=== PATIENT | male | born 1945 | race Caucasian/White ===

== ENCOUNTER 2020-01-21 11:38 | Outpatient (CLI) | payer MEDICARE, SELFPAY ==
--- NOTE | 2020-01-21 11:48 | CT_ITS ---
WS: [id number] CT ABDOMEN PELVIS TECHNIQUE: Noncontrast CT of the abdomen and pelvis with coronal and sagittal reformatted images. CLINICAL INFORMATION: CHRONIC KIDNEY DZ-STAGE3/ANEMIA COMPARISON: CT DLP: 1647.[address] scans at [facility] use at least one of these dose optimization techniques: automat ed exposure control; mA and/or kV adjustment per patient size (includes targeted exams where dose is matched to clinical indication); or iterative reconstruction. FINDINGS: Cholelithiasis with prominent gallstone measuring 2.4 cm. Gallbladder is contracted. No pericholecyst ic fluid. Noncontrast liver is normal. Normal noncontrast spleen. Normal GE junction. Slight atelecta sis in the lung bases. A few blebs in the lung bases. Adrenal glands are normal. No hydronephrosis. R ight renal atrophy. No hydronephrosis in either kidney. No obstructing renal or ureteral calculi. Pancreatic atrophy. Noncontrast contrast pancreas appears normal. Aortic calcification. Normal calibe r abdominal aorta. Sigmoid diverticulosis. No evidence of acute diverticulitis. Normal appendix in th e right lower quadrant. A few small bladder diverticuli. Postoperative changes pedicle screw fixation L3-S2 with interbody fusion grafts L3-L4 L4-L5. Interbo dy fusion graft L5-S1. Bilateral iliac screws. Abandoned S1 screws. CT/CT abdomen pelvis wo con [id number] IMPRESSION: 1. Cholelithiasis with prominent gallstone measuring 2.4 CM. 2. No hydronephrosis. No obstructing renal or ureteral calculi. 3. Right renal atrophy with atrophic right kidney. This is progressed since 4. No periaortic or retroperitoneal lymphadenopathy. No pelvic or inguinal lym phadenopathy. 5. Sigmoid diverticulosis. 6. Prior postoperative changes lumbosacral fusion.
== END 2020-01-21 11:39 | disposition home or self-care (01) ==
LOC: CT 11:44
PROVIDERS: PCP Electrodiagnostic Medicine; Visit Provider Electrodiagnostic Medicine
DX: N18.30 Chronic kidney disease, stage 3 unspecified (principal); D64.9 Anemia, unspecified; K57.30 Diverticulosis of large intestine without perforation or abscess without bleeding; N26.1 Atrophy of kidney (terminal); K80.20 Calculus of gallbladder without cholecystitis without obstruction; K80.80 Other cholelithiasis without obstruction; N18.4 Chronic kidney disease, stage 4 (severe)
CPT/HCPCS: 74176; 76770

== ENCOUNTER 2020-01-21 11:49 | Outpatient (CLI) | payer MEDICARE, SELFPAY ==
--- NOTE | 2020-01-21 12:24 | US_ITS ---
WS: [id number] RENAL ULTRASOUND REASON FOR EXAM: CHRONIC KIDNEY DZ STAGE 4 TECHNIQUE: Grayscale and Doppler ultrasound examination of the kidneys. FINDINGS: Right kidney: Right kidney measures 8.9 cm x 3.7 cm x 4.8 cm. Abundant renal sinus fibrolipomatosis. Cortical thickness is 6 to 7 mm. No calculus, mass, or hydronephrosis. Left kidney: Left kidney measures 11.8 cm x 5.0 cm x 6.4 cm. Abundant renal sinus fibrolipomatosis. C ortical thickness 7 to 8 mm. No calculus, mass, or hydronephrosis. No abnormality of the urinary bladder is identified. US/US renal BI* [id number] IMPRESSION: Small right kidney. Bilateral increased renal sinus fibrolipomatosis and decrea sed renal cortex thickness.
== END 2020-01-21 11:50 | disposition home or self-care (01) ==
PROVIDERS: PCP Electrodiagnostic Medicine; Visit Provider Internal Medicine Nephrology
DX: N18.4 Chronic kidney disease, stage 4 (severe) (principal)
CPT/HCPCS: 76770

== ENCOUNTER 2020-02-23 08:55 | Outpatient (CLI) | payer MEDICARE, SELFPAY ==
--- NOTE | 2020-02-23 09:04 | XR_ITS ---
WS: [id number] CHEST 2 VIEWS HISTORY: COPD COMPARISON: 02/13/2019 Lungs: Hyperinflated lungs from emphysema. Postsurgical sutures are noted in the RIGHT suprahilar and RIGHT apical region. No new masses or consolidation. Costophrenic angles are blunted bilaterally whi ch is chronic. Slight elevation of the LEFT hemidiaphragm. Cardiac size: Normal. Mediastinum/Aorta: Mild atherosclerosis aorta. Bones: Prior LEFT rotator cuff repair. Single anchor is noted. XR/XR chest 2V* [id number] IMPRESSION: 1. Chronic emphysema stable postsurgical changes in the RIGHT upper lung. 2. Stable blunting of the costophrenic angles.
== END 2020-02-23 08:56 | disposition home or self-care (01) ==
LOC: RAD 09:02
PROVIDERS: PCP Electrodiagnostic Medicine; Visit Provider Electrodiagnostic Medicine
DX: J44.9 Chronic obstructive pulmonary disease, unspecified (principal)
CPT/HCPCS: 71046

== ENCOUNTER → 2020-03-01 10:46 | Outpatient (BNVA) | payer MEDICARE, SELFPAY | PROVIDERS: PCP Electrodiagnostic Medicine; Visit Provider Nurse Practitioner Family | DX: Z20.828 Contact with and (suspected) exposure to other viral communicable diseases (principal); J06.9 Acute upper respiratory infection, unspecified | CPT/HCPCS: 87635 ==

== ENCOUNTER 2020-05-16 15:34 | Outpatient (CLI) | payer MEDICARE, SELFPAY ==
--- NOTE | 2020-05-16 15:48 | XR_ITS ---
WS: [id number] PROCEDURE: XR chest 2V* [id number] CLINICAL INFORMATION: COPD,CHF,DIABETES MELLITUS COMPARISON: February 23, 2020 FINDINGS: Heart: Normal cardiac silhouette. Aortic calcification. Postoperative changes right upper lobe medial ly. Lungs: Moderate chronic emphysematous changes. Blunting of the costophrenic angles somewhat the prior examination. Elevation left hemidiaphragm. No acute pulmonary infiltrates. Bones: Left rotator cuff anchor. XR/XR chest 2V* [id number] IMPRESSION: 1. Moderate chronic emphysematous changes with chronic pleural thickening in t he lung bases is unchanged in appearance. 2. No focal pneumonia or acute-appearing pulmonary infiltrates. 3. Prior postoperative changes right upper lobe medially.
== END 2020-05-16 15:35 | disposition home or self-care (01) ==
PROVIDERS: PCP Electrodiagnostic Medicine; Visit Provider Electrodiagnostic Medicine
DX: J44.9 Chronic obstructive pulmonary disease, unspecified (principal); I50.9 Heart failure, unspecified; E11.9 Type 2 diabetes mellitus without complications
CPT/HCPCS: 71046

== ENCOUNTER → 2020-08-04 08:47 | Outpatient (BNVA) | payer MEDICARE, SELFPAY | PROVIDERS: PCP Electrodiagnostic Medicine; Visit Provider Internal Medicine Pulmonary Disease | DX: J44.9 Chronic obstructive pulmonary disease, unspecified (principal) | CPT/HCPCS: 87635 ==

== ENCOUNTER 2020-08-11 13:21 | Outpatient (CLI) | payer MEDICARE, SELFPAY ==
--- NOTE | 2020-08-11 13:41 | PFTS_ITS ---
Date of Study:08/11/20 Date of Dictation: 08/11/2020 MECHANICS: Postbronchodilator forced vital capacity (FVC) is 79% corrected from 69% predicted after bronchodilation Postbronchodilator forced expiratory volume in one second (FEV1) is 1.37 L and severely reduced 50% of predicted FEV1/FVC is reduced. There is significant response to bronchodilators FLOW VOLUME LOOP: Sloping of expiratory limb suggestive of airway obstruction.. LUNG VOLUMES: Not measured DIFFUSING CAPACITY FOR CARBON MONOXIDE: Mildly reduced 66% . INTERPRETATION: The spirometry consistent with severe obstructive ventilatory defect with significant response to bronchodilators. Lung volumes not measured. There is minimal gas transfer defect. Correlate clinically. MTDD
== END 2020-08-11 13:22 | disposition home or self-care (01) ==
PROVIDERS: PCP Electrodiagnostic Medicine; Visit Provider Internal Medicine Pulmonary Disease
DX: J44.9 Chronic obstructive pulmonary disease, unspecified (principal); F17.210 Nicotine dependence, cigarettes, uncomplicated
CPT/HCPCS: 94060; 94618; 94729

== ENCOUNTER 2020-09-07 10:35 | Emergency (ER) | payer MEDICARE, SELFPAY ==
[2020-09-07 11:29] VITALS: BP 135/77; PULSE 84; RESP 18; TEMP 36.8; O2SAT 94; BMI 34.6
--- NOTE | 2020-09-07 12:02 | CT_ITS ---
WS: [id number] CT LUMBAR SPINE, noncontrast. HISTORY: back pain. h/o surgery/hardware TECHNIQUE: Contiguous 2.5 mm axial imaging are performed. Sagittal and coronal reformats are submitte d and reviewed. All CT scans at [facility] use at least one of these dose optimization te chniques: automated exposure control; mA and/or kV adjustment per patient size (includes targeted exa ms where dose is matched to clinical indication); or iterative reconstruction. IV contrast: None DLP: 2410.23 mGy.cm COMPARISON: 09/29/2017 and 01/21/2020 L5 anterolisthesis by 5 mm. Posterior fusion hardware extends from L3 S2. No fractures are identified . Interbody spacers at L3-4, L4-5 and L5-S1 with no subsidence. Bilateral pars defects at L5. Vacuum disc phenomenon at T12-L1 and L2-3. L1-2: Mild osteophytic ridging without significant stenosis. L2-3: Diffuse annular disc bulging and osteophytic ridging. Disc contacts the ventral thecal sac and narrows the subarticular recesses and foramina. Moderate bilateral foraminal stenosis and mild subart icular recess and central stenosis. L3-4: Significant artifact from hardware obscuring detail. There is osteophytic ridging and disc bulg ing. Moderate LEFT and mild RIGHT foraminal stenosis. There is a small osteophyte encroaching upon th e LEFT L3 nerve root. Large posterior laminectomy defect. L4-5: Diffuse osteophytic ridging. Vertebral body osteophytes causing mild encroachment into the fora men. There is a large posterior laminectomy defect. Severe facet joint arthritis. L5-S1: Using a disc bulging and osteophytic ridging. Severe LEFT and moderate RIGHT foraminal stenosi s. Osteophytes contribute to the stenosis involving the LEFT foramen. Extensive atherosclerosis abdominal aorta. No aneurysm is appreciated but the aorta is not entirely i ncluded. CT/CT lumbar spine wo con* [id number] IMPRESSION: 1. Status post extensive prior lumbar fusion hardware extending from L3 to S2 with interbody spacers at L3-4, L4-5 and L5-S1. No fractures of the hardware or loosening. 2. Grade 1 spondylolisthesis of L5 with bilateral pars defects. 3. Moderate bilateral foraminal stenosis with mild subarticular and central st enosis at L2-3. 4. Moderate LEFT foraminal stenosis at L3-4. 5. Severe LEFT and moderate RIGHT foraminal stenosis at L5-S1.
--- NOTE | 2020-09-07 12:10 | W.ED.BACK ---
HPI - Back Pain/Injury General: Chief Complaint: Back Pain/Injury Stated Complaint: Back pain, lower R hip, thigh and leg pain Time Seen by Provider: 09/07/20 11:57 History of Present Illness: HPI Narrative: The patient is a 75-year-old male who comes to the ER complaining of lower right back pain since yesterday evening. says she felt a big lump there and they think it is a muscle spasm. He had 2 lumbar fusion surgeries 1 in 2018 and one in 2019. The second was after 2 of the screws broke on his first procedure. He complains of right lower back pain radiating to the right thigh. He was told to come for a CT scan of his back to make sure there is no problem with the hardware. Denies recent injury. MD elicited complaint: back pain Pertinent past history: prior back pain Onset (ago): hour(s) (24) Timing: constant Severity: moderate Similar Symptoms Previously: Yes Quality: sharp Location: lumbar spine and right lower back Radiation: other (Right thigh) Exacerbating factors: movement Relieving factors: other (Breast) Associated symptoms: Reports no associated symptoms; Deny abdominal pain, difficulty walking, fatigue or urinary urgency Review of Systems General: Reports: 10 or more systems reviewed and unremarkable except in HPI and below Const: Denies: fatigue Eyes: Denies: change in vision, blurry vision or eye redness ENMT: Denies: throat pain, swelling of lips/tongue, ear or mastoid pain or nasal congestion Card: Denies: chest pain, palpitations, irregular heart rhythm, edema, dyspnea on exertion or orthopnea Resp: Denies: dyspnea, productive cough or non-productive cough GI: Denies: abdominal pain, diarrhea or GI cramping : Denies: flank pain, urinary frequency or urinary urgency Musc: Reports: back pain; Denies: neck pain, extremity pain, joint pain, joint redness, limited range of motion or muscle weakness Skin/Breast: Denies: rash, pruritus, erythema, skin pain or skin tenderness Neuro: Denies: headache(s), numbness in extremities, weakness in extremities, sensory changes, difficulty walking, dizziness, confusion or Slurred speech present Psych: Denies: anxiety or depression Endo: Denies: polyuria All/Imm: Denies: urticaria, throat swelling or tongue swelling PFSH ED PFSH: Medical History COPD (chronic obstructive pulmonary disease) Heart failure HTN (hypertension) with goal to be determined Surgical History S/P lobectomy of lung Family History Mother Hypertension Stroke Brother Heart disease Other Diabetes Social History Smoking and tobacco status: former smoker Quit status (tobacco): has quit using tobacco Year quit tobacco: 1987 [id number] Second hand smoke exposure: No Smoking risk assessment/counseling performed?: Yes Alcohol intake: never Lives independently: Yes Household members: spouse Housing: House Marital status: service: No Current occupational status: retired Pets and animals: Yes History of recent travel: No Current gender identity: Male Physical Exam Const: COMMON NORMALS: no acute distress, average body habitus, patient oriented x3, no limitations, healthy appearing, alert and well nourished GENERAL APPEARANCE: cooperative, comfortable, well kempt and well developed ORIENTATION/CONSCIOUSNESS: Yes awake, Yes oriented to person, Yes oriented to place and Yes oriented to time HENMT: COMMON NORMALS: normocephalic, external ears normal and Normal external nose present HEAD & SCALP: normal to inspection and normocephalic NOSE: Normal external nose present EXTERNAL EAR: Yes external ears normal MOUTH: Normal oral and palatal mucosa present THROAT: posterior oropharynx normal Eye: COMMON NORMALS: Equal, round and reactive pupils present and EOMs intact bilaterally GENERAL EYE: appearance normal, both eyes and all related structures PUPIL: Yes Equal, round and reactive pupils present Neck/C-Spine: COMMON NORMALS: full ROM, no lymphadenopathy, no meningeal signs and no JVD GENERAL: Yes normal visual inspection Lymph: LYMPHATIC: no lymphadenopathy noted Chest: COMMONS NORMALS: normal inspection of the chest and normal palpation of entire chest wall Resp: COMMON NORMALS: normal respiratory effort, No retractions, No use of accessory muscles, clear to auscultation bilaterally and percussion normal EFFORT & INSPECTION: Yes able to speak in complete sentences AUSCULTATION: clear to auscultation bilaterally PERCUSSION: percussion normal Cardio: COMMON NORMALS: no JVD, regular rate, regular rhythm, S1 normal heart sound present, S2 normal heart sound present and Peripheral pulses 2+ throughout RATE: regular rate RHYTHM: regular rhythm HEART SOUNDS: S1 normal heart sound present and S2 normal heart sound present PERIPHERAL PULSES: Peripheral pulses 2+ throughout GI: COMMON NORMALS: Normal to inspection, nondistended, normoactive bowel sounds present, Soft to palpation, non-tender and no masses INSPECTION: Yes normal to inspection PALPATION: Yes Soft to palpation : COMMON NORMALS: Yes no CVA tenderness BLADDER/KIDNEY EXAM: Yes no CVA tenderness Back/Pelvis: COMMON NORMALS: no CVA tenderness, thoracic and lumbar spine normal to inspection, no thoracic nor lumbar tenderness and thoraco-lumbar ROM normal OTHER: Muscle spasm to lower right lumbar spinal para musculature. Associated tenderness. Extremity: COMMON NORMALS: normal to inspection, full ROM, capillary refill normal, no joint enlargement and no pedal edema GENERAL: Yes normal exam except as noted Neuro: COMMON NORMALS: patient oriented x3, CN's II-XII intact bilaterally, moves all extremities, no focal motor deficits, no sensory deficits noted and gait normal SENSORIUM/ORIENTATION: Yes alert, Yes oriented to person, Yes oriented to place and Yes oriented to time MENINGEAL SIGNS: Yes no meningeal signs Psych: COMMON NORMALS: mental status grossly normal, Normal thought process present, cooperative, normal affect and speech normal APPEARANCE: Yes well kempt ATTITUDE: Yes calm SPEECH: Yes normal speech THOUGHT PROCESS: Normal thought process present Skin: COMMON NORMALS: no rashes or lesions noted GENERAL SKIN EXAM: no rashes or lesions noted Course Vital Signs: Vital signs: Vital Signs Temperature 98.2 F 09/07/20 11:29 Pulse Rate 84 09/07/20 11:29 Respiratory Rate 18 09/07/20 11:29 Blood Pressure 135/77 09/07/20 11:29 Pulse Oximetry 94 09/07/20 11:29 MDM - Back Pain/Injury MDM Narrative: Medical decision making narrative: The patient came to the ER complaining of a low right back spasm. It is tender to palpation there is well. He was given 2 Driscoll's with improvement of his pain. He also requested a muscle relaxer which has made him nauseous in the past. I gave him an Flexeril and sent him home with a prescription. He will not mix it with his hydrocodone's. He will not operate machinery while taking either of those medicines. Return to the ER with worsening symptoms otherwise follow-up with primary care physician in a few days to monitor improvement of symptoms. CT of lumbar spine shows no acute abnormality. Chronic problems and stenoses seen. Hardware intact. Discharge Plan Discharge Patient Disposition: Home Clinical Impression: Strain of lumbar region Condition: Stable Prescriptions: New cyclobenzaprine 5 mg tablet 5 mg PO TID PRN (Reason: muscle spasm) Qty: 14 RF: 0 No Action ipratropium-albuterol 18-103 mcg/actuation aerosol INHALATION RF: 0 melatonin 3 mg capsule 3 mg PO DAILY RF: 0 hydrocodone-acetaminophen 5-325 mg tablet 1 tab PO DAILY PRNRF: 0 magnesium oxide 250 mg magnesium tablet 250 mg PO DAILY RF: 0 Trulicity 0.75 mg/0.5 mL pen injector SUBCUT RF: 0 albuterol sulfate [Ventolin HFA] 90 mcg/actuation HFA aerosol inhaler 2 puff INHALATION Q6H PRNRF: 0 ferrous sulfate 325 mg (65 mg iron) tablet 325 mg PO DAILY RF: 0 finasteride 5 mg tablet 5 mg PO DAILY RF: 0 PreserVision AREDS [id number] capsule 1 cap PO BID RF: 0 vitamin B complex [B Complex-Vitamin B12] Tablet 1 tab PO DAILY RF: 0 docusate sodium [Dulcolax Stool Softener (dss)] 100 mg capsule 100 mg PO DAILY RF: 0 gabapentin 600 mg tablet 600 mg PO TID RF: 0 Lantus U-100 Insulin 100 unit/mL solution 95 unit SUBCUT DAILY RF: 0 aspirin 325 mg tablet 325 mg PO DAILY RF: 0 omeprazole 20 mg capsule,delayed release(DR/EC) 20 mg PO DAILY RF: 0 ascorbic acid (vitamin C) 500 mg tablet 500 mg PO DAILY RF: 0 zinc 50 mg tablet 50 mg PO DAILY RF: 0 guaifenesin [Mucinex] 600 mg tablet extended release 12hr 600 mg PO Q12H PRN (Reason: congestion) Qty: 60 RF: 1 allopurinol 100 mg tablet 100 mg PO DAILY RF: 0 Trelegy Ellipta 100-62.5-25 mcg blister with device 1 inh inhalation DAILY Qty: 60 RF: 3 amlodipine 10 mg tablet 10 mg PO DAILY Qty: 90 RF: 3 atorvastatin 80 mg tablet 80 mg PO DAILY Qty: 90 RF: 3 furosemide 20 mg tablet 20 mg PO DAILY Qty: 90 RF: 3 hydralazine 50 mg tablet 50 mg PO TID Qty: 270 RF: 3 metoprolol succinate 50 mg tablet extended release 24 hr 75 mg PO DAILY Qty: 135 RF: 3 Discharge Orders: Discharge ED (Routine); Ordered 09/07/20 Ordered By: Sanya Zamora Referrals: Praveen Shah DO [Primary Care Provider] - Discharge Diet: Advance as tolerated Discharge Activity: Resume usual activity Patient Instructions: Back Pain (ED), Opioid Safety Activity Restrictions/Additional Instructions: You came in complaining of low right back pain. CT shows no acute pathologies related to your previous surgeries. Likely have a muscle spasm. This will take 1 to 2 weeks to improve. I have prescribed you Flexeril. Please take it as needed to help with your pain along with the hydrocodone. Be careful taking the hydrocodone and the Flexeril at the same time as it may double the side effects of the medications and cause you to be excessively drowsy. Also do not operate machinery while using these medications. 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
[2020-09-07] MEDS: HYDROcodone-acetaminophen 5-325 mg Tablet 2 TAB PO (12:13)
[2020-09-07] MEDS: cyclobenzaprine 10 mg Tablet 5 MG PO (14:16)
[2020-09-07 14:26] VITALS: BP 131/72; PULSE 76; RESP 18; O2SAT 95
== END 2020-09-07 14:30 | disposition home or self-care (01) ==
PROVIDERS: Emergency Provider Family Medicine; PCP Electrodiagnostic Medicine
DX: S39.012A Strain of muscle, fascia and tendon of lower back, initial encounter (principal); Z79.82 Long term (current) use of aspirin; Z79.4 Long term (current) use of insulin; J44.9 Chronic obstructive pulmonary disease, unspecified; I11.0 Hypertensive heart disease with heart failure; I50.9 Heart failure, unspecified; Z90.2 Acquired absence of lung [part of]; Z87.891 Personal history of nicotine dependence; X58.XXXA Exposure to other specified factors, initial encounter
CPT/HCPCS: 72131; 99283

== ENCOUNTER 2020-10-12 12:26 | Outpatient (CLI) | payer MEDICARE, SELFPAY ==
--- NOTE | 2020-10-12 12:32 | XR_ITS ---
WS: [id number] Exam: XR ankle RT min 3V* [id number] Date/Time of Exam: 10/12/2020 12:33 PM Reason For Exam: PAIN IN JOINT INVOLVING ANKLE AND FOOT No fracture or dislocation. The ankle mortise is equidistant. Vascular calcifications noted about the ankle. XR/XR ankle RT min 3V* [id number] IMPRESSION: 1. No fracture or dislocation noted.
== END 2020-10-12 12:27 | disposition home or self-care (01) ==
PROVIDERS: PCP Electrodiagnostic Medicine; Visit Provider Electrodiagnostic Medicine
DX: M79.671 Pain in right foot (principal); M25.571 Pain in right ankle and joints of right foot
CPT/HCPCS: 73610

== ENCOUNTER 2020-11-09 08:31 | Emergency (ER) | payer MEDICARE, SELFPAY ==
[2020-11-09] VITALS (7 sets, daily range): BP systolic 108–110; BP diastolic 65–71; PULSE 97–102; RESP 20; TEMP 36.8; O2SAT 94–96; BMI 32.8
--- NOTE | 2020-11-09 08:45 | XR_ITS ---
WS: [id number] Exam: XR chest 1V portable [id number] Date/Time of Exam: 11/09/2020 8:47 AM Reason For Exam: dyspnea/cough Comparison 05/16/2020. The lungs are clear and fully inflated. Heart size is top limits normal. No pleural effusions. Mild p leural thickening at the right costophrenic angle. Numerous surgical sutures seen along the superior mediastinum on the right. Regional bony elements are intact. Anchoring screw in the left humeral head . XR/XR chest 1V portable [id number] IMPRESSION: 1. No acute cardiopulmonary finding. No change.
--- NOTE | 2020-11-09 08:45 | ECG_ITS ---
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
--- NOTE | 2020-11-09 08:52 | W.ED.CHESTPA ---
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 Dull pain in his chest with no radiation out of the chest no increasing shortness of breath he did have a mild headache it resolved spontaneously after 20 minutes he did not notice anything that exacerbates or relieves it. He has a known history of coronary disease an angiogram about 7 years ago but nothing in the interval. Is not been recent having any further episodes of chest pain. He is diabetic and has a history of hypertension. Recent ankle sprain is wearing a cam walker on the right leg that he got from someone else. MD complaint: chest heaviness Pertinent past history: coronary artery disease Onset (ago): minute(s) Timing of current episode: episodic Prior episodes: No Onset: during rest Pain location: left chest Pain radiation: none Severity: mild Quality: heaviness Relieving factors: nothing Exacerbating factors: nothing Associated symptoms: Deny abdominal pain, diaphoresis, dyspnea, fever(s), leg edema, nausea, palpitations, sense of impending doom, syncope or vomiting Treatment prior to arrival: none Review of Systems Const: Denies: fever(s) or diaphoresis ENMT: Denies: throat pain, ear or mastoid pain, nasal discharge or nasal congestion Card: Denies: palpitations or syncope Resp: Denies: dyspnea GI: Denies: abdominal pain, nausea or vomiting : Denies: flank pain, dysuria, urinary frequency or urinary urgency Skin/Breast: Denies: rash or pruritus PFSH ED PFSH: Medical History COPD (chronic obstructive pulmonary disease) Heart failure HTN (hypertension) with goal to be determined Surgical History S/P lobectomy of lung Family History Mother Hypertension Stroke Brother Heart disease Other Diabetes Social History Smoking and tobacco status: former smoker Quit status (tobacco): has quit using tobacco Year quit tobacco: 1987 [id number] Second hand smoke exposure: No Smoking risk assessment/counseling performed?: Yes Alcohol intake: never Lives independently: Yes Household members: spouse Housing: House Marital status: service: No Current occupational status: retired Pets and animals: Yes History of recent travel: No Current gender identity: Male Physical Exam Const: COMMON NORMALS: no acute distress GENERAL APPEARANCE: cooperative and comfortable ORIENTATION/CONSCIOUSNESS: Yes awake, Yes oriented to person, Yes oriented to place and Yes oriented to time HENMT: COMMON NORMALS: normocephalic, atraumatic and hearing grossly normal bilaterally HEAD & SCALP: normocephalic and atraumatic Eye: COMMON NORMALS: Equal, round and reactive pupils present, EOMs intact bilaterally, conjunctivae normal and no scleral icterus CONJUNCTIVA: Yes conjunctivae normal PUPIL: Yes Equal, round and reactive pupils present Neck/C-Spine: COMMON NORMALS: full ROM, no lymphadenopathy, supple and no JVD Lymph: LYMPHATIC: no lymphadenopathy noted and no lymphedema noted Resp: COMMON NORMALS: normal respiratory effort, No retractions, No use of accessory muscles and clear to auscultation bilaterally AUSCULTATION: clear to auscultation bilaterally Cardio: COMMON NORMALS: no JVD, regular rate, regular rhythm and No murmurs present (Cardio) RATE: regular rate RHYTHM: regular rhythm GI: COMMON NORMALS: Soft to palpation and No hepatosplenomegaly present AUSCULTATION: Yes normoactive bowel sounds PALPATION: Yes Soft to palpation, No Tenderness to palpation present (GI), No Guarding due to palpation present (GI) and Yes No hepatosplenomegaly present Extremity: COMMON NORMALS: normal to inspection, capillary refill normal, no clubbing, cyanosis or edema, no calf tenderness and no pedal edema Neuro: SENSORIUM/ORIENTATION: Yes oriented to person, Yes oriented to place and Yes oriented to time Skin: COMMON NORMALS: no rashes or lesions noted GENERAL SKIN EXAM: no rashes or lesions noted Course Vital Signs: Vital signs: Vital Signs Temperature 98.2 F 11/09/20 08:49 Pulse Rate 102 H 11/09/20 12:27 Respiratory Rate 20 H 11/09/20 08:42 Blood Pressure 110/65 11/09/20 11:53 Pulse Oximetry 96 11/09/20 12:27 MDM - Chest Pain MDM Narrative: Medical decision making narrative: Reviewed labs and EKGs on the chart discussed with the patient we will discharge patient home make arrangements for outpatient Lexiscan sestamibi stress test encourage patient to continue aspirin daily return if has further problems. Lab Data: Labs: Lab Results 11/09/20 11/09/20 11/09/20 Range/Units 09:07 09:07 09:07 WBC 9.2 (4.0-10.0) 10^3/ uL RBC 4.09 L (4.1-5.3) 10^6/u L Hgb 11.5 L (11.7-16.6) g/dL Hct 36.2 L (42.0-52.0) % MCV 88.5 (80-94) fl MCH 28.1 (28.0-34.0) pg MCHC 31.8 (30.0-36.0) g/dL RDW 17.2 H (12.1-15.1) % Plt Count 221 (130-400) 10^3/c mm MPV 9.6 (7.4-10.4) fL Neut % (Auto) 65.3 % Lymph % (Auto) 19.7 % [place] % (Auto) 12.5 % Eos % (Auto) 1.3 % Baso % (Auto) 0.7 % Neut # (Auto) 6.02 (1.8-7.7) 10^3/u L Lymph # (Auto) 1.8 (0.8-4.8) 10^3/u L [place] # (Auto) 1.2 H (0.2-0.9) 10^3/u L Eos # (Auto) 0.1 (0.0-0.8) 10^3/u L Baso # (Auto) 0.1 (0.0-0.1) 10^3/u L Nucleated RBC % (a uto) 0 % Nucleated RBCs # 0.0 /100WBC Sodium 140 (136-145) mmol/L Potassium 4.2 (3.5-5.1) mmol/L Chloride 102 (98-107) mmol/L Carbon Dioxide 26 (22-29) mmol/L Anion Gap 16.2 (5-19) BUN 25 H (8-23) mg/dL Creatinine 1.1 (0.7-1.2) mg/dL GFR Calculation Not Reportable Glucose 91 (65-115) mg/dL Calculated Osmolal ity 294 (285-295) mOsm/k g Calcium 9.1 (8.5-10.5) mg/dL Total Bilirubin 0.3 (0.15-1.2) mg/dL AST 16 (0-40) U/L ALT 18 (0-41) U/L Alkaline Phosphata se 92 (40-130) IU/L Troponin T Baselin e 42 H (0-15) ng/L Troponin T 120 Min [place] (0-15) ng/L Delta Troponin T (0-10) ABS# Total Protein 6.4 L (6.6-8.7) g/dL Albumin 3.5 (3.5-5.2) g/dL Globulin 2.9 (1.3-4.6) g/dL Urine Color (Yellow) Urine Appearance (CLEAR) Urine pH (5-7) Ur Specific Gravit y (1.005-1.030) Urine Protein (Negative) Urine Glucose (UA) (Normal) Urine Ketones (Negative) Urine Blood (Negative) Urine Nitrate (Negative) Urine Bilirubin (Negative) Urine Urobilinogen (Negative) mg/dL Ur Leukocyte Ni ase (Negative) 11/09/20 11/09/20 Range/Units 09:20 10:56 WBC (4.0-10.0) 10^3/ uL RBC (4.1-5.3) 10^6/u L Hgb (11.7-16.6) g/dL Hct (42.0-52.0) % MCV (80-94) fl MCH (28.0-34.0) pg MCHC (30.0-36.0) g/dL RDW (12.1-15.1) % Plt Count (130-400) 10^3/c mm MPV (7.4-10.4) fL Neut % (Auto) % Lymph % (Auto) % [place] % (Auto) % Eos % (Auto) % Baso % (Auto) % Neut # (Auto) (1.8-7.7) 10^3/u L Lymph # (Auto) (0.8-4.8) 10^3/u L [place] # (Auto) (0.2-0.9) 10^3/u L Eos # (Auto) (0.0-0.8) 10^3/u L Baso # (Auto) (0.0-0.1) 10^3/u L Nucleated RBC % (a uto) % Nucleated RBCs # /100WBC Sodium (136-145) mmol/L Potassium (3.5-5.1) mmol/L Chloride (98-107) mmol/L Carbon Dioxide (22-29) mmol/L Anion Gap (5-19) BUN (8-23) mg/dL Creatinine (0.7-1.2) mg/dL GFR Calculation Glucose (65-115) mg/dL Calculated Osmolal ity (285-295) mOsm/k g Calcium (8.5-10.5) mg/dL Total Bilirubin (0.15-1.2) mg/dL AST (0-40) U/L ALT (0-41) U/L Alkaline Phosphata se (40-130) IU/L Troponin T Baselin e (0-15) ng/L Troponin T 120 Min [place] 40.91 H (0-15) ng/L Delta Troponin T -1.09 L (0-10) ABS# Total Protein (6.6-8.7) g/dL Albumin (3.5-5.2) g/dL Globulin (1.3-4.6) g/dL Urine Color Yellow (Yellow) Urine Appearance Clear (CLEAR) Urine pH 5 (5-7) Ur Specific Gravit y 1.015 (1.005-1.030) Urine Protein Neg (Negative) Urine Glucose (UA) Norm (Normal) Urine Ketones Negative (Negative) Urine Blood Neg (Negative) Urine Nitrate Negative (Negative) Urine Bilirubin Neg (Negative) Urine Urobilinogen Norm (Negative) mg/dL Ur Leukocyte Ni ase Negative (Negative) Discharge Plan Discharge Patient Disposition: Home Clinical Impression: Atypical chest pain Condition: Stable Prescriptions: No Action melatonin 3 mg capsule 3 mg PO BEDTIME RF: 0 hydrocodone-acetaminophen 5-325 mg tablet 1 tab PO BID PRN (Reason: Pain) RF: 0 magnesium oxide 250 mg magnesium tablet 250 mg PO DAILY@12 RF: 0 albuterol sulfate [Ventolin HFA] 90 mcg/actuation HFA aerosol inhaler 2 puff INHALATION Q6H PRN (Reason: Shortness Of Breath) RF: 0 finasteride 5 mg tablet 5 mg PO QAM RF: 0 aspirin 325 mg tablet 325 mg PO QAM RF: 0 omeprazole 20 mg capsule,delayed release(DR/EC) 20 mg PO BID RF: 0 zinc 50 mg tablet 50 mg PO DAILY@12 RF: 0 allopurinol 100 mg tablet 100 mg PO DAILY RF: 0 amlodipine 10 mg tablet 10 mg PO DAILY Qty: 90 RF: 3 hydralazine 50 mg tablet 50 mg PO TID Qty: 270 RF: 3 cyclobenzaprine 5 mg tablet 5 mg PO TID PRN (Reason: muscle spasm) Qty: 14 RF: 0 Vegetable Laxative 8.6 mg Tablet 8.6 mg PO BEDTIME RF: 0 Vitamin C 1,000 mg Tablet 1,000 mg PO DAILY@12 RF: 0 Lantus U-100 Insulin 100 unit/mL solution 80 unit SUBCUT BID RF: 0 albuterol sulfate 2.5 mg /3 mL (0.083 %) solution for nebulization 2.5 mg inhalation Q4H PRN (Reason: Shortness Of Breath) RF: 0 metoprolol succinate 100 mg tablet extended release 24 hr 100 mg PO BEDTIME RF: 0 Vitamin B-12 500 mcg Tablet 1,000 mcg PO QAM RF: 0 Stool Softener 100 mg Capsule 100 mg PO BID RF: 0 gabapentin 300 mg Capsule 300 mg PO BID RF: 0 ipratropium bromide 0.02 % solution See Rx Instructions .ROUTE .COMPLEX RF: 0 Lumigan 0.01 % drops 1 drp ophthalmic (eye) QPM RF: 0 PreserVision AREDS-2 250-90-40-1 mg Capsule 1 tab PO BID RF: 0 Trulicity 1.5 mg/0.5 mL pen injector 1.5 mg SUBCUT Q7D RF: 0 atorvastatin 80 mg tablet 80 mg PO QPM RF: 0 furosemide 20 mg tablet 20 mg PO QAM RF: 0 Mucinex 600 mg tablet extended release 12hr 600 mg PO Q12H RF: 0 Trelegy Ellipta 100-62.5-25 mcg blister with device 1 inh inhalation QAM RF: 0 Discharge Orders: Discharge ED (Routine); Ordered 11/09/20 Ordered By: Mich Delaney Referrals: Praveen Shah, [Primary Care Provider] - Discharge Diet: Usual diet Discharge Activity: Limit activity as instructed Patient Instructions: Opioid Safety Activity Restrictions/Additional Instructions: Case management will call to schedule a Lexiscan sestamibi stress test. Coding Level of Care Code ED Plastic Finisher for Kathie Fwd Exam Comprehensive
[2020-11-09 09:12] LABS: Basophils # 0.1 10^3/uL (0.0-0.1); Basophils % 0.7 %; Eosinophils # 0.1 10^3/uL (0.0-0.8); Eosinophils % 1.3 %; Hematocrit 36.2 % (42.0-52.0); Hemoglobin 11.5 g/dL (11.7-16.6); Lymphocytes # 1.8 10^3/uL (0.8-4.8); Lymphocytes % 19.7 %; Mean Corpuscular HGB Conc 31.8 g/dL (30.0-36.0); Mean Corpuscular Hemoglobin 28.1 pg (28.0-34.0); Mean Corpuscular Volume 88.5 fl (80-94); Mean Platelet Volume 9.6 fL (7.4-10.4); Monocytes # 1.2 10^3/uL (0.2-0.9); Monocytes % 12.5 %; Neutrophils # 6.02 10^3/uL (1.8-7.7); Neutrophils % 65.3 %; Nucleated Red Blood Cells % 0 %; Platelet Count 221 10^3/cmm (130-400); Red Blood Count 4.09 10^6/uL (4.1-5.3); Red Cell Distribution Width 17.2 % (12.1-15.1); White Blood Count 9.2 10^3/uL (4.0-10.0)
[2020-11-09 09:36] LABS: Add Urine Microscopic? NO; Charge for UA Resulting for Rev
[2020-11-09 09:37] LABS: Alanine Aminotransferase 18 U/L (0-41); Albumin Level 3.5 g/dL (3.5-5.2); Alkaline Phosphatase 92 IU/L (40-130); Aspartate Amino Transferase 16 U/L (0-40); Blood Urea Nitrogen 25 mg/dL (8-23); Calcium 9.1 mg/dL (8.5-10.5); Carbon Dioxide 26 mmol/L (22-29); Chloride 102 mmol/L (98-107); Globulin 2.9 g/dL (1.3-4.6); Glucose 91 mg/dL (65-115); Osmolality Calculated 294 mOsm/kg (285-295); Sodium 140 mmol/L (136-145); Total Bilirubin 0.3 mg/dL (0.15-1.2); Total Protein 6.4 g/dL (6.6-8.7); Troponin(5th) Baseline 42 ng/L (0-15)
[2020-11-09 09:38] LABS: Anion Gap 16.2 (5-19); Potassium 4.2 mmol/L (3.5-5.1)
[2020-11-09 09:39] LABS: Bilirubin Urine Neg (Negative); Blood Urine Neg (Negative); Glucose Urine UA Norm (Normal); Ketones Urine Negative (Negative); Leukocyte Esterase Urine Negative (Negative); Nitrate Urine Negative (Negative); Protein Urine Neg (Negative); Specific Gravity, Urine 1.015 (1.005-1.030); Urine Appearance Clear (CLEAR); Urine Color Yellow (Yellow); Urobilinogen Urine Norm (Negative); pH Urine 5 (5-7)
--- NOTE | 2020-11-09 09:51 | PC.NURSE ---
PATIENT SITTING UP AT BEDSIDE. PATIENT IS HAVING PAIN IN HIS RIGHT LOWER LEG FROM HIS SPRAIN. THIS NURSE ASKED IF THERE WAS ANYTHING THAT SHE COULD DO FOR HIM AND HE HAS NO FURTHER NEEDS AT THIS TIME.
--- NOTE | 2020-11-09 10:41 | PC.NURSE ---
PATIENT 2ND EKG PERFORMED. SANDWICH AND CHEESE STICK PROVIDED. PATIENT HAS NO FURTHER NEEDS AT THIS TIME.
--- NOTE | 2020-11-09 10:45 | ECG_ITS ---
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
[2020-11-09 11:24] LABS: Troponin 5 2HR 40.91 ng/L (0-15)
[2020-11-09 11:31] LABS: Troponin 5 2HR Delta -1.09 ABS# (0-10)
== END 2020-11-09 12:28 | disposition home or self-care (01) ==
PROVIDERS: Emergency Provider Family Medicine; PCP Electrodiagnostic Medicine
DX: R07.89 Other chest pain (principal); I25.10 Atherosclerotic heart disease of native coronary artery without angina pectoris; J44.9 Chronic obstructive pulmonary disease, unspecified; I11.0 Hypertensive heart disease with heart failure; I50.9 Heart failure, unspecified; Z79.82 Long term (current) use of aspirin; Z87.891 Personal history of nicotine dependence; Z82.49 Family history of ischemic heart disease and other diseases of the circulatory system
CPT/HCPCS: 36415; 71045; 80053; 81003; 84484; 85025; 93005; 99284

== ENCOUNTER 2020-12-22 11:01 | Outpatient (CLI) | payer MEDICARE, SELFPAY ==
--- NOTE | 2020-12-22 11:09 | XR_ITS ---
WS: [id number] XR chest 2V* [id number] REASON FOR EXAM: R06.00 - Dyspnea, unspecified FINDINGS: The chest is unchanged compared to 11/09/2020. Mild tortuosity the thoracic aorta. Normal heart size. Calcified granulomatous changes in both hemithoraces with no active pulmonary parenchymal pleural dis ease. Surgical kavon overlying the right upper lung. Flattening and tenting of the left hemidiaphragm. Right hemidiaphragm eventrations. XR/XR chest 2V* [id number] IMPRESSION: No acute chest abnormality.
== END 2020-12-22 11:02 | disposition home or self-care (01) ==
PROVIDERS: PCP Electrodiagnostic Medicine; Visit Provider Nurse Practitioner Family
DX: R06.00 Dyspnea, unspecified (principal)
CPT/HCPCS: 71046

== ENCOUNTER 2021-03-01 07:08 | Outpatient (CLI) | payer MEDICARE, SELFPAY ==
--- NOTE | 2021-03-01 07:13 | USCV_ITS ---
Jeff Delvalle Age: 75 Gender: M : 1945 Exam Date: 03/01/2021 07:43 Ordering Phys: Praveen Shah DO Technologist: Exam Location: [facility] [place] Indication: HYPERTENSION BP: 140 / 83 HR: 94 Rhythm: Sinus Technical Quality: Adequate MEASUREMENTS (Male / Female) Normal Values 2D ECHO LVOT Diameter 2.1 cm LA Diameter 3.8 cm LA Width 4.0 cm LA Height 5.1 cm RA Width 4.1 cm RA Height 4.6 cm M-MODE LV Diastolic Diameter MM 4.3 cm 4.2 - 5.9 / 3.9 - 5.3 cm LV Systolic Diameter MM 2.5 cm LV Ejection Fraction MM Teich 72.6 % IVS Diastolic Thickness MM 1.2 cm 0.6 - 1.0 / 0.6 - 0.9 cm IVS Systolic Thickness MM 2.1 cm LVPW Diastolic Thickness MM 1.8 cm 0.6 - 1.0 / 0.6 - 0.9 cm LVPW Systolic Thickness MM 1.5 cm RV Diastolic Diameter MM 2.4 cm Aortic Annulus Diameter 3.6 cm LA Ao Ratio MM 1.1 MV E Point Septal Separation 1.2 cm DOPPLER AV Peak Velocity 115.0 cm/s LVOT Peak Velocity 89.0 cm/s AV Area Cont Eq vti 3.1 cm squared AV Area Cont Eq pk 2.6 cm squared MV Area PHT 5.0 cm squared Mitral E to A Ratio 0.6 MV E' Velocity 28.8 cm/s Mitral E to MV E' Ratio 6.5 Mitral E to LV E' Lateral Ratio 5.0 Mitral E to LV E' Septal Ratio 9.4 TR Peak Velocity 129.0 cm/s TR Peak Gradient 6.7 mmHg TV Peak E Velocity 67.0 cm/s Right Atrial Pressure 3.0 mmHg Pulmonary Artery Systolic Pressu 9.7 mmHg FINDINGS Left Ventricle Normal left ventricular cavity size. Normal left ventricular systolic function. No regional wall motion abnormalities. Left ventricular ejection fraction is estimated at 65%. Grade I/IV diastolic dysfunction (abnormal relaxation filling pattern), normal to mildly elevated filling pressures. Right Ventricle The right ventricle is normal in size and function. Right Atrium The right atrium is normal in size. Left Atrium The left atrium is normal in size. Mitral Valve Mildly thickened mitral valve. Mild mitral annular calcification. No mitral valve stenosis. Trace mitral valve regurgitation. Aortic Valve Structurally normal aortic valve without significant sclerosis or stenosis. There is no aortic regurgitation. Tricuspid Valve Structurally normal tricuspid valve without significant stenosis or regurgitation. Pulmonary artery systolic pressure is normal. Pulmonic Valve Structurally normal pulmonic valve without significant stenosis. There is no pulmonic regurgitation. Pericardium Normal pericardium without effusion. Aorta Normal ascending aorta dimension. CONCLUSIONS 1-Normal left ventricular cavity size. Normal left ventricular systolic function. No regional wall motion abnormalities. Left ventricular ejection fraction is estimated at 65%. Grade I/IV diastolic dysfunction (abnormal relaxation filling pattern), normal to mildly elevated filling pressures. 2-There is no pericardial effusion. 3-No significant valve abnormalities. 4-Pulmonary artery systolic pressure is within normal limits. 5-Right atrial pressure is around 5 mm of mercury. 6-No significant change since the prior echocardiogram study of 11/30/2015. Robert Hampton MD (Electronically Signed) Final Date: 01 March 2021 20:54 S
== END 2021-03-01 07:09 | disposition home or self-care (01) ==
LOC: US 07:10
PROVIDERS: PCP Electrodiagnostic Medicine; Visit Provider Electrodiagnostic Medicine
DX: I10 Essential (primary) hypertension (principal)
CPT/HCPCS: 93306

== ENCOUNTER 2021-04-26 10:02 | Outpatient (CLI) | payer MEDICARE, SELFPAY ==
--- NOTE | 2021-04-26 10:29 | XR_ITS ---
WS: [id number] XR lumbar spine 2-3V* [id number] REASON FOR EXAM: CHRONIC LUMBAR BACK PAIN FINDINGS: Mild wedge-shaped compression deformities of T11-L1 unchanged compared to 06/26/2018. Posterior pedicle screws and rods extending from L3-S2. Pedicle screws at S1 have previously fracture with subsequent placement of screws at S2. Interbody fusion devices at L5-S1, L4-L5, and L3-L4. Surgical appliances are properly positioned and unchanged compared to 06/26/2018. Compared to the previous examination of 06/26/2018 the L3 L2 disc space has significantly narrowed and there is degenerative gas in the disc space. XR/XR lumbar spine 2-3V* [id number] IMPRESSION: Postoperative lumbar spine with interval disc degeneration at the disc level ab ove the most superior pedicle screws.
== END 2021-04-26 10:03 | disposition home or self-care (01) ==
PROVIDERS: PCP Electrodiagnostic Medicine; Visit Provider Electrodiagnostic Medicine
DX: M54.50 Low back pain, unspecified (principal)
CPT/HCPCS: 72100

== ENCOUNTER → 2021-05-10 11:20 | Outpatient (BNVA) | payer MEDICARE, SELFPAY | PROVIDERS: PCP Electrodiagnostic Medicine; Visit Provider Internal Medicine Cardiovascular Disease | DX: R06.02 Shortness of breath (principal); I50.33 Acute on chronic diastolic (congestive) heart failure | CPT/HCPCS: 80048; 83880 ==

== ENCOUNTER 2021-05-27 11:28 | Outpatient (CLI) | payer MEDICARE, SELFPAY ==
--- NOTE | 2021-05-27 | MR_ITS ---
WS: [id number] MRI LUMBAR SPINE NONCONTRAST TECHNIQUE: Sagittal T1, T2 and STIR imaging. Axial T1 and T2 imaging. CLINICAL INFORMATION: DEGENERATIVE DISK DISEASE COMPARISON: CT September 07, 2020 and MRI FINDINGS: Some images degraded by patient motion. Mild lumbar curve. Pedicle screw fixation with dorsal interconnecting rods L3-S2. Interbody fusion gr afts L3-L4 L4-L5 and L5-S1. Chronic spondylolysis L5-S1. No significant anterolisthesis. L1-L2: Mild annular bulging. Mild facet arthropathy. Mild RIGHT and no significant LEFT foraminal maricel rowing. L2-L3: Mild disc bulging. Moderate facet arthropathy. Moderate central canal stenosis. Narrowing of t he subarticular recess bilaterally. Mild bilateral foraminal narrowing. L3-L4: Prior postoperative changes pedicle screw fixation with interbody fusion. Mild central canal s tenosis. Mild facet arthropathy. Spinal canal and foramen are patent. L4-L5: Prior postoperative changes pedicle screw fixation with interbody fusion. Laminectomy defects. Mild RIGHT and no significant LEFT foraminal narrowing. Spinal canal is patent. L5-S1: Postoperative changes pedicle screw fixation with interbody fusion. Moderate LEFT greater than RIGHT foraminal narrowing. Visualized pelvic bony structures: Normal. Paravertebral soft tissues: Normal. MR/MR lumbar spine wo con* [id number] IMPRESSION: 1. Postoperative changes pedicle screw fixation L3-S2 with interbody fusion gr afts and laminectomy defects L4-L5 and L5-S1. 2. Moderate central canal stenosis L2-L3 unchanged. 3. Mild central canal stenosis L3-L4. 4. Mild to moderate foraminal narrowing bilateral L2-L3, RIGHT L4-L5, and mode rate bilateral L5-S1 LEFT greater than RIGHT. 5. Chronic spondylolysis L5-S1. No significant anterolisthesis.
== END 2021-05-27 11:29 | disposition home or self-care (01) ==
PROVIDERS: PCP Electrodiagnostic Medicine; Visit Provider Electrodiagnostic Medicine
DX: M51.06 Intervertebral disc disorders with myelopathy, lumbar region (principal); J44.9 Chronic obstructive pulmonary disease, unspecified; I12.9 Hypertensive chronic kidney disease with stage 1 through stage 4 chronic kidney disease, or unspecified chronic kidney disease; N18.4 Chronic kidney disease, stage 4 (severe); E11.40 Type 2 diabetes mellitus with diabetic neuropathy, unspecified; M48.061 Spinal stenosis, lumbar region without neurogenic claudication; M47.817 Spondylosis without myelopathy or radiculopathy, lumbosacral region
CPT/HCPCS: 72148

== ENCOUNTER 2021-05-27 11:46 | Outpatient (CLI) | payer MEDICARE, SELFPAY ==
--- NOTE | 2021-05-27 | MR_ITS ---
WS: [id number] MRI HEAD WITHOUT CONTRAST WITH ATTENTION TO THE INTERNAL AUDITORY CANALS TECHNIQUE: Sagittal T1, T2 axial, T2 axial flair, axial susceptibility weighted imaging, axial diffus ion weighted images, and coronal T2 images were obtained. Pre and post T1 axial and post T1 coronal i mages. ADC and FSPGR images. Gadolinium not administered. CLINICAL INFORMATION: SENSONEURAL HEARING LOSS COMPARISON: CT and MRI 2016. FINDINGS: Limited examination due to patient motion. FAST imaging was performed. Complete IAC protoco l was not completed. No evidence restricted diffusion to suggest acute ischemia. Ventricular system and basal cisterns are patent. Moderate small vessel changes. Mild parenchymal volume loss. Chronic lacunar infarct RIGHT c nick radiata. Small vessel changes in the melani. Small retention cyst LEFT maxillary sinus. Normal va scular flow voids at the skull base. No extra-axial fluid collections. Visualized 7th and 8th proxima l cranial nerves appear normal. MR/MR iac's wo con [id number] IMPRESSION: Very limited examination due to patient motion. Complete IAC protoc ol was not performed. Gadolinium was not administered. 1. No evidence of restricted diffusion to suggest acute ischemia. 2. Moderate small vessel changes with mild parenchymal volume loss. 3. Chronic lacunar infarct RIGHT michael radiata. Small vessel changes in the p ons. 4. Retention cyst LEFT maxillary sinus. Mastoid air cells well aerated. 5. Proximal 7th and 8th cranial nerves appear normal where visualized.
== END 2021-05-27 11:47 | disposition home or self-care (01) ==
PROVIDERS: PCP Electrodiagnostic Medicine; Visit Provider Specialist
DX: H90.8 Mixed conductive and sensorineural hearing loss, unspecified (principal); H93.13 Tinnitus, bilateral; I63.81 Other cerebral infarction due to occlusion or stenosis of small artery; M27.40 Unspecified cyst of jaw
CPT/HCPCS: 70551

== ENCOUNTER 2021-05-31 09:33 | Outpatient (CLI) | payer MEDICARE, SELFPAY ==
[2021-05-31 10:56] LABS: Blood Urea Nitrogen 41 mg/dL (8-23); Carbon Dioxide 25 mmol/L (22-29); Chloride 98 mmol/L (98-107); Glucose 203 mg/dL (65-115); NT Pro B Type Natriuretic Pept 117 pg/mL (0-450); Osmolality Calculated 298 mOsm/kg (285-295); Sodium 136 mmol/L (136-145)
[2021-05-31 11:02] LABS: Anion Gap 18.4 (5-19); Potassium 5.4 mmol/L (3.5-5.1)
== END 2021-05-31 09:34 | disposition home or self-care (01) ==
LOC: LAB 09:40
PROVIDERS: PCP Electrodiagnostic Medicine; Visit Provider Internal Medicine Cardiovascular Disease
DX: Z86.39 Personal history of other endocrine, nutritional and metabolic disease (principal); N28.9 Disorder of kidney and ureter, unspecified; R06.00 Dyspnea, unspecified
CPT/HCPCS: 80048; 83880

== ENCOUNTER → 2021-06-05 15:48 | Outpatient (BNVA) | payer MEDICARE, SELFPAY | PROVIDERS: PCP Electrodiagnostic Medicine; Visit Provider Internal Medicine Pulmonary Disease | DX: J43.2 Centrilobular emphysema (principal); R05.8 Other specified cough; Z90.2 Acquired absence of lung [part of]; I50.33 Acute on chronic diastolic (congestive) heart failure; Z87.891 Personal history of nicotine dependence; I10 Essential (primary) hypertension | CPT/HCPCS: 71046; 99214 ==

== ENCOUNTER 2021-06-07 06:00 | Outpatient (CLI) | payer MEDICARE, SELFPAY | END 2021-06-07 06:01 | disposition home or self-care (01) | LOC: LAB 06-11 09:15 | PROVIDERS: PCP Electrodiagnostic Medicine; Visit Provider Internal Medicine Pulmonary Disease | DX: R05.8 Other specified cough (principal) | CPT/HCPCS: 87070; 87205 ==

== ENCOUNTER → 2021-07-20 09:40 | Outpatient (BNVA) | payer MEDICARE, SELFPAY | PROVIDERS: PCP Electrodiagnostic Medicine; Referring Provider Orthopaedic Surgery; Visit Provider Anesthesiology Pain Medicine | DX: M43.26 Fusion of spine, lumbar region (principal); M47.816 Spondylosis without myelopathy or radiculopathy, lumbar region; M54.16 Radiculopathy, lumbar region; M79.604 Pain in right leg; M79.605 Pain in left leg; Z79.891 Long term (current) use of opiate analgesic; Z87.891 Personal history of nicotine dependence | CPT/HCPCS: 99205 ==

== ENCOUNTER → 2021-08-10 08:57 | Outpatient (BNVA) | payer MEDICARE, SELFPAY | PROVIDERS: PCP Electrodiagnostic Medicine; Visit Provider Anesthesiology Pain Medicine | DX: Z87.891 Personal history of nicotine dependence (principal); Z79.891 Long term (current) use of opiate analgesic; M47.816 Spondylosis without myelopathy or radiculopathy, lumbar region | CPT/HCPCS: 64490; 64493; 64494; J3490 ==

== ENCOUNTER → 2021-08-21 11:01 | Outpatient (BNVA) | payer MEDICARE, SELFPAY | PROVIDERS: PCP Electrodiagnostic Medicine; Visit Provider Internal Medicine Pulmonary Disease | DX: J43.2 Centrilobular emphysema (principal); R06.00 Dyspnea, unspecified; I50.33 Acute on chronic diastolic (congestive) heart failure; Z90.2 Acquired absence of lung [part of]; R05.8 Other specified cough; Z87.891 Personal history of nicotine dependence; I10 Essential (primary) hypertension | CPT/HCPCS: 71046; 87015; 87070; 87077; 87116; 87186; 87205; 87206; 87801; 99214 ==

== ENCOUNTER 2021-10-13 11:59 | Outpatient (CLI) | payer MEDICARE, SELFPAY ==
--- NOTE | 2021-10-13 12:30 | CT_ITS ---
WS: [id number] CT CHEST WITHOUT INTRAVENOUS CONTRAST HISTORY: assess for bronchiectasis TECHNIQUE: Contiguous 5 mm axial imaging performed on the thorax. Coronal and sagittal reformats are submitted. All CT scans at [facility] use at least one of these dose optimization techniques: automated exposure control; mA and/or kV adjustment per patient size (includes targeted exams where dose is matched to clinical indication); or iterative reconstruction. CONTRAST: None DLP: 850.61 mGy.cm COMPARISON: None available. Lungs and central airway: Postsurgical changes in the upper lung burden bilaterally. At least a parti al lobectomy on the RIGHT. The LEFT upper lobe may have been completely removed. Very slight intersti tial thickening at the lung bases. No definite evidence for bronchiectasis. The bronchi are not great er in diameter than the adjacent pulmonary artery. There is mild bronchial wall thickening in the low er lung burden but greatest on the LEFT. Pleura: Normal. No pleural effusion. Heart and pericardium: Normal size heart with no pericardial effusion. Mediastinum and mike: No mediastinum or hilar adenopathy. Vessels: Mild atherosclerosis aorta. Normal size pulmonary artery. Chest wall and lower neck: No soft tissue masses. Upper abdomen: Cholelithiasis without acute cholecystitis. Hepatic steatosis. Osseous structures: No destructive process. CT/CT chest wo con [id number] IMPRESSION: 1. Bilateral upper lobe postsurgical changes. 2. No evidence for bronchiectasis. 3. Mild bronchial wall thickening at the lung bases, LEFT greater than RIGHT.
== END 2021-10-13 12:00 | disposition home or self-care (01) ==
PROVIDERS: PCP Electrodiagnostic Medicine; Visit Provider Internal Medicine Pulmonary Disease
DX: R05.8 Other specified cough (principal); I50.9 Heart failure, unspecified; J44.9 Chronic obstructive pulmonary disease, unspecified
CPT/HCPCS: 71250; 87070; 87077; 87186; 87205

== ENCOUNTER → 2021-10-25 08:29 | Outpatient (BNVA) | payer MEDICARE, SELFPAY | PROVIDERS: PCP Electrodiagnostic Medicine; Visit Provider Internal Medicine Pulmonary Disease | DX: J15.6 Pneumonia due to other Gram-negative bacteria (principal); J43.2 Centrilobular emphysema; I50.33 Acute on chronic diastolic (congestive) heart failure; G47.19 Other hypersomnia; Z90.2 Acquired absence of lung [part of]; Z99.81 Dependence on supplemental oxygen; Z87.891 Personal history of nicotine dependence | CPT/HCPCS: 99214 ==

== ENCOUNTER → 2021-11-08 10:09 | Outpatient (BNVA) | payer MEDICARE, SELFPAY | PROVIDERS: PCP Electrodiagnostic Medicine; Visit Provider Internal Medicine Cardiovascular Disease | DX: M47.816 Spondylosis without myelopathy or radiculopathy, lumbar region; R06.00 Dyspnea, unspecified; J43.2 Centrilobular emphysema; I11.0 Hypertensive heart disease with heart failure; I50.33 Acute on chronic diastolic (congestive) heart failure; Z87.891 Personal history of nicotine dependence | CPT/HCPCS: 64490; 64493; 64494; 99214 ==

== ENCOUNTER → 2021-11-22 08:58 | Outpatient (BNVA) | payer MEDICARE, SELFPAY | PROVIDERS: PCP Electrodiagnostic Medicine; Visit Provider Anesthesiology Pain Medicine | DX: M43.26 Fusion of spine, lumbar region (principal); M47.816 Spondylosis without myelopathy or radiculopathy, lumbar region; M54.16 Radiculopathy, lumbar region; M79.604 Pain in right leg; M79.605 Pain in left leg; Z87.891 Personal history of nicotine dependence | CPT/HCPCS: 99214 ==

== ENCOUNTER → 2021-12-18 13:35 | Outpatient (BNVA) | payer MEDICARE, SELFPAY | PROVIDERS: PCP Electrodiagnostic Medicine; Visit Provider Anesthesiology Pain Medicine | DX: M47.816 Spondylosis without myelopathy or radiculopathy, lumbar region (principal); E11.9 Type 2 diabetes mellitus without complications; Z79.4 Long term (current) use of insulin; Z87.891 Personal history of nicotine dependence | CPT/HCPCS: 36416; 64633; 64635; 64636; 82962; J1030 ==

== ENCOUNTER → 2021-12-25 08:24 | Outpatient (BNVA) | payer MEDICARE, SELFPAY | PROVIDERS: PCP Electrodiagnostic Medicine; Visit Provider Podiatrist Foot & Ankle Surgery | DX: B35.1 Tinea unguium (principal); E11.9 Type 2 diabetes mellitus without complications; I73.9 Peripheral vascular disease, unspecified; G62.9 Polyneuropathy, unspecified; L85.3 Xerosis cutis; Z79.4 Long term (current) use of insulin | CPT/HCPCS: 11721; 99204 ==

== ENCOUNTER → 2022-01-18 09:32 | Outpatient (BNVA) | payer MEDICARE, SELFPAY | PROVIDERS: PCP Electrodiagnostic Medicine; Visit Provider Internal Medicine Pulmonary Disease | DX: R05.8 Other specified cough (principal); R06.00 Dyspnea, unspecified; J15.6 Pneumonia due to other Gram-negative bacteria; J43.2 Centrilobular emphysema; I50.33 Acute on chronic diastolic (congestive) heart failure; Z90.2 Acquired absence of lung [part of]; G47.19 Other hypersomnia; G47.36 Sleep related hypoventilation in conditions classified elsewhere; Z99.81 Dependence on supplemental oxygen; Z87.891 Personal history of nicotine dependence | CPT/HCPCS: 99214 ==

== ENCOUNTER 2022-01-29 21:25 | Observation (INO) | payer MEDICARE, SELFPAY ==
[2022-01-29] VITALS (10 sets, daily range): BP systolic 108–143; BP diastolic 56–89; PULSE 106–119; RESP 18–27; TEMP 38.1; O2SAT 94–100; BMI 36.8
--- NOTE | 2022-01-29 21:30 | ED_ITS ---
Documented by User: Lanre Pardo MD 02/12/22 00:20 HPI - SOB/Dyspnea General: Chief Complaint: Shortness of Breath/Dyspnea Stated Complaint: Respiratory distress, flu-like symptoms Time Seen by Provider: 01/29/22 21:30 History of Present Illness: HPI Narrative: Mr. Underwood is a 76-year-old gentleman with complex past medical history including hypertension, COPD, status post lobectomy, type 2 diabetes, heart failure presenting to the emergency department due to respiratory symptoms and fever. He does report chronic shortness of breath however it has been worse now for a few days. Baseline oxygen 2 LPM and he is currently on 4 L/min. Endorses productive cough and fevers this evening as high as 102 taken orally. Intensity symptoms is moderate. Symptoms become severe with exertion. Course has worsened. No other specific changes in health, exacerbating, or alleviating factors identified. Patient reports a history of antibiotic resistant pneumonias in the past. Patient has had recent courses of outpatient Levaquin. Prehospital patient received albuterol, 125 Solu-Medrol, 0.5 mg terbutaline. Pertinent past history: COPD, diabetes and other Onset (ago): day(s) Context: other Timing: progressively worsening Severity: moderate Known history of: COPD, recurrent pneumonia and other Associated symptoms: Reports cough and fever(s) Review of Systems General: Reports: 10 or more systems reviewed and unremarkable except in HPI and below Const: Reports: fever(s) [facility] ED PFSH: Medical History (Updated 02/02/22 @ 00:00 by ) CKD (chronic kidney disease) stage 2, GFR 60-89 ml/min COPD (chronic obstructive pulmonary disease) 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 GERD (gastroesophageal reflux disease) Heart failure HTN (hypertension) with goal to be determined Kidney disease PAD (peripheral artery disease) PHN (postherpetic neuralgia) Type 2 diabetes mellitus Surgical History (Updated 02/02/22 @ 00:00 by ) History of lung surgery Hx of shoulder surgery Previous back surgery S/P cataract surgery S/P lobectomy of lung Family History Mother Hypertension Stroke Brother Heart disease Other Diabetes Social History Smoking and tobacco status: former smoker Quit status (tobacco): has quit using tobacco Year quit tobacco: 1987 Former quit date comment: [id number] Second hand smoke exposure: No Smoking risk assessment/counseling performed?: Yes Alcohol intake: never Lives independently: Yes Household members: spouse Housing: House Marital status: service: No Current occupational status: retired Pets and animals: Yes History of recent travel: No Current gender identity: Male Physical Exam Const: COMMON NORMALS: alert GENERAL APPEARANCE: cooperative, well developed and ill appearing (Somewhat) HENMT: COMMON NORMALS: normocephalic and atraumatic HEAD & SCALP: normocephalic and atraumatic Eye: COMMON NORMALS: conjunctivae normal CONJUNCTIVA: Yes conjunctivae normal SCLERA: sclerae normal Neck/C-Spine: COMMON NORMALS: supple GENERAL: Yes trachea midline Resp: EFFORT & INSPECTION: Yes able to speak in complete sentences and Yes tachypneic AUSCULTATION: rhonchi and wheezes Cardio: COMMON NORMALS: regular rhythm RATE: tachycardic RHYTHM: regular rhythm GI: COMMON NORMALS: Soft to palpation PALPATION: Yes Soft to palpation and No Tenderness to palpation present (GI) PERCUSSION: normal to percussion Extremity: GENERAL: Yes normal exam except as noted and No edema Neuro: COMMON NORMALS: moves all extremities SENSORIUM/ORIENTATION: Yes alert and No Orientation impaired Psych: COMMON NORMALS: mental status grossly normal and Normal thought process present THOUGHT PROCESS: Normal thought process present Course Vital Signs: Vital signs: Vital Signs Temperature 97.8 F 02/01/22 11:25 Pulse Rate 99 02/01/22 15:07 Respiratory Rate 16 02/01/22 15:07 Blood Pressure 143/78 02/01/22 11:25 Pulse Oximetry 98 02/01/22 15:07 Oxygen Delivery Me thod 02/01/22 13:41 Oxygen Flow Rate 2 02/01/22 13:41 MDM - SOB/Dyspnea Medical Decision Making 76-year-old gentleman with complex pulmonary history including history of lobectomy, chronic hypoxic respiratory failure at 2 L at baseline, history of MDR Serratia presenting to the emergency department for respiratory symptoms including fever and cough with mildly increased oxygen requirement. RT treatment, antipyretic, IV fluids ordered. Labs notable for leukocytosis, normal hemoglobin. Metabolic panel with perhaps mild evidence of dehydration. Initial troponin mildly elevated which is similar to remote prior with 2-hour troponin pending. Lactic acid is normal. Chest x-ray with bibasilar atelectasis versus infiltrates. COVID PCR and viral panel pending. Patient care handed off to Dr. Reid pending completion of ED evaluation and disposition. Per review of Dr. Ibarra's previous note if patient appears to have bacterial pathology he will require inpatient admission for prolonged course of IV antibiotics. Medical Records I reviewed the patient's medical records. Lab Data I reviewed the patient's lab results. 01/29/22 20:52 01/29/22 20:52 Labs/Radiology: Radiology Impressions Chest X-Ray 01/29/22 21:43 IMPRESSION: 1. Stable bilateral upper lobe postsurgical changes. 2. Bibasilar opacities may represent atelectasis or inflammation. Superimposed infection can not be excluded. Laboratory Results WBC 16.0 10^3/uL (4.0-10.0) H 01/29/22 20:52 RBC 4.02 10^6/uL (4.1-5.3) L 01/29/22 20:52 Hgb 12.3 g/dL (11.7-16.6) 01/29/22 20:52 Hct 38.1 % (42.0-52.0) L 01/29/22 20:52 MCV 94.8 fl (80-94) H 01/29/22 20:52 MCH 30.6 pg (28.0-34.0) 01/29/22 20:52 MCHC 32.3 g/dL (30.0-36.0) 01/29/22 20:52 RDW 16.9 % (12.1-15.1) H 01/29/22 20:52 Plt Count 180 10^3/cmm (130-400) 01/29/22 20:52 MPV 11.1 fL (7.4-10.4) H 01/29/22 20:52 Neut % (Auto) 81.9 % 01/29/22 20:52 Lymph % (Auto) 7.9 % 01/29/22 20:52 Kay % (Auto) 8.3 % 01/29/22 20:52 Eos % (Auto) 1.1 % 01/29/22 20:52 Baso % (Auto) 0.4 % 01/29/22 20:52 Neut # (Auto) 13.06 10^3/uL (1.8-7.7) H 01/29/22 20:52 Lymph # (Auto) 1.3 10^3/uL (0.8-4.8) 01/29/22 20:52 Kay # (Auto) 1.3 10^3/uL (0.2-0.9) H 01/29/22 20:52 Eos # (Auto) 0.2 10^3/uL (0.0-0.8) 01/29/22 20:52 Baso # (Auto) 0.1 10^3/uL (0.0-0.1) 01/29/22 20:52 Nucleated RBC % (auto) 0 % 01/29/22 20:52 Nucleated RBCs # 0.0 /100WBC 01/29/22 20:52 Sodium 135 mmol/L (136-145) L 01/29/22 20:52 Potassium 4.8 mmol/L (3.5-5.1) 01/29/22 20:52 Chloride 97 mmol/L (98-107) L 01/29/22 20:52 Carbon Dioxide 24 mmol/L (22-29) 01/29/22 20:52 Anion Gap 18.8 (5-19) 01/29/22 20:52 BUN 49 mg/dL (8-23) H 01/29/22 20:52 Creatinine 1.8 mg/dL (0.7-1.2) H 01/29/22 20:52 GFR Calculation Not Reportable 01/29/22 20:52 Glucose 260 mg/dL (65-115) H 01/29/22 20:52 Calculated Osmolality 302 mOsm/kg (285-295) H 01/29/22 20:52 Lactic Acid 2.0 mmol/L (0.5-2.2) 01/29/22 21:41 Calcium 9.7 mg/dL (8.5-10.5) 01/29/22 20:52 Iron 20 ug/dL (59-158) L 01/29/22 20:51 TIBC 225 mcg/dl 01/29/22 20:51 % Saturation 8.8 % (20-50) L 01/29/22 20:51 Unsat Iron Binding 205 ug/dL (112-347) 01/29/22 20:51 Total Bilirubin 0.3 mg/dL (0.15-1.2) 01/29/22 20:52 AST 20 U/L (0-40) 01/29/22 20:52 ALT 28 U/L (0-41) 01/29/22 20:52 Alkaline Phosphatase 87 U/L (40-130) 01/29/22 20:52 Troponin T Baseline 41 ng/L (0-15) H 01/29/22 20:52 Troponin T 120 Minute 42.16 ng/L (0-15) H 01/29/22 22:23 Delta Troponin T 1.16 ABS# (0-10) 01/29/22 22:23 NT-Pro-B Natriuret Pep 225 pg/mL (0-450) 01/29/22 20:52 Total Protein 6.6 g/dL (6.6-8.7) 01/29/22 20:52 Albumin 3.9 g/dL (3.5-5.2) 01/29/22 20:52 Globulin 2.7 g/dL (1.3-4.6) 01/29/22 20:52 Vitamin B12 > 2000 pg/mL (232-1245) H 01/29/22 20:51 Folate 10.7 ng/mL (4.5-32.2) 01/29/22 20:51 Procalcitonin 0.19 ng/mL (0-0.5) 01/29/22 20:52 TSH 1.37 uIU/mL (0.27-4.20) 01/29/22 20:51 Coronavirus 229E (PCR) Not detected (NOT DETECT) 01/29/22 22:45 Influenza Type A Ag negative (Negative) 01/29/22 23:50 Influenza Type B Ag negative (Negative) 01/29/22 23:50 SARS-CoV-2 (PCR) Not detected (NOT DETECT) 01/29/22 22:45 Discharge Plan Discharge Patient Disposition: Admitted As Inpatient Admit Provider: Chayito Yoo Clinical Impression: Community acquired pneumonia Qualifiers: Laterality: unspecified laterality Qualified Code(s): J18.9 - Pneumonia, unspecified organism Condition: Stable Discharge Diet: Cardiac Discharge Activity: Resume usual activity and Increase activity as tolerated Coding Level of Care Code ED Legal Collector for Chg Fwd Exam Comprehensive Documented by User: Cristo Reid MD 01/30/22 01:23 HPI - SOB/Dyspnea General: Chief Complaint: Shortness of Breath/Dyspnea Stated Complaint: Respiratory distress, flu-like symptoms Time Seen by Provider: 01/29/22 21:30 PFSH ED PFSH: Medical History (Updated 02/02/22 @ 00:00 by ) CKD (chronic kidney disease) stage 2, GFR 60-89 ml/min COPD (chronic obstructive pulmonary disease) 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 GERD (gastroesophageal reflux disease) Heart failure HTN (hypertension) with goal to be determined Kidney disease PAD (peripheral artery disease) PHN (postherpetic neuralgia) Type 2 diabetes mellitus Surgical History (Updated 02/02/22 @ 00:00 by ) History of lung surgery Hx of shoulder surgery Previous back surgery S/P cataract surgery S/P lobectomy of lung Family History Mother Hypertension Stroke Brother Heart disease Other Diabetes Social History Smoking and tobacco status: former smoker Quit status (tobacco): has quit using tobacco Year quit tobacco: 1987 Former quit date comment: [id number] Second hand smoke exposure: No Smoking risk assessment/counseling performed?: Yes Alcohol intake: never Lives independently: Yes Household members: spouse Housing: House Marital status: service: No Current occupational status: retired Pets and animals: Yes History of recent travel: No Current gender identity: Male Course Vital Signs: Vital signs: Vital Signs Temperature 97.8 F 02/01/22 11:25 Pulse Rate 99 02/01/22 15:07 Respiratory Rate 16 02/01/22 15:07 Blood Pressure 143/78 02/01/22 11:25 Pulse Oximetry 98 02/01/22 15:07 Oxygen Delivery Me thod 02/01/22 13:41 Oxygen Flow Rate 2 02/01/22 13:41 MDM - SOB/Dyspnea Medical Decision Making 76-year-old gentleman with complex pulmonary history including history of lo bectomy, chronic hypoxic respiratory failure at 2 L at baseline, history of MDR Serratia presenting to the emergency department for respiratory symptoms including fever and cough with mildly increased oxygen requirement. RT treatment, antipyretic, IV fluids ordered. Labs notable for leukocytosis, normal hemoglobin. Metabolic panel with perhaps mild evidence of dehydration. Initial troponin mildly elevated which is similar to remote prior with 2-hour troponin pending. Lactic acid is normal. Chest x-ray with bibasilar atelectasis versus infiltrates. COVID PCR and viral panel pending. Patient care handed off to Dr. Reid pending completion of ED evaluation and disposition. Per review of Dr. Ibarra's previous note if patient appears to have bacterial pathology he will require inpatient admission for prolonged course of IV antibiotics. Patient's COVID influenza are negative patient likely has pneumonia causing his leukocytosis and cough he is requiring more oxygen as well as spoke to the hospitalist will admit at this time. Lab Data 01/29/22 20:52 01/29/22 20:52 Labs/Radiology: Radiology Impressions Chest X-Ray 01/29/22 21:43
--- NOTE | 2022-01-29 21:43 | XRR_ITS ---
PROCEDURE INFORMATION: Exam: XR Chest Exam date and time: 01/29/2022 10:55 PM Age: 76 years old Clinical indication: Shortness of breath; Prior surgery; Surgery type: Bilateral upper lobectomy; Patient HX: C/O worsening SOB. History of copd. TECHNIQUE: Imaging protocol: Radiologic exam of the chest. Views: 1 view. COMPARISON: CT chest roselia [id number] 10/13/2021 12:41 PM FINDINGS: Lungs: Redemonstration of bilateral upper lobe postsurgical changes. Redemonstration of background emphysema. The left hemidiaphragm remains elevated. There are bibasilar opacities, more on the left side which likely represent atelectasis. There could be some progression of the atelectasis in the left lower lobe and increased atelectasis in the right lower lobe compared to the prior studies. Superimposed infection can not be excluded. Bronchial wall thickening was seen on the prior CT. Peribronchial cuffing may represent bronchitis. No large consolidation. Pleural spaces: The left costophrenic angle is slightly obscured. Can not exclude small volume left pleural effusion. Similar but to a lesser extent findings on the right. No large pleural effusion. No pneumothorax. Heart/Mediastinum: The cardiomediastinal silhouette is stable in appearance there are atherosclerotic calcifications of the thoracic aorta. There are atherosclerotic calcifications of the coronary arteries.. There are calcifications of the aortic root. Bones/joints: No new acute findings. XR/XR chest 1V portable [id number] IMPRESSION: 1. Stable bilateral upper lobe postsurgical changes. 2. Bibasilar opacities may represent atelectasis or inflammation. Superimposed infection can not be excluded.
--- NOTE | 2022-01-29 21:44 | ECG_ITS ---
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 Measurements Intervals [place] Rate: 114 P: 0 MA: 0 QRS: 40 QRSD: 80 T: 68 QT: 307 QTc: 424 Interpretive Statements SUPRAVENTRICULAR TACHYCARDIA-possibly sinus NONSPECIFIC T-WAVE ABNORMALITY ABNORMAL RHYTHM ECG WARNING: DATA QUALITY MAY AFFECT INTERPRETATION Compared to ECG 11/09/2020 10:35:45 T-wave abnormality now present Sinus rhythm no longer present Heavy Baseline artifact Electronically Signed On 01-30-2022 7:16:42 CLINICAL TRIALS ASSISTANT by Jaimee Aj M.D. [id number]
[2022-01-29 21:52] LABS: Basophils # 0.1 10^3/uL (0.0-0.1); Basophils % 0.4 %; Eosinophils # 0.2 10^3/uL (0.0-0.8); Eosinophils % 1.1 %; Hematocrit 38.1 % (42.0-52.0); Hemoglobin 12.3 g/dL (11.7-16.6); Lymphocytes # 1.3 10^3/uL (0.8-4.8); Lymphocytes % 7.9 %; Mean Corpuscular HGB Conc 32.3 g/dL (30.0-36.0); Mean Corpuscular Hemoglobin 30.6 pg (28.0-34.0); Mean Corpuscular Volume 94.8 fl (80-94); Mean Platelet Volume 11.1 fL (7.4-10.4); Monocytes # 1.3 10^3/uL (0.2-0.9); Monocytes % 8.3 %; Neutrophils # 13.06 10^3/uL (1.8-7.7); Neutrophils % 81.9 %; Nucleated Red Blood Cells % 0 %; Platelet Count 180 10^3/cmm (130-400); Red Blood Count 4.02 10^6/uL (4.1-5.3); Red Cell Distribution Width 16.9 % (12.1-15.1)
[2022-01-29] MEDS: ipratropium-albuterol 3 mL Neb INHALATION (22:10)
[2022-01-29 22:19] LABS: Troponin(5th) Baseline 41 ng/L (0-15)
[2022-01-29 22:26] LABS: NT Pro B Type Natriuretic Pept 225 pg/mL (0-450); Procalcitonin 0.19 ng/mL (0-0.5)
[2022-01-29 22:37] LABS: Alanine Aminotransferase 28 U/L (0-41); Albumin Level 3.9 g/dL (3.5-5.2); Alkaline Phosphatase 87 U/L (40-130); Aspartate Amino Transferase 20 U/L (0-40); Blood Urea Nitrogen 49 mg/dL (8-23); Calcium 9.7 mg/dL (8.5-10.5); Carbon Dioxide 24 mmol/L (22-29); Chloride 97 mmol/L (98-107); Globulin 2.7 g/dL (1.3-4.6); Glucose 260 mg/dL (65-115); Osmolality Calculated 302 mOsm/kg (285-295); Sodium 135 mmol/L (136-145); Total Bilirubin 0.3 mg/dL (0.15-1.2); Total Protein 6.6 g/dL (6.6-8.7)
[2022-01-29 22:38] LABS: Anion Gap 18.8 (5-19)
[2022-01-29 22:39] LABS: Potassium 4.8 mmol/L (3.5-5.1)
[2022-01-29] MEDS: acetaminophen 500 mg Tablet 1000 MG PO (23:00)
[2022-01-29 23:21] LABS: Troponin 5 2HR 42.16 ng/L (0-15)
[2022-01-29 23:22] LABS: Troponin 5 2HR Delta 1.16 ABS# (0-10)
--- NOTE | 2022-01-29 23:44 | ECG_ITS ---
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
[2022-01-29] MEDS: sodium chloride 0.9% 1,000 ML 999 ML IV (23:55)
[2022-01-30] VITALS (15 sets, daily range): BP systolic 103–174; BP diastolic 52–77; PULSE 98–117; RESP 14–30; TEMP 36.4–36.9; O2SAT 94–99
[2022-01-30 00:30] LABS: Adenovirus Not Detected (NOT DETECT); Chlamydia Pneumoniae Not Detected (NOT DETECT); Coronavirus 229E,HKU1,NL63,OC4 Not Detected (NOT DETECT); Human Metapneumovirus Not Detected (NOT DETECT); Human Rhinovirus/Enterovirus Not Detected (NOT DETECT); Influenza A Not Detected (NOT DETECT); Influenza A H1 Not Detected (NOT DETECT); Influenza A H1-2009 Not Detected (NOT DETECT); Influenza A H3 Not Detected (NOT DETECT); Influenza B Not Detected (NOT DETECT); Mycoplasma Pneumoniae Not Detected (NOT DETECT); Parainfluenza Virus Type 1 Not Detected (NOT DETECT); Parainfluenza Virus Type 2 Not Detected (NOT DETECT); Parainfluenza Virus Type 3 Not Detected (NOT DETECT); Parainfluenza Virus Type 4 Not Detected (NOT DETECT); Respiratory Syncytial Virus A Not Detected (NOT DETECT); Respiratory Syncytial Virus B Not Detected (NOT DETECT); SARS-COV-2 Not Detected (NOT DETECT)
[2022-01-30 00:50] LABS: Influenza A by IFA negative (Negative); Influenza B by IFA negative (Negative)
[2022-01-30] MEDS: levofloxacin-dextrose 5 % 750 MG/150 ML PREMIX 100 MG IV (00:59)
--- NOTE | 2022-01-30 01:18 | PC.NURSE ---
Report given to Danielle Conde
--- NOTE | 2022-01-30 07:22 | PM.HP ---
Providers/Chief Complaint Admitting Physician: Chayito Yoo MD Primary Care Provider: Praveen Shah DO Chief Complaint: Respiratory distress, flu-like symptoms History of Present Illness Jeff Delvalle is a 76 year old male with PMH COPD, hypertension, history of left upper lobectomy for collapsed lung in 1997, ex-smoker smoked 1.5 PPD for 26 years and quit 1987.? He has longstanding dyspnea on exertion, oxygen dependent 2 to 3 L at a baseline. As result of COPD he often has productive cough. Most recently 3 weeks ago. He received treatment with Levaquin. Sputum culture has in the past grown Serratia which appears to have been sensitive only to fluoroquinolones. For airway clearance he attempts to use upper [place] Mucinex. A flow vest was previously denied by insurance. He presents today with 3 to 4 days of increasing sputum production, low-grade feve over the past 24 hours.. 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 He therefore presented to the emergency room. Denies any chest pain palpitations. Dyspnea is at baseline. Currently using 4 L/min supplemental O2, slightly more than 3 L/min which he uses at home. It appears he also previously carried a diagnosis of CHF, however in October 2021 he was taken off of his Lasix since his echocardiogram did not show any systolic dysfunction. Grade 1 diastolic function was noted in February 2021. Additionally his BNP was negative x2, because of which he followed with cardiology and it was opined that he does not have CHF. On echocardiogram from 02/2021 right-sided pressures were not elevated either. Review of Systems General: Reports: 10 or more systems reviewed and unremarkable except in HPI and below Const: Denies: fever(s), chills or body aches Eyes: Denies: change in vision, blurry vision or photophobia ENMT: Reports: hoarseness; Denies: throat pain, enlarged tonsils, odynophagia or nasal congestion Card: Denies: chest pain, palpitations, irregular heart rhythm, edema, swelling of feet/ankles, lightheadedness, pre-syncope, dyspnea on exertion or orthopnea Resp: Denies: dyspnea, productive cough, non-productive cough, wheezing, stridor, pain on inspiration, change in phlegm color, hemoptysis or chest congestion GI: Denies: abdominal pain, nausea, vomiting, hematemesis, coffee ground emesis, dysphagia, heartburn, diarrhea, constipation, GI cramping, change in stool character, hematochezia or melena : Denies: flank pain, dysuria, urinary frequency, urinary urgency, urinary hesitancy or hematuria Musc: Denies: neck pain, back pain, extremity pain, joint swelling, joint warmth or deformity Neuro: Denies: headache(s), numbness in extremities, weakness in extremities, sensory changes, difficulty walking, frequent falls, dizziness, vertigo, behavioral changes, Slurred speech present or seizure-like activity Psych: Denies: anxiety, depression, suicidal ideation or homicidal ideation Endo: Denies: polyuria, polydipsia, tired all the time, cold intolerance or hot flashes Ihsan/Lymph: Denies: easy bruising or easy bleeding Medications/Allergies Home Medications Medication Instructions Recorded Confirmed Last Taken Type albuterol sulfate 90 mcg/actuation 2 puff inhalation Q6H PRN 06/15/19 01/18/22 Unknown History aerosol inhaler (Ventolin HFA) Shortness Of Breath finasteride 5 mg tablet 5 mg PO QAM 06/15/19 01/18/22 11/09/20 07:30 History hydrocodone 5 mg-acetaminophen 325 1 tab PO BID PRN Pain 06/15/19 01/18/22 11/09/20 03:00 History mg tablet magnesium oxide 250 mg PO DAILY@12 06/15/19 01/18/22 11/08/20 History melatonin 3 mg capsule 3 mg PO BEDTIME 06/15/19 01/18/22 11/08/20 History aspirin 325 mg tablet 325 mg PO QAM 07/18/20 01/18/22 11/09/20 07:30 History omeprazole 20 mg capsule,delayed 20 mg PO BID 07/18/20 01/18/22 11/09/20 07:30 History release zinc 50 mg tablet 50 mg PO DAILY@12 07/18/20 01/18/22 11/08/20 History cyclobenzaprine 5 mg tablet 5 mg PO TID PRN muscle spasm #14 09/07/20 01/18/22 Unknown Rx tabs albuterol sulfate 2.5 mg/3 mL 2.5 mg inhalation Q4H PRN 11/09/20 01/18/22 Unknown History (0.083 %) solution for nebulization Shortness Of Breath ascorbic acid (vitamin C) 1,000 mg 1,000 mg PO DAILY@12 11/09/20 01/18/22 11/08/20 History tablet (Vitamin C) bimatoprost 0.01 % eye drops 1 drp ophthalmic (eye) QPM 11/09/20 01/18/22 11/08/20 History (Lumigan) cyanocobalamin (vitamin B-12) 500 1,000 mcg PO QAM 11/09/20 01/18/22 11/09/20 07:30 History mcg tablet (Vitamin B-12) docusate sodium 100 mg capsule 100 mg PO BID 11/09/20 01/18/22 11/09/20 07:30 History (Stool Softener) dulaglutide 1.5 mg/0.5 mL 1.5 mg SUBCUT Q7D 11/09/20 01/18/22 11/09/20 07:30 History subcutaneous pen injector in left leg (Trulicity) gabapentin 300 mg capsule 300 mg PO BID 11/09/20 01/18/22 11/09/20 07:30 History guaifenesin 600 mg tablet, 600 mg PO Q12H 11/09/20 01/18/22 11/09/20 07:30 History extended release 12 hr (Mucinex) ipratropium bromide 0.02 % See Rx Instructions .Route .COMPLEX 11/09/20 01/18/22 Unknown History solution for inhalation vit C 250 mg-vit E 90 mg-zinc 40 1 tab PO BID 11/09/20 01/18/22 11/09/20 07:30 History mg-copper 1 [id number] capsule (PreserVision AREDS-2) spironolactone 25 mg tablet 25 mg PO DAILY #90 tabs 02/07/21 01/18/22 Unknown Rx furosemide 20 mg tablet 40 mg PO .qod #90 tabs 05/16/21 01/18/22 Unknown Rx ipratropium 0.5 mg-albuterol 3 mg 3 ml inhalation Q4H PRN wheezing 06/05/21 01/18/22 Unknown Rx (2.5 mg base)/3 mL nebulization #90 mL soln fluticasone fur. 100 mcg-umeclid 1 inh inhalation QAM #180 ea 08/21/21 01/18/22 Unknown Rx 62.5 mcg-vilant 25 mcg inhalat.powder (Trelegy Ellipta) levocetirizine 5 mg tablet 5 mg PO DAILY 08/21/21 01/18/22 Unknown History amlodipine 10 mg tablet 10 mg PO DAILY #100 tabs 08/29/21 01/18/22 Unknown Rx allopurinol 100 mg tablet 300 mg PO DAILY 10/25/21 01/18/22 Unknown History codeine 10 mg-guaifenesin 100 mg/5 5 ml PO Q6H PRN 10/25/21 01/18/22 Unknown History mL oral liquid hydralazine 100 mg tablet 100 mg PO TID #270 tabs 11/08/21 01/18/22 Unknown Rx insulin glargine 100 unit/mL 90 unit SUBCUT BID 11/08/21 01/18/22 Unknown History subcutaneous solution (Lantus U-100 Insulin) atorvastatin 80 mg tablet 80 mg PO QPM #90 tabs 12/14/21 01/18/22 Unknown Rx sodium chloride 3 % for 4 ml inhalation BID PRN secretions 12/18/21 01/18/22 Unknown Rx nebulization #240 mL metoprolol succinate 100 mg 100 mg PO DAILY #90 tabs 01/09/22 01/18/22 Unknown Rx tablet,extended release 24 hr Diabetic Shoes #1 ea 01/15/22 01/18/22 Unknown Rx cholecalciferol (vitamin D3) 125 125 mcg PO DAILY 01/18/22 01/18/22 Unknown History mcg (5,000 unit) tablet (Vitamin D3) Allergies Allergy/AdvReac Type Severity Reaction Status Date / Time adhesive tape Allergy Unknown Unknown Verified 01/29/22 21:32 carvedilol Allergy Severe Diarrhea & Uncoded 01/29/22 21:32 SOB Losartan Allergy Intermediate Kidney Uncoded 01/29/22 21:32 injury PFSH Acute PFSH: Medical History COPD (chronic obstructive pulmonary disease) Heart failure HTN (hypertension) with goal to be determined Surgical History S/P lobectomy of lung Family History Mother Hypertension Stroke Brother Heart disease Other Diabetes Social History Smoking and tobacco status: former smoker Quit status (tobacco): has quit using tobacco Year quit tobacco: 1987 Former quit date comment: [id number] Second hand smoke exposure: No Smoking risk assessment/counseling performed?: Yes Alcohol intake: never Lives independently: Yes Household members: spouse Housing: House Marital status: service: No Current occupational status: retired Pets and animals: Yes History of recent travel: No Current gender identity: Male Vitals/I&O/Wt Last Vital Signs Temp 98.0 F 01/30/22 04:00 Pulse 106 H 01/30/22 06:00 Resp 15 01/30/22 04:00 BP 174/71 01/30/22 04:00 Pulse Ox 94 01/30/22 04:00 O2 Del Method 01/30/22 04:00 O2 Flow Rate 4 01/30/22 04:00 01/29/22 01/30/22 01/30/22 22:59 06:59 14:59 Intake Total 1510 / 1510 Output Total 600 / 600 Balance 910 / 910 Weight last 48 hrs Weight 106.594 kg Physical Exam Narrative: General: No acute distress, AO x3 HEENT: PERRLA, pupils bilaterally equal and reactive, pallors not present Chest: Normal vesicular breath sounds, no added sounds, equal good air entry bilaterally CVS: S1-S2 regular, no murmurs, no tachycardia, no gallops, no rubs Abdomen: Soft, nontender, no organomegaly, bowel sounds present Neuro: No focal deficits, no facial deformity, AO x3, power 5/5 in all limbs Extremities: No clubbing edema. Data : 01/29/22 20:52 01/29/22 20:52 Micro: Microbiology 01/29/22 22:26 Blood Culture - Preliminary Blood SPECIMEN COLLECTED 01/29/22 22:23 Blood Culture - Preliminary Blood SPECIMEN COLLECTED Other data: XR/XR chest 1V portable 24052 IMPRESSION: 1. Stable bilateral upper lobe postsurgical changes. 2. Bibasilar opacities may represent atelectasis or inflammation. Superimposed infection can not be excluded. A&P Assessment and plan (1) Community acquired pneumonia: Qualifiers: Laterality: unspecified laterality Qualified Code(s): J18.9 - Pneumonia, unspecified organism (2) S/P lobectomy of lung: (3) COPD (chronic obstructive pulmonary disease): Qualifiers: COPD type: emphysema Emphysema type: centrilobular Qualified Code(s): J43.2 - Centrilobular emphysema Plan Patient with known COPD, baseline oxygen dependent, difficulty with airway clearance has presented today with complaints of fever and increasing sputum production over the last 3 to 4 days. Chest x-ray showing increased bilateral infiltrates compared to prior x-ray, overall clinical picture compatible with community-acquired pneumonia. In the past his sputum culture has grown MDR Serratia and group B strep from August and September 2021. For now we will start him on empiric antibiotic treatment with cefepime and atypical coverage with levofloxacin (in keeping with last known susceptibilities). Check sputum culture and gram stain. Primarily his chief problem appears to be airway clearance which makes him extremely prone to getting repeated episodes of pneumonia. Continue Mucinex, daily nebulization with DuoNeb and hypertonic saline for thick secretion. Also recommended to use at [facility] 3 times daily as per outpatient recommendations. A flow vest has been declined by insurance in the past though clinically it appears patient will likely benefit. We will use chest therapy while patient is here. Supplemental O2 to keep saturation close to 90 to 92%. Echocardiogram from 02/2021 without any gross signs of systolic heart failure. Grade 1 diastolic dysfunction was noted, however per outpatient cardiology notes review he is not noted to have CHF. Has been recently taken off of Lasix in the past 3 months. 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
[2022-01-30 08:00] LABS: Add Urine Microscopic? YES; Bilirubin Urine Neg (Negative); Blood Urine Neg (Negative); Glucose Urine UA 4+ (Normal); Ketones Urine Negative (Negative); Leukocyte Esterase Urine Negative (Negative); Nitrate Urine Negative (Negative); Protein Urine 1+ (Negative); Specific Gravity, Urine 1.015 (1.005-1.030); Urine Appearance Clear (CLEAR); Urine Color Yellow (Yellow); Urobilinogen Urine Norm (Negative); pH Urine 5 (5-7)
[2022-01-30] MEDS: gabapentin 300 mg Capsule PO ×2 (08:02→21:18)
[2022-01-30] MEDS: pantoprazole DR 40 mg Tablet PO (08:02)
[2022-01-30] MEDS: allopurinol 300 mg Tablet PO (08:02)
[2022-01-30 08:11] LABS: Bacteria Urine TRACE /hpf; Mucus Urine TRACE /hpf; RBC Urine 0-4 /hpf (0-2); Squamous Epithelial Cell Urine 0-4 /hpf (0-5); Transitional Epi Cells Urine 0-4 /hpf; WBC Urine 0-4 /hpf (0-5)
[2022-01-30 08:12] LABS: Add Urine Culture? No; Hyaline Casts Urine 0-4 /lpf
[2022-01-30 08:35] LABS: Glucose Point of Care 475 mg/dL (70-110)
[2022-01-30] MEDS: cefepime 2,000 MG in sodium chloride 0.9% (plus) 50 ML 100 MG IV (08:49)
[2022-01-30] MEDS: ipratropium-albuterol 3 mL Neb INHALATION ×3 (09:26→19:54)
[2022-01-30] MEDS: enoxaparin 40 mg/0.4 mL Syringe SUBCUT (09:27)
[2022-01-30] MEDS: insulin glargine 100 units/1 mL 90 UNIT SUBCUT ×2 (09:28→21:18)
[2022-01-30] MEDS: polyethylene glycol 3350 Pkt 17 gm PO (11:02)
--- NOTE | 2022-01-30 11:02 | PC.NURSE ---
DR. DEVI GAVE VERBAL ORDER TO HOLD AM DOSES OF METOPROLOL, AMLODIPINE AND HYDRALAZINE
[2022-01-30 11:32] LABS: Glucose Point of Care 558 mg/dL (70-110)
[2022-01-30 11:32] LABS: Glucose Point of Care 595 mg/dL (70-110)
[2022-01-30] MEDS: insulin lispro 100 unit/1 mL SUBCUT ×3 (11:49→21:18)
--- NOTE | 2022-01-30 13:48 | PM.MISC ---
Miscellaneous Note Purpose of Documentation: Cross coverage documentation. Note: Admitted overnight. H&P and labs appreciated. Seen with spouse at bedside. Patient sitting at edge of the bed on 3 L oxygen supplementation. Patient has raspy voice which he states has been ongoing for many years. States breathing is better. Able to have complete conversation without getting out of breath. Plan: Oxygen supplementation keeping saturation over 90%. DuoNeb 6-hour, budesonide twice daily. Hold off on steroids for now. 90 units Lantus twice daily, insulin high-dose protocol sliding scale, carb consistent diet. Hold off on hydralazine. Switch to metoprolol 50 mg tartrate twice daily. Hold off on metoprolol succinate 100 mg daily. Continue with amlodipine 10 mg daily. Check TSH, urine lites, D-dimer, folate level, urine Legionella, lipid panel, MRSA swab, sputum culture, TIBC, B12 level, A1c, bacterial antigen. Pulmonary toilet with incentive spirometry.
[2022-01-30 14:45] LABS: Iron 20 ug/dL (59-158); Percent Saturation 8.8 % (20-50); Total Iron Binding Capacity 225 mcg/dl; Unsaturated Iron Binding 205 ug/dL (112-347)
[2022-01-30 14:51] LABS: Thyroid Stimulating Hormone 1.37 uIU/mL (0.27-4.20)
[2022-01-30 15:00] LABS: Folate Level 10.7 ng/mL (4.5-32.2)
[2022-01-30 15:13] LABS: Vitamin B12 > 2000 pg/mL (232-1245)
[2022-01-30 15:16] LABS: Potassium, Radom Urine 67 mmol/L; Urine Random Chloride 46 mmol/L; Urine Random Sodium 40 mmol/L
[2022-01-30 15:33] LABS: D Dimer 0.56 ug/mIFEU (0-0.59)
[2022-01-30 17:10] LABS: Glucose Point of Care 417 mg/dL (70-110)
[2022-01-30] MEDS: atorvastatin 40 mg Tablet 80 MG PO (17:21)
[2022-01-30] MEDS: ferrous gluconate 324 mg Tablet PO (17:21)
[2022-01-30] MEDS: budesonide 0.5 mg/2 mL Neb INHALATION (19:55)
[2022-01-30 20:38] LABS: Glucose Point of Care 388 mg/dL (70-110)
[2022-01-30] MEDS: metoprolol tartrate 50 mg Tablet PO (21:18)
[2022-01-31] VITALS (12 sets, daily range): BP systolic 133–159; BP diastolic 65–84; PULSE 81–108; RESP 13–22; TEMP 36.3–36.7; O2SAT 96–99
[2022-01-31] MEDS: ipratropium-albuterol 3 mL Neb INHALATION ×3 (02:38→20:26)
[2022-01-31] MEDS: acetaminophen 325 mg Tablet 650 MG PO (04:09)
[2022-01-31] MEDS: aspirin 325 mg Tablet PO (05:29)
[2022-01-31 06:05] LABS: Basophils % 0.2 %; Eosinophils % 0.1 %; Hematocrit 33.3 % (42.0-52.0); Hemoglobin 10.4 g/dL (11.7-16.6); Lymphocytes # 1.5 10^3/uL (0.8-4.8); Lymphocytes % 12.3 %; Mean Corpuscular HGB Conc 31.2 g/dL (30.0-36.0); Mean Platelet Volume 10.8 fL (7.4-10.4); Monocytes % 7.7 %; Neutrophils # 9.93 10^3/uL (1.8-7.7); Neutrophils % 79.3 %; Nucleated Red Blood Cells % 0 %; Platelet Count 148 10^3/cmm (130-400); Red Blood Count 3.47 10^6/uL (4.1-5.3); Red Cell Distribution Width 16.9 % (12.1-15.1); White Blood Count 12.5 10^3/uL (4.0-10.0)
[2022-01-31 06:18] LABS: Estmated Average Glucose 197; Hemoglobin A1C 8.5 % (4.0-6.0)
[2022-01-31 06:27] LABS: Alanine Aminotransferase 23 U/L (0-41); Albumin Level 3.5 g/dL (3.5-5.2); Alkaline Phosphatase 75 U/L (40-130); Anion Gap 16.3 (5-19); Aspartate Amino Transferase 18 U/L (0-40); Blood Urea Nitrogen 55 mg/dL (8-23); Calcium 9.6 mg/dL (8.5-10.5); Carbon Dioxide 27 mmol/L (22-29); Chloride 103 mmol/L (98-107); Chol HDL Ratio 8.06 mg/dL (1.0-5.00); Cholesterol 250 mg/dL (0-200); Glucose 194 mg/dL (65-115); HDL Cholesterol 31 mg/dL (60-100); Osmolality Calculated 314 mOsm/kg (285-295); Potassium 4.3 mmol/L (3.5-5.1); Sodium 142 mmol/L (136-145); Total Bilirubin 0.2 mg/dL (0.15-1.2); Total Protein 6.5 g/dL (6.6-8.7); Triglycerides 625 mg/dL (0-150); VLDL Cholestrol Calculation 125 mg/dL (0-30)
[2022-01-31 06:44] LABS: LDL Cholesterol Direct 95 mg/dL (0-100)
[2022-01-31 06:50] LABS: Glucose Point of Care 191 mg/dL (70-110)
[2022-01-31] MEDS: cefepime 2,000 MG in sodium chloride 0.9% (plus) 50 ML 100 MG IV (08:25)
[2022-01-31] MEDS: enoxaparin 40 mg/0.4 mL Syringe SUBCUT (08:26)
[2022-01-31] MEDS: ferrous gluconate 324 mg Tablet PO ×2 (08:26→17:45)
[2022-01-31] MEDS: pantoprazole DR 40 mg Tablet PO (08:27)
[2022-01-31] MEDS: gabapentin 300 mg Capsule PO ×2 (08:27→21:36)
[2022-01-31] MEDS: allopurinol 300 mg Tablet PO (08:27)
[2022-01-31] MEDS: insulin lispro 100 unit/1 mL SUBCUT ×4 (08:27→21:36)
[2022-01-31] MEDS: amlodipine 10 mg Tablet PO (10:33)
[2022-01-31] MEDS: metoprolol tartrate 50 mg Tablet PO ×2 (10:33→21:36)
[2022-01-31] MEDS: insulin glargine 100 units/1 mL 90 UNIT SUBCUT ×2 (11:05→21:36)
[2022-01-31 11:44] LABS: Glucose Point of Care 212 mg/dL (70-110)
--- NOTE | 2022-01-31 11:55 | PC.CHAP ---
Pastoral Care Encounter/Spiritual Assessment Type of Contact [] Declined single fold machine operator visit [] Patient/Family/Request visit [] Outpatient visit [] Follow-up visit [] Physician referral [] Code/Alert [x] Routine visit [] Staff referral [] Actively dying [] Patient sleeping [] Family support [] [] Out of room [] Palliative care [] [x] Receiving care in room [] Pre-surgical visit [] Trauma [] Long length of stay [] ICU visit [] Other: Relational/Emotional Strength [] Patient feels connected with others/family/visitors/staff [] Distress [] Loneliness/isolation [] Abandonment Spirituality of Patient [] Person of Anette [] Attends Sikhism of their Anette [] Believes in Prayer [] Reads Bible or Adventist materials [] There are Spiritual issues to be addressed Test Fixture Designer Interventions [] Prayer [] Active listening [] Non-anxious presence [] Spiritual/emotional support [] Crisis/trauma care [] Spiritual counseling [] Bereavement support [] Provided bereavement packet [] Provided Bible/devotional materials [] Provided toy/stuffed animal, coloring book to patient or family member [] Provided Communion [] Anointing/[place] [] Salvation [] Completed spiritual assessment [] Other: Impact on Illness or Injury [] Angry [] Fearful [] Anxious [] Often cries [] Exhaustion [] Unable to work [] Unable to attend shinto [] Unable to walk/stand [] Unable to read [] Unable to drive [] Unable to eat/drink [] Unable to sleep [] Unable to be with family [] Patient intubated [] Other: Summary Time spent with patient
--- NOTE | 2022-01-31 16:10 | P.PN_ITS ---
Subjective Subjective: No acute events overnight. Patient feeling better. Seen walking down the [place]berts. Saturating 98% on 2 L. Vitals/I&O/Wt Last Vital Signs Temp 97.6 F 01/31/22 11:55 Pulse 81 01/31/22 14:49 Resp 18 01/31/22 14:49 BP 143/76 01/31/22 11:55 Pulse Ox 98 01/31/22 14:49 O2 Del Method 01/31/22 14:49 O2 Flow Rate 2 01/31/22 14:49 01/31/22 01/31/22 01/31/22 06:59 14:59 22:59 Intake Total 120 / 920 530 / 530 Output Total 800 / 1200 Balance -680 / -280 530 / 530 Weight last 48 hrs Weight 106.594 kg Physical Exam Narrative: General: No acute distress, AO x3 HEENT: PERRLA, pupils bilaterally equal and reactive, pallors not present Chest: Normal vesicular breath sounds, no added sounds, equal good air entry bilaterally CVS: S1-S2 regular, no murmurs, no tachycardia, no gallops, no rubs Abdomen: Soft, nontender, no organomegaly, bowel sounds present Neuro: No focal deficits, no facial deformity, AO x3, power 5/5 in all limbs Extremities: No clubbing edema. Data : 01/31/22 04:32 01/31/22 04:32 Micro: Microbiology 01/30/22 17:30 MRSA Culture - Final Nose 01/29/22 22:26 Blood Culture - Preliminary Blood NEGATIVE TO DATE 01/29/22 22:23 Blood Culture - Preliminary Blood NEGATIVE TO DATE 01/30/22 13:45 Bacterial Antigens - Final Urine Kidney 01/30/22 13:45 Legionella Urinary Antigen - Final Unknown Source A&P Assessment and plan (1) Hypoxia: Hypoxia most likely secondary to COPD exacerbation from viral bronchitis versus community-acquired pneumonia. Chest x-ray concerning for mild consolidation. Patient does have leukocytosis, Pro-Farooq negative. Continue with DuoNebs every 6 hour, desonide twice daily. Sputum culture still awaited. MRSA negative. For now continue with Levaquin every other day, cefepime 2 g IV daily. Sputum culture in past consistent with Serratia which was sensitive to Levaquin. (2) Community acquired pneumonia: Qualifiers: Laterality: unspecified laterality Qualified Code(s): J18.9 - Pneumonia, unspecified organism (3) S/P lobectomy of lung: (4) COPD (chronic obstructive pulmonary disease): Qualifiers: COPD type: emphysema Emphysema type: centrilobular Qualified Code(s): J43.2 - Centrilobular emphysema (5) Type 2 diabetes mellitus: Patient sliding scale at high-dose protocol. Lantus 90 units at home dose twice daily. A1c 8.5. (6) HTN (hypertension) with goal to be determined: Goal blood pressure less than 140/90 mmHg. Continue with home dose of metoprolol and amlodipine. Holding off on hydralazine as blood pressures are at goal of hydralazine. Will uptitrate if needed. (7) CKD (chronic kidney disease) stage 2, GFR 60-89 ml/min: Baseline creatinine 1.3-1.7. Creatinine at baseline now. Medical reconciliation done for nephrotoxic drugs. Plan Echocardiogram from 02/2021 without any gross signs of systolic heart failure. Grade 1 diastolic dysfunction was noted, however per outpatient cardiology notes review he is not noted to have CHF. Has been recently taken off of Lasix in the past 3 months. Full code. Regular diet. Lovenox for DVT prophylaxis Protonix for PUD prophylaxis Attestations Medical Necessity Statement*: Requires further hospitalization for management of hypoxia secondary to bronchitis leading to COPD exacerbation Time Spent in Patient Care: Greater than 35 minutes Coding Level of Care Code Acute Child Care Centre Manager for [facility] Fwd Diagnoses Hypoxia R09.02 Community acquired pneumonia J18.9 Laterality: unspecified laterality S/P lobectomy of lung Z90.2 COPD (chronic obstructive pulmonary disease) J43.2 COPD type: emphysema Emphysema type: centrilobular Type 2 diabetes mellitus E11.9 HTN (hypertension) with goal to be determined I10 CKD (chronic kidney disease) stage 2, GFR 60-89 ml/min N18.2
[2022-01-31 16:41] LABS: Glucose Point of Care 289 mg/dL (70-110)
[2022-01-31] MEDS: atorvastatin 40 mg Tablet 80 MG PO (17:45)
[2022-01-31] MEDS: budesonide 0.5 mg/2 mL Neb INHALATION (20:26)
[2022-01-31 21:13] LABS: Glucose Point of Care 199 mg/dL (70-110)
[2022-01-31] MEDS: levoFLOXacin 750 mg Tablet PO (21:36)
[2022-02-01] VITALS (10 sets, daily range): BP systolic 113–143; BP diastolic 65–82; PULSE 93–102; RESP 16–17; TEMP 36.4–36.6; O2SAT 94–98
[2022-02-01] MEDS: acetaminophen 325 mg Tablet 650 MG PO (00:19)
[2022-02-01] MEDS: ipratropium-albuterol 3 mL Neb INHALATION ×3 (02:40→13:41)
[2022-02-01 05:01] LABS: Basophils % 0.4 %; Eosinophils # 0.2 10^3/uL (0.0-0.8); Eosinophils % 1.8 %; Hematocrit 34.9 % (42.0-52.0); Hemoglobin 10.9 g/dL (11.7-16.6); Lymphocytes % 22.3 %; Mean Corpuscular HGB Conc 31.2 g/dL (30.0-36.0); Mean Corpuscular Hemoglobin 30.1 pg (28.0-34.0); Mean Corpuscular Volume 96.4 fl (80-94); Mean Platelet Volume 10.5 fL (7.4-10.4); Monocytes # 0.7 10^3/uL (0.2-0.9); Monocytes % 8.2 %; Neutrophils # 5.97 10^3/uL (1.8-7.7); Nucleated Red Blood Cells % 0 %; Platelet Count 156 10^3/cmm (130-400); Red Blood Count 3.62 10^6/uL (4.1-5.3); Red Cell Distribution Width 16.7 % (12.1-15.1); White Blood Count 8.9 10^3/uL (4.0-10.0)
[2022-02-01 05:24] LABS: Alanine Aminotransferase 29 U/L (0-41); Albumin Level 3.4 g/dL (3.5-5.2); Alkaline Phosphatase 69 U/L (40-130); Anion Gap 12.3 (5-19); Aspartate Amino Transferase 26 U/L (0-40); Blood Urea Nitrogen 46 mg/dL (8-23); Calcium 9.7 mg/dL (8.5-10.5); Carbon Dioxide 28 mmol/L (22-29); Chloride 107 mmol/L (98-107); Globulin 2.9 g/dL (1.3-4.6); Glucose 107 mg/dL (65-115); Osmolality Calculated 308 mOsm/kg (285-295); Potassium 4.3 mmol/L (3.5-5.1); Sodium 143 mmol/L (136-145); Total Bilirubin 0.2 mg/dL (0.15-1.2); Total Protein 6.3 g/dL (6.6-8.7)
[2022-02-01] MEDS: aspirin 325 mg Tablet PO (05:32)
[2022-02-01 06:55] LABS: Glucose Point of Care 143 mg/dL (70-110)
[2022-02-01] MEDS: budesonide 0.5 mg/2 mL Neb INHALATION (07:59)
[2022-02-01] MEDS: enoxaparin 40 mg/0.4 mL Syringe SUBCUT (08:25)
[2022-02-01] MEDS: pantoprazole DR 40 mg Tablet PO (08:26)
[2022-02-01] MEDS: allopurinol 300 mg Tablet PO (08:26)
[2022-02-01] MEDS: polyethylene glycol 3350 Pkt 17 gm PO (08:26)
[2022-02-01] MEDS: ferrous gluconate 324 mg Tablet PO (08:26)
[2022-02-01] MEDS: amlodipine 10 mg Tablet PO (08:26)
[2022-02-01 08:42] LABS: Glucose Point of Care 140 mg/dL (70-110)
[2022-02-01] MEDS: insulin glargine 100 units/1 mL 90 UNIT SUBCUT (08:54)
[2022-02-01] MEDS: metoprolol tartrate 50 mg Tablet PO (09:02)
[2022-02-01] MEDS: gabapentin 300 mg Capsule PO (09:02)
[2022-02-01 11:33] LABS: Glucose Point of Care 192 mg/dL (70-110)
--- NOTE | 2022-02-01 12:55 | PC.CHAP ---
Pastoral Care Encounter/Spiritual Assessment Type of Contact [] Declined flat polisher visit [] Patient/Family/Request visit [] Outpatient visit [] Follow-up visit [] Physician referral [] Code/Alert [x] Routine visit [] Staff referral [] Actively dying [] Patient sleeping [] Family support [] [] Out of room [] Palliative care [] [x] Receiving care in room [] Pre-surgical visit [] Trauma [] Long length of stay [] ICU visit [] Other: Relational/Emotional Strength [x] Patient feels connected with others/family/visitors/staff [] Distress [] Loneliness/isolation [] Abandonment Spirituality of Patient [x] Person of Anette [] Attends Presybeterian of their Anette [x] Believes in Prayer [] Reads Bible or Yazdanism materials [] There are Spiritual issues to be addressed Special Events Manager Interventions [x] Prayer [x] Active listening [x] Non-anxious presence [x] Spiritual/emotional support [] Crisis/trauma care [x] Spiritual counseling [] Bereavement support [] Provided bereavement packet [] Provided Bible/devotional materials [] Provided toy/stuffed animal, coloring book to patient or family member [] Provided Communion [] Anointing/[place] [] Salvation [x] Completed spiritual assessment [] Other: Impact on Illness or Injury [] Angry [] Fearful [] Anxious [] Often cries [] Exhaustion [] Unable to work [] Unable to attend samaritan [] Unable to walk/stand [] Unable to read [] Unable to drive [] Unable to eat/drink [] Unable to sleep [] Unable to be with family [] Patient intubated [] Other: Summary RECOVER time has a possitive feelings will need care recovery whit e well go home Time spent with patient 10 mins
[2022-02-01] MEDS: insulin lispro 100 unit/1 mL SUBCUT (12:58)
--- NOTE | 2022-02-01 13:21 | P.DS_ITS ---
Discharge Providers Date of Admission: 01/30/22 01:02 Date of Discharge: February 01, 2022 Attending Provider at Admission: Chayito Yoo MD Attending Provider at Discharge: Chuy Cartagena MD Primary Care Provider: Praveen Shah DO Diagnoses at Discharge Discharge Diagnosis (1) Hypoxia: Status: Acute (2) Community acquired pneumonia: Status: Acute Qualifiers: Laterality: unspecified laterality Qualified Code(s): J18.9 - Pneumonia, unspecified organism (3) S/P lobectomy of lung: Status: Acute (4) COPD (chronic obstructive pulmonary disease): Status: Acute Qualifiers: COPD type: emphysema Emphysema type: centrilobular Qualified Code(s): J43.2 - Centrilobular emphysema (5) Type 2 diabetes mellitus: Status: Acute (6) HTN (hypertension) with goal to be determined: Status: Acute (7) CKD (chronic kidney disease) stage 2, GFR 60-89 ml/min: Status: Acute Reason for Visit Reason for Visit: Respiratory distress, flu-like symptoms Hospital Course Hospital Course Jeff Delvalle is a 76 year old male with PMH COPD, hypertension, history of left upper lobectomy for collapsed lung in 1997, ex-smoker smoked 1.5 PPD for 26 years and quit 1987.? He has longstanding dyspnea on exertion, oxygen dependent 2 to 3 L at a baseline.? As result of COPD he often has productive cough.? Most recently 3 weeks ago.? He received treatment with Levaquin.? Sputum culture has in the past grown Serratia which appears to have been sensitive only to fluoroquinolones.? For airway clearance he attempts to use upper [place] Mucinex.? A flow vest was previously denied by insurance.? He presents today with 3 to 4 days of increasing sputum production, low-grade feve over the past 24 hours..? He was told by his outpatient soil specialist that if he has any fever then the concern is for pneumonia and he will likely need IV antibiotics.? He therefore presented to the emergency room. Denies any chest pain palpitations.? Dyspnea is at baseline.? Currently using 4 L/min supplemental O2, slightly more than 3 L/min which he uses at home. It appears he also previously carried a diagnosis of CHF, however in October 2021 he was taken off of his Lasix since his echocardiogram did not show any systolic dysfunction.? Grade 1 diastolic function was noted in February 2021.? Additionally his BNP was negative x2, because of which he followed with cardiology and it was opined that he does not have CHF.? On echocardiogram from 02/2021 right-sided pressures were not elevated either. Patient was admitted to the hospital further evaluation and management. On admission there was a concern for hypoxia secondary to COPD exacerbation from viral bronchitis. During hospitalization his blood cultures remain negative. Sputum culture could not be collected. He was started on empiric Levaquin and cefepime. As per culture history he has been continued on Levaquin. He responded well to the treatment. Has remained afebrile. During hospitalization he was found to have uncontrolled dyslipidemia, elevated HbA1c even on a very high antidiabetic and anticholesterol medications. He has been discharged hemodynamically stable condition on oral Levaquin every other day for next 7 days. He has been counseled in detail regarding lifestyle modification for better cholesterol and diabetes control. He is to hold off on taking hydralazine for now. He is to check his blood pressure daily at home and maintain a blood pressure diary and follow-up with primary care provider within next 1 week for further adjustment of antihypertensives as needed. Patient and patient's verbalized understanding. Physical Exam Narrative: General: No acute distress, AO x3 HEENT: PERRLA, pupils bilaterally equal and reactive, pallors not present Chest: Normal vesicular breath sounds, no added sounds, equal good air entry bilaterally CVS: S1-S2 regular, no murmurs, no tachycardia, no gallops, no rubs Abdomen: Soft, nontender, no organomegaly, bowel sounds present Neuro: No focal deficits, no facial deformity, AO x3, power 5/5 in all limbs Extremities: No clubbing edema. Discharge Data Studies Completed and Pending Completed Studies During Hospitalization Category Date Time Status XR chest 1V portable [id number] Stat Exams 01/29/22 21:43 Completed Pending at discharge Category Date Time Status Blood Culture Stat Lab 01/29/22 22:26 Results Sputum Culture and Gram Stain Routine Lab 01/30/22 04:56 Uncollected Radiology Impressions Chest X-Ray 01/29/22 21:43 IMPRESSION: 1. Stable bilateral upper lobe postsurgical changes. 2. Bibasilar opacities may represent atelectasis or inflammation. Superimposed infection can not be excluded. Laboratory Results WBC 8.9 10^3/uL (4.0-10.0) 02/01/22 04:24 RBC 3.62 10^6/uL (4.1-5.3) L 02/01/22 04:24 Hgb 10.9 g/dL (11.7-16.6) L 02/01/22 04:24 Hct 34.9 % (42.0-52.0) L 02/01/22 04:24 MCV 96.4 fl (80-94) H 02/01/22 04:24 MCH 30.1 pg (28.0-34.0) 02/01/22 04:24 MCHC 31.2 g/dL (30.0-36.0) 02/01/22 04:24 RDW 16.7 % (12.1-15.1) H 02/01/22 04:24 Plt Count 156 10^3/cmm (130-400) 02/01/22 04:24 MPV 10.5 fL (7.4-10.4) H 02/01/22 04:24 Neut % (Auto) 67.0 % 02/01/22 04:24 Lymph % (Auto) 22.3 % 02/01/22 04:24 [place] % (Auto) 8.2 % 02/01/22 04:24 Eos % (Auto) 1.8 % 02/01/22 04:24 Baso % (Auto) 0.4 % 02/01/22 04:24 Neut # (Auto) 5.97 10^3/uL (1.8-7.7) 02/01/22 04:24 Lymph # (Auto) 2.0 10^3/uL (0.8-4.8) 02/01/22 04:24 [place] # (Auto) 0.7 10^3/uL (0.2-0.9) 02/01/22 04:24 Eos # (Auto) 0.2 10^3/uL (0.0-0.8) 02/01/22 04:24 Baso # (Auto) 0.0 10^3/uL (0.0-0.1) 02/01/22 04:24 Nucleated RBC % (auto) 0 % 02/01/22 04:24 Nucleated RBCs # 0.0 /100WBC 02/01/22 04:24 D-Dimer 0.56 ug/mIFEU (0-0.59) 01/30/22 15:00 Sodium 143 mmol/L (136-145) 02/01/22 04:24 Potassium 4.3 mmol/L (3.5-5.1) 02/01/22 04:24 Chloride 107 mmol/L (98-107) 02/01/22 04:24 Carbon Dioxide 28 mmol/L (22-29) 02/01/22 04:24 Anion Gap 12.3 (5-19) 02/01/22 04:24 BUN 46 mg/dL (8-23) H 02/01/22 04:24 Creatinine 1.5 mg/dL (0.7-1.2) H 02/01/22 04:24 GFR Calculation Not Reportable 02/01/22 04:24 Glucose 107 mg/dL (65-115) 02/01/22 04:24 POC Glucose 192 mg/dL (70-110) H 02/01/22 11:01 Estimat Average Glucose 197 01/31/22 04:32 Hemoglobin A1c 8.5 % (4.0-6.0) H 01/31/22 04:32 Calculated Osmolality 308 mOsm/kg (285-295) H 02/01/22 04:24 Lactic Acid 2.0 mmol/L (0.5-2.2) 01/29/22 21:41 Calcium 9.7 mg/dL (8.5-10.5) 02/01/22 04:24 Iron 20 ug/dL (59-158) L 01/29/22 20:51 TIBC 225 mcg/dl 01/29/22 20:51 % Saturation 8.8 % (20-50) L 01/29/22 20:51 Unsat Iron Binding 205 ug/dL (112-347) 01/29/22 20:51 Total Bilirubin 0.2 mg/dL (0.15-1.2) 02/01/22 04:24 AST 26 U/L (0-40) 02/01/22 04:24 ALT 29 U/L (0-41) 02/01/22 04:24 Alkaline Phosphatase 69 U/L (40-130) 02/01/22 04:24 Troponin T Baseline 41 ng/L (0-15) H 01/29/22 20:52 Troponin T 120 Minute 42.16 ng/L (0-15) H 01/29/22 22:23 Delta Troponin T 1.16 ABS# (0-10) 01/29/22 22:23 NT-Pro-B Natriuret Pep 225 pg/mL (0-450) 01/29/22 20:52 Total Protein 6.3 g/dL (6.6-8.7) L 02/01/22 04:24 Albumin 3.4 g/dL (3.5-5.2) L 02/01/22 04:24 Globulin 2.9 g/dL (1.3-4.6) 02/01/22 04:24 Triglycerides 625 mg/dL (0-150) H 01/31/22 04:32 Cholesterol 250 mg/dL (0-200) H 01/31/22 04:32 LDL Cholesterol Direct 95 mg/dL (0-100) 01/31/22 04:32 LDL Cholesterol, Calc Not Reportable 01/31/22 04:32 Total VLDL Cholesterol 125 mg/dL (0-30) H 01/31/22 04:32 HDL Cholesterol 31 mg/dL (60-100) L 01/31/22 04:32 Cholesterol/HDL Ratio 8.06 mg/dL (1.0-5.00) H 01/31/22 04:32 Vitamin B12 > 2000 pg/mL (232-1245) H 01/29/22 20:51 Folate 10.7 ng/mL (4.5-32.2) 01/29/22 20:51 Procalcitonin 0.19 ng/mL (0-0.5) 01/29/22 20:52 TSH 1.37 uIU/mL (0.27-4.20) 01/29/22 20:51 Urine Color Yellow (Yellow) 01/30/22 06:06 Urine Appearance Clear (CLEAR) 01/30/22 06:06 Urine pH 5 (5-7) 01/30/22 06:06 Ur Specific [place] 1.015 (1.005-1.030) 01/30/22 06:06 Urine Protein 1+ (Negative) H 01/30/22 06:06 Urine Glucose (UA) 4+ (Normal) H 01/30/22 06:06 Urine Ketones Negative (Negative) 01/30/22 06:06 Urine Blood Neg (Negative) 01/30/22 06:06 Urine Nitrate Negative (Negative) 01/30/22 06:06 Urine Bilirubin Neg (Negative) 01/30/22 06:06 Urine Urobilinogen Norm mg/dL (Negative) 01/30/22 06:06 Ur Leukocyte Esterase Negative (Negative) 01/30/22 06:06 Urine RBC 0-4 /hpf (0-2) H 01/30/22 06:06 Urine WBC 0-4 /hpf (0-5) H 01/30/22 06:06 Ur Squamous Epith Cells 0-4 /hpf (0-5) H 01/30/22 06:06 Ur Transition Epith Cell 0-4 /hpf 01/30/22 06:06 Amorphous Sediment Not Reportable 01/30/22 06:06 Urine Bacteria Trace /hpf (NONE) 01/30/22 06:06 Hyaline Casts 0-4 /lpf H 01/30/22 06:06 Urine Mucus Trace /hpf 01/30/22 06:06 Ur Random Sodium 40 mmol/L 01/30/22 06:06 Ur Random Potassium 67 mmol/L 01/30/22 06:06 Ur Random Chloride 46 mmol/L 01/30/22 06:06 Coronavirus 229E (PCR) Not detected (NOT DETECT) 01/29/22 22:45 Influenza Type A Ag negative (Negative) 01/29/22 23:50 Influenza Type B Ag negative (Negative) 01/29/22 23:50 SARS-CoV-2 (PCR) Not detected (NOT DETECT) 01/29/22 22:45 Vitals Last Vital Signs Temp 97.8 F 02/01/22 11:25 Pulse 102 H 02/01/22 11:25 Resp 16 02/01/22 11:25 BP 143/78 02/01/22 11:25 Pulse Ox 97 02/01/22 11:25 O2 Del Method 02/01/22 11:25 O2 Flow Rate 2 02/01/22 08:05 Discharge Plan Discharge Patient Disposition: Home Condition: Stable Prescriptions: New levofloxacin 750 mg Tablet 750 mg PO Q48H 7 Days Qty: 4 0RF Continued melatonin 3 mg capsule 3 mg PO BEDTIME hydrocodone-acetaminophen 5-325 mg tablet 1 tab PO QAM magnesium oxide 250 mg magnesium tablet 250 mg PO DAILY@12 albuterol sulfate [Ventolin HFA] 90 mcg/actuation HFA aerosol inhaler 2 puff INHALATION Q6H PRN (Reason: Shortness Of Breath) finasteride 5 mg tablet 5 mg PO QAM aspirin 325 mg tablet 325 mg PO QAM omeprazole 20 mg capsule,delayed release(DR/EC) 20 mg PO QAM ipratropium-albuterol 0.5 mg-3 mg(2.5 mg base)/3 mL solution for nebulization 3 ml inhalation Q4H PRN (Reason: wheezing) Qty: 90 3RF spironolactone 25 mg tablet 25 mg PO DAILY Qty: 90 3RF codeine-guaifenesin 10-100 mg/5 mL liquid 5 ml PO TID PRN (Reason: Cough) levocetirizine 5 mg tablet 5 mg PO DAILY@12 Trelegy Ellipta 100-62.5-25 mcg blister with device 1 inh inhalation QAM Qty: 180 3RF cholecalciferol (vitamin D3) [Vitamin D3] 125 mcg (5,000 unit) tablet 125 mcg PO DAILY furosemide 20 mg tablet 40 mg PO .qod Qty: 90 3RF Rx Instructions: 40mg (2 tabs) every other morning amlodipine 10 mg tablet 10 mg PO DAILY Qty: 100 3RF atorvastatin 80 mg tablet 80 mg PO QPM Qty: 90 3RF metoprolol succinate 100 mg tablet extended release 24 hr 100 mg PO DAILY Qty: 90 3RF (DME) Diabetic Shoes See Rx Instructions .Route .MEDSUPPLY Qty: 1 0RF Rx Instructions: As directed cyclobenzaprine 5 mg tablet 5 mg PO TID PRN (Reason: muscle spasm) Qty: 14 0RF ascorbic acid (vitamin C) [Vitamin C] 1,000 mg Tablet 1,000 mg PO DAILY@12 albuterol sulfate 2.5 mg /3 mL (0.083 %) solution for nebulization 2.5 mg inhalation Q4H PRN (Reason: Shortness Of Breath) cyanocobalamin (vitamin B-12) [Vitamin B-12] 500 mcg Tablet 1,000 mcg PO QAM docusate sodium [Stool Softener] 100 mg Capsule 100 mg PO BID gabapentin 300 mg Capsule 300 mg PO BID PreserVision AREDS-2 250-90-40-1 mg Capsule 1 tab PO BID Trulicity 1.5 mg/0.5 mL pen injector 1.5 mg SUBCUT Q7D Rx Instructions: on sat guaifenesin [Mucinex] 600 mg tablet extended release 12hr 600 mg PO Q12H Lantus U-100 Insulin 100 unit/mL solution 90 unit SUBCUT BID latanoprost 0.005 % drops 1 drp ophthalmic (eye) QPM allopurinol 300 mg tablet 300 mg PO DAILY@12 NebuSal 3 % solution for nebulization 4 ml INHALATION QAM zinc acetate 50 mg (zinc) Capsule 50 mg PO DAILY@12 Held hydralazine 100 mg tablet 100 mg PO TID Qty: 270 3RF Hold Instructions: Resume on 02/08/22. Discharge Orders: Discharge Order (Routine); Ordered 02/01/22 Ordered By: Chuy Cartagena Referrals: Praveen Shah DO [Primary Care Provider] - 7-10 days Discharge Diet: Cardiac Discharge Activity: Resume usual activity and Increase activity as tolerated Patient Instructions: Opioid Safety Activity Restrictions/Additional Instructions: Please continue taking all your medications as before. Levaquin is the new antibiotic which you should take once every 2 days for next 1 week. Please continue to follow lifestyle modification as we discussed in detail. Please try to walk for at least 40 minutes a day for 4 days out of the week at a pace when you can talk and walk at the same time, please try to regulate your diet to reduce carbohydrates. Please try to lose around 10 pounds of weight. Please do not take hydralazine for now. Check your blood pressure daily at home and maintain a blood pressure diary and follow-up with a primary care provider for further adjustment of antihypertensives as possible. Goal blood pressure is less than 140/90 mmHg. Discharge Attestations Time Spent in Discharge Care*: greater than 30 min Specific Discharge Activities: educating patient, educating and/or supporting family/caregiver, discussing with therapeutic case manager/social workers/dc planners, documenting/other paperwork and evaluating patient/reviewing data Status at Discharge: Cognitive status at discharge: cognitively intact , Behavioral status at discharge: cooperative , Functional status at discharge: independent ambulation , Overall status at discharge: patient is back to baseline Quality Metrics Clinical Quality Measures [ No reported AMI, CVA or VTE this stay] Coding Level of Care Code Acute Chg FW DC note Diagnoses Hypoxia R09.02 Community acquired pneumonia J18.9 Laterality: unspecified laterality S/P lobectomy of lung Z90.2 COPD (chronic obstructive pulmonary disease) J43.2 COPD type: emphysema Emphysema type: centrilobular Type 2 diabetes mellitus E11.9 HTN (hypertension) with goal to be determined I10 CKD (chronic kidney disease) stage 2, GFR 60-89 ml/min N18.2
== END 2022-02-01 14:40 | disposition home or self-care (01) ==
LOC: ER 01-30 00:57 → MEDSURG 01-30 01:23
PROVIDERS: Emergency Medicine; Admitting Provider Student in an Organized Health Care Education/Training Program; Emergency Provider Emergency Medicine; PCP Electrodiagnostic Medicine; Visit Provider Student in an Organized Health Care Education/Training Program
DX: R09.02 Hypoxemia (principal); J18.9 Pneumonia, unspecified organism; Z90.2 Acquired absence of lung [part of]; J43.2 Centrilobular emphysema; E11.22 Type 2 diabetes mellitus with diabetic chronic kidney disease; I12.9 Hypertensive chronic kidney disease with stage 1 through stage 4 chronic kidney disease, or unspecified chronic kidney disease; N18.2 Chronic kidney disease, stage 2 (mild); Z87.891 Personal history of nicotine dependence; Z99.81 Dependence on supplemental oxygen; Z79.4 Long term (current) use of insulin
CPT/HCPCS: 36415; 36416; 71045; 80053; 80061; 81001; 82436; 82607; 82746; 82962; 83036; 83540; 83550; 83605; 83721; 83880; 84133; 84145; 84300; 84443; 84484; 85025; 85378; 86403; 87040; 87449; 87635; 87641; 87804; 93005; 94640; 94669; 94760; 96372; 99285; G0378; J0692; J1650; J1815; J1956; J7030; J7626

== ENCOUNTER → 2022-02-26 13:24 | Outpatient (BNVA) | payer MEDICARE, SELFPAY | PROVIDERS: PCP Electrodiagnostic Medicine; Visit Provider Podiatrist Foot & Ankle Surgery | DX: I73.9 Peripheral vascular disease, unspecified (principal); B35.1 Tinea unguium; E11.9 Type 2 diabetes mellitus without complications; G62.9 Polyneuropathy, unspecified; L85.3 Xerosis cutis; Z79.4 Long term (current) use of insulin | CPT/HCPCS: 11721; 73630; 99213 ==

== ENCOUNTER → 2022-03-01 13:33 | Outpatient (BNVA) | payer MEDICARE, SELFPAY | PROVIDERS: PCP Electrodiagnostic Medicine; Visit Provider Anesthesiology Pain Medicine | DX: M47.816 Spondylosis without myelopathy or radiculopathy, lumbar region (principal); E11.9 Type 2 diabetes mellitus without complications; Z79.4 Long term (current) use of insulin | CPT/HCPCS: 36416; 64635; 64636; 82962; J1030 ==

== ENCOUNTER 2022-03-15 20:00 | Outpatient (CLI) | payer MEDICARE, SELFPAY | END 2022-03-15 20:01 | disposition home or self-care (01) | LOC: SLEEP 03-16 05:59 | PROVIDERS: PCP Electrodiagnostic Medicine; Visit Provider Internal Medicine Pulmonary Disease | DX: G47.33 Obstructive sleep apnea (adult) (pediatric) (principal); R06.09 Other forms of dyspnea; R53.83 Other fatigue | CPT/HCPCS: 95810 ==

== ENCOUNTER → 2022-03-21 08:46 | Outpatient (BNVA) | payer MEDICARE, SELFPAY | PROVIDERS: PCP Electrodiagnostic Medicine; Visit Provider Anesthesiology Pain Medicine | DX: M43.26 Fusion of spine, lumbar region (principal); M54.16 Radiculopathy, lumbar region; M47.816 Spondylosis without myelopathy or radiculopathy, lumbar region; M25.552 Pain in left hip; M79.604 Pain in right leg; M79.605 Pain in left leg | CPT/HCPCS: 99214 ==

== ENCOUNTER → 2022-04-23 09:52 | Outpatient (BNVA) | payer MEDICARE, SELFPAY | PROVIDERS: PCP Electrodiagnostic Medicine; Visit Provider Anesthesiology Pain Medicine | DX: Z01.89 Encounter for other specified special examinations (principal); M43.26 Fusion of spine, lumbar region; M47.816 Spondylosis without myelopathy or radiculopathy, lumbar region; M54.16 Radiculopathy, lumbar region; M25.552 Pain in left hip | CPT/HCPCS: 99214 ==

== ENCOUNTER → 2022-05-14 09:53 | Outpatient (BNVA) | payer MEDICARE, SELFPAY | PROVIDERS: PCP Electrodiagnostic Medicine; Visit Provider Internal Medicine Cardiovascular Disease | DX: I13.0 Hypertensive heart and chronic kidney disease with heart failure and stage 1 through stage 4 chronic kidney disease, or unspecified chronic kidney disease (principal); E11.22 Type 2 diabetes mellitus with diabetic chronic kidney disease; N18.2 Chronic kidney disease, stage 2 (mild); I50.30 Unspecified diastolic (congestive) heart failure; Z87.891 Personal history of nicotine dependence; Z79.4 Long term (current) use of insulin; G47.09 Other insomnia; F51.9 Sleep disorder not due to a substance or known physiological condition, unspecified; R09.02 Hypoxemia; J43.2 Centrilobular emphysema; R06.09 Other forms of dyspnea; G62.9 Polyneuropathy, unspecified | CPT/HCPCS: 11721; 99214 ==

== ENCOUNTER → 2022-07-16 08:38 | Outpatient (BNVA) | payer MEDICARE, SELFPAY | PROVIDERS: PCP Electrodiagnostic Medicine; Visit Provider Podiatrist Foot & Ankle Surgery | DX: I73.9 Peripheral vascular disease, unspecified (principal); B35.1 Tinea unguium; E11.9 Type 2 diabetes mellitus without complications; G62.9 Polyneuropathy, unspecified; L85.3 Xerosis cutis; Z79.4 Long term (current) use of insulin | CPT/HCPCS: 11721 ==

== ENCOUNTER → 2022-07-23 09:16 | Outpatient (BNVA) | payer MEDICARE, SELFPAY | PROVIDERS: PCP Electrodiagnostic Medicine; Visit Provider Anesthesiology Pain Medicine | DX: Z01.89 Encounter for other specified special examinations (principal); M43.26 Fusion of spine, lumbar region; M47.816 Spondylosis without myelopathy or radiculopathy, lumbar region; M54.16 Radiculopathy, lumbar region; M25.551 Pain in right hip | CPT/HCPCS: 99214 ==

== ENCOUNTER 2022-08-10 09:12 | Outpatient (CLI) | payer MEDICARE, SELFPAY ==
--- NOTE | 2022-08-10 09:30 | USCV_ITS ---
Mook Jeff Age: 77 Gender: M : 1945 Exam Date: 08/10/2022 09:53 Ordering Phys: Jaimee Aj MD ([email or web address]) Technologist: OMER [place] [facility] [place]: HTN and CHRONIC RENAL FAILURE Aortic Velocity @ SMA (cm/s) 76.3 RIGHT KIDNEY LEFT KIDNEY Velocity (cm/s) Velocity (cm/s) Sys/Ambriz Sys/Ambriz Resistive Index Resistive Index 36.1 / 6.3 0.83 Proximal Renal Artery 178.8 / 36.0 0.80 45.4 / 17.9 0.61 Mid Renal Artery 162.2 / 36.0 0.78 65.6 / 18.5 0.72 Distal Renal Artery 106.9 / 23.3 0.76 51.9 / 17.9 0.66 Hilar 28.9 / 6.6 0.77 23.4 / 9.3 0.60 Upper Pole 40.0 / 9.2 0.77 22.9 / 7.3 0.67 Mid Pole 30.8 / 8.7 0.72 17.9 / 6.1 0.66 Lower Pole 33.3 / 9.6 0.71 0.90 Renal Aortic Ratio 2.34 Accleration Index (cm/sec2) 787.00 Hilar 918.00 170.00 Upper Pole 843.00 171.00 Mid Pole 715.00 900.00 Lower Pole 2191.0 0 84.4 Kidney Length (mm) 109.9 CONCLUSIONS No sonographic evidence of hemodynamically significant right renal artery stenosis. Increased systolic flow velocities noted in the left proximal renal artery with normal Ratio suggesting early borderline stenosis. No hemodynamically significant (>60% ) renal artery stenosis. Normal Resistive indices Bilateral echogenic kidneys compatible with medical renal disease Raza Nance MD (Electronically Signed) Final Date: 10 Aug 2022 17:53 S
== END 2022-08-10 09:13 | disposition home or self-care (01) ==
LOC: RAD 09:17
PROVIDERS: PCP Electrodiagnostic Medicine; Visit Provider Internal Medicine Cardiovascular Disease
DX: I50.33 Acute on chronic diastolic (congestive) heart failure (principal); N18.2 Chronic kidney disease, stage 2 (mild)
CPT/HCPCS: 93975

== ENCOUNTER 2022-08-14 16:02 | Emergency (ER) | payer MEDICARE, SELFPAY ==
[2022-08-14] VITALS (7 sets, daily range): BP systolic 108–134; BP diastolic 53–67; PULSE 92–112; RESP 18–20; TEMP 37.5; O2SAT 92–100
--- NOTE | 2022-08-14 16:30 | XRR_ITS ---
PROCEDURE INFORMATION: Exam: XR Chest Exam date and time: 08/14/2022 3:35 PM Age: 77 years old Clinical indication: Condition or disease; Lung condition and disease; Copd; Complications not specified; Shortness of breath; Prior surgery; Surgery date: 6+ months; Surgery type: Bilateral upper lobectomy; Additional info: SOB, hypoxia, copd TECHNIQUE: Imaging protocol: Radiologic exam of the chest. Views: 1 view. COMPARISON: CR XR chest 1V portable [id number] 01/29/2022 10:55 PM FINDINGS: Lungs: Upper right partial pneumonectomy. Changes of emphysema. Stable scarring in the lung bases, left greater than right. Pleural spaces: Mild blunting of the right costophrenic angle. No pneumothorax. Heart/Mediastinum: Unremarkable. No cardiomegaly. Bones/joints: [place] in the right humeral head. XR/XR chest 1V portable [id number] IMPRESSION: 1. No acute pulmonary findings. 2. Possible small right pleural effusion.
--- NOTE | 2022-08-14 16:42 | ECG_ITS ---
[facility] Test Date: 2022-08-14 Pat Name: Jeff Delvalle Department: Room: Gender: Male Life Advisor: : 1945 Requested By: Marley Castellon Order Number: [id number] Tata MD: Maritza Veliz M.D. Measurements Intervals [place] Rate: 108 P: 27 CA: 163 QRS: 43 QRSD: 88 T: 63 QT: 311 QTc: 418 Interpretive Statements SINUS TACHYCARDIA Compared to ECG 01/30/2022 00:22:36 T-wave abnormality no longer present Electronically Signed On 08-14-2022 16:57:31 CDT by Maritza Veliz M.D. [email or web address]
[2022-08-14 16:47] LABS: Basophils # 0.1 10^3/uL (0.0-0.1); Basophils % 0.3 %; Eosinophils % 0.1 %; Hemoglobin 13.1 g/dL (11.7-16.6); Lymphocytes # 1.2 10^3/uL (0.8-4.8); Lymphocytes % 4.4 %; Mean Corpuscular HGB Conc 31.2 g/dL (30.0-36.0); Mean Corpuscular Hemoglobin 28.3 pg (28.0-34.0); Mean Corpuscular Volume 90.7 fl (80-94); Mean Platelet Volume 10.5 fL (7.4-10.4); Monocytes # 1.5 10^3/uL (0.2-0.9); Monocytes % 5.6 %; Neutrophils # 23.57 10^3/uL (1.8-7.7); Neutrophils % 88.5 %; Nucleated Red Blood Cells % 0 %; Platelet Count 195 10^3/cmm (130-400); Red Blood Count 4.63 10^6/uL (4.1-5.3); Red Cell Distribution Width 16.5 % (12.1-15.1); White Blood Count 26.6 10^3/uL (4.0-10.0)
[2022-08-14] MEDS: ipratropium-albuterol 3 mL Neb INHALATION (16:55)
--- NOTE | 2022-08-14 16:55 | W.ED.SOB ---
Documented by User: JASON Kim 08/15/22 07:06 HPI - SOB/Dyspnea General: Chief Complaint: Fall Stated Complaint: RESP. ISSUES Time Seen by Provider: 08/14/22 16:15 Source: patient Mode of arrival: ambulatory Limitations: no limitations History of Present Illness: HPI Narrative: Patient is a 77-year-old male who presents to ED today via EMS for evaluation of shortness of breath and difficulty breathing. Patient states earlier today he was walking when his feet got tangled up causing him to fall. He denies any injury sustained during the fall. states she contacted EMS because she was not able to get patient up by herself. EMS states when they arrived patient was satting in the 70s and was visibly short of breath. He has a known history of COPD and states he wears oxygen occasionally but does not have to wear this very often. He states normal oxygen saturations without his O2 are anywhere from 90 to 95%. states he has been dealing with respiratory issues over the past 3 weeks. He was initially seen by his PCP Dr. Shah who tested him for influenza and COVID. Both were negative. He was placed on steroids and doxycycline. feels like he improved while on these medications but now that he is finished he seems to be worsening again. On exam patient is visibly short of breath. He is on 2 L of oxygen satting in the low 90s. He is tachycardic. MD elicited complaint: shortness of breath [facility] PFSH: Medical History CKD (chronic kidney disease) stage 2, GFR 60-89 ml/min COPD (chronic obstructive pulmonary disease) 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 GERD (gastroesophageal reflux disease) Heart failure HTN (hypertension) with goal to be determined Kidney disease PAD (peripheral artery disease) PHN (postherpetic neuralgia) Type 2 diabetes mellitus Surgical History History of lung surgery Hx of shoulder surgery Previous back surgery S/P cataract surgery S/P lobectomy of lung Family History Mother Hypertension Stroke Brother Heart disease Other Diabetes Social History Smoking and tobacco status: former smoker Quit status (tobacco): has quit using tobacco Year quit tobacco: 1987 Former quit date comment: [id number] Second hand smoke exposure: No Smoking risk assessment/counseling performed?: Yes Alcohol intake: never Substance/Drug Use: never Lives independently: Yes Household members: spouse Housing: House Marital status: service: No Current occupational status: retired Pets and animals: Yes Do you think of yourself as: Straight/Heterosexual Current gender identity: Male Course Vital Signs: Vital signs: Vital Signs Temperature 99.5 F 08/14/22 16:08 Pulse Rate 92 08/14/22 20:46 Respiratory Rate 18 08/14/22 20:46 Blood Pressure 113/61 08/14/22 20:46 Pulse Oximetry 96 08/14/22 20:46 Oxygen Delivery Me thod Nasal Cannula 08/14/22 18:35 Oxygen Flow Rate 2 08/14/22 18:35 MDM - SOB/Dyspnea Lab Data 08/14/22 16:20 08/14/22 16:20 Labs/Radiology: Radiology Impressions Chest X-Ray 08/14/22 16:30 IMPRESSION: 1. No acute pulmonary findings. 2. Possible small right pleural effusion. Laboratory Results WBC 26.6 10^3/uL (4.0-10.0) H 08/14/22 16:20 RBC 4.63 10^6/uL (4.1-5.3) 08/14/22 16:20 Hgb 13.1 g/dL (11.7-16.6) 08/14/22 16:20 Hct 42.0 % (42.0-52.0) 08/14/22 16:20 MCV 90.7 fl (80-94) 08/14/22 16:20 MCH 28.3 pg (28.0-34.0) 08/14/22 16:20 MCHC 31.2 g/dL (30.0-36.0) 08/14/22 16:20 RDW 16.5 % (12.1-15.1) H 08/14/22 16:20 Plt Count 195 10^3/cmm (130-400) 08/14/22 16:20 MPV 10.5 fL (7.4-10.4) H 08/14/22 16:20 Neut % (Auto) 88.5 % 08/14/22 16:20 Lymph % (Auto) 4.4 % 08/14/22 16:20 [place] % (Auto) 5.6 % 08/14/22 16:20 Eos % (Auto) 0.1 % 08/14/22 16:20 Baso % (Auto) 0.3 % 08/14/22 16:20 Neut # (Auto) 23.57 10^3/uL (1.8-7.7) H 08/14/22 16:20 Lymph # (Auto) 1.2 10^3/uL (0.8-4.8) 08/14/22 16:20 [place] # (Auto) 1.5 10^3/uL (0.2-0.9) H 08/14/22 16:20 Eos # (Auto) 0.0 10^3/uL (0.0-0.8) 08/14/22 16:20 Baso # (Auto) 0.1 10^3/uL (0.0-0.1) 08/14/22 16:20 Nucleated RBC % (auto) 0 % 08/14/22 16:20 Nucleated RBCs # 0.0 /100WBC 08/14/22 16:20 Specimen Type Arterial 08/14/22 17:08 Sample Site Brachial, right 08/14/22 17:08 ABG pH 7.43 (7.35-7.45) 08/14/22 17:08 ABG pCO2 38.6 mmHg (35-45) 08/14/22 17:08 ABG pO2 70.0 mmHg (80.0-100.0) L 08/14/22 17:08 ABG HCO3 25.4 mmol/L (22-26) 08/14/22 17:08 ABG O2 Saturation 93.7 08/14/22 17:08 ABG Base Excess 1.0 mmol/L (-2.0-2.0) 08/14/22 17:08 Bartolome Test N/a 08/14/22 17:08 A-a O2 Gradient 10.5 mmHg (5-10) H 08/14/22 17:08 Hematocrit 38.9 % (42-52) L 08/14/22 17:08 Hgb O2 Saturation 92.8 % (95-100) L 08/14/22 17:08 Carboxyhemoglobin 0.6 %THgb (0.4-20.1) 08/14/22 17:08 Methemoglobin 0.3 % (0.4-1.5) L 08/14/22 17:08 Total Hemoglobin 12.7 g/dL (14-18) L 08/14/22 17:08 Sodium 138.0 mmol/L (131-143) 08/14/22 17:08 Potassium 4.8 mmol/L (3.5-5.0) 08/14/22 17:08 Glucose 85.0 mg/dL (70-115) 08/14/22 17:08 Ionized Calcium 1.2 mmol/L (1.1-1.4) 08/14/22 17:08 O2 Delivery Device Nc 08/14/22 17:08 O2 Liters/Min 2.0 % 08/14/22 17:08 FiO2 28.0 % 08/14/22 17:08 Ip Paralegal ID Amh 08/14/22 17:08 Sodium 138 mmol/L (136-145) 08/14/22 16:20 Potassium 5.0 mmol/L (3.5-5.1) 08/14/22 16:20 Chloride 99 mmol/L (98-107) 08/14/22 16:20 Carbon Dioxide 26 mmol/L (22-29) 08/14/22 16:20 Anion Gap 18.0 (5-19) 08/14/22 16:20 BUN 50 mg/dL (8-23) H 08/14/22 16:20 Creatinine 1.8 mg/dL (0.7-1.2) H 08/14/22 16:20 GFR Calculation Not Reportable 08/14/22 16:20 Glucose 59 mg/dL (65-115) L 08/14/22 16:20 Calculated Osmolality 297 mOsm/kg (285-295) H 08/14/22 16:20 Lactic Acid 1.3 mmol/L (0.5-2.2) 08/14/22 17:00 Calcium 8.8 mg/dL (8.5-10.5) 08/14/22 16:20 Total Bilirubin 0.4 mg/dL (0.15-1.2) 08/14/22 16:20 AST 22 U/L (0-40) 08/14/22 16:20 ALT 23 U/L (0-41) 08/14/22 16:20 Alkaline Phosphatase 95 U/L (40-130) 08/14/22 16:20 Troponin T Baseline 41 ng/L (0-15) H 08/14/22 16:20 Troponin T 120 Minute 41.11 ng/L (0-15) H 08/14/22 18:59 Delta Troponin T 0.11 ABS# (0-10) 08/14/22 18:59 C-Reactive Protein 132.5 mg/L (0.0-4.9) H 08/14/22 16:20 NT-Pro-B Natriuret Pep 315 pg/mL (0-450) 08/14/22 16:20 Total Protein 6.4 g/dL (6.6-8.7) L 08/14/22 16:20 Albumin 3.8 g/dL (3.5-5.2) 08/14/22 16:20 Globulin 2.6 g/dL (1.3-4.6) 08/14/22 16:20 Procalcitonin 0.26 ng/mL (0-0.5) 08/14/22 16:20 Nasal Influ A H1 2008 PCR Not detected (NOT DETECT) 08/14/22 16:38 Adenovirus (PCR) Not detected (NOT DETECT) 08/14/22 16:38 C. pneumoniae DNA (PCR) Not detected (NOT DETECT) 08/14/22 16:38 Coronavirus 229E (PCR) Not detected (NOT DETECT) 08/14/22 16:38 Human Metapneumovir PCR Not detected (NOT DETECT) 08/14/22 16:38 Influenza A (H1) PCR Not detected (NOT DETECT) 08/14/22 16:38 Influenza A (H3) PCR Not detected (NOT DETECT) 08/14/22 16:38 Influenza Type A (PCR) Not detected (NOT DETECT) 08/14/22 16:38 Influenza Type B (PCR) Not detected (NOT DETECT) 08/14/22 16:38 M. pneumoniae (PCR) Not detected (NOT DETECT) 08/14/22 16:38 Parainfluenza 1 (PCR) Not detected (NOT DETECT) 08/14/22 16:38 Parainfluenza 2 (PCR) Not detected (NOT DETECT) 08/14/22 16:38 Parainfluenza 3 (PCR) Not detected (NOT DETECT) 08/14/22 16:38 Parainfluenza 4 (PCR) Detected (NOT DETECT) A 08/14/22 16:38 RSV Type A (PCR) Not detected (NOT DETECT) 08/14/22 16:38 RSV Type B (PCR) Not detected (NOT DETECT) 08/14/22 16:38 Entero/Rhino (PCR) Not detected (NOT DETECT) 08/14/22 16:38 SARS-CoV-2 (PCR) Not detected (NOT DETECT) 08/14/22 16:38 Discharge Plan Discharge Patient Disposition: Home Clinical Impression: Acute exacerbation of chronic obstructive pulmonary disease URI (upper respiratory infection) Qualifiers: URI type: unspecified viral URI Qualified Code(s): J06.9 - Acute upper respiratory infection, unspecified Condition: Stable Prescriptions: New levofloxacin 750 mg tablet 750 mg PO DAILY 6 Days Qty: 6 0RF dexamethasone 6 mg tablet 6 mg PO DAILY Qty: 6 0RF No Action hydrocodone-acetaminophen 5-325 mg tablet 1 tab PO QAM magnesium oxide 250 mg magnesium tablet 250 mg PO DAILY@12 albuterol sulfate [Ventolin HFA] 90 mcg/actuation HFA aerosol inhaler 2 puff INHALATION Q6H PRN (Reason: Shortness Of Breath) finasteride 5 mg tablet 5 mg PO QAM aspirin 325 mg tablet 325 mg PO QAM omeprazole 20 mg capsule,delayed release(DR/EC) 20 mg PO QAM hydralazine 100 mg tablet 100 mg PO TID Qty: 270 3RF Hold Instructions: Resume on 02/08/22. spironolactone 25 mg tablet 25 mg PO DAILY Qty: 90 3RF codeine-guaifenesin 10-100 mg/5 mL liquid 5 ml PO TID PRN (Reason: Cough) levofloxacin 250 mg tablet 50 mg PO DAILY indomethacin 50 mg capsule 50 mg PO BID Rx Instructions: administer with food or milk furosemide 20 mg tablet 20 mg PO .qod Rx Instructions: 20mg (2 tabs) every other morning docusate sodium [Stool Softener] 100 mg capsule 50 mg PO BID melatonin 3 mg capsule 5 mg PO BEDTIME chlorthalidone 25 mg tablet 25 mg PO DAILY 30 Days Qty: 30 5RF clotrimazole-betamethasone 1-0.05 % cream 1 applic topical BID 28 Days Qty: 45 1RF Rx Instructions: Apply to affected area twice daily levocetirizine 5 mg tablet 5 mg PO DAILY@12 Trelegy Ellipta 100-62.5-25 mcg blister with device 1 inh inhalation QAM Qty: 180 3RF cholecalciferol (vitamin D3) [Vitamin D3] 125 mcg (5,000 unit) tablet 125 mcg PO DAILY methylprednisolone acetate [Depo-Medrol] 40 mg/mL suspension 40 mg Infiltration ONCE Qty: 1 0RF cyclobenzaprine 5 mg tablet 5 mg PO TID PRN (Reason: muscle spasm) Qty: 60 0RF amlodipine 10 mg tablet 10 mg PO DAILY Qty: 100 3RF atorvastatin 80 mg tablet 80 mg PO QPM Qty: 90 3RF (DME) Diabetic Shoes See Rx Instructions .Route .MEDSUPPLY Qty: 1 0RF Rx Instructions: As directed metoprolol succinate 100 mg tablet extended release 24 hr 100 mg PO DAILY Qty: 90 3RF ipratropium-albuterol 0.5 mg-3 mg(2.5 mg base)/3 mL solution for nebulization 3 ml inhalation Q4H PRN (Reason: wheezing) Qty: 90 3RF Hold Instructions: not available ipratropium bromide 0.02 % solution 2.5 ml inhalation Q4H PRN (Reason: shortness of breath or wheezing) Qty: 1350 3RF albuterol sulfate 2.5 mg /3 mL (0.083 %) solution for nebulization 2.5 mg inhalation Q4H PRN (Reason: Shortness Of Breath) Qty: 1620 3RF sodium chloride 3 % solution for nebulization 4 ml inhalation BID PRN (Reason: secretions) Qty: 240 3RF ascorbic acid (vitamin C) [Vitamin C] 1,000 mg Tablet 1,000 mg PO DAILY@12 cyanocobalamin (vitamin B-12) [Vitamin B-12] 500 mcg Tablet 1,000 mcg PO QAM gabapentin 300 mg Capsule 300 mg PO BID PreserVision AREDS-2 250-90-40-1 mg Capsule 1 tab PO BID Trulicity 1.5 mg/0.5 mL pen injector 1.5 mg SUBCUT Q7D Rx Instructions: on sat Lantus U-100 Insulin 100 unit/mL solution 90 unit SUBCUT BID latanoprost 0.005 % drops 1 drp ophthalmic (eye) QPM allopurinol 300 mg tablet 300 mg PO DAILY@12 zinc acetate 50 mg (zinc) Capsule 50 mg PO DAILY@12 Discharge Orders: Discharge ED (Routine); Ordered 08/14/22 Ordered By: Jeff Mata Referrals: Praveen Shah DO [Primary Care Provider] - Discharge Diet: Usual diet Discharge Activity: Increase activity as tolerated Patient Instructions: Chronic Lung Disease and Infection Prevention (ED) Activity Restrictions/Additional Instructions: Take antibiotic and steroid for the next 6 days as directed. Continue with routine medications. Follow-up with primary care in 1 week for recheck. Return to emergency department for worsening symptoms such as increasing shortness of breath or new concerns. Sign Out Sign Out Data: Patient Sign Out occurred on 08/14/22 at 17:04. Patient's care was discussed, and care was transferred from to Jeff Mata. Coding Level of Care Code [facility] Techn[facility] for [facility]g Fwd Documented by User: DAVID Bailey 08/14/22 20:52 HPI - SOB/Dyspnea General: Chief Complaint: Fall Stated Complaint: RESP. ISSUES Time Seen by Provider: 08/14/22 16:15 History of Present Illness: Pertinent past history: COPD, congestive heart failure and diabetes Onset (ago): day(s) Context: recent illness Timing: progressively worsening Severity: moderate Exacerbating factors: lying flat Relieving factors: rest and upright position Known history of: COPD, congestive heart failure and diabetes Associated symptoms: Reports chest congestion and cough; Deny chest pain or fever(s) Review of Systems Const: Reports: other (Weakness); Denies: fever(s) Eyes: Denies: eye discomfort ENMT: Denies: throat pain Card: Denies: chest pain Resp: Reports: dyspnea and chest congestion [facility] PFSH: Medical History CKD (chronic kidney disease) stage 2, GFR 60-89 ml/min COPD (chronic obstructive pulmonary disease) 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 GERD (gastroesophageal reflux disease) Heart failure HTN (hypertension) with goal to be determined Kidney disease PAD (peripheral artery disease) PHN (postherpetic neuralgia) Type 2 diabetes mellitus Surgical History History of lung surgery Hx of shoulder surgery Previous back surgery S/P cataract surgery S/P lobectomy of lung Family History Mother Hypertension Stroke Brother Heart disease Other Diabetes Social History Smoking and tobacco status: former smoker Quit status (tobacco): has quit using tobacco Year quit tobacco: 1987 Former quit date comment: [id number] Second hand smoke exposure: No Smoking risk assessment/counseling performed?: Yes Alcohol intake: never Substance/Drug Use: never Lives independently: Yes Household members: spouse Housing: House Marital status: service: No Current occupational status: retired Pets and animals: Yes Do you think of yourself as: Straight/Heterosexual Current gender identity: Male Physical Exam Const: COMMON NORMALS: alert HENMT: COMMON NORMALS: normocephalic HEAD & SCALP: normocephalic Neck/C-Spine: COMMON NORMALS: full ROM Chest: COMMONS NORMALS: normal inspection of the chest Resp: EFFORT & INSPECTION: Yes able to speak in complete sentences and Yes labored (Mild) AUSCULTATION: wheezes and diminished lung sounds Cardio: COMMON NORMALS: regular rhythm RATE: tachycardic RHYTHM: regular rhythm GI: COMMON NORMALS: Soft to palpation and non-tender PALPATION: Yes Soft to palpation Back/Pelvis: COMMON NORMALS: thoracic and lumbar spine normal to inspection Extremity: NARRATIVE EXTREMITY EXAM: Bilateral lower extremity edema from calf down +1 pitting Neuro: SENSORIUM/ORIENTATION: Yes alert Psych: COMMON NORMALS: cooperative Skin: COMMON NORMALS: turgor normal GENERAL SKIN EXAM: turgor normal Course ED course: 1709, received patient from Marley Castellon PA-C. Awaiting labs and x-ray reports. It was reported to me that patient had a fall at home and EMS responded to assist with getting patient up out of the floor as it is difficult for spouse to help patient. At that time patient was found to be short of breath with low oxygen saturations. Patient has a history of chronic kidney disease, diabetes mellitus type 2, COPD, GERD, CHF, hypertension, and peripheral artery disease, chronic back pain. Surgical history includes lobectomy, shoulder surgery, fusion of the spine, and cataract surgery. Lobectomy on the right side was performed due to emphysema. Patient has visible shortness of breath on my evaluation. White blood count was 26,000. Decreased air movement throughout the lungs. Patient also reports some suprapubic discomfort. Patient had had physical therapy today and just felt really weak after physical therapy and after getting home and going to the bathroom he was coming out of the bathroom and it felt like his feet gave out on him causing him to fall. No focal neural deficits are noted. Patient reports no chest pain. Patient does use oxygen at home occasionally but not routinely. Vital Signs: Vital signs: Vital Signs Temperature 99.5 F 08/14/22 16:08 Pulse Rate 92 08/14/22 20:46 Respiratory Rate 18 08/14/22 20:46 Blood Pressure 113/61 08/14/22 20:46 Pulse Oximetry 96 08/14/22 20:46 Oxygen Delivery Me thod Nasal Cannula 08/14/22 18:35 Oxygen Flow Rate 2 08/14/22 18:35 MDM - SOB/Dyspnea Medical Decision Making Patient comes in today for complaints of weakness, trip and fall, increased shortness of breath, and malaise. Patient had got up from the bathroom and was walking in the hallway and states his feet just gave out on him causing him to fall to the ground. EMS was called to assist patient it was found the patient at that time had a pulse oxygenation in the 70s. Patient was placed on oxygen which brought his pulse oxygen up into the 90s. Patient recently completed antibiotics approximately 2 days ago doxycycline along with some steroids for exacerbation of COPD. Spouse reports that patient did seem to be improved but has since gotten worse over the last 2 days after coming off steroids and antibiotics. Patient appears tired. Patient does have some increased effort for respirations. Patient though is able to speak in full sentences. Lungs have diminished sounds with wheezing. No +1 pitting edema in the lower extremities. Differential diagnosis includes not limited to pneumonia, exacerbation of COPD, CHF, ACS. CBC has some leukocytosis at 26,000 this may be related to infection or recent steroid use. CMP was unremarkable and stable to prior to exams. BNP showed no significant increase. Chest x-ray shows a mildly of small right pleural effusion. Patient's respiratory panel came back positive for parainfluenza virus. Believe the patient probably has a upper respiratory infection with secondary lower respiratory illness with exacerbation of COPD. I discussed this with patient and recommended admission but patient refused admission and wanted to go home. Patient will be managed with Levaquin and dexamethasone and need for follow-up or return for worsening symptoms. Lab Data 08/14/22 16:20 08/14/22 16:20 Labs/Radiology: Radiology Impressions Chest X-Ray 08/14/22 16:30 IMPRESSION: 1. No acute pulmonary findings. 2. Possible small right pleural effusion. Laboratory Results WBC 26.6 10^3/uL (4.0-10.0) H 08/14/22 16:20 RBC 4.63 10^6/uL (4.1-5.3) 08/14/22 16:20 Hgb 13.1 g/dL (11.7-16.6) 08/14/22 16:20 Hct 42.0 % (42.0-52.0) 08/14/22 16:20 MCV 90.7 fl (80-94) 08/14/22 16:20 MCH 28.3 pg (28.0-34.0) 08/14/22 16:20 MCHC 31.2 g/dL (30.0-36.0) 08/14/22 16:20 RDW 16.5 % (12.1-15.1) H 08/14/22 16:20 Plt Count 195 10^3/cmm (130-400) 08/14/22 16:20 MPV 10.5 fL (7.4-10.4) H 08/14/22 16:20 Neut % (Auto) 88.5 % 08/14/22 16:20 Lymph % (Auto) 4.4 % 08/14/22 16:20 [place] % (Auto) 5.6 % 08/14/22 16:20 Eos % (Auto) 0.1 % 08/14/22 16:20 Baso % (Auto) 0.3 % 08/14/22 16:20 Neut # (Auto) 23.57 10^3/uL (1.8-7.7) H 08/14/22 16:20 Lymph # (Auto) 1.2 10^3/uL (0.8-4.8) 08/14/22 16:20 [place] # (Auto) 1.5 10^3/uL (0.2-0.9) H 08/14/22 16:20 Eos # (Auto) 0.0 10^3/uL (0.0-0.8) 08/14/22 16:20 Baso # (Auto) 0.1 10^3/uL (0.0-0.1) 08/14/22 16:20 Nucleated RBC % (auto) 0 % 08/14/22 16:20 Nucleated RBCs # 0.0 /100WBC 08/14/22 16:20 Specimen Type Arterial 08/14/22 17:08 Sample Site Brachial, right 08/14/22 17:08 ABG pH 7.43 (7.35-7.45) 08/14/22 17:08 ABG pCO2 38.6 mmHg (35-45) 08/14/22 17:08 ABG pO2 70.0 mmHg (80.0-100.0) L 08/14/22 17:08 ABG HCO3 25.4 mmol/L (22-26) 08/14/22 17:08 ABG O2 Saturation 93.7 08/14/22 17:08 ABG Base Excess 1.0 mmol/L (-2.0-2.0) 08/14/22 17:08 Bartolome Test N/a 08/14/22 17:08 A-a O2 Gradient 10.5 mmHg (5-10) H 08/14/22 17:08 Hematocrit 38.9 % (42-52) L 08/14/22 17:08 Hgb O2 Saturation 92.8 % (95-100) L 08/14/22 17:08 Carboxyhemoglobin 0.6 %THgb (0.4-20.1) 08/14/22 17:08 Methemoglobin 0.3 % (0.4-1.5) L 08/14/22 17:08 Total Hemoglobin 12.7 g/dL (14-18) L 08/14/22 17:08 Sodium 138.0 mmol/L (131-143) 08/14/22 17:08 Potassium 4.8 mmol/L (3.5-5.0) 08/14/22 17:08 Glucose 85.0 mg/dL (70-115) 08/14/22 17:08 Ionized Calcium 1.2 mmol/L (1.1-1.4) 08/14/22 17:08 O2 Delivery Device Nc 08/14/22 17:08 O2 Liters/Min 2.0 % 08/14/22 17:08 FiO2 28.0 % 08/14/22 17:08 Ip Paralegal ID Amh 08/14/22 17:08 Sodium 138 mmol/L (136-145) 08/14/22 16:20 Potassium 5.0 mmol/L (3.5-5.1) 08/14/22 16:20 Chloride 99 mmol/L (98-107) 08/14/22 16:20 Carbon Dioxide 26 mmol/L (22-29) 08/14/22 16:20 Anion Gap 18.0 (5-19) 08/14/22 16:20 BUN 50 mg/dL (8-23) H 08/14/22 16:20 Creatinine 1.8 mg/dL (0.7-1.2) H 08/14/22 16:20 GFR Calculation Not Reportable 08/14/22 16:20 Glucose 59 mg/dL (65-115) L 08/14/22 16:20 Calculated Osmolality 297 mOsm/kg (285-295) H 08/14/22 16:20 Lactic Acid 1.3 mmol/L (0.5-2.2) 08/14/22 17:00 Calcium 8.8 mg/dL (8.5-10.5) 08/14/22 16:20 Total Bilirubin 0.4 mg/dL (0.15-1.2) 08/14/22 16:20 AST 22 U/L (0-40) 08/14/22 16:20 ALT 23 U/L (0-41) 08/14/22 16:20 Alkaline Phosphatase 95 U/L (40-130) 08/14/22 16:20 Troponin T Baseline 41 ng/L (0-15) H 08/14/22 16:20 Troponin T 120 Minute 41.11 ng/L (0-15) H 08/14/22 18:59 Delta Troponin T 0.11 ABS# (0-10) 08/14/22 18:59 C-Reactive Protein 132.5 mg/L (0.0-4.9) H 08/14/22 16:20 NT-Pro-B Natriuret Pep 315 pg/mL (0-450) 08/14/22 16:20 Total Protein 6.4 g/dL (6.6-8.7) L 08/14/22 16:20 Albumin 3.8 g/dL (3.5-5.2) 08/14/22 16:20 Globulin 2.6 g/dL (1.3-4.6) 08/14/22 16:20 Procalcitonin 0.26 ng/mL (0-0.5) 08/14/22 16:20 Nasal Influ A H1 2009 PCR Not detected (NOT DETECT) 08/14/22 16:38 Adenovirus (PCR) Not detected (NOT DETECT) 08/14/22 16:38 C. pneumoniae DNA (PCR) Not detected (NOT DETECT) 08/14/22 16:38 Coronavirus 229E (PCR) Not detected (NOT DETECT) 08/14/22 16:38 Human Metapneumovir PCR Not detected (NOT DETECT) 08/14/22 16:38 Influenza A (H1) PCR Not detected (NOT DETECT) 08/14/22 16:38 Influenza A (H3) PCR Not detected (NOT DETECT) 08/14/22 16:38 Influenza Type A (PCR) Not detected (NOT DETECT) 08/14/22 16:38 Influenza Type B (PCR) Not detected (NOT DETECT) 08/14/22 16:38 M. pneumoniae (PCR) Not detected (NOT DETECT) 08/14/22 16:38 Parainfluenza 1 (PCR) Not detected (NOT DETECT) 08/14/22 16:38 Parainfluenza 2 (PCR) Not detected (NOT DETECT) 08/14/22 16:38 Parainfluenza 3 (PCR) Not detected (NOT DETECT) 08/14/22 16:38 Parainfluenza 4 (PCR) Detected (NOT DETECT) A 08/14/22 16:38 RSV Type A (PCR) Not detected (NOT DETECT) 08/14/22 16:38 RSV Type B (PCR) Not detected (NOT DETECT) 08/14/22 16:38 Entero/Rhino (PCR) Not detected (NOT DETECT) 08/14/22 16:38 SARS-CoV-2 (PCR) Not detected (NOT DETECT) 08/14/22 16:38 EKG Data EKG 2: EKG Interpretation Date: 08/14/22 EKG interpretation time: 18:37 Prior EKG tracings: not available for review Interpretation: EKG shows a mild sinus tachycardia at 101 bpm with a regular rate. No ST elevation or ectopy is noted. No significant changes are noted from prior exam. Discharge Plan Discharge Patient Disposition: Home Clinical Impression: Acute exacerbation of chronic obstructive pulmonary disease URI (upper respiratory infection) Qualifiers: URI type: unspecified viral URI Qualified Code(s): J06.9 - Acute upper respiratory infection, unspecified Condition: Stable Prescriptions: New levofloxacin 750 mg tablet 750 mg PO DAILY 6 Days Qty: 6 0RF dexamethasone 6 mg tablet 6 mg PO DAILY Qty: 6 0RF No Action hydrocodone-acetaminophen 5-325 mg tablet 1 tab PO QAM magnesium oxide 250 mg magnesium tablet 250 mg PO DAILY@12 albuterol sulfate [Ventolin HFA] 90 mcg/actuation HFA aerosol inhaler 2 puff INHALATION Q6H PRN (Reason: Shortness Of Breath) finasteride 5 mg tablet 5 mg PO QAM aspirin 325 mg tablet 325 mg PO QAM omeprazole 20 mg capsule,delayed release(DR/EC) 20 mg PO QAM hydralazine 100 mg tablet 100 mg PO TID Qty: 270 3RF Hold Instructions: Resume on 02/08/22. spironolactone 25 mg tablet 25 mg PO DAILY Qty: 90 3RF codeine-guaifenesin 10-100 mg/5 mL liquid 5 ml PO TID PRN (Reason: Cough) levofloxacin 250 mg tablet 50 mg PO DAILY indomethacin 50 mg capsule 50 mg PO BID Rx Instructions: administer with food or milk furosemide 20 mg tablet 20 mg PO .qod Rx Instructions: 20mg (2 tabs) every other morning docusate sodium [Stool Softener] 100 mg capsule 50 mg PO BID melatonin 3 mg capsule 5 mg PO BEDTIME chlorthalidone 25 mg tablet 25 mg PO DAILY 30 Days Qty: 30 5RF clotrimazole-betamethasone 1-0.05 % cream 1 applic topical BID 28 Days Qty: 45 1RF Rx Instructions: Apply to affected area twice daily levocetirizine 5 mg tablet 5 mg PO DAILY@12 Trelegy Ellipta 100-62.5-25 mcg blister with device 1 inh inhalation QAM Qty: 180 3RF cholecalciferol (vitamin D3) [Vitamin D3] 125 mcg (5,000 unit) tablet 125 mcg PO DAILY methylprednisolone acetate [Depo-Medrol] 40 mg/mL suspension 40 mg Infiltration ONCE Qty: 1 0RF cyclobenzaprine 5 mg tablet 5 mg PO TID PRN (Reason: muscle spasm) Qty: 60 0RF amlodipine 10 mg tablet 10 mg PO DAILY Qty: 100 3RF atorvastatin 80 mg tablet 80 mg PO QPM Qty: 90 3RF (DME) Diabetic Shoes See Rx Instructions .Route .MEDSUPPLY Qty: 1 0RF Rx Instructions: As directed metoprolol succinate 100 mg tablet extended release 24 hr 100 mg PO DAILY Qty: 90 3RF ipratropium-albuterol 0.5 mg-3 mg(2.5 mg base)/3 mL solution for nebulization 3 ml inhalation Q4H PRN (Reason: wheezing) Qty: 90 3RF Hold Instructions: not available ipratropium bromide 0.02 % solution 2.5 ml inhalation Q4H PRN (Reason: shortness of breath or wheezing) Qty: 1350 3RF albuterol sulfate 2.5 mg /3 mL (0.083 %) solution for nebulization 2.5 mg inhalation Q4H PRN (Reason: Shortness Of Breath) Qty: 1620 3RF sodium chloride 3 % solution for nebulization 4 ml inhalation BID PRN (Reason: secretions) Qty: 240 3RF ascorbic acid (vitamin C) [Vitamin C] 1,000 mg Tablet 1,000 mg PO DAILY@12 cyanocobalamin (vitamin B-12) [Vitamin B-12] 500 mcg Tablet 1,000 mcg PO QAM gabapentin 300 mg Capsule 300 mg PO BID PreserVision AREDS-2 250-90-40-1 mg Capsule 1 tab PO BID Trulicity 1.5 mg/0.5 mL pen injector 1.5 mg SUBCUT Q7D Rx Instructions: on sat Lantus U-100 Insulin 100 unit/mL solution 90 unit SUBCUT BID latanoprost 0.005 % drops 1 drp ophthalmic (eye) QPM allopurinol 300 mg tablet 300 mg PO DAILY@12 zinc acetate 50 mg (zinc) Capsule 50 mg PO DAILY@12 Discharge Orders: Discharge ED (Routine); Ordered 08/14/22 Ordered By: Jeff Mata Referrals: Praveen Shah, DO [Primary Care Provider] - Discharge Diet: Usual diet Discharge Activity: Increase activity as tolerated Patient Instructions: Chronic Lung Disease and Infection Prevention (ED) Activity Restrictions/Additional Instructions: Take antibiotic and steroid for the next 6 days as directed. Continue with routine medications. Follow-up with primary care in 1 week for recheck. Return to emergency department for worsening symptoms such as increasing shortness of breath or new concerns. Sign Out Sign Out Data: Patient Sign Out occurred on 08/14/22 at 17:04. Patient's care was discussed, and care was transferred from to Jeff Mata. 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
[2022-08-14 17:19] LABS: ABG PCO2 38.6 mmHg (35-45); ABG PH Result 7.43 (7.35-7.45); Alveolar-Arterial Oxygen Gradi 10.5 mmHg (5-10); Arterial Blood Gas Hematocrit 38.9 % (42-52); Blood Gas Operator Identificat AMH; Blood Gas Sample Site Brachial, right; Blood Gas Sample Type Arterial; Carboxyhemoglobin 0.6 %THgb (0.4-20.1); HCO3 ABG 25.4 mmol/L (22-26); HGB O2 Sat 92.8 % (95-100); Ionized Calcium Level - ABG 1.2 mmol/L (1.1-1.4); Methemoglobin 0.3 % (0.4-1.5); Oxygen Device NC; Oxygen Saturation ABG 93.7; Potassium Level - ABG 4.8 mmol/L (3.5-5.0); Total Hemoglobin 12.7 g/dL (14-18)
[2022-08-14 17:27] LABS: NT Pro B Type Natriuretic Pept 315 pg/mL (0-450); Procalcitonin 0.26 ng/mL (0-0.5)
[2022-08-14 17:50] LABS: Alanine Aminotransferase 23 U/L (0-41); Albumin Level 3.8 g/dL (3.5-5.2); Alkaline Phosphatase 95 U/L (40-130); Aspartate Amino Transferase 22 U/L (0-40); Blood Urea Nitrogen 50 mg/dL (8-23); Calcium 8.8 mg/dL (8.5-10.5); Carbon Dioxide 26 mmol/L (22-29); Chloride 99 mmol/L (98-107); Globulin 2.6 g/dL (1.3-4.6); Glucose 59 mg/dL (65-115); Osmolality Calculated 297 mOsm/kg (285-295); Sodium 138 mmol/L (136-145); Total Bilirubin 0.4 mg/dL (0.15-1.2); Total Protein 6.4 g/dL (6.6-8.7)
[2022-08-14 18:03] LABS: Lactic Sepsis W/Reflex 1.3 mmol/L (0.5-2.2)
[2022-08-14 18:22] LABS: Troponin(5th) Baseline 41 ng/L (0-15)
[2022-08-14 18:32] LABS: Adenovirus Not Detected (NOT DETECT); Chlamydia Pneumoniae Not Detected (NOT DETECT); Coronavirus 229E,HKU1,NL63,OC4 Not Detected (NOT DETECT); Human Metapneumovirus Not Detected (NOT DETECT); Human Rhinovirus/Enterovirus Not Detected (NOT DETECT); Influenza A Not Detected (NOT DETECT); Influenza A H1 Not Detected (NOT DETECT); Influenza A H1-2009 Not Detected (NOT DETECT); Influenza A H3 Not Detected (NOT DETECT); Influenza B Not Detected (NOT DETECT); Mycoplasma Pneumoniae Not Detected (NOT DETECT); Parainfluenza Virus Type 1 Not Detected (NOT DETECT); Parainfluenza Virus Type 2 Not Detected (NOT DETECT); Parainfluenza Virus Type 3 Not Detected (NOT DETECT); Parainfluenza Virus Type 4 Detected (NOT DETECT); Respiratory Syncytial Virus A Not Detected (NOT DETECT); Respiratory Syncytial Virus B Not Detected (NOT DETECT); SARS-COV-2 Not Detected (NOT DETECT)
--- NOTE | 2022-08-14 18:32 | ECG_ITS ---
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 Measurements Intervals [place] Rate: 101 P: 49 CA: 173 QRS: 51 QRSD: 85 T: 68 QT: 321 QTc: 417 Interpretive Statements SINUS TACHYCARDIA ABNORMAL RHYTHM ECG Compared to ECG 08/14/2022 16:42:50 No significant changes Electronically Signed On 08-14-2022 19:00:00 CDT by Maritza Veliz M.D. [id number]
[2022-08-14 18:51] LABS: C Reactive Protein 132.5 mg/L (0.0-4.9)
[2022-08-14] MEDS: FUROsemide 10 mg/mL SDV 2mL 20 MG IVP (19:05)
[2022-08-14 20:13] LABS: Troponin 5 2HR 41.11 ng/L (0-15)
[2022-08-14 20:16] LABS: Troponin 5 2HR Delta 0.11 ABS# (0-10)
[2022-08-14] MEDS: dexamethasone 10 mg/mL INJ IM (20:40)
[2022-08-14] MEDS: levoFLOXacin 750 mg Tablet PO (20:40)
== END 2022-08-14 22:13 | disposition home or self-care (01) ==
PROVIDERS: Physician Assistant; Emergency Provider Nurse Practitioner Family; PCP Electrodiagnostic Medicine
DX: J44.1 Chronic obstructive pulmonary disease with (acute) exacerbation (principal); J06.9 Acute upper respiratory infection, unspecified; Z79.82 Long term (current) use of aspirin; Z79.85 Long-term (current) use of injectable non-insulin antidiabetic drugs; Z79.4 Long term (current) use of insulin; Z20.822 Contact with and (suspected) exposure to COVID-19; Z87.891 Personal history of nicotine dependence; E11.22 Type 2 diabetes mellitus with diabetic chronic kidney disease; I13.0 Hypertensive heart and chronic kidney disease with heart failure and stage 1 through stage 4 chronic kidney disease, or unspecified chronic kidney disease; N18.2 Chronic kidney disease, stage 2 (mild); I50.9 Heart failure, unspecified
CPT/HCPCS: 36415; 36600; 71045; 80051; 80053; 82330; 82805; 83605; 83880; 84145; 84484; 85025; 86140; 87040; 87486; 87581; 87633; 93005; 94640; 96372; 96374; 99285; J1100; J1940

== ENCOUNTER 2022-08-24 12:36 | Outpatient (CLI) | payer MEDICARE, SELFPAY ==
--- NOTE | 2022-08-24 13:02 | XR_ITS ---
WS: [id number] Lumbar spine, 3 views, 08/24/2022 Clinical Data: LOW BACK PAIN Comparison: Lumbar spine, 04/26/2021 Findings: The posterior lumbosacral fusion with bilateral pedicle screws extending from L3 to S1 and S2 remains the same. There are connecting rods. There is artificial disks in L3-L4, L4-L5 and L5-S1. A pedicle screw on the right at S1 has fractured and the pedicle screw on the left probably has fractured at S1 . There is degenerative disc narrowing at all levels. The L2-L3 disc has collapsed completely. There is a levoscoliosis of the upper lumbar spine. Osteoarthritic change of the upper lumbar vertebral bod ies is present. The SI joints and transverse processes show no change. There is calcification in the wall of the abdo kiet aorta but no aneurysm. XR/XR lumbar spine 2-3V* [id number] Impression: 1. No change in posterior lumbosacral fusion. 2. Total loss of disc space at L2-L3. 3. 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
--- NOTE | 2022-08-24 13:02 | XR_ITS ---
WS: [id number] Pelvis, AP view, 08/24/2022 Clinical Data: LOW BACK PAIN Comparison: Left hip, 09/13/2008. Findings: No fractures or dislocations are seen. The posterior lumbosacral fusion is seen. The pedicle screws e xtend into the sacrum. There is a fracture of the right S1 pedicle screw and probably of the left S1 pedicle screw. The soft tissues are not remarkable. The hips show no significant narrowing, erosion, sclerosis or cyst formation. The adjacent pelvis is unremarkable. Pubic symphysis is normal. XR/XR pelvis 1-2V* [id number] Impression: 1. Posterior lumbosacral fusion. 2. Negative pelvis.
== END 2022-08-24 12:37 | disposition home or self-care (01) ==
PROVIDERS: PCP Electrodiagnostic Medicine; Visit Provider Physician Assistant
DX: M47.816 Spondylosis without myelopathy or radiculopathy, lumbar region (principal); M54.50 Low back pain, unspecified
CPT/HCPCS: 72100; 72170

== ENCOUNTER 2022-08-28 09:54 | Outpatient (CLI) | payer MEDICARE, SELFPAY ==
--- NOTE | 2022-08-28 10:07 | MR_ITS ---
WS: [id number] MRI LUMBAR SPINE NONCONTRAST TECHNIQUE: Sagittal T1, T2 and STIR imaging. Axial T1 and T2 imaging. CLINICAL INFORMATION: LUMBAR SPONDYLOSIS COMPARISON: MRI May 27, 2021 FINDINGS: Mild lumbar curve. Pedicle screw fixation L3-S2 with interbody fusion L3-L4, L4-L5, L5-S1. Disc space narrowing worse at L2-L3. L1-L2: Disc osteophyte complex endplate ridging. Narrowing of the RIGHT subarticular recess. RIGHT fo raminal protrusion with severe RIGHT foraminal narrowing. Impingement on the exiting RIGHT L1 nerve r oot. This appears new compared to previous. Moderate facet arthropathy. L2-L3: Advanced disc space narrowing at this level with endplate degenerative changes. This appears p rogressed from previous. Moderate central canal stenosis. Impingement traversing LEFT greater than RI GHT L3 nerve roots. This is progressed from previous. L3-L4: Postoperative changes. Mild facet arthropathy. Spinal canal and foramen are patent. Moderate f acet arthropathy. L4-L5: Prior postoperative changes. Moderate facet arthropathy. Slight narrowing of the subarticular recess bilaterally. Laminectomy defects. Mild bilateral bony foraminal narrowing. L5-S1: Postoperative changes. Mild LEFT and no RIGHT foraminal narrowing. Spinal canal is patent. Atrophic kidneys partially visualized. Small central protrusion cervical spine at C6-C7. Small centra l protrusion thoracic spine at T3-T4. MR/MR lumbar spine wo con* [id number] IMPRESSION: 1. Postoperative changes pedicle screw fixation L3-S2 with interbody fusion gr afts L3-L4 L4-L5 and L5-S1. 2. Moderate central canal stenosis L2-L3 progressed compared to previous with impingement LEFT subarticular recess. Moderate LEFT L2-L3 foraminal narrowing. 3. Large RIGHT foraminal protrusion L1-L2 impinges the exiting RIGHT L1 nerve root. New from previous. Severe RIGHT foraminal narrowing.
== END 2022-08-28 09:55 | disposition home or self-care (01) ==
PROVIDERS: PCP Electrodiagnostic Medicine; Visit Provider Electrodiagnostic Medicine
DX: M47.16 Other spondylosis with myelopathy, lumbar region (principal)
CPT/HCPCS: 72148

== ENCOUNTER → 2022-09-20 12:54 | Outpatient (BNVA) | payer MEDICARE, SELFPAY | PROVIDERS: PCP Electrodiagnostic Medicine; Visit Provider Internal Medicine Pulmonary Disease | DX: J43.2 Centrilobular emphysema (principal); J15.6 Pneumonia due to other Gram-negative bacteria; I50.33 Acute on chronic diastolic (congestive) heart failure; G47.19 Other hypersomnia; Z90.2 Acquired absence of lung [part of]; G47.36 Sleep related hypoventilation in conditions classified elsewhere; Z87.891 Personal history of nicotine dependence | CPT/HCPCS: 99214 ==

== ENCOUNTER → 2022-09-24 08:44 | Outpatient (BNVA) | payer MEDICARE, SELFPAY | PROVIDERS: PCP Electrodiagnostic Medicine; Visit Provider Podiatrist Foot & Ankle Surgery | DX: I73.9 Peripheral vascular disease, unspecified (principal); B35.1 Tinea unguium; E11.42 Type 2 diabetes mellitus with diabetic polyneuropathy; G62.9 Polyneuropathy, unspecified; B35.3 Tinea pedis; Z79.4 Long term (current) use of insulin | CPT/HCPCS: 11721; 99213 ==

== ENCOUNTER → 2022-10-01 08:37 | Outpatient (BNVA) | payer MEDICARE, SELFPAY | PROVIDERS: PCP Electrodiagnostic Medicine; Visit Provider Anesthesiology Pain Medicine | DX: Z01.89 Encounter for other specified special examinations (principal); M43.26 Fusion of spine, lumbar region; M47.816 Spondylosis without myelopathy or radiculopathy, lumbar region; M54.16 Radiculopathy, lumbar region | CPT/HCPCS: 99214 ==

== ENCOUNTER 2022-11-26 16:35 | Outpatient (CLI) | payer MEDICARE, SELFPAY ==
--- NOTE | 2022-11-26 | USR_ITS ---
PROCEDURE INFORMATION: Exam: US Duplex Left Lower Extremity Arteries Or Arterial Bypass Grafts Exam date and time: 11/26/2022 5:21 PM Age: 77 years old Clinical indication: Other: Foot pain and discoloration; Additional info: Pvd TECHNIQUE: Imaging protocol: Left Real-time duplex scan of the arteries or arterial bypass grafts of the left lower extremity with 2-D webster scale, color Doppler flow and spectral waveform analysis. Images documented and saved. COMPARISON: US renal BI* [id number] 01/21/2020 12:45 PM FINDINGS: No occluded vessels were seen. Monophasic waveforms are demonstrated from the superficial femoral artery into the lower leg with low PSV measurements. Findings are nonspecific but could indicate inflow disease. The posterior tibial and dorsalis pedis arteries demonstrate flow. The anterior tibial and peroneal arteries were either not visualized or not imaged. US/CV arterial duplex [facility] [id number] IMPRESSION: No occluded vessels demonstrated as described above. Low PSV measurements and monophasic waveforms
== END 2022-11-26 16:36 | disposition home or self-care (01) ==
PROVIDERS: PCP Electrodiagnostic Medicine; Visit Provider Electrodiagnostic Medicine
DX: I73.9 Peripheral vascular disease, unspecified (principal)
CPT/HCPCS: 93926

== ENCOUNTER → 2022-11-27 11:18 | Outpatient (BNVA) | payer MEDICARE, SELFPAY | PROVIDERS: PCP Electrodiagnostic Medicine; Visit Provider Internal Medicine Cardiovascular Disease | DX: R06.02 Shortness of breath (principal); E11.22 Type 2 diabetes mellitus with diabetic chronic kidney disease; N18.9 Chronic kidney disease, unspecified; J44.9 Chronic obstructive pulmonary disease, unspecified; E11.42 Type 2 diabetes mellitus with diabetic polyneuropathy; I50.30 Unspecified diastolic (congestive) heart failure; I13.0 Hypertensive heart and chronic kidney disease with heart failure and stage 1 through stage 4 chronic kidney disease, or unspecified chronic kidney disease; G47.33 Obstructive sleep apnea (adult) (pediatric) | CPT/HCPCS: 36415; 80048; 83880; 99214 ==

== ENCOUNTER → 2022-11-30 10:19 | Outpatient (BNVA) | payer MEDICARE, SELFPAY | PROVIDERS: PCP Electrodiagnostic Medicine; Visit Provider Podiatrist Foot & Ankle Surgery | DX: B35.1 Tinea unguium (principal); I73.9 Peripheral vascular disease, unspecified; G62.9 Polyneuropathy, unspecified; B35.3 Tinea pedis; E11.42 Type 2 diabetes mellitus with diabetic polyneuropathy; Z79.4 Long term (current) use of insulin | CPT/HCPCS: 11721 ==

== ENCOUNTER → 2023-02-04 09:49 | Outpatient (BNVA) | payer MEDICARE, SELFPAY | PROVIDERS: PCP Electrodiagnostic Medicine; Visit Provider Podiatrist Foot & Ankle Surgery | DX: B35.1 Tinea unguium (principal); I73.9 Peripheral vascular disease, unspecified; G62.9 Polyneuropathy, unspecified; J43.2 Centrilobular emphysema; Z87.891 Personal history of nicotine dependence; Z90.2 Acquired absence of lung [part of]; I50.33 Acute on chronic diastolic (congestive) heart failure; G47.36 Sleep related hypoventilation in conditions classified elsewhere; K11.7 Disturbances of salivary secretion; E11.42 Type 2 diabetes mellitus with diabetic polyneuropathy | CPT/HCPCS: 11721; 99214 ==

== ENCOUNTER 2023-02-11 13:51 | Outpatient (CLI) | payer MEDICARE, SELFPAY ==
--- NOTE | 2023-02-11 14:00 | CT_ITS ---
WS: [email or web address] LDCT LUNG CANCER SCREENING HISTORY: Cancer Screen TECHNIQUE: Axial imaging performed from the apices to 1 cm below the costophrenic angles. Coronal and sagittal reformats are submitted with axial MIP series. All CT scans at [facility] use at least one of these dose optimization techniques: automated exposure control; mA and/or kV adjustment per patient size (includes targeted exams where dose is matched to clinical indication); or iterativ e reconstruction. DLP: 137.71 mGy.cm DIvol: Mean CTDIvol: 3.20 (mGy) COMPARISON: 10/13/2021 Diagnostic quality: Satisfactory Lungs: Areas of scarring and postsurgical changes in the upper lung burden. Partial lobectomies in th e upper lung burden. No suspicious mass or nodule. No pneumonia. No endobronchial lesions. Heart: Normal size heart with no pericardial effusion.. Mild coronary artery calcification. Other findings: Small benign-appearing mediastinal lymph nodes. Mild atherosclerosis aorta. Normal si zed pulmonary artery. Small hiatal hernia. Cholelithiasis without acute cholecystitis. Atrophy upper pole RIGHT kidney. No adrenal mass. IMPRESSION: CT/CT lung screening [id number] LUNG-RADS: 1-Negative FOLLOW UP: 12 Month: Continue annual screening with LDCT OTHER FINDINGS (S MODIFIER): None.
== END 2023-02-11 13:52 | disposition home or self-care (01) ==
LOC: RAD 13:52
PROVIDERS: PCP Electrodiagnostic Medicine; Visit Provider Internal Medicine Pulmonary Disease
DX: Z12.2 Encounter for screening for malignant neoplasm of respiratory organs (principal); Z87.891 Personal history of nicotine dependence
CPT/HCPCS: 71271

== ENCOUNTER → 2023-03-15 09:13 | Outpatient (BNVA) | payer MEDICARE, SELFPAY | PROVIDERS: PCP Electrodiagnostic Medicine; Visit Provider Podiatrist Foot & Ankle Surgery | DX: Z51.89 Encounter for other specified aftercare (principal); B35.1 Tinea unguium; I73.9 Peripheral vascular disease, unspecified; G62.9 Polyneuropathy, unspecified; E11.42 Type 2 diabetes mellitus with diabetic polyneuropathy | CPT/HCPCS: 99213 ==

== ENCOUNTER → 2023-04-29 09:18 | Outpatient (BNVA) | payer MEDICARE, SELFPAY | PROVIDERS: PCP Electrodiagnostic Medicine; Visit Provider Podiatrist Foot & Ankle Surgery | DX: B35.1 Tinea unguium (principal); I73.9 Peripheral vascular disease, unspecified; G62.9 Polyneuropathy, unspecified; E11.42 Type 2 diabetes mellitus with diabetic polyneuropathy; Z79.84 Long term (current) use of oral hypoglycemic drugs | CPT/HCPCS: 11721 ==

== ENCOUNTER → 2023-05-07 09:15 | Outpatient (BNVA) | payer MEDICARE, SELFPAY | PROVIDERS: PCP Electrodiagnostic Medicine; Visit Provider Anesthesiology Pain Medicine | DX: Z01.89 Encounter for other specified special examinations; M43.26 Fusion of spine, lumbar region; M47.816 Spondylosis without myelopathy or radiculopathy, lumbar region; M54.16 Radiculopathy, lumbar region | CPT/HCPCS: 99213; 99214 ==

== ENCOUNTER → 2023-06-06 10:58 | Outpatient (BNVA) | payer MEDICARE, SELFPAY | PROVIDERS: PCP Electrodiagnostic Medicine; Visit Provider Internal Medicine Cardiovascular Disease | DX: R06.02 Shortness of breath (principal) | CPT/HCPCS: 36415; 80048; 83880; 99214 ==

== ENCOUNTER → 2023-07-02 09:17 | Outpatient (BNVA) | payer MEDICARE, SELFPAY | PROVIDERS: PCP Electrodiagnostic Medicine; Visit Provider Podiatrist Foot & Ankle Surgery | DX: B35.1 Tinea unguium (principal); I73.9 Peripheral vascular disease, unspecified; G62.9 Polyneuropathy, unspecified; E11.42 Type 2 diabetes mellitus with diabetic polyneuropathy; Z79.4 Long term (current) use of insulin | CPT/HCPCS: 11721 ==

== ENCOUNTER → 2023-07-11 14:59 | Outpatient (BNVA) | payer MEDICARE, SELFPAY | PROVIDERS: PCP Electrodiagnostic Medicine; Visit Provider Podiatrist Foot & Ankle Surgery | DX: B35.1 Tinea unguium (principal); I73.9 Peripheral vascular disease, unspecified; G62.9 Polyneuropathy, unspecified; L60.0 Ingrowing nail; E11.42 Type 2 diabetes mellitus with diabetic polyneuropathy; Z79.4 Long term (current) use of insulin | CPT/HCPCS: 99213 ==

== ENCOUNTER → 2023-08-07 09:35 | Outpatient (BNVA) | payer MEDICARE, SELFPAY | PROVIDERS: PCP Electrodiagnostic Medicine; Visit Provider Internal Medicine Pulmonary Disease | DX: R06.00 Dyspnea, unspecified (principal); J43.2 Centrilobular emphysema; I50.33 Acute on chronic diastolic (congestive) heart failure; G47.19 Other hypersomnia; Z90.2 Acquired absence of lung [part of]; J98.6 Disorders of diaphragm; Z87.891 Personal history of nicotine dependence | CPT/HCPCS: 99214 ==

== ENCOUNTER → 2023-09-10 09:07 | Outpatient (BNVA) | payer MEDICARE, SELFPAY | PROVIDERS: PCP Electrodiagnostic Medicine; Visit Provider Podiatrist Foot & Ankle Surgery | DX: B35.1 Tinea unguium (principal); I73.9 Peripheral vascular disease, unspecified; G62.9 Polyneuropathy, unspecified; L60.0 Ingrowing nail; E11.42 Type 2 diabetes mellitus with diabetic polyneuropathy; Z79.4 Long term (current) use of insulin | CPT/HCPCS: 11721 ==

== ENCOUNTER 2023-09-23 03:54 | Observation (INO) | payer MEDICARE, SELFPAY ==
[2023-09-23] VITALS (18 sets, daily range): BP systolic 99–162; BP diastolic 62–75; PULSE 90–129; RESP 15–22; TEMP 36.4–36.8; O2SAT 92–96; BMI 32.2
--- NOTE | 2023-09-23 04:05 | XRR_ITS ---
PROCEDURE INFORMATION: Exam: XR Left Hip Exam date and time: 09/23/2023 4:31 AM Age: 78 years old Clinical indication: Injury or trauma; Blunt trauma (contusions or hematomas); Patient HX: EMS arrival from home for fall. C/O left hip pain. TECHNIQUE: Imaging protocol: Radiologic exam of the left hip. Views: 2 or 3 views hip with pelvis when performed. COMPARISON: CR XR pelvis 1-2V* [id number] 08/24/2022 1:09 PM FINDINGS: Bones/joints: Degenerative change of the visualized osseous structures. Lower sacral/lumbar spine construct is noted, no evidence for acute surgical complication. Soft tissues: Unremarkable. Vasculature: Peripheral arterial vascular disease. XR/XR hip LT 2-3V wo/w pel* [id number] IMPRESSION: No acute findings. If there is continued point tenderness, recommend cross-sectional evaluation.
--- NOTE | 2023-09-23 05:13 | CTR_ITS ---
PROCEDURE INFORMATION: Exam: CT Abdomen And Pelvis Without Contrast Exam date and time: 09/23/2023 6:01 AM Age: 78 years old Clinical indication: Abdominal pain; Localized; Left lower quadrant (llq); Prior surgery; Surgery date: 6+ months; Surgery type: Lumbar fusion; Patient HX: C/O llq pain. Also C/O left hip pain from a fall earlier this morning. ; Additional info: Llq pain. Also fall left hip pain TECHNIQUE: Imaging protocol: Computed tomography of the abdomen and pelvis without contrast. Radiation optimization: All CT scans at this facility use at least one of these dose optimization techniques: automated exposure control; mA and/or kV adjustment per patient size (includes targeted exams where dose is matched to clinical indication); or iterative reconstruction. COMPARISON: CT abdomen pelvis wo con [id number] 01/21/2020 1:35 PM RADIATION DOSE METRICS: Total DLP (mGy-cm): 1084.98 FINDINGS: Lungs: Increasing fibrotic change of the lower lung bases. Heart: Base of heart is unremarkable as visualized. Liver: Normal. No mass. Gallbladder and biliary ducts: Cholelithiasis without evidence of cholecystitis. Pancreas: Pancreatic atrophy. Spleen: Normal. No splenomegaly. Adrenal glands: Normal. No mass. Kidneys and ureters: Slight cortical atrophy of the right kidney diffusely. Bilateral subcentimeter benign exophytic renal cysts bilaterally. Exophytic left posterolateral renal mass measuring 10.5 x 13.3 mm, indeterminate central attenuation. Stomach and bowel: Mild increased nodularity of the left lower quadrant mesentery adjacent multiple colonic diverticula with colonic wall thickening (however this is likely due to underdistention). Appendix: No evidence of appendicitis. Intraperitoneal space: Unremarkable. No free air. No significant fluid collection. Vasculature: Calcified atherosclerotic disease of the visualized aorta and its major branches. Lymph nodes: Unremarkable. No enlarged lymph nodes. Urinary bladder: Bladder diverticula. Postprocedural change of the lumbosacral spine without evidence for acute surgical complication. Reproductive: Unremarkable as visualized. Bones/joints: Diffuse degenerative change of the visualized osseous structures. Soft tissues: Unremarkable. CT/CT abdomen pelvis wo con [id number] IMPRESSION: 1. Increasing lung base fibrosis. 2. Perhaps mild left lower quadrant diverticulitis without complication. 3. Indeterminate left renal cyst requiring further evaluation with MRI. 4. Additional nonacute findings as above. COMMENTS: Consistent with the [employer]'s Incidental Findings Committee white paper (J Am Beth Radiol 2018): Any incidental renal lesion less than 1 cm or classified as too small to characterize, or any incidental cystic renal lesion characterized as simple-appearing, is likely benign. No follow-up imaging is recommended for these lesions per consensus recommendations based on imaging criteria.
[2023-09-23 05:33] LABS: Basophils % 0.3 %; Eosinophils # 0.1 10^3/uL (0.0-0.8); Eosinophils % 1.1 %; Hematocrit 39.1 % (37-53); Lymphocytes # 1.3 10^3/uL (0.8-4.8); Lymphocytes % 11.1 %; Mean Corpuscular Hemoglobin 30.1 pg (27-33); Mean Corpuscular Volume 94.2 fl (82-101); Monocytes # 1.2 10^3/uL (0.2-0.9); Monocytes % 9.8 %; Neutrophils # 9.28 10^3/uL (1.8-7.7); Neutrophils % 77.4 %; Nucleated Red Blood Cells % 0 %; Platelet Count 190 10^3/cmm (157-399); Red Blood Count 4.15 10^6/uL (3.85-5.65); Red Cell Distribution Width 17.3 % (12.1-15.1)
--- NOTE | 2023-09-23 05:46 | ED_ITS ---
Documented by User: Gurpreet Wilson DO 09/23/23 22:05 HPI - Extremity Problem 2 General: Chief complaint: Extremity Injury, Lower Stated complaint: hip pain Time Seen by Provider: 09/23/23 05:13 History of Present Illness: 78-year-old gentleman who fell at home. He complains mainly of left hip pain. He had been treated for left lower quadrant pain as an outpatient the other day starting Augmentin on 09/17. He is still taking it. He denies fever. Denies diarrhea. He denies vomiting. He has been more weak in general. 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 His oxygen demand has not changed. PFSH ED 2 PFSH: Medical History CKD (chronic kidney disease) stage 2, GFR 60-89 ml/min 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 GERD (gastroesophageal reflux disease) PHN (postherpetic neuralgia) Kidney disease PAD (peripheral artery disease) Type 2 diabetes mellitus COPD (chronic obstructive pulmonary disease) HTN (hypertension) with goal to be determined Heart failure Surgical History S/P cataract surgery Previous back surgery History of lung surgery Hx of shoulder surgery S/P lobectomy of lung Family History Mother Hypertension Stroke Brother Heart disease Other Diabetes Social History Smoking and tobacco/nicotine status: former use of tobacco/nicotine Quit status (tobacco/nicotine): has quit using Year quit tobacco: 1987 Former quit date comment: [id number] Second hand smoke exposure: No Alcohol intake: never Substance/Drug Use: never Lives independently: Yes Household members: spouse Housing: House Marital status: service: No Current occupational status: retired Pets and animals: Yes Do you think of yourself as: Straight/Heterosexual Current gender identity: Male Physical Exam 2 Const: GENERAL APPEARANCE: cooperative, ill appearing and frail appearing (mildly) HENMT: COMMON NORMALS: normocephalic, atraumatic and Normal external nose present HEAD & SCALP: normocephalic and atraumatic FACE & SINUS: normal facial exam and face symmetric NOSE: Normal external nose present Eye: COMMON NORMALS: Equal, round and reactive pupils present and EOMs intact bilaterally PUPIL: Yes Equal, round and reactive pupils present Neck/C-Spine: GENERAL: Yes trachea midline Chest: CHEST: Yes Symmetrical chest wall rise Resp: COMMON NORMALS: normal respiratory effort, No retractions, No use of accessory muscles and clear to auscultation bilaterally AUSCULTATION: clear to auscultation bilaterally Cardio: COMMON NORMALS: regular rhythm RATE: tachycardic RHYTHM: regular rhythm GI: COMMON NORMALS: Normal to inspection, nondistended, normoactive bowel sounds present PALPATION: Yes Tenderness to palpation present (GI) Details: LLQ and Yes Guarding due to palpation present (GI) Extremity: COMMON NORMALS: no pedal edema NARRATIVE EXTREMITY EXAM: L hip tenderness to palpation laterally. no anterior tenderness. no deformity. log roll negative. Neuro: DMITRI COMA SCALE: document GCS findings Dmitri coma scale eye opening: Spontaneous [place] coma scale verbal response: Orientated [place] coma scale motor response: Obey commands Dmitri coma scale total score: 15 S ENSORY EXAM: Yes extremities (intact) Psych: COMMON NORMALS: speech normal SPEECH: Yes normal speech Skin: COMMON NORMALS: no rashes or lesions noted GENERAL SKIN EXAM: no rashes or lesions noted Course 2 Vital Signs: Vital signs: Vital Signs Temperature 97.5 F L 09/23/23 20:00 Pulse Rate 96 09/23/23 20:00 Respiratory Rate 18 09/23/23 21:29 Blood Pressure 120/70 09/23/23 20:00 Pulse Oximetry 93 09/23/23 20:00 Oxygen Delivery Me thod Nasal Cannula 09/23/23 20:00 Oxygen Flow Rate 2 09/23/23 19:55 MDM - Extremity (Nontraumatic) Medical Decision Making This patient is mildly tachycardic. He is normotensive. His white blood cell count is 12. His creatinine is 2.2. He does have a history of chronic kidney disease. Hip x-ray was negative showing no acute fractures or findings. He is significantly tender in the left lower quadrant. Because of this CT scan was ordered. It shows mild left lower quadrant diverticulitis without complication. This is likely partially treated from his Augmentin. Will switch him to Cipro and Flagyl. He is getting some fluid for his heart rate that has been elevated since he has been here. If his heart rate comes down, and he is able to walk in the ER, he will go home on the Cipro and Flagyl. If not he may face admission. He will be checked out at shift change. Lab Data 09/23/23 04:26 09/23/23 04:26 Radiology Impressions Hip/Pelvis X-Ray 09/23/23 04:05 IMPRESSION: No acute findings. If there is continued point tenderness, recommend cross-sectional evaluation. Abdomen/Pelvis CT 09/23/23 05:13 IMPRESSION: 1. Increasing lung base fibrosis. 2. Perhaps mild left lower quadrant diverticulitis without complication. 3. Indeterminate left renal cyst requiring further evaluation with MRI. 4. Additional nonacute findings as above. COMMENTS: Consistent with the [place] [employer] [place] [employer]'s Incidental Findings Committee white paper (J Am Beth Radiol 2018): Any incidental renal lesion less than 1 cm or classified as too small to characterize, or any incidental cystic renal lesion characterized as simple-appearing, is likely benign. No follow-up imaging is recommended for these lesions per consensus recommendations based on imaging criteria. Laboratory Results WBC 12.00 10^3/uL (3.29-11.43) H 09/23/23 04:26 RBC 4.15 10^6/uL (3.85-5.65) 09/23/23 04:26 Hgb 12.50 g/dL (11.27-16.99) 09/23/23 04:26 Hct 39.1 % (37-53) 09/23/23 04:26 MCV 94.2 fl (82-101) 09/23/23 04:26 MCH 30.1 pg (27-33) 09/23/23 04:26 MCHC 32.0 g/dL (30-55) 09/23/23 04:26 RDW 17.3 % (12.1-15.1) H 09/23/23 04:26 Plt Count 190 10^3/cmm (157-399) 09/23/23 04:26 MPV 11.0 fL (7.4-10.4) H 09/23/23 04:26 Neut % (Auto) 77.4 % 09/23/23 04:26 Lymph % (Auto) 11.1 % 09/23/23 04:26 [place] % (Auto) 9.8 % 09/23/23 04:26 Eos % (Auto) 1.1 % 09/23/23 04:26 Baso % (Auto) 0.3 % 09/23/23 04:26 Neut # (Auto) 9.28 10^3/uL (1.8-7.7) H 09/23/23 04:26 Lymph # (Auto) 1.3 10^3/uL (0.8-4.8) 09/23/23 04:26 [place] # (Auto) 1.2 10^3/uL (0.2-0.9) H 09/23/23 04:26 Eos # (Auto) 0.1 10^3/uL (0.0-0.8) 09/23/23 04:26 Baso # (Auto) 0.0 10^3/uL (0.0-0.1) 09/23/23 04:26 Nucleated RBC % (auto) 0 % 09/23/23 04:26 Nucleated RBCs # 0.0 /100WBC 09/23/23 04:26 Sodium 136 mmol/L (136-145) 09/23/23 04:26 Potassium 4.7 mmol/L (3.5-5.1) 09/23/23 04:26 Chloride 95 mmol/L (98-107) L 09/23/23 04:26 Carbon Dioxide 27 mmol/L (22-29) 09/23/23 04:26 Anion Gap 18.7 (5-19) 09/23/23 04:26 BUN 52 mg/dL (8-23) H 09/23/23 04:26 Creatinine 2.2 mg/dL (0.7-1.2) H 09/23/23 04:26 GFR Calculation Not Reportable 09/23/23 04:26 Glucose 127 mg/dL (65-115) H 09/23/23 04:26 Calculated Osmolality 298 mOsm/kg (285-295) H 09/23/23 04:26 Lactic Acid 1.2 mmol/L (0.5-2.2) 09/23/23 06:19 Uric Acid 5.7 mg/dL (3.4-7.0) 09/23/23 04:26 Calcium 9.9 mg/dL (8.5-10.5) 09/23/23 04:26 Total Bilirubin 0.4 mg/dL (0.15-1.2) 09/23/23 04:26 AST 21 U/L (0-40) 09/23/23 04:26 ALT 18 U/L (0-41) 09/23/23 04:26 Alkaline Phosphatase 70 U/L (40-130) 09/23/23 04:26 C-Reactive Protein 36.3 mg/L (0.0-4.9) H 09/23/23 04:26 Total Protein 7.7 g/dL (6.6-8.7) 09/23/23 04:26 Albumin 4.2 g/dL (3.5-5.2) 09/23/23 04:26 Globulin 3.5 g/dL (1.3-4.6) 09/23/23 04:26 Lipase 56 U/L (13-60) 09/23/23 04:26 TSH 1.41 uIU/mL (0.27-4.20) 09/23/23 04:26 Urine Color Yellow (Yellow) 09/23/23 08:11 Urine Appearance Clear (CLEAR) 09/23/23 08:11 Urine pH 6.5 (5-7) 09/23/23 08:11 Ur Specific [place] 1.005 (1.005-1.030) 09/23/23 08:11 Urine Protein Trace (Negative) 09/23/23 08:11 Urine Glucose (UA) Norm (Normal) 09/23/23 08:11 Urine Ketones Negative (Negative) 09/23/23 08:11 Urine Blood Neg (Negative) 09/23/23 08:11 Urine Nitrate Negative (Negative) 09/23/23 08:11 Urine Bilirubin Neg (Negative) 09/23/23 08:11 Urine Urobilinogen Neg mg/dL (Negative) 09/23/23 08:11 Ur Leukocyte Esterase Negative (Negative) 09/23/23 08:11 Urine RBC Rare /hpf (0-2) 09/23/23 08:11 Urine WBC 0-4 /hpf (0-5) H 09/23/23 08:11 Ur Squamous Epith Cells 0-4 /hpf (0-5) H 09/23/23 08:11 Amorphous Sediment Not Reportable 09/23/23 08:11 Urine Bacteria Trace /hpf (NONE) 09/23/23 08:11 Hyaline Casts 0-4 /lpf H 09/23/23 08:11 Urine Mucus Trace /hpf 09/23/23 08:11 Discharge Plan Discharge Patient Disposition: Placed in Observation Admit Provider: Ravi Leon Clinical Impression: Diverticulitis, Contusion of hip, left, Tachycardia Sign Out Sign Out Data: Patient Sign Out occurred on 09/23/23 at 07:41. Patient's care was discussed, and care was transferred from Gurpreet Wilson DO to Mich Delaney DO. Coding Level of Care Code ED Hematology Technologist for [facility] Documented by User: Mich Delaney DO 09/23/23 16:03 HPI - Extremity Problem 2 General: Chief complaint: Extremity Injury, Lower Stated complaint: hip pain Time Seen by Provider: 09/23/23 05:13 PFSH ED 2 PFSH: Medical History CKD (chronic kidney disease) stage 2, GFR 60-89 ml/min 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 GERD (gastroesophageal reflux disease) PHN (postherpetic neuralgia) Kidney disease PAD (peripheral artery disease) Type 2 diabetes mellitus COPD (chronic obstructive pulmonary disease) HTN (hypertension) with goal to be determined Heart failure Surgical History S/P cataract surgery Previous back surgery History of lung surgery Hx of shoulder surgery S/P lobectomy of lung Family History Mother Hypertension Stroke Brother Heart disease Other Diabetes Social History Smoking and tobacco/nicotine status: former use of tobacco/nicotine Quit status (tobacco/nicotine): has quit using Year quit tobacco: 1987 Former quit date comment: [id number] Second hand smoke exposure: No Alcohol intake: never Substance/Drug Use: never Lives independently: Yes Household members: spouse Housing: House Marital status: service: No Current occupational status: retired Pets and animals: Yes Do you think of yourself as: Straight/Heterosexual Current gender identity: Male Course 2 Vital Signs: Vital signs: Vital Signs Temperature 97.5 F L 09/23/23 20:00 Pulse Rate 96 09/23/23 20:00 Respiratory Rate 18 09/23/23 21:29 Blood Pressure 120/70 09/23/23 20:00 Pulse Oximetry 93 09/23/23 20:00 Oxygen Delivery Me thod Nasal Cannula 09/23/23 20:00 Oxygen Flow Rate 2 09/23/23 19:55 MDM - Extremity (Nontraumatic) Medical Decision Making This patient is mildly tachycardic. He is normotensive. His white blood cell count is 12. His creatinine is 2.2. He does have a history of chronic kidney disease. Hip x-ray was negative showing no acute fractures or findings. He is significantly tender in the left lower quadrant. Because of this CT scan was ordered. It shows mild left lower quadrant diverticulitis without complication. This is likely partially treated from his Augmentin. Will switch him to Cipro and Flagyl. He is getting some fluid for his heart rate that has been elevated since he has been here. If his heart rate comes down, and he is able to walk in the ER, he will go home on the Cipro and Flagyl. If not he may face admission. He will be checked out at shift change. Care assumed at change of shift acute diverticulitis with persistent tachycardia despite fluids he failed outpatient therapy Dr. Wilson had planned to try to discharge him however he became very tachycardic when he stood up. Will place him on observation continue IV antibiotics IV fluids discussed with hospitalist orders written Medical Records I reviewed the patient's medical records. Lab Data I reviewed the patient's lab results. 09/23/23 04:26 09/23/23 04:26 Radiology Impressions Hip/Pelvis X-Ray 09/23/23 04:05 IMPRESSION: No acute findings. If there is continued point tenderness, recommend cross-sectional evaluation. Abdomen/Pelvis CT 09/23/23 05:13 IMPRESSION: 1. Increasing lung base fibrosis. 2. Perhaps mild left lower quadrant diverticulitis without complication. 3. Indeterminate left renal cyst requiring further evaluation with MRI. 4. Additional nonacute findings as above. COMMENTS: Consistent with the [place] [employer]'s Incidental Findings Committee white paper (J Am Beth Radiol 2018): Any incidental renal lesion less than 1 cm or classified as too small to characterize, or any incidental cystic renal lesion characterized as simple-appearing, is likely benign. No follow-up imaging is recommended for these lesions per consensus recommendations based on imaging criteria. Laboratory Results WBC 12.00 10^3/uL (3.29-11.43) H 09/23/23 04:26 RBC 4.15 10^6/uL (3.85-5.65) 09/23/23 04:26 Hgb 12.50 g/dL (11.27-16.99) 09/23/23 04:26 Hct 39.1 % (37-53) 09/23/23 04:26 MCV 94.2 fl (82-101) 09/23/23 04:26 MCH 30.1 pg (27-33) 09/23/23 04:26 MCHC 32.0 g/dL (30-55) 09/23/23 04:26 RDW 17.3 % (12.1-15.1) H 09/23/23 04:26 Plt Count 190 10^3/cmm (157-399) 09/23/23 04:26 MPV 11.0 fL (7.4-10.4) H 09/23/23 04:26 Neut % (Auto) 77.4 % 09/23/23 04:26 Lymph % (Auto) 11.1 % 09/23/23 04:26 [place] % (Auto) 9.8 % 09/23/23 04:26 Eos % (Auto) 1.1 % 09/23/23 04:26 Baso % (Auto) 0.3 % 09/23/23 04:26 Neut # (Auto) 9.28 10^3/uL (1.8-7.7) H 09/23/23 04:26 Lymph # (Auto) 1.3 10^3/uL (0.8-4.8) 09/23/23 04:26 [place] # (Auto) 1.2 10^3/uL (0.2-0.9) H 09/23/23 04:26 Eos # (Auto) 0.1 10^3/uL (0.0-0.8) 09/23/23 04:26 Baso # (Auto) 0.0 10^3/uL (0.0-0.1) 09/23/23 04:26 Nucleated RBC % (auto) 0 % 09/23/23 04:26 Nucleated RBCs # 0.0 /100WBC 09/23/23 04:26 Sodium 136 mmol/L (136-145) 09/23/23 04:26 Potassium 4.7 mmol/L (3.5-5.1) 09/23/23 04:26 Chloride 95 mmol/L (98-107) L 09/23/23 04:26 Carbon Dioxide 27 mmol/L (22-29) 09/23/23 04:26 Anion Gap 18.7 (5-19) 09/23/23 04:26 BUN 52 mg/dL (8-23) H 09/23/23 04:26 Creatinine 2.2 mg/dL (0.7-1.2) H 09/23/23 04:26 GFR Calculation Not Reportable 09/23/23 04:26 Glucose 127 mg/dL (65-115) H 09/23/23 04:26 Calculated Osmolality 298 mOsm/kg (285-295) H 09/23/23 04:26 Lactic Acid 1.2 mmol/L (0.5-2.2) 09/23/23 06:19 Uric Acid 5.7 mg/dL (3.4-7.0) 09/23/23 04:26 Calcium 9.9 mg/dL (8.5-10.5) 09/23/23 04:26 Total Bilirubin 0.4 mg/dL (0.15-1.2) 09/23/23 04:26 AST 21 U/L (0-40) 09/23/23 04:26 ALT 18 U/L (0-41) 09/23/23 04:26 Alkaline Phosphatase 70 U/L (40-130) 09/23/23 04:26 C-Reactive Protein 36.3 mg/L (0.0-4.9) H 09/23/23 04:26 Total Protein 7.7 g/dL (6.6-8.7) 09/23/23 04:26 Albumin 4.2 g/dL (3.5-5.2) 09/23/23 04:26 Globulin 3.5 g/dL (1.3-4.6) 09/23/23 04:26 Lipase 56 U/L (13-60) 09/23/23 04:26 TSH 1.41 uIU/mL (0.27-4.20) 09/23/23 04:26 Urine Color Yellow (Yellow) 09/23/23 08:11 Urine Appearance Clear (CLEAR) 09/23/23 08:11 Urine pH 6.5 (5-7) 09/23/23 08:11 Ur Specific [place] 1.005 (1.005-1.030) 09/23/23 08:11 Urine Protein Trace (Negative) 09/23/23 08:11 Urine Glucose (UA) Norm (Normal) 09/23/23 08:11 Urine Ketones Negative (Negative) 09/23/23 08:11 Urine Blood Neg (Negative) 09/23/23 08:11 Urine Nitrate Negative (Negative) 09/23/23 08:11 Urine Bilirubin Neg (Negative) 09/23/23 08:11 Urine Urobilinogen Neg mg/dL (Negative) 09/23/23 08:11 Ur Leukocyte Esterase Negative (Negative) 09/23/23 08:11 Urine RBC Rare /hpf (0-2) 09/23/23 08:11 Urine WBC 0-4 /hpf (0-5) H 09/23/23 08:11 Ur Squamous Epith Cells 0-4 /hpf (0-5) H 09/23/23 08:11 Amorphous Sediment Not Reportable 09/23/23 08:11 Urine Bacteria Trace /hpf (NONE) 09/23/23 08:11 Hyaline Casts 0-4 /lpf H 09/23/23 08:11 Urine Mucus Trace /hpf 09/23/23 08:11 All radiology interpretation(s) finalized by discharge Discharge Plan Discharge Patient Disposition: Placed in Observation Admit Provider: Ravi Leon Clinical Impression: Diverticulitis, Contusion of hip, left, Tachycardia Sign Out Sign Out Data: Patient Sign Out occurred on 09/23/23 at 07:41. Patient's care was discussed, and care was transferred from Gurpreet Wilson DO to Mich Delaney DO. Coding Level of Care Code ED Hematology Technologist for [facility] [place]
[2023-09-23 05:52] LABS: Alanine Aminotransferase 18 U/L (0-41); Albumin Level 4.2 g/dL (3.5-5.2); Alkaline Phosphatase 70 U/L (40-130); Anion Gap 18.7 (5-19); Aspartate Amino Transferase 21 U/L (0-40); Blood Urea Nitrogen 52 mg/dL (8-23); C Reactive Protein 36.3 mg/L (0.0-4.9); Calcium 9.9 mg/dL (8.5-10.5); Carbon Dioxide 27 mmol/L (22-29); Chloride 95 mmol/L (98-107); Globulin 3.5 g/dL (1.3-4.6); Glucose 127 mg/dL (65-115); Lipase 56 U/L (13-60); Osmolality Calculated 298 mOsm/kg (285-295); Potassium 4.7 mmol/L (3.5-5.1); Sodium 136 mmol/L (136-145); Total Bilirubin 0.4 mg/dL (0.15-1.2); Total Protein 7.7 g/dL (6.6-8.7)
[2023-09-23 05:56] LABS: Creatinine Clr Calc Pharmacy 29.1803
[2023-09-23 06:45] LABS: Lactic Sepsis W/Reflex 1.2 mmol/L (0.5-2.2)
[2023-09-23] MEDS: ondansetron 2 mg/ML SDV 2 mL 4 MG IVP ×2 (06:59→14:17)
[2023-09-23] MEDS: morphine 4 mg/mL SDV 1 mL IVP (07:00)
[2023-09-23] MEDS: sodium chloride 0.9% 1,000 ML 999 ML IV (07:01)
[2023-09-23] MEDS: piperacillin-tazobactam 3.375 GM in sodium chloride 0.9% (plus) 50 ML IV ×3 (07:48→21:36)
--- NOTE | 2023-09-23 08:32 | ECG_ITS ---
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 Measurements Intervals [place] Rate: 111 P: 50 [place]: 156 QRS: 49 QRSD: 86 T: 63 QT: 333 QTc: 453 Interpretive Statements SINUS TACHYCARDIA WITH FREQUENT VENTRICULAR PREMATURE COMPLEXES NONSPECIFIC T-WAVE ABNORMALITY Compared to ECG 08/14/2022 18:33:37 Ventricular premature complex(es) now present T-wave abnormality now present Electronically Signed On 09-23-2023 12:01:56 CDT by Jakob Degroot M.D. [email or web address]
[2023-09-23 09:06] LABS: Add Urine Microscopic? YES; Bilirubin Urine Neg (Negative); Blood Urine Neg (Negative); Glucose Urine UA Norm (Normal); Ketones Urine Negative (Negative); Leukocyte Esterase Urine Negative (Negative); Nitrate Urine Negative (Negative); Protein Urine Trace (Negative); Specific Gravity, Urine 1.005 (1.005-1.030); Urine Appearance Clear (CLEAR); Urine Color Yellow (Yellow); Urobilinogen Urine Neg (Negative); pH Urine 6.5 (5-7)
[2023-09-23 09:08] LABS: Add Urine Culture? No; Bacteria Urine TRACE /hpf; Hyaline Casts Urine 0-4 /lpf; Mucus Urine TRACE /hpf; RBC Urine RARE /hpf (0-2); Squamous Epithelial Cell Urine 0-4 /hpf (0-5); WBC Urine 0-4 /hpf (0-5)
--- NOTE | 2023-09-23 09:36 | PM.HP ---
Providers/Chief Complaint Admitting Physician: Ravi Leon MD, hospitalist Primary Care Provider: Praveen Shah DO Chief Complaint: hip pain History of Present Illness Jeff Delvalle is a 78 year old male presenting to the emergency department with complaints of left hip pain. He was recently diagnosed with diverticulitis approximately 5 days ago and placed on an antibiotic. He is having some constipation. He felt like he might be doing a little bit better but still having some nausea. No vomiting. No blood in stool, and no fever. Earlier this morning, secondary to his illness he felt weak, and fell. He did not lose consciousness. It sounds like this was a mechanical fall. He reports he has some chronic back pain, but what he noticed after fall was pain in the left side of his hip. He denies any pain down to his leg and can flex his hip and externally rotate without discomfort. While in the emergency department he received a dose of Zosyn, pain medication. There was some concern that his heart rate was still elevated despite giving some fluids. Review of Systems General: Reports: 10 or more systems reviewed and unremarkable except in HPI and below Card: Denies: chest pain Resp: Denies: dyspnea GI: Reports: nausea and constipation; Denies: abdominal pain, vomiting, hematochezia or melena Medications/Allergies Home Medications Medication Instructions Recorded Confirmed Last Taken Type albuterol sulfate 90 mcg/actuation 2 puff inhalation Q6H PRN 06/15/19 09/10/23 Unknown History aerosol inhaler (Ventolin HFA) Shortness Of Breath finasteride 5 mg tablet 5 mg PO QAM 06/15/19 09/10/23 11/09/20 07:30 History magnesium oxide 250 mg PO DAILY@06/15/19 09/10/23 11/08/20 History aspirin 325 mg tablet 325 mg PO QAM 07/18/20 09/10/23 11/09/20 07:30 History omeprazole 20 mg capsule,delayed 20 mg PO QAM 07/18/20 09/10/23 11/09/20 07:30 History release ascorbic acid (vitamin C) 1,000 mg 1,000 mg PO DAILY@11/09/20 09/10/23 11/08/20 History tablet (Vitamin C) cyanocobalamin (vitamin B-12) 500 1,000 mcg PO QAM 11/09/20 09/10/23 11/09/20 07:30 History mcg tablet (Vitamin B-12) dulaglutide 1.5 mg/0.5 mL 1.5 mg SUBCUT Q7D 11/09/20 09/10/23 11/09/20 07:30 History subcutaneous pen injector in left leg (Trulicity) gabapentin 300 mg capsule 300 mg PO BID 11/09/20 09/10/23 11/09/20 07:30 History vit C 250 mg-vit E 90 mg-zinc 40 1 tab PO BID 11/09/20 09/10/23 11/09/20 07:30 History mg-copper 1 [id number] capsule (PreserVision AREDS-2) Diabetic Shoes #1 ea 01/15/22 09/10/23 Unknown Rx cholecalciferol (vitamin D3) 125 125 mcg PO DAILY 01/18/22 09/10/23 Unknown History mcg (5,000 unit) tablet (Vitamin D3) allopurinol 300 mg tablet 300 mg PO DAILY@12 01/30/22 09/10/23 Unknown History latanoprost 0.005 % eye drops 1 drp ophthalmic (eye) QPM 01/30/22 09/10/23 Unknown History zinc acetate 50 mg (zinc) capsule 50 mg PO DAILY@12 01/30/22 09/10/23 Unknown History docusate sodium 100 mg capsule 50 mg PO BID 05/14/22 09/10/23 Unknown History (Stool Softener) ipratropium 0.5 mg-albuterol 3 mg 3 ml inhalation Q4H PRN wheezing 05/14/22 09/10/23 Unknown Rx (2.5 mg base)/3 mL nebulization #90 mL soln melatonin 3 mg capsule 5 mg PO BEDTIME 05/14/22 09/10/23 Unknown History ipratropium bromide 0.02 % 2.5 ml inhalation Q4H PRN 05/21/22 09/10/23 Unknown Rx solution for inhalation shortness of breath or wheezing #1,350 mL albuterol sulfate 2.5 mg/3 mL 2.5 mg (3 mL) inhalation Q4H PRN 06/12/22 09/10/23 Unknown Rx (0.083 %) solution for nebulization Shortness Of Breath #1,620 mL sodium chloride 3 % for 4 ml inhalation BID PRN secretions 07/02/22 09/10/23 Unknown Rx nebulization #240 mL oxycodone 5 mg tablet 5 mg PO Q6H PRN 09/20/22 09/10/23 Unknown History sodium chloride 3 % for 4 ml inhalation BID PRN secretions 09/20/22 09/10/23 Unknown Rx nebulization #820 mL clotrimazole-betamethasone 1 1 applic topical BID 90 days #3 10/02/22 09/10/23 Unknown Rx %-0.05 % topical cream tubes chlorthalidone 25 mg tablet See Rx Instructions .Route 10/24/22 09/10/23 Unknown Rx .COMPLEX #90 tabs furosemide 20 mg tablet 40 mg PO DAILY 11/27/22 09/10/23 Unknown History insulin glargine 100 unit/mL 80 unit SUBCUT BID 11/27/22 09/10/23 Unknown History subcutaneous solution (Lantus U-100 Insulin) tumeric PO 11/27/22 09/10/23 Unknown History atorvastatin 80 mg tablet 80 mg PO QPM #90 tabs 01/16/23 09/10/23 Unknown Rx hydralazine 100 mg tablet See Rx Instructions .Route 01/30/23 09/10/23 Unknown Rx .COMPLEX #270 tabs loratadine 10 mg tablet (Allergy 10 mg PO DAILY 02/04/23 09/10/23 Unknown History Relief (loratadine)) spironolactone 25 mg tablet 25 mg PO DAILY #90 tabs 02/27/23 09/10/23 Unknown Rx metoprolol succinate 100 mg 100 mg PO DAILY #90 tabs 04/18/23 09/10/23 Unknown Rx tablet,extended release 24 hr diabetic shoes with 3 inserts #1 ea 04/29/23 09/10/23 Unknown Rx fluticasone fur. 100 mcg-umeclid 1 inh inhalation QAM #180 ea 04/30/23 09/10/23 Unknown Rx 62.5 mcg-vilant 25 mcg inhalat.powder (Trelegy Ellipta) cyclobenzaprine 5 mg tablet 5 mg PO TID PRN muscle spasm #60 05/07/23 09/10/23 Unknown Rx tabs amlodipine 10 mg tablet See Rx Instructions .Route 07/22/23 09/10/23 Unknown Rx .COMPLEX #90 tabs sodium chloride 7 % for 1 inh inhalation BID #120 mL 08/07/23 09/10/23 Unknown Rx nebulization (Hyper-Gabino) ciprofloxacin HCl 500 mg tablet 500 mg PO BID #14 tabs 09/23/23 Unknown Rx metronidazole 500 mg tablet 500 mg PO Q8H 7 days #21 tabs 09/23/23 Unknown Rx Allergies Allergy/AdvReac Type Severity Reaction Status Date / Time adhesive tape Allergy Unknown Unknown Verified 09/23/23 04:04 carvedilol Allergy Severe Diarrhea & Uncoded 09/23/23 04:04 SOB Losartan Allergy Intermediate Kidney Uncoded 09/23/23 04:04 injury PFSH Acute PFSH: Medical History CKD (chronic kidney disease) stage 2, GFR 60-89 ml/min 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 GERD (gastroesophageal reflux disease) PHN (postherpetic neuralgia) Kidney disease PAD (peripheral artery disease) Type 2 diabetes mellitus COPD (chronic obstructive pulmonary disease) HTN (hypertension) with goal to be determined Heart failure Surgical History S/P cataract surgery Previous back surgery History of lung surgery Hx of shoulder surgery S/P lobectomy of lung Family History Mother Hypertension Stroke Brother Heart disease Other Diabetes Social History Smoking and tobacco/nicotine status: former use of tobacco/nicotine Quit status (tobacco/nicotine): has quit using Year quit tobacco: 1987 Former quit date comment: [id number] Second hand smoke exposure: No Alcohol intake: never Substance/Drug Use: never Lives independently: Yes Household members: spouse Housing: House Marital status: service: No Current occupational status: retired Pets and animals: Yes Do you think of yourself as: Straight/Heterosexual Current gender identity: Male Vitals/I&O/Wt Last Vital Signs Temp 97.9 F 09/23/23 03:57 Pulse 120 H 09/23/23 07:01 Resp 19 H 09/23/23 07:01 BP 140/72 09/23/23 07:01 Pulse Ox 94 09/23/23 07:01 O2 Del Method Nasal Cannula 09/23/23 07:01 O2 Flow Rate 2 09/23/23 05:44 Weight last 48 hrs Weight 93.44 kg Physical Exam Narrative: General exam no distress but complaining of pain in the left hip HEENT: Atraumatic normocephalic. Oropharynx clear Neck is supple no lymphadenopathy thyromegaly Cardiovascular tachycardic, no murmur, regular Lungs clear Abdomen is soft. Slight tenderness noted midline. No obvious organomegaly. exams deferred Extremities no sinus clubbing or edema. Left hip with good external rotation and hip flexion without pain. There is pain with to palpation over the left greater trochanter. Data 09/23/23 04:26 09/23/23 04:26 Other Labs: Liver function tests are normal. Lactic acid 1.2. Calcium and albumin are normal CRP elevated at 36 Lipase 56 TSH is ordered and pending Urinalysis 0-4 white cells otherwise negative Abdomen pelvis CT demonstrated some lung fibrosis, mid left lower quadrant diverticulitis without complication, indeterminate left renal cyst. I reviewed this as well. Significant constipation is noted. Hip and pelvis x-rays negative. I reviewed this as well. EKG demonstrates sinus tachycardia, normal axis, 1 PVC, nonspecific ST-T wave changes A&P Assessment and plan (1) Diverticulitis: There is concern patient has not responded appropriately to Augmentin that was prescribed initially for his diverticulitis Clinically, on discussion with the patient I do think he is likely improved somewhat. White blood cell count is 12 I do think he can continue with diet at this point Changed to Zosyn while inpatient (2) Fall: Patient had a significant fall, it appears to be mechanical fall Fall precautions (3) Left hip pain: Patient with left hip pain after fall. I think he has bruised his greater trochanter. There is no evidence of fracture Physical therapy consult (4) Weakness: This appears to be multifactorial. This may be due to recent illness, age, previous back problems, comorbid diseases Physical therapy consult. (5) COPD (chronic obstructive pulmonary disease): Patient with significant COPD, requiring 2 L of oxygen at rest Continue DuoNeb every 6 hours, budesonide twice daily Qualifiers: COPD type: emphysema Emphysema type: centrilobular Qualified Code(s): J43.2 - Centrilobular emphysema (6) Type 2 diabetes mellitus: History of diabetes Sliding scale Consistent carb diet Qualifiers: 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 chcf insulin use: without director long term care use 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 complication status: without complication Qualified Code(s): E11.9 - Type 2 diabetes mellitus without complications (7) Acute kidney injury: Does have some evidence of acute kidney injury superimposed on chronic kidney disease Bladder scan as needed BMP tomorrow Avoid renal toxic medication (8) Constipation: Initiate senna 2 tablets twice daily Monitor for response (9) Tachycardia: Patient with persistent tachycardia Continue IV fluids Initiate his beta-david Telemetry Continue to follow closely Plan Multiple other medical problems outlined by past medical history Full code Lovenox for DVT prophylaxis Attestations Medical Necessity Statement*: Will need less than 2 midnight stay for evaluation and treatment of diverticulitis, not responding to outpatient treatment as well as left hip pain with fall Diagnoses Diverticulitis K57.92 Fall W19.XXXA Left hip pain M25.552 Weakness R53.1 Centrilobular emphysema J43.2 COPD type: emphysema Emphysema type: centrilobular Type 2 diabetes mellitus without complication, without long-term current use of insulin E11.9 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 director long term care insulin use: without director long term care use 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 complication status: without complication Acute kidney injury N17.9 Constipation K59.00 Tachycardia R00.0 Time Spent (min) 54
[2023-09-23 10:22] LABS: Uric Acid 5.7 mg/dL (3.4-7.0)
[2023-09-23 11:57] LABS: Thyroid Stimulating Hormone 1.41 uIU/mL (0.27-4.20)
[2023-09-23] MEDS: sennosides-docusate Tablet 2 TAB PO ×2 (11:58→17:34)
[2023-09-23] MEDS: heparin 5,000 unit/mL INJ 1 mL 5000 UNIT SUBCUT ×2 (12:00→23:17)
[2023-09-23] MEDS: sodium chloride 0.9% 1,000 ML 75 ML IV (13:02)
[2023-09-23] MEDS: metoprolol succinate ER (24 HR) 100 mg Tablet PO (13:02)
[2023-09-23] MEDS: oxyCODONE 5 mg IR Tab/Cap PO ×3 (13:18→21:29)
[2023-09-23] MEDS: ipratropium-albuterol 3 mL Neb INHALATION ×2 (14:08→19:44)
[2023-09-23] MEDS: HYDROmorphone 1 mg/mL INJ 1 mL 0.4 MG IVP ×2 (14:16→18:21)
[2023-09-23] MEDS: hyDRALAzine 50 mg Tablet 100 MG PO ×2 (14:17→21:29)
[2023-09-23] MEDS: atorvastatin 40 mg Tablet PO (17:33)
[2023-09-23] MEDS: pantoprazole DR 40 mg Tablet PO (17:33)
[2023-09-23] MEDS: gabapentin 300 mg Capsule PO (17:33)
[2023-09-23] MEDS: budesonide 0.5 mg/2 mL Neb INHALATION (19:45)
[2023-09-23 20:54] LABS: Glucose Point of Care 151 mg/dL (70-110)
[2023-09-24] VITALS (13 sets, daily range): BP systolic 108–122; BP diastolic 55–75; PULSE 64–99; RESP 15–20; TEMP 36.6–36.9; O2SAT 2–95; BMI 32.8
[2023-09-24] MEDS: ipratropium-albuterol 3 mL Neb INHALATION ×3 (02:24→13:14)
[2023-09-24] MEDS: sodium chloride 0.9% 1,000 ML 75 ML IV (04:07)
[2023-09-24] MEDS: oxyCODONE 5 mg IR Tab/Cap PO ×2 (04:09→08:39)
[2023-09-24 05:43] LABS: Basophils % 0.5 %; Eosinophils # 0.1 10^3/uL (0.0-0.8); Eosinophils % 1.2 %; Lymphocytes # 0.9 10^3/uL (0.8-4.8); Mean Corpuscular HGB Conc 30.6 g/dL (30-55); Mean Corpuscular Hemoglobin 29.9 pg (27-33); Mean Corpuscular Volume 97.7 fl (82-101); Mean Platelet Volume 10.1 fL (7.4-10.4); Monocytes # 1.2 10^3/uL (0.2-0.9); Neutrophils # 5.97 10^3/uL (1.8-7.7); Neutrophils % 72.9 %; Nucleated Red Blood Cells % 0 %; Platelet Count 132 10^3/cmm (157-399); Red Blood Count 3.48 10^6/uL (3.85-5.65); Red Cell Distribution Width 17.9 % (12.1-15.1); White Blood Count 8.19 10^3/uL (3.29-11.43)
[2023-09-24] MEDS: aspirin 325 mg Tablet PO (05:53)
[2023-09-24] MEDS: finasteride 5 mg Tablet PO (05:53)
[2023-09-24] MEDS: piperacillin-tazobactam 3.375 GM in sodium chloride 0.9% (plus) 50 ML IV (05:54)
[2023-09-24 06:07] LABS: Alanine Aminotransferase 16 U/L (0-41); Albumin Level 3.4 g/dL (3.5-5.2); Alkaline Phosphatase 56 U/L (40-130); Anion Gap 15.6 (5-19); Aspartate Amino Transferase 22 U/L (0-40); Blood Urea Nitrogen 43 mg/dL (8-23); Calcium 9.1 mg/dL (8.5-10.5); Carbon Dioxide 26 mmol/L (22-29); Chloride 104 mmol/L (98-107); Globulin 2.9 g/dL (1.3-4.6); Glucose 136 mg/dL (65-115); Magnesium 2.3 mg/dL (1.7-2.3); Osmolality Calculated 305 mOsm/kg (285-295); Potassium 4.6 mmol/L (3.5-5.1); Sodium 141 mmol/L (136-145); Total Bilirubin 0.4 mg/dL (0.15-1.2); Total Protein 6.3 g/dL (6.6-8.7)
[2023-09-24 06:09] LABS: Creatinine Clr Calc Pharmacy 29.4552
[2023-09-24 06:40] LABS: Glucose Point of Care 159 mg/dL (70-110)
[2023-09-24] MEDS: budesonide 0.5 mg/2 mL Neb INHALATION (08:28)
[2023-09-24] MEDS: gabapentin 300 mg Capsule PO (08:36)
[2023-09-24] MEDS: pantoprazole DR 40 mg Tablet PO (08:36)
[2023-09-24] MEDS: amlodipine 10 mg Tablet PO (08:36)
[2023-09-24] MEDS: loratadine 10 mg Tablet PO (08:38)
[2023-09-24] MEDS: sennosides-docusate Tablet 2 TAB PO (08:38)
[2023-09-24] MEDS: metoprolol succinate ER (24 HR) 100 mg Tablet PO (08:38)
[2023-09-24] MEDS: hyDRALAzine 50 mg Tablet 100 MG PO (08:39)
--- NOTE | 2023-09-24 09:22 | PC.CHAP ---
Pastoral Care Encounter/Spiritual Assessment Type of Contact [] Declined claims supervisor visit [] Patient/Family/Request visit [] Outpatient visit [] Follow-up visit [] Physician referral [] Code/Alert [x] Routine visit [] Staff referral [] Actively dying [] Patient sleeping [x] Family support [] [] Out of room [] Palliative care [] [] Receiving care in room [] Pre-surgical visit [] Trauma [] Long length of stay [] ICU visit [] Other: Relational/Emotional Strength [x] Patient feels connected with others/family/visitors/staff [] Distress [] Loneliness/isolation [] Abandonment Spirituality of Patient [x] Person of Anette [] Attends Islam of their Anette [x] Believes in Prayer [] Reads Bible or Jewish materials [] There are Spiritual issues to be addressed Telecommunicator Interventions [x] Prayer [x] Active listening [] Non-anxious presence [x] Spiritual/emotional support [] Crisis/trauma care [] Spiritual counseling [] Bereavement support [] Provided bereavement packet [] Provided Bible/devotional materials [] Provided toy/stuffed animal, coloring book to patient or family member [] Provided Communion [] Anointing/Miller [] Salvation [x] Completed spiritual assessment [] Other: Impact on Illness or Injury [] Angry [] Fearful [] Anxious [] Often cries [] Exhaustion [] Unable to work [] Unable to attend shinto [] Unable to walk/stand [] Unable to read [] Unable to drive [] Unable to eat/drink [] Unable to sleep [] Unable to be with family [] Patient intubated [] Other: Summary Time spent with patient 5 min
[2023-09-24] MEDS: polyethylene glycol 3350 Pkt 17 gm PO (10:05)
[2023-09-24] MEDS: bisacodyl 10 mg Supp PR (10:40)
[2023-09-24] MEDS: allopurinol 300 mg Tablet PO (12:11)
[2023-09-24] MEDS: heparin 5,000 unit/mL INJ 1 mL 5000 UNIT SUBCUT (12:11)
--- NOTE | 2023-09-24 13:41 | P.DS_ITS ---
Discharge Providers Date of Admission: 09/23/23 11:06 Date of Discharge: September 24, 2023 Attending Provider at Admission: Ravi Leon MD Attending Provider at Discharge: Ravi Leon MD Primary Care Provider: Praveen Shah DO Diagnoses at Discharge Discharge Diagnosis (1) Diverticulitis: Status: Acute (2) Fall: Status: Acute (3) Left hip pain: Status: Acute (4) Weakness: Status: Acute (5) COPD (chronic obstructive pulmonary disease): Status: Acute Qualifiers: COPD type: emphysema Emphysema type: centrilobular Qualified Code(s): J43.2 - Centrilobular emphysema (6) Type 2 diabetes mellitus: Status: Acute Qualifiers: 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 long-term insulin use: without long term care phlebotomist use 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 complication status: without complication Qualified Code(s): E11.9 - Type 2 diabetes mellitus without complications (7) Acute kidney injury: Status: Acute (8) Constipation: Status: Acute (9) Tachycardia: Status: Acute Reason for Visit Reason for Visit: hip pain Hospital Course Hospital Course Patient presented to the emergency department complaints of left hip pain. He had fallen on his left hip, secondary weakness. He was recently diagnosed with diverticulitis 5 days ago and was on Augmentin. He was still having some nausea, but not eating and drinking well well. He had not had a bowel movement in quite some time. He had no fever. In the emergency department he was noted to be tachycardic, but did not receive his beta-david for the day. CT scan revealed diverticulitis, mild per CT. Lactic acid was normal. White blood cell count 12.0. Patient was placed in the hospital on Zosyn. His beta-david was started which helped his heart rate. He was rehydrated. Stool softeners and bowel regimen was initiated. By September night he was eating Welk without abdominal pain. He had a bowel movement. Vital signs were stable and he was no longer tachycardic. It was thought he could discharge home to take 1 week of Cipro and Flagyl, follow-up with his primary care provider, and return for any concerns. White blood cell count was normal on discharge. Creatinine 2.2, at his baseline. He will follow-up with his chip washer as well at his regular appointment. BMP will be indicated at follow-up with his primary care provider. This should be done in 3 to 5 days. He and his were given opportunity ask questions and agreed with the plan. Physical Exam Narrative: General exam no distress Neck is supple Cardiovascular regular rate and rhythm, no murmur Lungs clear but with diminished breath sounds at the bases Abdomen is soft bowel sounds are noted no obvious organomegaly no rebound. Extremities no sinus clubbing edema Discharge Data Studies Completed and Pending Completed Studies During Hospitalization Category Date Time Status CT abdomen pelvis wo con [id number] Stat Cat Scan 09/23/23 05:13 Completed XR hip LT 2-3V wo/w pel* [id number] Stat Exams 09/23/23 04:05 Completed Radiology Impressions Hip/Pelvis X-Ray 09/23/23 04:05 IMPRESSION: No acute findings. If there is continued point tenderness, recommend cross-sectional evaluation. Abdomen/Pelvis CT 09/23/23 05:13 IMPRESSION: 1. Increasing lung base fibrosis. 2. Perhaps mild left lower quadrant diverticulitis without complication. 3. Indeterminate left renal cyst requiring further evaluation with MRI. 4. Additional nonacute findings as above. COMMENTS: Consistent with the [employer]'s Incidental Findings Committee white paper (J Am Beth Radiol 2018): Any incidental renal lesion less than 1 cm or classified as too small to characterize, or any incidental cystic renal lesion characterized as simple-appearing, is likely benign. No follow-up imaging is recommended for these lesions per consensus recommendations based on imaging criteria. Laboratory Results WBC 8.19 10^3/uL (3.29-11.43) 09/24/23 05:35 RBC 3.48 10^6/uL (3.85-5.65) L 09/24/23 05:35 Hgb 10.40 g/dL (11.27-16.99) L 09/24/23 05:35 Hct 34.0 % (37-53) L 09/24/23 05:35 MCV 97.7 fl (82-101) 09/24/23 05:35 MCH 29.9 pg (27-33) 09/24/23 05:35 MCHC 30.6 g/dL (30-55) 09/24/23 05:35 RDW 17.9 % (12.1-15.1) H 09/24/23 05:35 Plt Count 132 10^3/cmm (157-399) L D 09/24/23 05:35 MPV 10.1 fL (7.4-10.4) 09/24/23 05:35 Neut % (Auto) 72.9 % 09/24/23 05:35 Lymph % (Auto) 11.0 % 09/24/23 05:35 [place] % (Auto) 14.0 % 09/24/23 05:35 Eos % (Auto) 1.2 % 09/24/23 05:35 Baso % (Auto) 0.5 % 09/24/23 05:35 Neut # (Auto) 5.97 10^3/uL (1.8-7.7) 09/24/23 05:35 Lymph # (Auto) 0.9 10^3/uL (0.8-4.8) 09/24/23 05:35 [place] # (Auto) 1.2 10^3/uL (0.2-0.9) H 09/24/23 05:35 Eos # (Auto) 0.1 10^3/uL (0.0-0.8) 09/24/23 05:35 Baso # (Auto) 0.0 10^3/uL (0.0-0.1) 09/24/23 05:35 Nucleated RBC % (auto) 0 % 09/24/23 05:35 Nucleated RBCs # 0.0 /100WBC 09/24/23 05:35 Sodium 141 mmol/L (136-145) 09/24/23 05:35 Potassium 4.6 mmol/L (3.5-5.1) 09/24/23 05:35 Chloride 104 mmol/L (98-107) 09/24/23 05:35 Carbon Dioxide 26 mmol/L (22-29) 09/24/23 05:35 Anion Gap 15.6 (5-19) 09/24/23 05:35 BUN 43 mg/dL (8-23) H 09/24/23 05:35 Creatinine 2.2 mg/dL (0.7-1.2) H 09/24/23 05:35 GFR Calculation Not Reportable 09/24/23 05:35 Glucose 136 mg/dL (65-115) H 09/24/23 05:35 POC Glucose 159 mg/dL (70-110) H 09/24/23 06:35 Calculated Osmolality 305 mOsm/kg (285-295) H 09/24/23 05:35 Lactic Acid 1.2 mmol/L (0.5-2.2) 09/23/23 06:19 Uric Acid 5.7 mg/dL (3.4-7.0) 09/23/23 04:26 Calcium 9.1 mg/dL (8.5-10.5) 09/24/23 05:35 Magnesium 2.3 mg/dL (1.7-2.3) 09/24/23 05:35 Total Bilirubin 0.4 mg/dL (0.15-1.2) 09/24/23 05:35 AST 22 U/L (0-40) 09/24/23 05:35 ALT 16 U/L (0-41) 09/24/23 05:35 Alkaline Phosphatase 56 U/L (40-130) 09/24/23 05:35 C-Reactive Protein 36.3 mg/L (0.0-4.9) H 09/23/23 04:26 Total Protein 6.3 g/dL (6.6-8.7) L 09/24/23 05:35 Albumin 3.4 g/dL (3.5-5.2) L 09/24/23 05:35 Globulin 2.9 g/dL (1.3-4.6) 09/24/23 05:35 Lipase 56 U/L (13-60) 09/23/23 04:26 TSH 1.41 uIU/mL (0.27-4.20) 09/23/23 04:26 Urine Color Yellow (Yellow) 09/23/23 08:11 Urine Appearance Clear (CLEAR) 09/23/23 08:11 Urine pH 6.5 (5-7) 09/23/23 08:11 Ur Specific [place] 1.005 (1.005-1.030) 09/23/23 08:11 Urine Protein Trace (Negative) 09/23/23 08:11 Urine Glucose (UA) Norm (Normal) 09/23/23 08:11 Urine Ketones Negative (Negative) 09/23/23 08:11 Urine Blood Neg (Negative) 09/23/23 08:11 Urine Nitrate Negative (Negative) 09/23/23 08:11 Urine Bilirubin Neg (Negative) 09/23/23 08:11 Urine Urobilinogen Neg mg/dL (Negative) 09/23/23 08:11 Ur Leukocyte Esterase Negative (Negative) 09/23/23 08:11 Urine RBC Rare /hpf (0-2) 09/23/23 08:11 Urine WBC 0-4 /hpf (0-5) H 09/23/23 08:11 Ur Squamous Epith Cells 0-4 /hpf (0-5) H 09/23/23 08:11 Amorphous Sediment Not Reportable 09/23/23 08:11 Urine Bacteria Trace /hpf (NONE) 09/23/23 08:11 Hyaline Casts 0-4 /lpf H 09/23/23 08:11 Urine Mucus Trace /hpf 09/23/23 08:11 Vitals Last Vital Signs Temp 97.8 F 09/24/23 11:00 Pulse 89 09/24/23 13:19 Resp 16 09/24/23 13:15 BP 122/75 09/24/23 11:00 Pulse Ox 90 09/24/23 13:15 O2 Del Method Room Air 09/24/23 13:15 O2 Flow Rate 2 09/24/23 11:00 Discharge Plan Discharge Patient Disposition: Home Condition: Stable Prescriptions: New ciprofloxacin HCl 500 mg tablet 500 mg PO BID Qty: 14 0RF metronidazole 500 mg tablet 500 mg PO Q8H 7 Days Qty: 21 0RF Miralax 17 gram powder in packet 17 g PO BID Qty: 100 0RF Continued magnesium oxide 250 mg magnesium tablet 250 mg PO DAILY@12 finasteride 5 mg tablet 5 mg PO QAM aspirin 325 mg tablet 325 mg PO QAM omeprazole 20 mg capsule,delayed release(DR/EC) 20 mg PO QAM docusate sodium [Stool Softener] 100 mg capsule 50 mg PO BID loratadine [Allergy Relief (loratadine)] 10 mg tablet 10 mg PO DAILY cyclobenzaprine 5 mg tablet 5 mg PO TID PRN (Reason: muscle spasm) Qty: 60 3RF (DME) diabetic shoes with 3 inserts See Rx Instructions .Route .MEDSUPPLY Qty: 1 0RF Rx Instructions: As directed to the shoe guys cholecalciferol (vitamin D3) [Vitamin D3] 125 mcg (5,000 unit) tablet 125 mcg PO DAILY sodium chloride [Hyper-Gabino] 7 % solution for nebulization 1 inh inhalation BID Qty: 120 2RF (DME) Diabetic Shoes See Rx Instructions .Route .MEDSUPPLY Qty: 1 0RF Rx Instructions: As directed ipratropium-albuterol 0.5 mg-3 mg(2.5 mg base)/3 mL solution for nebulization 3 ml inhalation Q4H PRN (Reason: wheezing) Qty: 90 3RF Hold Instructions: not available clotrimazole-betamethasone 1-0.05 % cream 1 applic topical BID 90 Days Qty: 3 1RF atorvastatin 80 mg tablet 80 mg PO QPM Qty: 90 3RF spironolactone 25 mg tablet 25 mg PO DAILY Qty: 90 3RF metoprolol succinate 100 mg tablet extended release 24 hr 100 mg PO DAILY Qty: 90 3RF Trelegy Ellipta 100-62.5-25 mcg blister with device 1 inh inhalation QAM Qty: 180 6RF ascorbic acid (vitamin C) [Vitamin C] 1,000 mg Tablet 1,000 mg PO DAILY@12 gabapentin 300 mg Capsule 300 mg PO BID PreserVision AREDS-2 250-90-40-1 mg Capsule 1 tab PO BID Trulicity 1.5 mg/0.5 mL pen injector 1.5 mg SUBCUT Q7D Rx Instructions: on Sat Lantus U-100 Insulin 100 unit/mL solution 80 unit SUBCUT BID latanoprost 0.005 % drops 1 drp ophthalmic (eye) QPM allopurinol 300 mg tablet 300 mg PO DAILY@12 zinc acetate 50 mg (zinc) Capsule 50 mg PO DAILY@12 furosemide 40 mg tablet 40 mg PO DAILY prednisone 20 mg tablet 20 mg PO QAM oxycodone-acetaminophen 10-325 mg tablet 1 tab PO QID melatonin 5 mg Tablet 5 mg PO BEDTIME Mucinex 600 mg Tablet Extended Release 12hr 600 mg PO Q12H PRN (Reason: Congestion) turmeric root extract 500 mg Tablet 500 mg PO QPM sodium chloride 3 % solution for nebulization 4 ml inhalation QAM PRN (Reason: secretions) chlorthalidone 25 mg tablet 25 mg PO DAILY amlodipine 10 mg tablet 10 mg PO DAILY hydralazine 100 mg tablet 100 mg PO TID Discharge Orders: Discharge Order (Routine); Ordered 09/24/23 Ordered By: Ravi Leon Referrals: Praveen Shah DO [Primary Care Provider] - 4-7 days (BMP on follow-up) Discharge Diet: GI Soft Discharge Activity: Increase activity as tolerated Patient Instructions: Diverticulitis (ED), Hip Contusion (ED), Opioid Safety, Pain Management Activity Restrictions/Additional Instructions: Return for repeated episodes of falls, worsening weakness, fever despite 2-3 doses of antibiotics, worsening pain, vomiting liquids or medications, other concerning symptoms. Stop the amoxicillin/clavulanate for now. Use antibiotics prescribed today instead. Call your doctor later today for a follow-up appointment this week. Please make sure prescription for Cipro and Flagyl was filled, is to take for the next 7 days MiraLAX twice daily for constipation Return for any concerns Discharge Attestations Time Spent in Discharge Care*: greater than 30 min Status at Discharge: Cognitive status at discharge: cognitively intact , Behavioral status at discharge: cooperative , Quality Metrics Clinical Quality Measures [ No reported AMI, CVA or VTE this stay] Coding Level of Care Code 37496 Total time (in minutes) for Discharge: 31 Diagnoses Diverticulitis K57.92 Fall W19.XXXA Left hip pain M25.552 Weakness R53.1 Centrilobular emphysema J43.2 COPD type: emphysema Emphysema type: centrilobular Type 2 diabetes mellitus without complication, without long-term current use of insulin E11.9 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 long-term insulin use: without long term care phlebotomist use 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 complication status: without complication Acute kidney injury N17.9 Constipation K59.00 Tachycardia R00.0
== END 2023-09-24 14:28 | disposition home or self-care (01) ==
LOC: ER 07:41 → MEDSURG 15:04 → ER IP 20:05
PROVIDERS: Emergency Medicine; Admitting Provider Internal Medicine; Emergency Provider Family Medicine; PCP Electrodiagnostic Medicine; Visit Provider Internal Medicine
DX: M25.552 Pain in left hip (principal); Z91.81 History of falling; K57.92 Diverticulitis of intestine, part unspecified, without perforation or abscess without bleeding; R53.1 Weakness; J43.2 Centrilobular emphysema; N17.9 Acute kidney failure, unspecified; K59.00 Constipation, unspecified; R00.0 Tachycardia, unspecified; E11.22 Type 2 diabetes mellitus with diabetic chronic kidney disease; I13.0 Hypertensive heart and chronic kidney disease with heart failure and stage 1 through stage 4 chronic kidney disease, or unspecified chronic kidney disease; N18.2 Chronic kidney disease, stage 2 (mild); J44.9 Chronic obstructive pulmonary disease, unspecified; I50.9 Heart failure, unspecified; Z82.49 Family history of ischemic heart disease and other diseases of the circulatory system; Z87.891 Personal history of nicotine dependence
CPT/HCPCS: 36415; 36416; 73502; 74176; 80053; 81001; 82962; 83605; 83690; 83735; 84443; 84550; 85025; 86140; 93005; 94640; 96361; 96365; 96372; 96375; 96376; 97116; 97161; 97530; 99285; G0378; J1170; J1644; J2270; J2405; J2543; J7030; J7626

== ENCOUNTER → 2023-11-12 09:25 | Outpatient (BNVA) | payer MEDICARE, SELFPAY | PROVIDERS: PCP Electrodiagnostic Medicine; Visit Provider Podiatrist Foot & Ankle Surgery | DX: B35.1 Tinea unguium (principal); I73.9 Peripheral vascular disease, unspecified; G62.9 Polyneuropathy, unspecified; E11.42 Type 2 diabetes mellitus with diabetic polyneuropathy; Z79.4 Long term (current) use of insulin | CPT/HCPCS: 11721 ==

== ENCOUNTER 2023-11-13 11:30 | Outpatient (CLI) | payer MEDICARE, SELFPAY ==
[2023-11-13 11:43] VITALS: PULSE 91; RESP 18; O2SAT 97
[2023-11-13] MEDS: albuterol 2.5 mg/3 mL Neb INHALATION (11:43)
[2023-11-13 11:47] VITALS: PULSE 92
== END 2023-11-13 11:31 | disposition home or self-care (01) ==
PROVIDERS: PCP Electrodiagnostic Medicine; Visit Provider Electrodiagnostic Medicine
DX: J44.9 Chronic obstructive pulmonary disease, unspecified (principal)
CPT/HCPCS: 94060; 94729; J7613

== ENCOUNTER → 2023-11-19 15:35 | Outpatient (BNVA) | payer MEDICARE, SELFPAY | PROVIDERS: PCP Electrodiagnostic Medicine; Visit Provider Internal Medicine Critical Care Medicine | DX: J96.11 Chronic respiratory failure with hypoxia (principal); J43.2 Centrilobular emphysema; J47.9 Bronchiectasis, uncomplicated; K21.9 Gastro-esophageal reflux disease without esophagitis; G47.33 Obstructive sleep apnea (adult) (pediatric); G47.34 Idiopathic sleep related nonobstructive alveolar hypoventilation; J98.6 Disorders of diaphragm; R53.81 Other malaise; Z71.89 Other specified counseling | CPT/HCPCS: 99214 ==

== ENCOUNTER 2023-12-09 06:00 | Outpatient (CLI) | payer MEDICARE, SELFPAY | END 2023-12-09 17:00 | disposition home or self-care (01) | LOC: LAB 12-20 07:46 | PROVIDERS: PCP Electrodiagnostic Medicine; Visit Provider Internal Medicine Cardiovascular Disease | DX: R09.89 Other specified symptoms and signs involving the circulatory and respiratory systems (principal) | CPT/HCPCS: 36415; 80048; 83880 ==

== ENCOUNTER → 2023-12-09 09:59 | Outpatient (BNVA) | payer MEDICARE, SELFPAY | PROVIDERS: PCP Electrodiagnostic Medicine; Visit Provider Internal Medicine Cardiovascular Disease | DX: R09.89 Other specified symptoms and signs involving the circulatory and respiratory systems (principal); R06.02 Shortness of breath; I73.9 Peripheral vascular disease, unspecified; I11.0 Hypertensive heart disease with heart failure; I50.32 Chronic diastolic (congestive) heart failure; R06.00 Dyspnea, unspecified; E11.9 Type 2 diabetes mellitus without complications | CPT/HCPCS: 99214 ==

== ENCOUNTER 2023-12-28 08:39 | Inpatient (IN) | payer MEDICARE, SELFPAY ==
[2023-12-28] VITALS (10 sets, daily range): BP systolic 95–128; BP diastolic 54–70; PULSE 86–118; RESP 16–20; TEMP 36.6–37; O2SAT 91–95; BMI 32.8
--- NOTE | 2023-12-28 08:40 | ECG_ITS ---
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 Measurements Intervals [place] Rate: 116 P: 23 [place]: 181 QRS: 60 QRSD: 85 T: 61 QT: 317 QTc: 441 Interpretive Statements SINUS TACHYCARDIA WITH FREQUENT SUPRAVENTRICULAR PREMATURE COMPLEXES NONSPECIFIC ST & T-WAVE ABNORMALITY ABNORMAL RHYTHM ECG Compared to ECG 09/23/2023 08:32:30 Ventricular premature complex(es) no longer present T-wave abnormality still present Electronically Signed On 12-30-2023 14:13:04 CDT by Jakob Degroot M.D. [id number]
--- NOTE | 2023-12-28 08:46 | XRR_ITS ---
PROCEDURE INFORMATION: Exam: XR Chest Exam date and time: 12/28/2023 9:02 AM Age: 78 years old Clinical indication: Cough and dyspnea; Prior surgery; Surgery date: 6+ months; Surgery type: Lobectomy; Patient HX: PT presents to ED with C/O SOB, fall. PT has L shoulder pain; PT denies loc/anticoagulant. PT states he lost balance, denies dizziness prior to fall. PT has HX of chf, copd, diabetes. EMS glucose 117. EMS admin duoneb, additional 2.5mg albuterol; States PT wheezing upon arrival. PT wears 2l nc continuously. ; Additional info: Dyspnea/cough TECHNIQUE: Imaging protocol: Radiologic exam of the chest. Views: 1 view. COMPARISON: CT lung screening [id number] 02/11/2023 2:04 PM FINDINGS: Lungs: Postsurgical changes about the right upper lung. Mild chronic scarring about bilateral peripheral lungs. No distinct focal consolidation. Pleural spaces: No large pleural effusion. No distinct pneumothorax. Heart/Mediastinum: Cardiomediastinal silhouette is midline and normal in size. Bones/joints: No distinct acute osseous findings. XR/XR chest 1V portable [id number] IMPRESSION: No acute cardiopulmonary findings.
--- NOTE | 2023-12-28 08:47 | ED_ITS ---
HPI - SOB/Dyspnea 2 General: Chief Complaint: Shortness of Breath/Dyspnea Stated Complaint: SOB Time Seen by Provider: 12/28/23 08:45 History of Present Illness: HPI Narrative: 78-year-old male presents emergency room with complaint of shortness of breath. He also has a fall he is complaining of left shoulder pain. No loss consciousness no other injury. He is complaining of shortness of breath he is on oxygen usually uses 2 L by nasal cannula is not requiring 3 and satting around 91%. He denies any fever sweats chills productive cough chest pain or hemoptysis Associated symptoms: Deny abdominal pain, chest pain or fever(s) Related Data Home Medications Medication Instructions Recorded Confirmed finasteride 5 mg tablet 5 mg PO QAM 06/15/19 12/28/23 magnesium oxide 250 mg PO DAILY@12 06/15/19 12/28/23 aspirin 325 mg tablet 325 mg PO QAM 07/18/20 12/28/23 ascorbic acid (vitamin C) 1,000 mg 1,000 mg PO DAILY@12 11/09/20 12/28/23 tablet (Vitamin C) dulaglutide 1.5 mg/0.5 mL 1.5 mg SUBCUT Q7D 11/09/20 12/28/23 subcutaneous pen injector (Trulicity) gabapentin 300 mg capsule 300 mg PO BID 11/09/20 12/28/23 vit C 250 mg-vit E 90 mg-zinc 40 1 tab PO BID 11/09/20 12/28/23 mg-copper 1 [id number] capsule (PreserVision AREDS-2) cholecalciferol (vitamin D3) 125 125 mcg PO DAILY 01/18/22 12/28/23 mcg (5,000 unit) tablet (Vitamin D3) latanoprost 0.005 % eye drops 1 drp ophthalmic (eye) QPM 01/30/22 12/28/23 zinc acetate 50 mg (zinc) capsule 50 mg PO DAILY@12 01/30/22 12/28/23 insulin glargine 100 unit/mL 80 unit SUBCUT BID 11/27/22 12/28/23 subcutaneous solution (Lantus U-100 Insulin) loratadine 10 mg tablet (Allergy 10 mg PO DAILY 02/04/23 12/28/23 Relief (loratadine)) amlodipine 10 mg tablet 10 mg PO DAILY 09/23/23 12/28/23 furosemide 40 mg tablet 40 mg PO QAM 09/23/23 12/28/23 hydralazine 100 mg tablet 100 mg PO TID 09/23/23 12/28/23 melatonin 5 mg tablet 5 mg PO BEDTIME 09/23/23 12/28/23 turmeric root extract 500 mg tablet 500 mg PO QPM 09/23/23 12/28/23 albuterol sulfate 2.5 mg/3 mL 2.5 mg inhalation QAM 11/19/23 12/28/23 (0.083 %) solution for nebulization guaifenesin 600 mg tablet, 600 mg PO BID Congestion 11/19/23 12/28/23 extended release 12 hr (Mucinex) omeprazole 20 mg capsule,delayed 20 mg PO .QPM 11/19/23 12/28/23 release oxycodone-acetaminophen 10 mg-325 1 tab PO QID 11/19/23 12/28/23 mg tablet polyethylene glycol 3350 17 gram 17 g PO BID 11/19/23 12/28/23 oral powder packet (Miralax) allopurinol 300 mg tablet 100 mg PO BID 12/09/23 12/28/23 senna-docusate sodium tablet 150 tab PO BEDTIME 12/28/23 12/28/23 Previous Rx's Medication Instructions Recorded Diabetic Shoes #1 ea 01/15/22 spironolactone 25 mg tablet 25 mg PO DAILY #90 tabs 02/27/23 metoprolol succinate 100 mg 100 mg PO DAILY #90 tabs 04/18/23 tablet,extended release 24 hr diabetic shoes with 3 inserts #1 ea 04/29/23 sodium chloride 7 % for 1 inh inhalation BID #120 mL 08/07/23 nebulization (Hyper-Gabino) chlorthalidone 25 mg tablet 25 mg PO DAILY #90 tabs 10/16/23 fluticasone fur. 100 mcg-umeclid 1 inh inhalation QAM #180 ea 10/21/23 62.5 mcg-vilant 25 mcg inhalat.powder (Trelegy Ellipta) atorvastatin 80 mg tablet 80 mg PO QPM #90 tabs 12/20/23 Allergies Allergy/AdvReac Type Severity Reaction Status Date / Time adhesive tape Allergy Unknown Unknown Verified 12/09/23 10:16 carvedilol Allergy Severe Diarrhea & Uncoded 12/09/23 10:16 SOB Losartan Allergy Intermediate Kidney Uncoded 12/09/23 10:16 injury levoceterizine Allergy ADR-Itching Uncoded 12/09/23 10:16 Review of Systems 2 Const: Denies: fever(s) or chills Card: Denies: chest pain Resp: Reports: dyspnea, non-productive cough and wheezing GI: Denies: abdominal pain : Denies: dysuria, urinary frequency or urinary urgency Musc: Reports: joint pain (Left shoulder status post fall); Denies: neck pain or back pain Skin/Breast: Denies: rash PFSH ED 2 PFSH: Medical History CKD (chronic kidney disease) stage 2, GFR 60-89 ml/min 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 GERD (gastroesophageal reflux disease) PHN (postherpetic neuralgia) Kidney disease PAD (peripheral artery disease) Type 2 diabetes mellitus COPD (chronic obstructive pulmonary disease) HTN (hypertension) with goal to be determined Heart failure Surgical History S/P cataract surgery Previous back surgery History of lung surgery Hx of shoulder surgery S/P lobectomy of lung Family History Mother Hypertension Stroke Brother Heart disease Other Diabetes Social History Smoking and tobacco/nicotine status: unknown if used tobacco/nicotine Quit status (tobacco/nicotine): has quit using Year quit tobacco: 1987 Former quit date comment: [id number] Second hand smoke exposure: No Alcohol intake: never Substance/Drug Use: never Lives independently: Yes Household members: spouse Housing: House Marital status: service: No Current occupational status: retired Pets and animals: Yes Do you think of yourself as: Straight/Heterosexual Current gender identity: Male Physical Exam 2 Const: GENERAL APPEARANCE: cooperative ORIENTATION/CONSCIOUSNESS: Yes awake, Yes oriented to person, Yes oriented to place and Yes oriented to time HENMT: COMMON NORMALS: normocephalic, atraumatic and hearing grossly normal bilaterally HEAD & SCALP: normocephalic and atraumatic Resp: COMMON NORMALS: normal respiratory effort, No retractions and No use of accessory muscles AUSCULTATION: wheezes Cardio: COMMON NORMALS: regular rhythm and No murmurs present (Cardio) R ATE: tachycardic RHYTHM: regular rhythm GI: COMMON NORMALS: Soft to palpation and No hepatosplenomegaly present A USCULTATION: Yes normoactive bowel sounds PALPATION: Yes Soft to palpation, No Tenderness to palpation present (GI), No Guarding due to palpation present (GI) and Yes No hepatosplenomegaly present Extremity: COMMON NORMALS: normal to inspection, capillary refill normal, no clubbing, cyanosis or edema, no calf tenderness and no pedal edema Neuro: SENSORIUM/ORIENTATION: Yes oriented to person, Yes oriented to place and Yes oriented to time Skin: COMMON NORMALS: no rashes or lesions noted GENERAL SKIN EXAM: no rashes or lesions noted Course 2 Vital Signs: Vital signs: Vital Signs Temperature 98.6 F 12/28/23 15:28 Pulse Rate 101 H 12/28/23 15:28 Respiratory Rate 16 12/28/23 15:28 Blood Pressure 128/70 12/28/23 15:28 Pulse Oximetry 93 12/28/23 15:28 Oxygen Delivery Me thod Nasal Cannula 12/28/23 15:28 Oxygen Flow Rate 3 12/28/23 15:28 MDM - SOB/Dyspnea Medical Decision Making COPD exacerbation with right lower lobe pneumonia start IV antibiotics aggressive pulmonary toilet discussed with hospitalist orders written Medical Records I reviewed the patient's medical records. Lab Data I reviewed the patient's lab results. 12/28/23 08:14 12/28/23 08:14 Labs/Radiology: Radiology Impressions Chest X-Ray 12/28/23 08:46 IMPRESSION: No acute cardiopulmonary findings. Shoulder X-Ray 12/28/23 09:10 IMPRESSION: No distinct acute fracture or dislocation. Laboratory Results WBC 17.72 10^3/uL (3.29-11.43) H 12/28/23 08:14 RBC 3.79 10^6/uL (3.85-5.65) L 12/28/23 08:14 Hgb 11.70 g/dL (11.27-16.99) 12/28/23 08:14 Hct 37.5 % (37-53) 12/28/23 08:14 MCV 98.9 fl (82-101) 12/28/23 08:14 MCH 30.9 pg (27-33) 12/28/23 08:14 MCHC 31.2 g/dL (30-55) 12/28/23 08:14 RDW 17.0 % (12.1-15.1) H 12/28/23 08:14 Plt Count 185 10^3/cmm (157-399) 12/28/23 08:14 MPV 10.6 fL (7.4-10.4) H 12/28/23 08:14 Neut % (Auto) 77.9 % 12/28/23 08:14 Lymph % (Auto) 11.8 % 12/28/23 08:14 [place] % (Auto) 9.2 % 12/28/23 08:14 Eos % (Auto) 0.2 % 12/28/23 08:14 Baso % (Auto) 0.3 % 12/28/23 08:14 Neut # (Auto) 13.82 10^3/uL (1.8-7.7) H 12/28/23 08:14 Lymph # (Auto) 2.1 10^3/uL (0.8-4.8) 12/28/23 08:14 [place] # (Auto) 1.6 10^3/uL (0.2-0.9) H 12/28/23 08:14 Eos # (Auto) 0.0 10^3/uL (0.0-0.8) 12/28/23 08:14 Baso # (Auto) 0.1 10^3/uL (0.0-0.1) 12/28/23 08:14 Nucleated RBC % (auto) 0 % 12/28/23 08:14 Nucleated RBCs # 0.0 /100WBC 12/28/23 08:14 Sodium 144 mmol/L (136-145) 12/28/23 08:14 Potassium 4.1 mmol/L (3.5-5.1) 12/28/23 08:14 Chloride 101 mmol/L (98-107) 12/28/23 08:14 Carbon Dioxide 27 mmol/L (22-29) 12/28/23 08:14 Anion Gap 20.1 (5-19) H 12/28/23 08:14 BUN 57 mg/dL (8-23) H 12/28/23 08:14 Creatinine 2.4 mg/dL (0.7-1.2) H 12/28/23 08:14 GFR Calculation Not Reportable 12/28/23 08:14 Glucose 103 mg/dL (65-115) 12/28/23 08:14 Calculated Osmolality 314 mOsm/kg (285-295) H 12/28/23 08:14 Lactic Acid 3.4 mmol/L (0.5-2.2) H 12/28/23 08:14 Calcium 9.5 mg/dL (8.5-10.5) 12/28/23 08:14 Total Bilirubin 0.8 mg/dL (0.15-1.2) 12/28/23 08:14 AST 20 U/L (0-40) 12/28/23 08:14 ALT 15 U/L (0-41) 12/28/23 08:14 Alkaline Phosphatase 86 U/L (40-130) 12/28/23 08:14 Troponin T Baseline 51 ng/L (0-15) H 12/28/23 08:14 Troponin T 120 Minute 51.93 ng/L (0-15) H 12/28/23 10:11 Delta Troponin T 0.93 ABS# (0-10) 12/28/23 10:11 Total Protein 7.0 g/dL (6.6-8.7) 12/28/23 08:14 Albumin 4.0 g/dL (3.5-5.2) 12/28/23 08:14 Globulin 3.0 g/dL (1.3-4.6) 12/28/23 08:14 Procalcitonin 0.47 ng/mL (0-0.5) 12/28/23 10:11 Coronavirus (PCR) Negative (Negative) 12/28/23 10:30 Influenza A (PCR) Negative (Negative) 12/28/23 10:30 Influenza Type B (PCR) Negative (Negative) 12/28/23 10:30 RSV (PCR) Negative (Negative) 12/28/23 10:30 All radiology interpretation(s) finalized by discharge Discharge Plan Discharge Patient Disposition: Admitted As Inpatient Admit Provider: Melanie Dorantes Clinical Impression: Acute hypoxemic respiratory failure, Type 2 diabetes mellitus, Community acquired pneumonia, Acute exacerbation of chronic obstructive airways disease Condition: Stable Coding Level of Care Code ED 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
[2023-12-28 08:59] LABS: Basophils # 0.1 10^3/uL (0.0-0.1); Basophils % 0.3 %; Eosinophils % 0.2 %; Hematocrit 37.5 % (37-53); Lymphocytes # 2.1 10^3/uL (0.8-4.8); Lymphocytes % 11.8 %; Mean Corpuscular HGB Conc 31.2 g/dL (30-55); Mean Corpuscular Hemoglobin 30.9 pg (27-33); Mean Corpuscular Volume 98.9 fl (82-101); Mean Platelet Volume 10.6 fL (7.4-10.4); Monocytes # 1.6 10^3/uL (0.2-0.9); Monocytes % 9.2 %; Neutrophils # 13.82 10^3/uL (1.8-7.7); Neutrophils % 77.9 %; Nucleated Red Blood Cells % 0 %; Platelet Count 185 10^3/cmm (157-399); Red Blood Count 3.79 10^6/uL (3.85-5.65); White Blood Count 17.72 10^3/uL (3.29-11.43)
--- NOTE | 2023-12-28 09:10 | XRR_ITS ---
PROCEDURE INFORMATION: Exam: XR Left Shoulder Exam date and time: 12/28/2023 9:20 AM Age: 78 years old Clinical indication: Pain and injury or trauma; Blunt trauma (contusions or hematomas); Left; Injury details: PT presents to ED with C/O SOB, fall. PT has L shoulder pain; PT denies loc/anticoagulant. PT states he lost balance, denies dizziness prior to fall. PT has HX of chf, copd, diabetes. EMS glucose 117. EMS admin duoneb, additional 2.5mg albuterol; States PT wheezing upon arrival. PT wears 2l nc continuously. TECHNIQUE: Imaging protocol: Radiologic exam of the left shoulder. Views: 2 or more views. COMPARISON: CR (CHEST, ) 12/28/2023 9:02 AM FINDINGS: Bones/joints: Redemonstrated tendon anchor screw in the left humeral head. No distinct acute fracture or dislocation. Soft tissues: Visualized soft tissues are within normal limits. XR/XR shoulder LT min 2V* [id number] IMPRESSION: No distinct acute fracture or dislocation.
[2023-12-28 09:13] LABS: Troponin(5th) Baseline 51 ng/L (0-15)
[2023-12-28 09:16] LABS: Alanine Aminotransferase 15 U/L (0-41); Alkaline Phosphatase 86 U/L (40-130); Anion Gap 20.1 (5-19); Aspartate Amino Transferase 20 U/L (0-40); Blood Urea Nitrogen 57 mg/dL (8-23); Calcium 9.5 mg/dL (8.5-10.5); Carbon Dioxide 27 mmol/L (22-29); Chloride 101 mmol/L (98-107); Creatinine Clr Calc Pharmacy 27.0006; Glucose 103 mg/dL (65-115); Osmolality Calculated 314 mOsm/kg (285-295); Potassium 4.1 mmol/L (3.5-5.1); Sodium 144 mmol/L (136-145); Total Bilirubin 0.8 mg/dL (0.15-1.2)
[2023-12-28 10:14] LABS: Lactic Sepsis W/Reflex 3.4 mmol/L (0.5-2.2)
[2023-12-28 10:15] LABS: Reflex Lactate Order REFLEX LACTIC ORDERD
[2023-12-28] MEDS: levofloxacin-dextrose 5 % 750 MG/150 ML PREMIX 100 MG IV ×2 (10:28→15:19)
--- NOTE | 2023-12-28 10:38 | PM.HP ---
Providers/Chief Complaint Primary Care Provider: Praveen Shah DO Chief Complaint: SOB History of Present Illness Jeff Delvalle is a 78 year old male With past medical history of CKD, diabetes mellitus, GERD, kidney disease, PAD, type 2 diabetes mellitus, COPD, hypertension, heart failure on 2 L of oxygen at home [id number] presented to the hospital today for shortness of breath, worsening cough, productive of thick white tenacious sputum. Family member present in room. Chest x-ray showed no acute cardiopulmonary findings however on reviewing imaging there seems to be mild infiltrate present. Patient states he fell. He says his legs gave out and he was lethargic. Family ember states patient was recently ill last 3 days and for 1 day did not take his medications either. Yesterday however did take his home medications. They are going to locate his home medication list to share with us. Patient denies any nausea vomiting diarrhea abdominal pain constipation. Patient currently on 3 L of oxygen. Medications/Allergies Home Medications Medication Instructions Recorded Confirmed Last Taken Type finasteride 5 mg tablet 5 mg PO QAM 06/15/19 12/28/23 12/27/23 History magnesium oxide 250 mg PO DAILY@12 06/15/19 12/28/23 12/27/23 History aspirin 325 mg tablet 325 mg PO QAM 07/18/20 12/28/23 12/27/23 History ascorbic acid (vitamin C) 1,000 mg 1,000 mg PO DAILY@12 11/09/20 12/28/23 12/25/23 History tablet (Vitamin C) dulaglutide 1.5 mg/0.5 mL 1.5 mg SUBCUT Q7D 11/09/20 12/28/23 12/25/23 History subcutaneous pen injector (Trulicity) gabapentin 300 mg capsule 300 mg PO BID 11/09/20 12/28/23 12/27/23 History vit C 250 mg-vit E 90 mg-zinc 40 1 tab PO BID 11/09/20 12/28/23 12/27/23 History mg-copper 1 [id number] capsule (PreserVision AREDS-2) Diabetic Shoes #1 ea 01/15/22 12/28/23 Unknown Rx cholecalciferol (vitamin D3) 125 125 mcg PO DAILY 01/18/22 12/28/23 12/27/23 History mcg (5,000 unit) tablet (Vitamin D3) latanoprost 0.005 % eye drops 1 drp ophthalmic (eye) QPM 01/30/22 12/28/23 12/27/23 History zinc acetate 50 mg (zinc) capsule 50 mg PO DAILY@12 01/30/22 12/28/23 12/27/23 History insulin glargine 100 unit/mL 80 unit SUBCUT BID 11/27/22 12/28/23 12/27/23 History subcutaneous solution (Lantus U-100 Insulin) loratadine 10 mg tablet (Allergy 10 mg PO DAILY 02/04/23 12/28/23 12/27/23 History Relief (loratadine)) spironolactone 25 mg tablet 25 mg PO DAILY #90 tabs 02/27/23 12/28/23 12/25/23 Rx metoprolol succinate 100 mg 100 mg PO DAILY #90 tabs 04/18/23 12/28/23 12/27/23 Rx tablet,extended release 24 hr diabetic shoes with 3 inserts #1 ea 04/29/23 12/28/23 Unknown Rx sodium chloride 7 % for 1 inh inhalation BID #120 mL 08/07/23 11/19/23 12/27/23 Rx nebulization (Hyper-Gabino) amlodipine 10 mg tablet 10 mg PO DAILY 09/23/23 12/28/23 12/27/23 History furosemide 40 mg tablet 40 mg PO QAM 09/23/23 12/28/23 12/27/23 History hydralazine 100 mg tablet 100 mg PO TID 09/23/23 12/28/23 12/27/23 History melatonin 5 mg tablet 5 mg PO BEDTIME 09/23/23 12/28/23 12/27/23 History turmeric root extract 500 mg tablet 500 mg PO QPM 09/23/23 12/28/23 12/27/23 History chlorthalidone 25 mg tablet 25 mg PO DAILY #90 tabs 10/16/23 12/28/23 12/27/23 Rx fluticasone fur. 100 mcg-umeclid 1 inh inhalation QAM #180 ea 10/21/23 12/28/23 12/27/23 Rx 62.5 mcg-vilant 25 mcg inhalat.powder (Trelegy Ellipta) albuterol sulfate 2.5 mg/3 mL 2.5 mg inhalation QAM 11/19/23 12/28/23 12/25/23 History (0.083 %) solution for nebulization guaifenesin 600 mg tablet, 600 mg PO BID Congestion 11/19/23 12/28/23 12/27/23 History extended release 12 hr (Mucinex) omeprazole 20 mg capsule,delayed 20 mg PO .QPM 11/19/23 12/28/23 12/27/23 History release oxycodone-acetaminophen 10 mg-325 1 tab PO QID 11/19/23 12/28/23 12/26/23 History mg tablet polyethylene glycol 3350 17 gram 17 g PO BID 11/19/23 12/28/23 12/27/23 History oral powder packet (Miralax) allopurinol 300 mg tablet 100 mg PO BID 12/09/23 12/28/23 12/27/23 History atorvastatin 80 mg tablet 80 mg PO QPM #90 tabs 12/20/23 12/28/23 12/27/23 Rx senna-docusate sodium tablet 150 tab PO BEDTIME 12/28/23 12/28/23 12/25/23 History Allergies Allergy/AdvReac Type Severity Reaction Status Date / Time adhesive tape Allergy Unknown Unknown Verified 12/09/23 10:16 carvedilol Allergy Severe Diarrhea & Uncoded 12/09/23 10:16 SOB Losartan Allergy Intermediate Kidney Uncoded 12/09/23 10:16 injury levoceterizine Allergy ADR-Itching Uncoded 12/09/23 10:16 PFSH Acute PFSH: Medical History CKD (chronic kidney disease) stage 2, GFR 60-89 ml/min 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 GERD (gastroesophageal reflux disease) PHN (postherpetic neuralgia) Kidney disease PAD (peripheral artery disease) Type 2 diabetes mellitus COPD (chronic obstructive pulmonary disease) HTN (hypertension) with goal to be determined Heart failure Surgical History S/P cataract surgery Previous back surgery History of lung surgery Hx of shoulder surgery S/P lobectomy of lung Family History Mother Hypertension Stroke Brother Heart disease Other Diabetes Social History Smoking and tobacco/nicotine status: unknown if used tobacco/nicotine Quit status (tobacco/nicotine): has quit using Year quit tobacco: 1987 Former quit date comment: [id number] Second hand smoke exposure: No Alcohol intake: never Substance/Drug Use: never Lives independently: Yes Household members: spouse Housing: House Marital status: service: No Current occupational status: retired Pets and animals: Yes Do you think of yourself as: Straight/Heterosexual Current gender identity: Male Vitals/I&O/Wt Last Vital Signs Temp 98.5 F 12/28/23 08:40 Pulse 109 H 12/28/23 10:33 Resp 17 12/28/23 08:40 BP 118/63 12/28/23 10:33 Pulse Ox 94 12/28/23 10:33 O2 Del Method Nasal Cannula 12/28/23 10:33 O2 Flow Rate 3 12/28/23 10:33 Weight last 48 hrs Weight 95.254 kg Physical Exam Narrative: General exam no distress however appears ill, on 3 L nasal cannula at this time. Neck is supple Cardiovascular regular rate and rhythm, no murmur Lungs mainly clear to auscultation with no gross rhonchi. Faint expiratory wheezes present at the bases. Abdomen is soft, nontender bowel sounds present Extremities no sinus clubbing edema Data 12/28/23 08:14 12/28/23 08:14 Micro: Microbiology 12/28/23 10:11 Blood Culture - Preliminary Blood SPECIMEN COLLECTED 12/28/23 10:11 Blood Culture - Preliminary Blood SPECIMEN COLLECTED A&P Assessment and plan (1) Benign hypertension: (2) Heart failure: Qualifiers: Heart failure type: diastolic Heart failure chronicity: acute on chronic Qualified Code(s): I50.33 - Acute on chronic diastolic (congestive) heart failure (3) Diastolic heart failure: Qualifiers: Heart failure chronicity: chronic Qualified Code(s): I50.32 - Chronic diastolic (congestive) heart failure (4) Type 2 diabetes mellitus: Qualifiers: 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 extermination inspector insulin use: without [facility] use 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 complication status: without complication Qualified Code(s): E11.9 - Type 2 diabetes mellitus without complications (5) Chronic hypoxemic respiratory failure: (6) COPD (chronic obstructive pulmonary disease): Qualifiers: COPD type: emphysema Emphysema type: centrilobular Qualified Code(s): J43.2 - Centrilobular emphysema (7) Productive cough: (8) Hypoxia: Plan #COPD exacerbation #Sepsis secondary to pneumonia, middle lobe #Lactic acidosis #Heart failure #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, insulin-dependent #Oxygen dependent #CKD #GERD #Hypertension -Continue to treat with Levaquin IV daily ? Right middle lobe pneumonia present on x-ray. ? Wean off oxygen to baseline as able ? Solu-Medrol 40 IV twice daily ? Check bacterial antigen Legionella, Streptococcus ? Will continue home medications once they have been confirmed. Patient is attempting to obtain a list. ? Will need to perform a med rec ? Repeat lactic acid 2.2. ? Patient did get 1 L of normal saline in the ER. ? Check blood cultures ? Patient fell secondary to leg weakness. He appears dehydrated. Most likely secondary to sepsis ? Monitor for signs of fluid overload. Hold off on Lasix today. ? Sepsis criteria met by tachycardia, lactic acidosis, worsening hypoxia, hypotension DVT prophylaxis: Heparin subcu twice daily Full code Attestations Medical Necessity Statement*: Admission for sepsis secondary to pneumonia, COPD exacerbation. Expect greater than 2 midnight stay at this time. Diagnoses Benign hypertension I10 Acute on chronic diastolic heart failure I50.33 Heart failure type: diastolic Heart failure chronicity: acute on chronic Chronic diastolic heart failure I50.32 Heart failure chronicity: chronic Type 2 diabetes mellitus without complication, without long-term current use of insulin E11.9 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 [facility] insulin use: without [facility] use 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 complication status: without complication Chronic hypoxemic respiratory failure J96.11 Centrilobular emphysema J43.2 COPD type: emphysema Emphysema type: centrilobular Productive cough R05.8 Hypoxia R09.02
[2023-12-28] MEDS: sodium chloride 0.9% 1,000 ML 999 ML IV (10:52)
[2023-12-28] MEDS: heparin 5,000 unit/mL INJ 1 mL 5000 UNIT SUBCUT ×2 (10:52→22:51)
[2023-12-28 10:58] LABS: Troponin 5 2HR 51.93 ng/L (0-15); Troponin 5 2HR Delta 0.93 ABS# (0-10)
[2023-12-28 11:16] LABS: Procalcitonin 0.47 ng/mL (0-0.5)
--- NOTE | 2023-12-28 11:17 | ECG_ITS ---
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 Measurements Intervals [place] Rate: 109 P: 34 [place]: 178 QRS: 61 QRSD: 86 T: 72 QT: 326 QTc: 440 Interpretive Statements SINUS TACHYCARDIA WITH FREQUENT VENTRICULAR PREMATURE COMPLEXES WITH OCCASIONAL SUPRAVENTRICULAR PREMATURE COMPLEXES NONSPECIFIC T-WAVE ABNORMALITY ABNORMAL RHYTHM ECG Compared to ECG 09/23/2023 08:32:30 No significant changes Electronically Signed On 12-30-2023 14:17:31 CDT by Jakob Degroot M.D. [email or web address]
[2023-12-28 11:29] LABS: Covid PCR NEGATIVE (Negative); Influenza A NEGATIVE (Negative); Influenza B NEGATIVE (Negative); Respiratory Syncytial Virus Ce NEGATIVE (Negative)
[2023-12-28 11:42] LABS: Lactic Acid level (Lactate) 2.2 mmol/L (0.5-2.2)
[2023-12-28 12:26] LABS: ABG PCO2 40.9 mmHg (35-45); ABG PH Result 7.41 (7.35-7.45); Alveolar-Arterial Oxygen Gradi 13.5 mmHg (5-10); Arterial Blood Gas Hematocrit 36.4 % (42-52); Base Excess ABG 1.3 mmol/L (-2.0-2.0); Blood Gas Allen Test Pos; Blood Gas LPM 2.5 %; Blood Gas Operator Identificat glc; Blood Gas Sample Site Radial, right; Blood Gas Sample Type Arterial; Carboxyhemoglobin < 0.3 %THgb (0.4-20.1); HGB O2 Sat 87.3 % (95-100); Ionized Calcium Level - ABG 1.2 mmol/L (1.1-1.4); Methemoglobin 1.1 % (0.4-1.5); Oxygen Device NC; Oxygen Saturation ABG 88.2; PO2 FiO2 Ratio Arterial Blood 200; Potassium Level - ABG 3.5 mmol/L (3.5-5.0); Total Hemoglobin 11.9 g/dL (14-18)
[2023-12-28] MEDS: methylPREDNISolone sod succ 40 mg/mL INJ IVP ×2 (13:05→22:52)
--- NOTE | 2023-12-28 14:53 | ECG_ITS ---
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 Measurements Intervals [place] Rate: 101 P: 21 [place]: 177 QRS: 42 QRSD: 90 T: 37 QT: 351 QTc: 455 Interpretive Statements SINUS TACHYCARDIA NONSPECIFIC T-WAVE ABNORMALITY Compared to ECG 12/28/2023 11:17:48 Ventricular premature complex(es) no longer present T-wave abnormality still present Electronically Signed On 12-30-2023 14:17:10 CDT by Jakob Degroot M.D. [id number]
[2023-12-28 15:32] LABS: Troponin 5 6HR 42.45 ng/L (0-15); Troponin 5 6HR Delta -8.55 ng/L (0-12)
[2023-12-28] MEDS: atorvastatin 40 mg Tablet PO (18:15)
[2023-12-28] MEDS: polyethylene glycol 3350 Pkt 17 gm PO (18:15)
[2023-12-28] MEDS: metoprolol tartrate 25 mg Tablet PO (18:15)
[2023-12-28] MEDS: pantoprazole DR 40 mg Tablet PO (18:15)
[2023-12-28] MEDS: oxyCODONE-APAP 10-325 mg Tablet 1 TAB PO ×2 (18:15→21:46)
[2023-12-28] MEDS: guaiFENesin 600 mg Tablet PO (18:15)
[2023-12-28] MEDS: ipratropium-albuterol 3 mL Neb INHALATION (20:09)
[2023-12-28 20:29] LABS: Glucose Point of Care 269 mg/dL (70-110)
[2023-12-28] MEDS: gabapentin 300 mg Capsule PO (20:31)
[2023-12-28] MEDS: insulin lispro 100 unit/1 mL SUBCUT (20:34)
[2023-12-28] MEDS: latanoprost 0.005% Op Soln 2.5 mL Btl 1 DROP EYE-BOTH (20:36)
[2023-12-29] VITALS (9 sets, daily range): BP systolic 106–190; BP diastolic 57–95; PULSE 89–99; RESP 15–19; TEMP 36.4–36.6; O2SAT 92–97
[2023-12-29] MEDS: finasteride 5 mg Tablet PO (05:41)
[2023-12-29] MEDS: aspirin 325 mg Tablet PO (05:41)
[2023-12-29 05:57] LABS: Basophils % 0.1 %; Hematocrit 35.8 % (37-53); Lymphocytes # 0.8 10^3/uL (0.8-4.8); Mean Corpuscular HGB Conc 31.3 g/dL (30-55); Mean Corpuscular Hemoglobin 30.8 pg (27-33); Mean Corpuscular Volume 98.4 fl (82-101); Mean Platelet Volume 9.9 fL (7.4-10.4); Monocytes # 0.5 10^3/uL (0.2-0.9); Monocytes % 3.5 %; Neutrophils # 12.13 10^3/uL (1.8-7.7); Neutrophils % 89.8 %; Nucleated Red Blood Cells % 0 %; Platelet Count 175 10^3/cmm (157-399); Red Blood Count 3.64 10^6/uL (3.85-5.65); Red Cell Distribution Width 16.1 % (12.1-15.1)
[2023-12-29 06:17] LABS: Blood Urea Nitrogen 63 mg/dL (8-23); Calcium 9.3 mg/dL (8.5-10.5); Carbon Dioxide 26 mmol/L (22-29); Chloride 101 mmol/L (98-107); Creatinine Clr Calc Pharmacy 31.0378; Glucose 304 mg/dL (65-115); Magnesium 2.5 mg/dL (1.7-2.3); Osmolality Calculated 321 mOsm/kg (285-295); Sodium 141 mmol/L (136-145)
[2023-12-29 06:20] LABS: Anion Gap 18.6 (5-19); Potassium 4.6 mmol/L (3.5-5.1)
[2023-12-29 06:23] LABS: Procalcitonin 0.34 ng/mL (0-0.5)
[2023-12-29 06:48] LABS: Glucose Point of Care 332 mg/dL (70-110)
[2023-12-29] MEDS: ipratropium-albuterol 3 mL Neb INHALATION ×2 (07:40→22:33)
[2023-12-29] MEDS: sodium chloride 3.5% neb 4 mL Neb INHALATION (07:40)
[2023-12-29] MEDS: insulin lispro 100 unit/1 mL SUBCUT ×4 (09:51→21:53)
[2023-12-29] MEDS: gabapentin 300 mg Capsule PO ×2 (09:54→17:50)
[2023-12-29] MEDS: oxyCODONE-APAP 10-325 mg Tablet 1 TAB PO ×4 (09:55→21:52)
[2023-12-29] MEDS: metoprolol tartrate 25 mg Tablet PO ×2 (09:55→21:52)
[2023-12-29] MEDS: guaiFENesin 600 mg Tablet PO ×2 (09:55→17:51)
[2023-12-29] MEDS: polyethylene glycol 3350 Pkt 17 gm PO (09:56)
[2023-12-29 11:59] LABS: Glucose Point of Care 305 mg/dL (70-110)
[2023-12-29] MEDS: methylPREDNISolone sod succ 40 mg/mL INJ IVP ×2 (12:34→21:52)
[2023-12-29] MEDS: heparin 5,000 unit/mL INJ 1 mL 5000 UNIT SUBCUT ×2 (12:35→21:52)
--- NOTE | 2023-12-29 13:47 | P.PN_ITS ---
Subjective 2 Subjective: Seen this morning with family at bedside. Patient's pulmonology note reviewed from 07/2023. He used to follow-up with Dr. Rushing. Patient is a neck smoker 1.5 pack/day for 26 years and quit in [address]. He saw [address] Rushing in July for his regular 6-month visit. Patient was on albuterol 2.5 inhalation every 4 hours as needed nebulizer once daily in AM. Ipratropium daily. Trelegy inhaler. On 2 L with activity and as needed. He did have COPD exacerbation in July for which she saw his primary care doctor and was prescribed levofloxacin and prednisone for 10 days. 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 He was recommended to continue using his Acapella and chest physiotherapy 3 times daily. Hypertonic saline nebulization also ordered for difficulty clearing secretions and previously has had several exacerbations. Pulmonology recommended patient to continue using chest vest 3 times daily. He again follow-up with pulmonology and saw Dr. Brito November 2023 and again was recommended to continue using his chest vest percussion device however that was denied by insurance. Trelegy was renewed. Patient does have history of noncystic fibrosis bronchiectasis. Following recommendations were made: Recommend elevation of headboard 6 to 8 inches, avoid eating and drinking 2 to 3 hours before bedtime and lying down. Avoid and reduce foods that aggravate reflux. Temporary PPI antacids given. Continue O2 supplementation every night. This morning patient reports feeling slightly better however does not feel up to the dasha to go home at this time. Is currently on 2 L nasal cannula saturating 94%. Afebrile overnight. Blood sugar reviewed this morning, creatinine 2.1 at baseline. Patient's medication reconciliation has been completed.. White count 13,000 this morning reduced from 17,000 on admission. Vitals/I&O/Wt Last Vital Signs Temp 97.5 F L 12/29/23 12:00 Pulse 89 12/29/23 12:00 Resp 18 12/29/23 12:33 BP 124/71 12/29/23 12:00 Pulse Ox 92 12/29/23 12:00 O2 Del Method Nasal Cannula 12/29/23 12:00 O2 Flow Rate 3 12/29/23 07:40 12/28/23 12/29/23 12/29/23 22:59 06:59 14:59 Intake Total 340 / 1490 250 / 1740 960 / 960 Balance 340 / 1490 250 / 1740 960 / 960 Weight last 48 hrs Weight 96.388 kg Weight 95.708 kg Weight 95.254 kg Physical Exam 2 Narrative: General exam no distress appears better than yesterday and is on 2 L nasal cannula at this time. Neck is supple Cardiovascular regular rate and rhythm, no murmur Lungs mainly clear to auscultation with no gross rhonchi. No wheezes appreciated today. Fair bilateral air entry. Abdomen is soft, nontender bowel sounds present Extremities no edema bilateral lower extremities. Data 12/29/23 05:49 12/29/23 05:49 Micro: Microbiology 12/28/23 10:11 Blood Culture - Preliminary Blood NEGATIVE TO DATE 12/28/23 10:11 Blood Culture - Preliminary Blood NEGATIVE TO DATE A&P Assessment and plan (1) Benign hypertension: (2) Heart failure: Qualifiers: Heart failure type: diastolic Heart failure chronicity: acute on chronic Qualified Code(s): I50.33 - Acute on chronic diastolic (congestive) heart failure (3) Diastolic heart failure: Qualifiers: Heart failure chronicity: chronic Qualified Code(s): I50.32 - Chronic diastolic (congestive) heart failure (4) Type 2 diabetes mellitus: Qualifiers: 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 terminal operations supervisor insulin use: without senior care use 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 complication status: without complication Qualified Code(s): E11.9 - Type 2 diabetes mellitus without complications (5) Chronic hypoxemic respiratory failure: (6) COPD (chronic obstructive pulmonary disease): Qualifiers: COPD type: emphysema Emphysema type: centrilobular Qualified Code(s): J43.2 - Centrilobular emphysema (7) Productive cough: (8) Hypoxia: Plan #COPD exacerbation #Sepsis secondary to pneumonia, middle lobe #Lactic acidosis #Heart failure, diastolic #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, insulin-dependent #Oxygen dependent at baseline #CKD #GERD #Hypertension -Continue to treat with Levaquin IV daily ? Right middle lobe pneumonia present on x-ray. ? Wean off oxygen to baseline as able ? Solu-Medrol 40 IV twice daily ? Check bacterial antigen Legionella, Streptococcus ? Will continue home medications once they have been confirmed. Patient is attempting to obtain a list. ? Will need to perform a med rec ? Repeat lactic acid 2.2. ? Patient did get 1 L of normal saline in the ER. ? Check blood cultures ? Patient fell secondary to leg weakness. He appears dehydrated. Most likely secondary to sepsis ? Monitor for signs of fluid overload. Hold off on Lasix today. ? Sepsis criteria met by tachycardia, lactic acidosis, worsening hypoxia, hypotension DVT prophylaxis: Heparin subcu twice daily Full code 12/28 ?Continue IV Levaquin at this time. I will treat for total of 10 days. Will switch to oral at discharge ? Sputum culture Gram stain is pending at this time. Patient has not expectorated enough to be sent for a sample. Does have a history of difficulty clearing secretions. Will talk to RT to obtain induced sputum. Will place on hypertonic saline inhalation. ? Continue Solu-Medrol 40 IV twice daily. ? Bacterial antigens pending at this time. ? RN to complete med rec. ? Repeat lactic acid was normal. ? Blood cultures obtained and negative to date ? Continue to hold Lasix at this time. ? Continue guaifenesin ? Continue latanoprost eyedrops ? Continue metoprolol tartrate 25 twice daily ? Continue finasteride ? Hold hydralazine. ? Continue Lantus 80 at bedtime. ? Insulin sliding scale moderate dose intensity ? Accu-Cheks ACH S. ? DuoNebs every 6 hours as needed ? Hold home spironolactone, Trulicity ? Continue Protonix 40 daily ? If patient continues to improve may possibly discharge home in next 24 to 48 hours. White count is trending down. Will perform another home oxygen evaluation at discharge. -Patient to follow-up with pulmonology as outpatient after discharge. Will provide a new referral. Attestations 2 Medical Necessity Statement*: Admission for sepsis secondary to pneumonia, COPD exacerbation. Expect greater than 2 midnight stay at this time. Diagnoses Benign hypertension I10 Acute on chronic diastolic heart failure I50.33 Heart failure type: diastolic Heart failure chronicity: acute on chronic Chronic diastolic heart failure I50.32 Heart failure chronicity: chronic Type 2 diabetes mellitus without complication, without long-term current use of insulin E11.9 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 terminal operations supervisor insulin use: without senior care use 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 complication status: without complication Chronic hypoxemic respiratory failure J96.11 Centrilobular emphysema J43.2 COPD type: emphysema Emphysema type: centrilobular Productive cough R05.8 Hypoxia R09.02
[2023-12-29 16:22] LABS: Glucose Point of Care 279 mg/dL (70-110)
[2023-12-29] MEDS: latanoprost 0.005% Op Soln 2.5 mL Btl 1 DROP EYE-BOTH (17:50)
[2023-12-29] MEDS: pantoprazole DR 40 mg Tablet PO (17:50)
[2023-12-29] MEDS: atorvastatin 40 mg Tablet PO (17:50)
[2023-12-29 20:46] LABS: Bilirubin Urine Negative (Negative); Blood Urine Negative (Negative); Glucose Urine UA 1+ (Normal); Ketones Urine Negative (Negative); Leukocyte Esterase Urine Negative (Negative); Nitrate Urine Negative (Negative); Protein Urine 1+ (Negative); Specific Gravity, Urine 1.019 (1.005-1.030); Urine Appearance Clear (CLEAR); Urine Color Yellow (Yellow)
[2023-12-29 20:50] LABS: Add Urine Microscopic? YES; Bacteria Urine None Seen /hpf; RBC Urine 0-2 /hpf (0-2); Squamous Epithelial Cell Urine 0-5 /hpf (0-5); WBC Urine 0-5 /hpf (0-5)
[2023-12-29 21:19] LABS: Glucose Point of Care 257 mg/dL (70-110)
[2023-12-29] MEDS: insulin glargine 100 units/1 mL 80 UNIT SUBCUT (21:53)
[2023-12-30] VITALS (7 sets, daily range): BP systolic 127–134; BP diastolic 65–74; PULSE 80–91; RESP 18–19; TEMP 36.4–36.6; O2SAT 91–99
[2023-12-30 05:52] LABS: Basophils % 0.1 %; Hematocrit 37.7 % (37-53); Lymphocytes # 0.8 10^3/uL (0.8-4.8); Lymphocytes % 5.3 %; Mean Corpuscular HGB Conc 31.6 g/dL (30-55); Mean Corpuscular Volume 101.3 fl (82-101); Mean Platelet Volume 10.1 fL (7.4-10.4); Monocytes # 0.8 10^3/uL (0.2-0.9); Monocytes % 5.6 %; Neutrophils # 12.99 10^3/uL (1.8-7.7); Neutrophils % 88.2 %; Nucleated Red Blood Cells % 0 %; Platelet Count 204 10^3/cmm (157-399); Red Blood Count 3.72 10^6/uL (3.85-5.65); Red Cell Distribution Width 15.9 % (12.1-15.1); White Blood Count 14.73 10^3/uL (3.29-11.43)
[2023-12-30] MEDS: aspirin 325 mg Tablet PO (05:59)
[2023-12-30] MEDS: finasteride 5 mg Tablet PO (05:59)
[2023-12-30 06:10] LABS: Anion Gap 19.8 (5-19); Blood Urea Nitrogen 74 mg/dL (8-23); Calcium 9.9 mg/dL (8.5-10.5); Carbon Dioxide 23 mmol/L (22-29); Chloride 102 mmol/L (98-107); Glucose 285 mg/dL (65-115); Osmolality Calculated 322 mOsm/kg (285-295); Potassium 4.8 mmol/L (3.5-5.1); Sodium 140 mmol/L (136-145)
[2023-12-30 06:13] LABS: Creatinine Clr Calc Pharmacy 27.0069
[2023-12-30 06:27] LABS: Glucose Point of Care 312 mg/dL (70-110)
[2023-12-30] MEDS: gabapentin 300 mg Capsule PO ×2 (09:04→17:19)
[2023-12-30] MEDS: insulin lispro 100 unit/1 mL SUBCUT ×3 (09:04→17:35)
[2023-12-30] MEDS: metoprolol tartrate 25 mg Tablet PO (09:05)
[2023-12-30] MEDS: oxyCODONE-APAP 10-325 mg Tablet 1 TAB PO ×3 (09:05→17:19)
[2023-12-30] MEDS: guaiFENesin 600 mg Tablet PO ×2 (09:05→17:19)
[2023-12-30] MEDS: heparin 5,000 unit/mL INJ 1 mL 5000 UNIT SUBCUT (11:45)
[2023-12-30] MEDS: methylPREDNISolone sod succ 40 mg/mL INJ IVP (11:45)
--- NOTE | 2023-12-30 12:18 | PM.DCS ---
Discharge Providers Date of Admission: 12/28/23 10:35 Date of Discharge: December 30, 2023 Attending Provider at Admission: Melanie Dorantes MD Attending Provider at Discharge: Melanie Dorantes MD Primary Care Provider: Praveen Shah DO Diagnoses at Discharge Discharge Diagnosis (1) Benign hypertension: Status: Acute (2) Heart failure: Status: Resolved Qualifiers: Heart failure chronicity: acute on chronic Heart failure type: diastolic Qualified Code(s): I50.33 - Acute on chronic diastolic (congestive) heart failure (3) Diastolic heart failure: Status: Acute Qualifiers: Heart failure chronicity: chronic Qualified Code(s): I50.32 - Chronic diastolic (congestive) heart failure (4) Type 2 diabetes mellitus: Status: Acute Qualifiers: 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 complication status: without complication 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 group home insulin use: without keno terminal operator use Qualified Code(s): E11.9 - Type 2 diabetes mellitus without complications (5) Chronic hypoxemic respiratory failure: Status: Acute (6) COPD (chronic obstructive pulmonary disease): Status: Acute Qualifiers: COPD type: emphysema Emphysema type: centrilobular Qualified Code(s): J43.2 - Centrilobular emphysema (7) Productive cough: Status: Acute (8) Hypoxia: Status: Resolved Reason for Visit Reason for Visit: SOB Hospital Course Hospital Course Patient was admitted for COPD exacerbation and sepsis secondary to pneumonia middle lobe also had lactic acidosis on admission. He was placed on Solu-Medrol IV twice daily. He did appear slightly dehydrated which is most likely secondary to sepsis. Lasix was held during hospitalization. Sputum Gram stain culture was pending at the time of discharge. He has difficulty clearing secretions. And has been recommended to use a chest vest by 2 tune up mechanic in the past. Patient encouraged to continue using that at home. Also to continue his hypertonic saline that was ordered by pulmonology. Patient to go home on oral Levaquin to complete total 10-day course at this time. Patient given referral for outpatient pulmonology . sent home on prednisone taper. Physical Exam Narrative: General exam no distress appears better than yesterday and is on 2 L nasal cannula at this time. Neck is supple Cardiovascular regular rate and rhythm, no murmur Lungs mainly clear to auscultation with no gross rhonchi. No wheezes appreciated today. Fair bilateral air entry. Abdomen is soft, nontender bowel sounds present Extremities no edema bilateral lower extremities. Discharge Data Studies Completed and Pending Completed Studies During Hospitalization Category Date Time Status XR chest 1V portable [id number] Stat Exams 12/28/23 08:46 Completed XR shoulder LT min 2V* [id number] Stat Exams 12/28/23 09:10 Completed Pending at discharge Category Date Time Status Blood Culture Stat Lab 12/28/23 10:11 Results Sputum Culture and Gram Stain Stat Lab 12/28/23 10:39 Uncollected Radiology Impressions Chest X-Ray 12/28/23 08:46 IMPRESSION: No acute cardiopulmonary findings. Shoulder X-Ray 12/28/23 09:10 IMPRESSION: No distinct acute fracture or dislocation. Laboratory Results WBC 14.73 10^3/uL (3.29-11.43) H 12/30/23 05:42 RBC 3.72 10^6/uL (3.85-5.65) L 12/30/23 05:42 Hgb 11.90 g/dL (11.27-16.99) 12/30/23 05:42 Hct 37.7 % (37-53) 12/30/23 05:42 MCV 101.3 fl (82-101) H 12/30/23 05:42 MCH 32.0 pg (27-33) 12/30/23 05:42 MCHC 31.6 g/dL (30-55) 12/30/23 05:42 RDW 15.9 % (12.1-15.1) H 12/30/23 05:42 Plt Count 204 10^3/cmm (157-399) 12/30/23 05:42 MPV 10.1 fL (7.4-10.4) 12/30/23 05:42 Neut % (Auto) 88.2 % 12/30/23 05:42 Lymph % (Auto) 5.3 % 12/30/23 05:42 [place] % (Auto) 5.6 % 12/30/23 05:42 Eos % (Auto) 0.0 % 12/30/23 05:42 Baso % (Auto) 0.1 % 12/30/23 05:42 Neut # (Auto) 12.99 10^3/uL (1.8-7.7) H 12/30/23 05:42 Lymph # (Auto) 0.8 10^3/uL (0.8-4.8) 12/30/23 05:42 [place] # (Auto) 0.8 10^3/uL (0.2-0.9) 12/30/23 05:42 Eos # (Auto) 0.0 10^3/uL (0.0-0.8) 12/30/23 05:42 Baso # (Auto) 0.0 10^3/uL (0.0-0.1) 12/30/23 05:42 Nucleated RBC % (auto) 0 % 12/30/23 05:42 Nucleated RBCs # 0.0 /100WBC 12/30/23 05:42 Specimen Type Arterial 12/28/23 12:13 Sample Site Radial, right 12/28/23 12:13 ABG pH 7.41 (7.35-7.45) 12/28/23 12:13 ABG pCO2 40.9 mmHg (35-45) 12/28/23 12:13 ABG pO2 60.0 mmHg (80.0-100.0) L 12/28/23 12:13 ABG PO2/FiO2 Ratio 200 12/28/23 12:13 ABG HCO3 26.0 mmol/L (22-26) 12/28/23 12:13 ABG O2 Saturation 88.2 12/28/23 12:13 ABG Base Excess 1.3 mmol/L (-2.0-2.0) 12/28/23 12:13 Bartolome Test Pos 12/28/23 12:13 A-a O2 Gradient 13.5 mmHg (5-10) H 12/28/23 12:13 Hematocrit 36.4 % (42-52) L 12/28/23 12:13 Hgb O2 Saturation 87.3 % (95-100) L 12/28/23 12:13 Carboxyhemoglobin < 0.3 %THgb (0.4-20.1) L 12/28/23 12:13 Methemoglobin 1.1 % (0.4-1.5) 12/28/23 12:13 Total Hemoglobin 11.9 g/dL (14-18) L 12/28/23 12:13 Sodium 143.0 mmol/L (131-143) 12/28/23 12:13 Potassium 3.5 mmol/L (3.5-5.0) 12/28/23 12:13 Glucose 142.0 mg/dL (70-115) H 12/28/23 12:13 Ionized Calcium 1.2 mmol/L (1.1-1.4) 12/28/23 12:13 O2 Delivery Device Nc 12/28/23 12:13 O2 Liters/Min 2.5 % 12/28/23 12:13 FiO2 30.0 % 12/28/23 12:13 Precinct Commanding Officer ID glc 12/28/23 12:13 Sodium 140 mmol/L (136-145) 12/30/23 05:42 Potassium 4.8 mmol/L (3.5-5.1) 12/30/23 05:42 Chloride 102 mmol/L (98-107) 12/30/23 05:42 Carbon Dioxide 23 mmol/L (22-29) 12/30/23 05:42 Anion Gap 19.8 (5-19) H 12/30/23 05:42 BUN 74 mg/dL (8-23) H 12/30/23 05:42 Creatinine 2.4 mg/dL (0.7-1.2) H 12/30/23 05:42 GFR Calculation Not Reportable 12/30/23 05:42 Glucose 285 mg/dL (65-115) H 12/30/23 05:42 POC Glucose 312 mg/dL (70-110) H 12/30/23 06:22 Calculated Osmolality 322 mOsm/kg (285-295) H 12/30/23 05:42 Lactic Acid 3.4 mmol/L (0.5-2.2) H 12/28/23 08:14 Lactic Acid (Sepsis) 2.2 mmol/L (0.5-2.2) 12/28/23 11:20 Calcium 9.9 mg/dL (8.5-10.5) 12/30/23 05:42 Magnesium 2.5 mg/dL (1.7-2.3) H 12/29/23 05:49 Total Bilirubin 0.8 mg/dL (0.15-1.2) 12/28/23 08:14 AST 20 U/L (0-40) 12/28/23 08:14 ALT 15 U/L (0-41) 12/28/23 08:14 Alkaline Phosphatase 86 U/L (40-130) 12/28/23 08:14 Troponin T Baseline 51 ng/L (0-15) H 12/28/23 08:14 Troponin T 120 Minute 51.93 ng/L (0-15) H 12/28/23 10:11 Delta Troponin T 0.93 ABS# (0-10) 12/28/23 10:11 Troponin T Hi Sens 6Hr 42.45 ng/L (0-15) H 12/28/23 14:40 Troponin T Hi Sens 6Hr Delta -8.55 ng/L (0-12) L 12/28/23 14:40 Total Protein 7.0 g/dL (6.6-8.7) 12/28/23 08:14 Albumin 4.0 g/dL (3.5-5.2) 12/28/23 08:14 Globulin 3.0 g/dL (1.3-4.6) 12/28/23 08:14 Procalcitonin 0.34 ng/mL (0-0.5) 12/29/23 05:49 Urine Color Yellow (Yellow) 12/28/23 20:30 Urine Appearance Clear (CLEAR) 12/28/23 20:30 Urine pH 5.0 (5-7) 12/28/23 20:30 Ur Specific [place] 1.019 (1.005-1.030) 12/28/23 20:30 Urine Protein 1+ (Negative) A 12/28/23 20:30 Urine Glucose (UA) 1+ (Normal) H 12/28/23 20:30 Urine Ketones Negative (Negative) 12/28/23 20:30 Urine Blood Negative (Negative) 12/28/23 20:30 Urine Nitrate Negative (Negative) 12/28/23 20:30 Urine Bilirubin Negative (Negative) 12/28/23 20:30 Urine Urobilinogen 1.0 mg/dL (Negative) 12/28/23 20:30 Ur Leukocyte Esterase Negative (Negative) 12/28/23 20:30 Urine RBC 0-2 /hpf (0-2) 12/28/23 20:30 Urine WBC 0-5 /hpf (0-5) 12/28/23 20:30 Ur Squamous Epith Cells 0-5 /hpf (0-5) 12/28/23 20:30 Amorphous Sediment Not Reportable 12/28/23 20:30 Urine Bacteria None seen /hpf (NONE) 12/28/23 20:30 Hyaline Casts 3.30 /lpf 12/28/23 20:30 Coronavirus (PCR) Negative (Negative) 12/28/23 10:30 Influenza A (PCR) Negative (Negative) 12/28/23 10:30 Influenza Type B (PCR) Negative (Negative) 12/28/23 10:30 RSV (PCR) Negative (Negative) 12/28/23 10:30 Vitals Last Vital Signs Temp 97.5 F L 12/30/23 07:18 Pulse 87 12/30/23 08:13 Resp 18 12/30/23 08:13 BP 129/74 12/30/23 07:18 Pulse Ox 94 12/30/23 08:13 O2 Del Method Nasal Cannula 12/30/23 08:13 O2 Flow Rate 2 12/30/23 08:13 Discharge Plan Discharge Patient Disposition: Home Condition: Stable Prescriptions: New levofloxacin 750 mg tablet 750 mg PO DAILY 7 Days Qty: 7 0RF prednisone 10 mg tablet 10 mg PO DIRECTED Qty: 23 0RF Rx Instructions: 40 mg x3d 20 mg x3d 10 mg x3d 5 mg x3d Continued magnesium oxide 250 mg magnesium tablet 250 mg PO DAILY@12 finasteride 5 mg tablet 5 mg PO QAM aspirin 325 mg tablet 325 mg PO QAM omeprazole 20 mg capsule,delayed release(DR/EC) 20 mg PO .QPM loratadine [Allergy Relief (loratadine)] 10 mg tablet 10 mg PO DAILY (DME) diabetic shoes with 3 inserts See Rx Instructions .Route .MEDSUPPLY Qty: 1 0RF Rx Instructions: As directed to the shoe katelin albuterol sulfate 2.5 mg /3 mL (0.083 %) solution for nebulization 2.5 mg inhalation QAM Miralax 17 gram powder in packet 17 g PO BID cholecalciferol (vitamin D3) [Vitamin D3] 125 mcg (5,000 unit) tablet 125 mcg PO DAILY sodium chloride [Hyper-Gabino] 7 % solution for nebulization 1 inh inhalation BID Qty: 120 2RF (DME) Diabetic Shoes See Rx Instructions .Route .MEDSUPPLY Qty: 1 0RF Rx Instructions: As directed spironolactone 25 mg tablet 25 mg PO DAILY Qty: 90 3RF metoprolol succinate 100 mg tablet extended release 24 hr 100 mg PO DAILY Qty: 90 3RF chlorthalidone 25 mg tablet 25 mg PO DAILY Qty: 90 3RF Trelegy Ellipta 100-62.5-25 mcg blister with device 1 inh inhalation QAM Qty: 180 6RF atorvastatin 80 mg tablet 80 mg PO QPM Qty: 90 3RF ascorbic acid (vitamin C) [Vitamin C] 1,000 mg Tablet 1,000 mg PO DAILY@12 gabapentin 300 mg Capsule 300 mg PO BID PreserVision AREDS-2 250-90-40-1 mg Capsule 1 tab PO BID Trulicity 1.5 mg/0.5 mL pen injector 1.5 mg SUBCUT Q7D Rx Instructions: on Sat Lantus U-100 Insulin 100 unit/mL solution 80 unit SUBCUT BID latanoprost 0.005 % drops 1 drp ophthalmic (eye) QPM zinc acetate 50 mg (zinc) Capsule 50 mg PO DAILY@12 allopurinol 300 mg tablet 100 mg PO BID Rx Instructions: Takes two 100 mg once a day - updated per patient furosemide 40 mg tablet 40 mg PO QAM melatonin 5 mg Tablet 5 mg PO BEDTIME turmeric root extract 500 mg Tablet 500 mg PO QPM amlodipine 10 mg tablet 10 mg PO DAILY Mucinex 600 mg tablet extended release 12hr 600 mg PO BID oxycodone-acetaminophen 10-325 mg tablet 1 tab PO QID senna-docusate sodium Tablet 150 tab PO BEDTIME Held hydralazine 100 mg tablet 100 mg PO TID Hold Instructions: see pcp Discharge Orders: Discharge Order (Routine); Ordered 12/30/23 Ordered By: Melanie Dorantes Other Ambulatory Orders: DME: Tushar (Order) Location: None Selected Ordered By: Melanie Dorantes Referrals: Conrad Rojas MD [Other] - 2 weeks (Chronic bronchiectasis, COPD, Pneumonia, We have notified your physician's clinic of the need for a follow-up appointment to be scheduled. If you have not heard from them within the next 2 business days, please call them directly.SENT REFERRAL ) [facility] [place] Praveen Shah DO [Primary Care Provider] - 01/02/24 10:20 am Discharge Diet: Cardiac and Diabetic Discharge Activity: Resume usual activity and Oxygen as instructed Patient Instructions: COPD, Prednisone (By mouth), Levofloxacin (By mouth), COPD Stoplight, Opioid Safety Discharge Attestations Time Spent in Discharge Care*: greater than 30 min Status at Discharge: Cognitive status at discharge: cognitively intact, Behavioral status at discharge: cooperative, Quality Metrics Clinical Quality Measures [ No reported AMI, CVA or VTE this stay] Coding Level of Care Code Acute Code for Chg Fwd Diagnoses Benign hypertension I10 Acute on chronic diastolic heart failure I50.33 Heart failure chronicity: acute on chronic Heart failure type: diastolic Chronic diastolic heart failure I50.32 Heart failure chronicity: chronic Type 2 diabetes mellitus without complication, without long-term current use of insulin E11.9 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 complication status: without complication 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 keno terminal operator insulin use: without keno terminal operator use Chronic hypoxemic respiratory failure J96.11 Centrilobular emphysema J43.2 COPD type: emphysema Emphysema type: centrilobular Productive cough R05.8 Hypoxia R09.02
[2023-12-30 12:27] LABS: Glucose Point of Care 339 mg/dL (70-110)
[2023-12-30] MEDS: magnesium oxide 400 mg tablet 200 MG PO (13:09)
[2023-12-30] MEDS: ascorbic acid 500 mg Tablet 1000 MG PO (13:09)
--- NOTE | 2023-12-30 13:28 | PC.SOCIAL ---
IMM Updated Updated pt on IMM. No questions voiced. Provided pt a copy. Initialed ,dated, & timed a copy & placed in chart.
[2023-12-30] MEDS: levofloxacin-dextrose 5 % 750 MG/150 ML PREMIX 100 MG IV (16:40)
[2023-12-30 16:57] LABS: Glucose Point of Care 350 mg/dL (70-110)
[2023-12-30] MEDS: atorvastatin 40 mg Tablet PO (17:18)
[2023-12-30] MEDS: pantoprazole DR 40 mg Tablet PO (17:19)
[2023-12-30] MEDS: latanoprost 0.005% Op Soln 2.5 mL Btl 1 DROP EYE-BOTH (17:20)
== END 2023-12-30 18:40 | disposition home or self-care (01) | DRG 871 ==
LOC: ER 10:44 → MEDSURG 12:25
PROVIDERS: Admitting Provider Internal Medicine; Emergency Provider Family Medicine; PCP Electrodiagnostic Medicine; Visit Provider Internal Medicine
DX: A41.9 Sepsis, unspecified organism (principal); I50.33 Acute on chronic diastolic (congestive) heart failure; J18.9 Pneumonia, unspecified organism; I13.0 Hypertensive heart and chronic kidney disease with heart failure and stage 1 through stage 4 chronic kidney disease, or unspecified chronic kidney disease; J44.1 Chronic obstructive pulmonary disease with (acute) exacerbation; E87.20 Acidosis, unspecified; J96.11 Chronic respiratory failure with hypoxia; E11.22 Type 2 diabetes mellitus with diabetic chronic kidney disease; N18.9 Chronic kidney disease, unspecified; J43.2 Centrilobular emphysema; E11.51 Type 2 diabetes mellitus with diabetic peripheral angiopathy without gangrene; K21.9 Gastro-esophageal reflux disease without esophagitis; Z79.82 Long term (current) use of aspirin; Z87.891 Personal history of nicotine dependence; Z99.81 Dependence on supplemental oxygen; Z79.85 Long-term (current) use of injectable non-insulin antidiabetic drugs; Z79.4 Long term (current) use of insulin
CPT/HCPCS: 0241U; 36415; 36416; 36600; 71045; 73030; 80048; 80051; 80053; 81001; 82330; 82805; 82962; 83605; 83735; 84145; 84484; 85025; 86403; 87040; 87449; 93005; 94640; 96365; 96372; 96375; 99285; J1644; J1815; J1956; J2919; J7030

== ENCOUNTER 2024-01-01 09:12 | Outpatient (CLI) | payer MEDICARE, SELFPAY ==
--- NOTE | 2024-01-01 09:15 | USCV_ITS ---
Jeff Delvalle Age: 78 Gender: M : 1945 Exam Date: 01/01/2024 09:20 Ordering Phys: Jaimee Aj MD ([email or web address]) Technologist: GARRETT Exam Location: [facility] [place] Indication: LE PAIN Risk Factors: Previous Vascular Surgery: RIGHT LEFT BP: 95.00 / 53.00 BP: 107.0/ 60.00 0 Waveform Velocity (cm/s) Velocity (cm/s) Waveform Iliac Prox 45.1 Triphasic Iliac Mid 60.1 Triphasic Iliac Distal 60.6 Biphasic USER EXPERIENCE DESIGNER 57.0 Biphasic SFA Prox 158.0 Biphasic SFA Mid 8.0 Biphasic SFA Dist 25.0 Monophasic POP 25.0 Monophasic LEAD MASON TENDER 13.0 Monophasic DPA 12.0 Monophasic IDALIA 1.8 FINDINGS Moderate to heavy diffuse plaques in the SFA on the left side Resting IDALIA 1.8 Elevated velocity in the proximal SFA Monophasic, low amplitude and continuous Doppler waveforms to in the dorsalis pedis and posterior artery on the left side CONCLUSIONS Supranormal resting IDALIA on the left side Moderate to heavy diffuse plaques in the superficial femoral artery on the left side Abnormal Doppler waveforms, suggesting possible high degree stenosis in the SFA with a collateral filling of the popliteal and infrapopliteal vessels. Comparison with the previous studies difficult because of the differences in the technical quality Consider CTA or peripheral angiogram to better evaluate the arteries Dr Jaimee Aj MD FAC (Electronically Signed) Final Date: 02 January 2024 16:58 S
== END 2024-01-01 09:13 | disposition home or self-care (01) ==
LOC: RAD 09:13
PROVIDERS: PCP Electrodiagnostic Medicine; Visit Provider Internal Medicine Cardiovascular Disease
DX: I70.292 Other atherosclerosis of native arteries of extremities, left leg (principal); I70.222 Atherosclerosis of native arteries of extremities with rest pain, left leg; R09.89 Other specified symptoms and signs involving the circulatory and respiratory systems
CPT/HCPCS: 93926

== ENCOUNTER → 2024-01-14 09:40 | Outpatient (BNVA) | payer MEDICARE, SELFPAY | PROVIDERS: PCP Electrodiagnostic Medicine; Visit Provider Podiatrist Foot & Ankle Surgery | DX: B35.1 Tinea unguium (principal); I73.9 Peripheral vascular disease, unspecified; G62.9 Polyneuropathy, unspecified; E11.69 Type 2 diabetes mellitus with other specified complication; E11.42 Type 2 diabetes mellitus with diabetic polyneuropathy; Z79.4 Long term (current) use of insulin | CPT/HCPCS: 11721 ==

== ENCOUNTER → 2024-02-24 12:54 | Outpatient (BNVA) | payer MEDICARE, SELFPAY | PROVIDERS: PCP Electrodiagnostic Medicine; Visit Provider Internal Medicine Cardiovascular Disease | DX: I13.0 Hypertensive heart and chronic kidney disease with heart failure and stage 1 through stage 4 chronic kidney disease, or unspecified chronic kidney disease (principal); E11.22 Type 2 diabetes mellitus with diabetic chronic kidney disease; N18.9 Chronic kidney disease, unspecified; I50.33 Acute on chronic diastolic (congestive) heart failure; Z87.891 Personal history of nicotine dependence; E11.51 Type 2 diabetes mellitus with diabetic peripheral angiopathy without gangrene; J44.9 Chronic obstructive pulmonary disease, unspecified | CPT/HCPCS: 99204 ==

== ENCOUNTER → 2024-03-19 08:37 | Outpatient (BNVA) | payer MEDICARE, SELFPAY | PROVIDERS: PCP Electrodiagnostic Medicine; Visit Provider Podiatrist Foot & Ankle Surgery | DX: B35.1 Tinea unguium (principal); I73.9 Peripheral vascular disease, unspecified; G62.9 Polyneuropathy, unspecified; E11.42 Type 2 diabetes mellitus with diabetic polyneuropathy; Z79.4 Long term (current) use of insulin | CPT/HCPCS: 11721 ==

== ENCOUNTER 2024-03-31 13:40 | Observation (INO) | payer MEDICARE, SELFPAY ==
[2024-03-31] VITALS (21 sets, daily range): BP systolic 99–133; BP diastolic 54–88; PULSE 77–90; RESP 7–21; TEMP 36.4; O2SAT 91–100; BMI 32.8; BMI 35.7
[2024-03-31 06:56] LABS: Basophils % 0.3 %; Eosinophils # 0.2 10^3/uL (0.0-0.8); Eosinophils % 1.6 %; Hematocrit 35.3 % (37-53); Lymphocytes # 1.8 10^3/uL (0.8-4.8); Lymphocytes % 15.7 %; Mean Corpuscular HGB Conc 31.4 g/dL (30-55); Mean Corpuscular Hemoglobin 29.9 pg (27-33); Mean Corpuscular Volume 95.1 fl (82-101); Mean Platelet Volume 10.1 fL (7.4-10.4); Monocytes # 0.9 10^3/uL (0.2-0.9); Monocytes % 7.4 %; Neutrophils # 8.68 10^3/uL (1.8-7.7); Neutrophils % 74.2 %; Nucleated Red Blood Cells % 0 %; Platelet Count 175 10^3/cmm (157-399); Red Blood Count 3.71 10^6/uL (3.85-5.65); Red Cell Distribution Width 17.4 % (12.1-15.1)
[2024-03-31 07:09] LABS: Anion Gap 16.6 (5-19); Blood Urea Nitrogen 42 mg/dL (8-23); Calcium 9.5 mg/dL (8.5-10.5); Carbon Dioxide 27 mmol/L (22-29); Chloride 102 mmol/L (98-107); Glucose 134 mg/dL (65-115); Osmolality Calculated 304 mOsm/kg (285-295); Potassium 4.6 mmol/L (3.5-5.1); Sodium 141 mmol/L (136-145)
--- NOTE | 2024-03-31 07:28 | PC.NURSE ---
500 mls bolus of NS given in CPRU. followed by 100 mls an hr til procedure time.
--- NOTE | 2024-03-31 10:00 | XACV_ITS ---
Ht: 170 cm Wt: 95 kg BSA: 2.16 m2 Any Known Allergies: Other Gender: Male : 1945 Exam Type: Invasive Peripheral Vascular Procedure(s): Procedure Description: Peripheral Cath Diagnostic Procedure Procedure Description: Abdominal aortic angiography Procedure Description: Lower extremities' angiography Procedure Description: Peripheral vascular Intervention Procedure Description: PV Balloon Exam Priority: Routine KHAMU2, Hampton; Lower Extremity Interventional Findings Intervention of the left SFA popliteal tibioperoneal trunk. With the help of Glidewire and micro catheter seeker with somewhat difficulty we were able to cross the left superficial femoral artery into the popliteal artery. After somewhat difficulty we were able to cross into left tibioperoneal trunk into the peroneal artery. Since there was high-grade distal left tibioperoneal trunk lesion with run-through wire was exchanged with Glidewire and parked in the peroneal artery. We then took second long run-through wire and crossed into left anterior tibial artery. Using 3.0 x 20 mm Rx able to track already balloon was used to dilate tibioperoneal trunk into proximal segment of the peroneal artery. Balloon was then withdrawn out of the body and passed on the second wire to dilate left tibioperoneal trunk distal segment into left anterior tibial artery. We then exchanged peroneal run-through wire through the help of seeker with Glidewire. Using 6.0 x250 Orma balloon popliteal to proximal segment of the left SFA was treated in stepwise fashion. Please see main body of the note in detail regarding balloon and times of inflation with CARYL. Excellent angiographic result with good flow was noted in the left SFA, left popliteal artery, left tibioperoneal trunk, left anterior tibial and peroneal artery. Left posterior tibial artery was chronically occluded and reconstitute in the distal segment through the collaterals. Good flow in the left foot arch was also noted. At the end of the procedure there was no complication anterior and posterior tibial pulses were both palpable. Conclusions Indication for peripheral angiogram: Lifestyle limiting claudication of both legs more in right than left.Catheters used: UF catheter, long destination 6 German sheath, short 6 German sheath, seeker catheter micro, Glidewire, run-through wiresRight common femoral artery was cannulized with Seldinger technique short 6 German sheath was placed in right common femoral artery. Through Glidewire UF catheter was advanced into abdominal aorta at the level of T12. Aortogram was obtained.:Abdominal aortogram: No significant stenosis or aneurysm noted, patent SMA. Renal arteries were not well-visualizedUsing UF catheter Glidewire was crossed into left common iliac artery and parked into left profundofemoral artery. Over a Glidewire long destination sheath was exchanged for short 6 German sheath.Left lower extremity peripheral angiogram was obtained through long 6 German sheath.Left common iliac artery: Patent Left internal iliac artery luminal irregularity Left external iliac artery patent Left common femoral artery patent Left profundofemoral artery luminal irregularityLeft SFA 100% chronically occluded in the proximal segment, it reconstitute in the distal segment near popliteal left side artery. Diffuse luminal irregularities of the left popliteal vessel was noted, tibioperoneal 12 on the left side has high-grade 95% distal bifurcating stenosis, left anterior tibial artery appeared to be occluded in the proximal segment, left posterior tibial artery appeared to be 100% occluded in the proximal segment, left peroneal artery has luminal irregularitiesBy using the right common femoral short 6 German sheath right lower extremity peripheral angiogram was obtainedRight common iliac artery as luminal irregularities without significant stenosis Right internal Iliac artery has luminal irregularity without significant stenosisRight common femoral artery has luminal irregularity without significant stenosis Right profundofemoral artery has luminal irregularity without significant stenosisRight SFA is 100% chronically occluded proximal segment, it reconstitute in the distal segment forming right popliteal artery, right popliteal artery appeared to be also subtotally occluded, right greater than tibioperoneal trunk is highly calcified possible occluded vesselNo significant below the knee visualization of the anterior posterior and peroneal artery on the right side noted possible due to reduced contrast however collaterals were noted. Recommendations 1-Return to inpatient for close monitoring and routine cath care 2-Risk factor modification for secondary prevention 3-Statin and aspirin 81 mg life-long, if tolerated 4-Patient was pre-loaded with 300 mg of Plavix, continue Plavix 75mg p.o. daily for three months. 5-Continue optimal medical management 6-Follow up with Dr. Hampton in four weeks and your primary care in 10 days. Hemodynamic Data Phase:Rest AO : 119.0 / 51.0 ( 78.0 ) @ 11:51:00 AM Access Site Site: Right Femoral artery Sheath Size: 6 Fr Hemost... Method: Suture Hemost... Success: Successful Procedure Details Findings Procedure Consent Obtained. Pre-Procedure Time Out. Identified patient by full name and date of as verbalized by the patient/guarantor. Does the consent match the physician's order: Yes. Accurate & Complete Informed Consent: Yes. Inpatient/Outpatient History & Physical on Chart: Yes. If H&P is completed, is and addenduem needed: Yes; If yes, is the addendum complete: Yes. Visualize and Verify Site with Patient/Guarantor: N/A. Relevant Radiology Images available: Yes. Pre-op teaching completed and patient verbalized understanding. The risks, benefits, and alternatives of sedation and/or procedure were discussed by physician. The patient agrees to continue. Procedure started. PERRLA. Strong, equal hand electrician's helper bilaterally. Lungs clear x 5 lobes. IV Site on Arrival: 20 gauge in the left anticubital. IV Fluids: 0.9% NaCl at KVO. 800 mL infused prior to labor crew supervisor. Pre Procedural Pulses: bilateral dorsalis pedis was Doppled. Pre Procedural Pulses: bilateral posterior tibial was Doppled. Pre Procedural Pulses: bilateral radial was 1+. Oxygen started at 2liters/min via nasal canula. bilateral groins was prepped with chloroprep then draped in the usual sterile fashion. Physician notified. Baseline sample Acquired. HR: 92 BPM. Physician arrived. Physician scrubbed in. Immediate Pre-Procedure Time Out. Correct Patient: Yes; Correct Procedure: Yes; Correct Site: Yes; Correct Patient Position: Yes; Correct Supplies: Yes; Dried Flammable Prep: Yes; Blood Products Available: N/A;. Lidocaine 1% infiltrated to the right groin. Arterial access obtained with micropuncture set. Wire unable to advance. Wire and needle removed. Arterial access obtained with micropuncture set. Contrast hand injected through the sheath. A 5Fr UF catheter in over wire. Abdominal aortogram performed in AP @ 10 mL/sec for a total of 30 mL. Glidewire inserted through the catheter. Catheter out OTW. The short 6FR sheath exchanged for a 45cm Flexor sheath. Left external iliac selected and arteriogram with runoff performed @ 10 mL/sec for a total of 30 mL. Seeker catheter inserted OTW. Wire out. Contrast hand injected through the catheter. Seeker catheter removed. Left external iliac selected and DSA performed. Wire out. Contrast hand injected through the catheter. Standard wire inserted through catheter. Wire out. 300cm Runthrough wire inserted and advanced to the PT trunk. Another 300cm Runthrough inserted. Seeker catheter out OTW. Inflation number : 1 A AB TREK 3.00X20 RX BALLOON was prepped and advanced across the Tibial Peroneal Trunk, Left , then inflated to 10 CARYL for 0:25 seconds. Inflation number: 2 The AB TREK 3.00X20 RX BALLOON was reinflated across the Tibial Peroneal Trunk, Left, to 10 CARYL for 0:18 seconds. Inflation number: 3 The AB TREK 3.00X20 RX BALLOON was reinflated across the Tibial Peroneal Trunk, Left, to 10 CARYL for 0:17 seconds. Balloon out over wire. Inflation number: 1 The AB TREK 3.00X20 RX BALLOON was reinflated across the Anterior Tibial, Left, to 8 CARYL for 0:22 seconds. Inflation number: 2 The AB TREK 3.00X20 RX BALLOON was reinflated across the Anterior Tibial, Left, to 8 CARYL for 0:15 seconds. Inflation number: 3 The AB TREK 3.00X20 RX BALLOON was reinflated across the Anterior Tibial, Left, to 8 CARYL for 0:07 seconds. Inflation number: 4 The AB TREK 3.00X20 RX BALLOON was reinflated across the Anterior Tibial, Left, to 8 CARYL for 0:15 seconds. Balloon out over wire. Seeker catheter inserted OTW. Both wires removed. Glidewire inserted. ACT drawn. Results 232 seconds. Therapeutic limits - pre-heparin administration 90-150 seconds and monitoring heparin during a vascular procedure >250 seconds. Seeker catheter out OTW. Inflation number : 1 A AB Orma 35 INFORMATION OFFICER Catheter [id number] was prepped and advanced across the Superficial Femoral, Left , then inflated to 6 CARYL for 2:04 seconds. Inflation number: 2 The AB Orma 35 INFORMATION OFFICER Catheter [id number] was reinflated across the Superficial Femoral, Left, to 6 CARYL for 2:00 seconds. Inflation number: 3 The AB Orma 35 INFORMATION OFFICER Catheter [id number] was reinflated across the Superficial Femoral, Left, to 6 CARYL for 2:00 seconds. Balloon out over wire. Results checked. Catheter and wire out. Results checked. The Flexor sheath exchanged for a short 6Fr sheath. Sheath injected in Right common femoral artery and runoff performed. A Suture was successful obtaining hemostatsis at the Right Femoral artery insertion site. Arterial sheath flushed and connected to tranducer and pressure bag with heparinized saline. Post Procedure: Pulses reassessed and unchanged. PERRLA. Strong, equal hand electrician's helper bilaterally. No VTE prophylaxis required. Medication's Wasted: Nitro = 49.2 mcg. Medication's Wasted: Heparin = 2000 units. Total IV fluids: 200 mL. Complications: None. Estimated blood loss: 5mL-10mL. Responsiveness - Normal response to verbal stimuli; alert and oriented, PERRLA. Airway - Unaffected, no intervention required; spontaneous ventilation. Circulation: W/N/L, pulses unchanged. Nausea/Vomiting: No. Procedure completed. Vital chart was stopped. Sheath upsized to a 7 Fr. Patient transferred by bed to 1st floor. Procedure Medications Start: 11:00 AM Stop: 11:00 AM Medication: Benadryl Amount: 25 mg Route: I.V. Start: 11:10 AM Stop: 11:10 AM Medication: Fentanyl Amount: 50 mcg Route: I.V. Start: 11:16 AM Stop: 11:16 AM Medication: Versed Amount: 1 mg Route: I.V. Start: 11:30 AM Stop: 11:30 AM Medication: Versed Amount: 1 mg Route: I.V. Start: 11:30 AM Stop: 11:30 AM Medication: Fentanyl Amount: 50 mcg Route: I.V. Start: 12:03 PM Stop: 12:03 PM Medication: Versed 1 mg and Fentanyl 25 mcg Start: 12:30 PM Stop: 12:30 PM Medication: Versed Amount: 1 mg Route: I.V. Start: 12:30 PM Stop: 12:30 PM Medication: Fentanyl Amount: 50 mcg Route: I.V. Start: 1:02 PM Stop: 1:02 PM Medication: Nitrogylcerin Amount: 400 mcg Route: I.A. Start: 1:07 PM Stop: 1:07 PM Medication: Versed 1 mg and Fentanyl 25 mcg Amount: 1 Route: I.V. Start: 1:09 PM Stop: 1:09 PM Medication: Nitrogylcerin Amount: 400 mcg Route: I.A. Start: 1:09 PM Stop: 1:09 PM Medication: Heparin Amount: 5000 units Route: I.V. Start: 1:13 PM Stop: 1:13 PM Medication: Versed Amount: 1 mg Route: I.V. I, the attending physician, have reviewed and verified all procedure medications. Yes, all medications given per verbal order History/Risk Factors Hypertension: Yes Dyslipidemia: Yes Peripheral Arterial Disease (PAD): Yes Obesity: No Renal Disease: No Tobacco Use: Former Prior Interventions PCI: No CABG: No Valve Surgery: No Report Signatures Finalized by Robert Hampton MD on 04/19/2024 09:07 PM
--- NOTE | 2024-03-31 11:18 | W.PM.OPSFHP ---
Same Day Surgery H&P Indication for Procedure/HPI DATE OF PROCEDURE: March 31, 2024 CHIEF COMPLAINT/INDICATIONFOR SURGICAL PROCEDURE: Severe peripheral vascular disease with lifestyle limiting claudication and occasionally pain in the fourth at rest. Vascular ultrasound suggestive of occlusion at the level of SFA left and popliteal. PREOP DIAGNOSIS: Severe peripheral vascular disease/lifestyle limiting claudication/diabetic PLANNED PROCEDURE: Operation Date: 03/31/24 10:00 Proposed Procedures p Peripheral Diagnostic - Perip Angio Bilat(Bilateral) - Robert Hampton MD 78-year-old male past medical history significant for hypertension hyperlipidemia diabetes mellitus who is under care of podiatry Dr. Leal for left foot care, patient underwent IDALIA/vascular study which noted to have severe peripheral vascular disease on the left side including left SFA and popliteal. Given the history of underlying chronic kidney disease CTA with runoff was deferred as it would not change our management and because of the fact during peripheral angiogram if needed we can proceed with fixing the left SFA/popliteal for his lifestyle limiting claudication leading to probably critical limb ischemia. Patient is here for that reason. Patient and family by bedside has been explained all risk-benefit and alternative for the procedure. He understand 2% risk of stroke major bleed he understands explained risk of contrast-induced nephropathy hematoma pseudoaneurysm infection urgent or emergent vascular surgery thromboembolic phenomena limb threatening ischemia leading to amputation. He would like to proceed with this. Medications/Allergies* Home Medications Medication Instructions Recorded Confirmed Type finasteride 5 mg tablet 5 mg PO QAM 06/15/19 03/31/24 History magnesium oxide 250 mg PO DAILY@06/15/19 03/31/24 History aspirin 325 mg tablet 325 mg PO QAM 07/18/20 03/31/24 History ascorbic acid (vitamin C) 1,000 mg 1,000 mg PO DAILY@11/09/20 03/31/24 History tablet (Vitamin C) dulaglutide 1.5 mg/0.5 mL 1.5 mg SUBCUT Q7D 11/09/20 03/31/24 History subcutaneous pen injector (Trulicity) gabapentin 300 mg capsule 300 mg PO BID 11/09/20 03/31/24 History vit C 250 mg-vit E 90 mg-zinc 40 1 tab PO BID 11/09/20 03/31/24 History mg-copper 1 [id number] capsule (PreserVision AREDS-2) cholecalciferol (vitamin D3) 125 125 mcg PO DAILY 01/18/22 03/31/24 History mcg (5,000 unit) tablet (Vitamin D3) latanoprost 0.005 % eye drops 1 drp ophthalmic (eye) QPM 01/30/22 03/31/24 History zinc acetate 50 mg (zinc) capsule 50 mg PO DAILY@12 01/30/22 03/31/24 History insulin glargine 100 unit/mL 80 unit SUBCUT BID 11/27/22 03/31/24 History subcutaneous solution (Lantus U-100 Insulin) loratadine 10 mg tablet (Allergy 10 mg PO DAILY 02/04/23 03/31/24 History Relief (loratadine)) amlodipine 10 mg tablet 10 mg PO DAILY 09/23/23 03/31/24 History furosemide 40 mg tablet 40 mg PO QAM 09/23/23 03/31/24 History melatonin 5 mg tablet 5 mg PO BEDTIME 09/23/23 03/31/24 History turmeric root extract 500 mg tablet 500 mg PO QPM 09/23/23 03/31/24 History albuterol sulfate 2.5 mg/3 mL 2.5 mg inhalation QAM 11/19/23 03/31/24 History (0.083 %) solution for nebulization guaifenesin 600 mg tablet, 600 mg PO BID Congestion 11/19/23 03/31/24 History extended release 12 hr (Mucinex) omeprazole 20 mg capsule,delayed 20 mg PO .QPM 11/19/23 03/31/24 History release oxycodone-acetaminophen 10 mg-325 1 tab PO QID 11/19/23 03/31/24 History mg tablet polyethylene glycol 3350 17 gram 17 g PO BID 11/19/23 03/31/24 History oral powder packet (Miralax) allopurinol 300 mg tablet 200 mg PO 1200 12/09/23 03/31/24 History senna-docusate sodium tablet 150 tab PO BEDTIME 12/28/23 03/31/24 History insulin syringe-needle U-100 1 mL #10 ea 02/24/24 03/30/24 History 31 gauge x 5/16 (BD Insulin Syringe Ultra-Fine) Allergies/Adverse Reactions Allergy/AdvReac Type Severity Reaction Status Date / Time carvedilol Allergy Severe Diarrhea & Verified 03/19/24 08:42 SOB losartan Allergy Intermediate Kidney Verified 03/19/24 08:42 injury adhesive tape Allergy Unknown Unknown Verified 03/19/24 08:42 levocetirizine Allergy ADR-Itching Verified 03/19/24 08:42 Current Medications: Generic Name Dose Route Start Last Admin Trade Name Freq PRN Reason Stop Dose Admin Sodium Chloride 1,000 mls @ 100 mls/hr 03/31/24 06:30 03/31/24 07:28 Sodium Chloride 0.9% IV Not Given .Q10H PRERNA Pertinent History/Comorbid Conditions* Medical History (Updated 02/25/24 @ 00:00 by WING Delgado) CKD (chronic kidney disease) stage 2, GFR 60-89 ml/min 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 GERD (gastroesophageal reflux disease) PHN (postherpetic neuralgia) Kidney disease PAD (peripheral artery disease) Type 2 diabetes mellitus COPD (chronic obstructive pulmonary disease) HTN (hypertension) with goal to be determined Heart failure Surgical History (Updated 02/02/22 @ 00:00 by WING Delgado) S/P cataract surgery Previous back surgery History of lung surgery Hx of shoulder surgery S/P lobectomy of lung Family History (Updated 06/15/19 @ 10:44 by Tika Urrutia RN) Diabetes Heart disease Brother Hypertension Mother Stroke Mother Social History Smoking and tobacco/nicotine status: unknown if used tobacco/nicotine Quit status (tobacco/nicotine): has quit using Year quit tobacco: 1987 Former quit date comment: [id number] Second hand smoke exposure: No Alcohol intake: never Substance/Drug Use: never Lives independently: Yes Household members: spouse Housing: House Marital status: service: No Current occupational status: retired Pets and animals: Yes Do you think of yourself as: Straight/Heterosexual Current gender identity: Male Pertinent Exam Findings alert, oriented x 3, clear to auscultation bilaterally, regular rate & rhythm, operative site marked and procedure specific exam findings Conscious Sedation Assessment PATIENT ASSESSED PRIOR TO SEDATION, WITH NO CHANGE NOTED: Yes AIRWAY EVAL/ANESTHESIA PLAN: ASA II, Risks, benefits & alternatives of sedation and/or procedure discussed and Patient agrees to continue as planned Recommendations Surgery/Procedure today Coding Level of Care Code Acute Code for Chg Fwd
[2024-03-31] MEDS: sodium chloride 0.9% 1,000 ML 100 ML IV ×2 (13:20→23:55)
[2024-03-31] MEDS: clopidogrel 300 mg Tablet PO (15:10)
--- NOTE | 2024-03-31 16:26 | PC.NURSE ---
dexcom glucose reading is 84
--- NOTE | 2024-03-31 16:43 | PC.NURSE ---
received from cardiac laborer filter plant via bed at 1340.report received.pt is sleepy but easily awakened with voice.pt denies pain.sr on monitor.right groin with femoral arterial sheath intact to pressurized system.no hematoma noted.right leg is warm to touch and with brisk capillary refill.palpable dp pulse noted.pt instructed in activity restrictions s/p femoral artery procedure...and instructed to notify staff for any bleeding,pain,numbness,or for any concerns at all.pt verb understanding of instructions.spouse at bedside.
[2024-03-31 18:43] LABS: Partial Thromboplastin Time 77.2 SECONDS (23.9-36.7)
[2024-03-31] MEDS: HYDROcodone-acetaminophen 5-325 mg Tablet 1 TAB PO (19:07)
[2024-03-31 20:14] LABS: Partial Thromboplastin Time 31.4 SECONDS (23.9-36.7)
--- NOTE | 2024-03-31 21:23 | PC.NURSE ---
Dexcom was reading 114 nurse notified at 9:15
[2024-03-31] MEDS: fentaNYL 50 mcg/mL INJ 2mL 100 MCG IVP (23:33)
--- NOTE | 2024-04-01 02:02 | PC.NURSE ---
Patient placed on VS monitoring every two minutes and educated on sheath pull. Sheath pulled at 2215, pressure applied and hemostasis was achieved. Patient began thrashing around in bed, lifting right leg up off of bed. Unable to maintain pressure on site due to patients movements, sheath site bleeding with hematoma present. supervisor dock and Dr. Hampton notified. Hemostasis regained at 2223. Dr. Hampton took over holding pressure at 2230, pressure was held until 2253. Dr. Hampton gave verbal order for Fentanyl 25mcg IVP x4 throughout entire procedure. 100mcg given in total by house officer (See MAR). Site covered with 4x4 and Tegaderm. Patient educated on post sheath protocol, reinforcements needed. Bedside table and call light within reach, bed alarm set.
[2024-04-01 03:53] LABS: Basophils % 0.4 %; Eosinophils # 0.1 10^3/uL (0.0-0.8); Eosinophils % 1.3 %; Hematocrit 45.3 % (37-53); Lymphocytes # 1.4 10^3/uL (0.8-4.8); Lymphocytes % 12.6 %; Mean Corpuscular HGB Conc 31.3 g/dL (30-55); Mean Corpuscular Hemoglobin 30.3 pg (27-33); Mean Corpuscular Volume 96.8 fl (82-101); Mean Platelet Volume 9.5 fL (7.4-10.4); Monocytes # 1.1 10^3/uL (0.2-0.9); Neutrophils # 8.17 10^3/uL (1.8-7.7); Neutrophils % 75.3 %; Nucleated Red Blood Cells % 0 %; Platelet Count 336 10^3/cmm (157-399); Red Blood Count 4.68 10^6/uL (3.85-5.65); Red Cell Distribution Width 15.9 % (12.1-15.1); White Blood Count 10.83 10^3/uL (3.29-11.43)
[2024-04-01 04:16] LABS: Anion Gap 13.4 (5-19); Blood Urea Nitrogen 33 mg/dL (8-23); Calcium 9.3 mg/dL (8.5-10.5); Carbon Dioxide 40 mmol/L (22-29); Chloride 93 mmol/L (98-107); Creatinine Clr Calc Pharmacy 30.6965; Glucose 87 mg/dL (65-115); Osmolality Calculated 303 mOsm/kg (285-295); Potassium 3.4 mmol/L (3.5-5.1); Sodium 143 mmol/L (136-145)
[2024-04-01 04:52] VITALS: BP 125/55; PULSE 101; RESP 13; O2SAT 93
--- NOTE | 2024-04-01 06:39 | PC.NURSE ---
Dexcom blood sugar read 121 nurse notified
[2024-04-01] MEDS: sodium chloride 0.9% 1,000 ML 100 ML IV (07:14)
--- NOTE | 2024-04-01 07:58 | PC.NURSE ---
Patient s/p peripheral angiogram via right femoral artery. Dressing in place remains c,d,i however extensive bruising is observed. Patient c/o great pain to the site. No hematoma palpated. Instructed patient on site care and expectations. Patient and spouse verbalized complete understanding. Will continue to monitor. Dr Hampton is aware of bruising.
[2024-04-01 08:24] VITALS: BP 125/51; PULSE 104; RESP 20; TEMP 36.8; O2SAT 97
--- NOTE | 2024-04-01 08:53 | P.DS_ITS ---
<Statement entered by Robert Hampton MD - 04/19/24 14:44> Patient was evaluated and cared for in conjunction with an advanced practice practitioner. I personally examined the patient and reviewed the chart and all pertinent data including imaging, telemetry, and laboratory results. I discussed the patient in detail with the advanced practice practitioner. Please see their note for complete H&P testing result and agreed upon plan of care for the patient. Discharge Providers Date of Admission: 03/31/24 13:40 Date of Discharge: April 01, 2024 Attending Provider at Admission: Robert Hampton MD Attending Provider at Discharge: Robert Hampton MD Primary Care Provider: Praveen Shah DO Reason for Visit Reason for Visit: I73.9 Brief History: 78-year-old male past medical history si gnificant for hypertension hyperlipidemia diabetes mellitus who is under care of podiatry Dr. Leal for left foot care, patient underwent IDALIA/vascular study which noted to have severe peripheral vascular disease on the left side including left SFA and popliteal. Given the history of underlying chronic kidney disease CTA with runoff was deferred as it would not change our management and because of the fact during peripheral angiogram if needed we can proceed with fixing the left SFA/popliteal for his lifestyle limiting claudication leading to probably critical limb ischemia. Hospital Course Hospital Course He underwent peripheral angiogram yesterday due to severe peripheral arterial disease, chronically occluded proximal to mid SFA, chronically subtotally occluded distal tibioperoneal trunk. He was treated with balloon angioplasty of tibioperoneal trunk, anterior tibial artery, proximal to mid SFA with excellent angiographic result and lutheran of flow all the way to the foot. Patient has severe peripheral arterial disease of right leg with chronically occluded SFA distal tibioperoneal trunk without much flow below the knee. Stage percutaneous angioplasty/intervention such as arthrectomy of the right leg in 3 to 4 weeks. He has some bruising at the right femoral access site, it is tender to touch. Slight boggy hematoma palpable above the cath site. Arterial duplex of the right groin this morning to ruled out pseudoaneurysm prior to discharge. Hemoglobin stable. He has been up out of bed, sat in the chair to eat this morning, with no oozing at the site. Plan to discharge home with follow up in the cardiology clinic in 7-10 days. Plavix 75mg daily for one month then discontinue. He has follow up with Dr Aj in May. Physical Exam Const: COMMON NORMALS: no acute distress and patient oriented x3 GENERAL APPEARANCE: cooperative ORIENTATION/CONSCIOUSNESS: Yes awake, Yes oriented to person, Yes oriented to place and Yes oriented to time Chest: COMMONS NORMALS: normal inspection of the chest and normal palpation of entire chest wall CHEST: Yes Symmetrical chest wall rise Resp: COMMON NORMALS: normal respiratory effort, No retractions, No use of accessory muscles and clear to auscultation bilaterally AUSCULTATION: clear to auscultation bilaterally Cardio: COMMON NORMALS: regular rate, regular rhythm, S1 normal heart sound present, S2 normal heart sound present, No gallops present (Cardio), No clicks present (Cardio), No murmurs present (Cardio) and No rub (Cardio) RATE: regular rate RHYTHM: regular rhythm HEART SOUNDS: S1 normal heart sound present and S2 normal heart sound present PERIPHERAL PULSES: radial pulses present positive right 2+ and femoral pulses present positive right 2+ Neuro: COMMON NORMALS: patient oriented x3 and moves all extremities SENSORIUM/ORIENTATION: Yes oriented to person, Yes oriented to place and Yes oriented to time Skin: WOUNDS: Yes surgical site (no hematoma palpable) Details: no odor Discharge Data Studies Completed and Pending Pending at discharge Category Date Time Status BUNG SEWER request for service Routine Exams 03/31/24 10:00 Taken Laboratory Results WBC 10.83 10^3/uL (3.29-11.43) 04/01/24 03:40 RBC 4.68 10^6/uL (3.85-5.65) 04/01/24 03:40 Hgb 14.20 g/dL (11.27-16.99) 04/01/24 03:40 Hct 45.3 % (37-53) 04/01/24 03:40 MCV 96.8 fl (82-101) 04/01/24 03:40 MCH 30.3 pg (27-33) 04/01/24 03:40 MCHC 31.3 g/dL (30-55) 04/01/24 03:40 RDW 15.9 % (12.1-15.1) H 04/01/24 03:40 Plt Count 336 10^3/cmm (157-399) D 04/01/24 03:40 MPV 9.5 fL (7.4-10.4) 04/01/24 03:40 Neut % (Auto) 75.3 % 04/01/24 03:40 Lymph % (Auto) 12.6 % 04/01/24 03:40 [place] % (Auto) 10.0 % 04/01/24 03:40 Eos % (Auto) 1.3 % 04/01/24 03:40 Baso % (Auto) 0.4 % 04/01/24 03:40 Neut # (Auto) 8.17 10^3/uL (1.8-7.7) H 04/01/24 03:40 Lymph # (Auto) 1.4 10^3/uL (0.8-4.8) 04/01/24 03:40 [place] # (Auto) 1.1 10^3/uL (0.2-0.9) H 04/01/24 03:40 Eos # (Auto) 0.1 10^3/uL (0.0-0.8) 04/01/24 03:40 Baso # (Auto) 0.0 10^3/uL (0.0-0.1) 04/01/24 03:40 Nucleated RBC % (auto) 0 % 04/01/24 03:40 Nucleated RBCs # 0.0 /100WBC 04/01/24 03:40 APTT 31.4 SECONDS (23.9-36.7) D 03/31/24 19:57 Sodium 143 mmol/L (136-145) 04/01/24 03:40 Potassium 3.4 mmol/L (3.5-5.1) L 04/01/24 03:40 Chloride 93 mmol/L (98-107) L 04/01/24 03:40 Carbon Dioxide 40 mmol/L (22-29) H 04/01/24 03:40 Anion Gap 13.4 (5-19) 04/01/24 03:40 BUN 33 mg/dL (8-23) H 04/01/24 03:40 Creatinine 2.2 mg/dL (0.7-1.2) H 04/01/24 03:40 GFR Calculation Not Reportable 04/01/24 03:40 Glucose 87 mg/dL (65-115) 04/01/24 03:40 Calculated Osmolality 303 mOsm/kg (285-295) H 04/01/24 03:40 Calcium 9.3 mg/dL (8.5-10.5) 04/01/24 03:40 Vitals Last Vital Signs Temp 98.3 F 04/01/24 08:24 Pulse 104 H 04/01/24 08:24 Resp 20 H 04/01/24 08:24 BP 125/51 04/01/24 08:24 Pulse Ox 97 04/01/24 08:24 O2 Del Method Nasal Cannula 04/01/24 08:24 O2 Flow Rate 2 04/01/24 08:24 Discharge Plan Discharge Patient Disposition: Home Condition: Stable Prescriptions: New clopidogrel 75 mg Tablet 75 mg PO DAILY 0RF Continued magnesium oxide 250 mg magnesium tablet 250 mg PO DAILY@12 finasteride 5 mg tablet 5 mg PO QAM aspirin 325 mg tablet 325 mg PO QAM omeprazole 20 mg capsule,delayed release(DR/EC) 20 mg PO .QPM loratadine [Allergy Relief (loratadine)] 10 mg tablet 10 mg PO DAILY (DME) diabetic shoes with 3 inserts See Rx Instructions .Route .MEDSUPPLY Qty: 1 0RF Rx Instructions: As directed to the shoe katelin albuterol sulfate 2.5 mg /3 mL (0.083 %) solution for nebulization 2.5 mg inhalation QAM Miralax 17 gram powder in packet 17 g PO BID cholecalciferol (vitamin D3) [Vitamin D3] 125 mcg (5,000 unit) tablet 125 mcg PO DAILY sodium chloride [Hyper-Gabino] 7 % solution for nebulization 1 inh inhalation BID Qty: 120 2RF (DME) insulin syringe-needle U-100 [BD Insulin Syringe Ultra-Fine] 1 mL 31 gauge x 5/16 syringe See Rx Instructions .ROUTE .MEDSUPPLY Qty: 10 Rx Instructions: As directed (DME) Diabetic Shoes See Rx Instructions .Route .MEDSUPPLY Qty: 1 0RF Rx Instructions: As directed metoprolol succinate 100 mg tablet extended release 24 hr 100 mg PO DAILY Qty: 90 3RF chlorthalidone 25 mg tablet 25 mg PO DAILY Qty: 90 3RF Trelegy Ellipta 100-62.5-25 mcg blister with device 1 inh inhalation QAM Qty: 180 6RF spironolactone 25 mg tablet 25 mg PO DAILY Qty: 90 3RF atorvastatin 80 mg tablet 80 mg PO QPM Qty: 90 3RF ascorbic acid (vitamin C) [Vitamin C] 1,000 mg Tablet 1,000 mg PO DAILY@12 gabapentin 300 mg Capsule 300 mg PO BID PreserVision AREDS-2 250-90-40-1 mg Capsule 1 tab PO BID Trulicity 1.5 mg/0.5 mL pen injector 1.5 mg SUBCUT Q7D Rx Instructions: on Sat Lantus U-100 Insulin 100 unit/mL solution 80 unit SUBCUT BID latanoprost 0.005 % drops 1 drp ophthalmic (eye) QPM zinc acetate 50 mg (zinc) Capsule 50 mg PO DAILY@12 allopurinol 300 mg tablet 200 mg PO 1200 Rx Instructions: Takes two 100 mg once a day - updated per patient furosemide 40 mg tablet 40 mg PO QAM melatonin 5 mg Tablet 5 mg PO BEDTIME turmeric root extract 500 mg Tablet 500 mg PO QPM amlodipine 10 mg tablet 10 mg PO DAILY Mucinex 600 mg tablet extended release 12hr 600 mg PO BID oxycodone-acetaminophen 10-325 mg tablet 1 tab PO QID senna-docusate sodium Tablet 150 tab PO BEDTIME Discharge Orders: Discharge Order (Routine); Ordered 04/01/24 Ordered By: Alesha Clay Referrals: Marley Uribe NP [Nurse Practitioner] - 7-10 days Discharge Diet: Advance as tolerated Discharge Activity: Increase activity as tolerated Patient Instructions: Peripheral Vascular Stent Placement (DC), Peripheral Vascular Angioplasty (DC), Opioid Safety Activity Restrictions/Additional Instructions: Do not lift anything more than 5 pounds for the next 48 hours. The bruising in the right groin should improve gradually over the next week, if you notice blood, have increased pain in the groin suddenly, hold pressure over the groin site and go to the emergency room. Discharge Date/Time: 04/01/24 13:01 Discharge Attestations Time Spent in Discharge Care*: less than 30 min Status at Discharge: Cognitive status at discharge: cognitively intact , Behavioral status at discharge: cooperative , Quality Metrics Clinical Quality Measures [ No reported AMI, CVA or VTE this stay] Coding Level of Care Code Acute Code for Kathie Fwdilip
--- NOTE | 2024-04-01 09:11 | PC.CHAP ---
Pastoral Care Encounter/Spiritual Assessment Type of Contact [] Declined custom decorating consultant visit [] Patient/Family/Request visit [] Outpatient visit [] Follow-up visit [] Physician referral [] Code/Alert [] Routine visit [] Staff referral [] Actively dying [] Patient sleeping [] Family support [] [] Out of room [] Palliative care [] [x] Receiving care in room [] Pre-surgical visit [] Trauma [] Long length of stay [] ICU visit [] Other: Relational/Emotional Strength [] Patient feels connected with others/family/visitors/staff [] Distress [] Loneliness/isolation [] Abandonment Spirituality of Patient [] Person of Anette [] Attends Catholic of their Anette [] Believes in Prayer [] Reads Bible or Hinduism materials [] There are Spiritual issues to be addressed Manager Switch Interventions [] Prayer [] Active listening [] Non-anxious presence [] Spiritual/emotional support [] Crisis/trauma care [] Spiritual counseling [] Bereavement support [] Provided bereavement packet [] Provided Bible/devotional materials [] Provided toy/stuffed animal, coloring book to patient or family member [] Provided Communion [] Anointing/[place] [] Salvation [] Completed spiritual assessment [] Other: Impact on Illness or Injury [] Angry [] Fearful [] Anxious [] Often cries [] Exhaustion [] Unable to work [] Unable to attend taoism [] Unable to walk/stand [] Unable to read [] Unable to drive [] Unable to eat/drink [] Unable to sleep [] Unable to be with family [] Patient intubated [] Other: Summary Time spent with patient
--- NOTE | 2024-04-01 09:12 | PC.CHAP ---
Pastoral Care Encounter/Spiritual Assessment Type of Contact [] Declined agricultural services director visit [] Patient/Family/Request visit [] Outpatient visit [] Follow-up visit [] Physician referral [] Code/Alert [] Routine visit [] Staff referral [] Actively dying [] Patient sleeping [] Family support [] [] Out of room [] Palliative care [] [x] Receiving care in room [] Pre-surgical visit [] Trauma [] Long length of stay [] ICU visit [] Other: Relational/Emotional Strength [] Patient feels connected with others/family/visitors/staff [] Distress [] Loneliness/isolation [] Abandonment Spirituality of Patient [] Person of Anette [] Attends Shinto of their Anette [] Believes in Prayer [] Reads Bible or Confucianist materials [] There are Spiritual issues to be addressed Book Retailer Interventions [] Prayer [] Active listening [] Non-anxious presence [] Spiritual/emotional support [] Crisis/trauma care [] Spiritual counseling [] Bereavement support [] Provided bereavement packet [] Provided Bible/devotional materials [] Provided toy/stuffed animal, coloring book to patient or family member [] Provided Communion [] Anointing/[place] [] Salvation [] Completed spiritual assessment [] Other: Impact on Illness or Injury [] Angry [] Fearful [] Anxious [] Often cries [] Exhaustion [] Unable to work [] Unable to attend hoahaoism [] Unable to walk/stand [] Unable to read [] Unable to drive [] Unable to eat/drink [] Unable to sleep [] Unable to be with family [] Patient intubated [] Other: Summary Time spent with patient
[2024-04-01] MEDS: insulin lispro 100 unit/1 mL SUBCUT (10:10)
== END 2024-04-01 13:01 | disposition home or self-care (01) ==
LOC: CSU 13:41
PROVIDERS: Admitting Provider Internal Medicine Cardiovascular Disease; PCP Electrodiagnostic Medicine; Visit Provider Internal Medicine Cardiovascular Disease
DX: I70.223 Atherosclerosis of native arteries of extremities with rest pain, bilateral legs (principal); E11.22 Type 2 diabetes mellitus with diabetic chronic kidney disease; I13.0 Hypertensive heart and chronic kidney disease with heart failure and stage 1 through stage 4 chronic kidney disease, or unspecified chronic kidney disease; N18.2 Chronic kidney disease, stage 2 (mild); I50.9 Heart failure, unspecified; E78.5 Hyperlipidemia, unspecified; Z87.891 Personal history of nicotine dependence; J44.9 Chronic obstructive pulmonary disease, unspecified
CPT/HCPCS: 36415; 37224; 37228; 75625; 75716; 80048; 85025; 85347; 85730; 93926; 96360; 96361; 96372; 96374; 96375; 96376; 99152; 99153; C1725; C1769; C1887; C1894; G0378; J1200; J1644; J1815; J2250; J3010; J3490; J7030; Q9967

== ENCOUNTER → 2024-04-20 13:23 | Outpatient (BNVA) | payer MEDICARE, SELFPAY | PROVIDERS: PCP Electrodiagnostic Medicine; Visit Provider Nurse Practitioner Family | DX: I73.9 Peripheral vascular disease, unspecified (principal); E78.5 Hyperlipidemia, unspecified; I13.0 Hypertensive heart and chronic kidney disease with heart failure and stage 1 through stage 4 chronic kidney disease, or unspecified chronic kidney disease; I50.9 Heart failure, unspecified; N18.9 Chronic kidney disease, unspecified | CPT/HCPCS: 36415; 80048; 99214 ==

== ENCOUNTER 2024-04-29 05:59 | Outpatient (CLI) | payer MEDICARE, SELFPAY ==
[2024-04-29 06:00] VITALS: BP 123/80; PULSE 90; RESP 18; TEMP 36.8; O2SAT 96; BMI 32.5
[2024-04-29 06:37] LABS: Basophils # 0.1 10^3/uL (0.0-0.1); Basophils % 0.7 %; Eosinophils # 0.2 10^3/uL (0.0-0.8); Eosinophils % 2.3 %; Hematocrit 36.3 % (37-53); Lymphocytes # 2.3 10^3/uL (0.8-4.8); Lymphocytes % 25.4 %; Mean Corpuscular HGB Conc 30.9 g/dL (30-55); Mean Corpuscular Hemoglobin 29.6 pg (27-33); Mean Platelet Volume 10.1 fL (7.4-10.4); Monocytes % 10.7 %; Neutrophils # 5.42 10^3/uL (1.8-7.7); Neutrophils % 60.2 %; Nucleated Red Blood Cells % 0 %; Platelet Count 182 10^3/cmm (157-399); Red Blood Count 3.78 10^6/uL (3.85-5.65); Red Cell Distribution Width 17.9 % (12.1-15.1)
[2024-04-29] MEDS: diphenhydrAMINE 50 mg Capsule PO (06:44)
[2024-04-29 06:49] LABS: Anion Gap 15.9 (5-19); Blood Urea Nitrogen 47 mg/dL (8-23); Calcium 9.9 mg/dL (8.5-10.5); Carbon Dioxide 27 mmol/L (22-29); Chloride 104 mmol/L (98-107); Creatinine Clr Calc Pharmacy 30.7138; Glucose 129 mg/dL (65-115); Osmolality Calculated 308 mOsm/kg (285-295); Potassium 4.9 mmol/L (3.5-5.1); Sodium 142 mmol/L (136-145)
== END 2024-04-29 06:00 | disposition home or self-care (01) ==
LOC: CCL 06:00
PROVIDERS: PCP Electrodiagnostic Medicine; Visit Provider Internal Medicine Cardiovascular Disease
DX: I73.9 Peripheral vascular disease, unspecified (principal)
CPT/HCPCS: 80048; 85025; J1644; J2250; J3010; J7030; Q0163

== ENCOUNTER 2024-05-21 09:09 | Outpatient (CLI) | payer MEDICARE, SELFPAY ==
[2024-05-21 09:43] LABS: Basophils % 0.5 %; Eosinophils # 0.2 10^3/uL (0.0-0.8); Eosinophils % 2.4 %; Hematocrit 36.3 % (37-53); Lymphocytes # 1.7 10^3/uL (0.8-4.8); Mean Corpuscular HGB Conc 30.9 g/dL (30-55); Mean Corpuscular Hemoglobin 29.6 pg (27-33); Mean Platelet Volume 9.8 fL (7.4-10.4); Monocytes # 0.8 10^3/uL (0.2-0.9); Neutrophils # 5.97 10^3/uL (1.8-7.7); Neutrophils % 68.6 %; Nucleated Red Blood Cells % 0 %; Platelet Count 187 10^3/cmm (157-399); Red Blood Count 3.78 10^6/uL (3.85-5.65); Red Cell Distribution Width 17.7 % (12.1-15.1); White Blood Count 8.69 10^3/uL (3.29-11.43)
[2024-05-21 10:03] LABS: Anion Gap 14.7 (5-19); Blood Urea Nitrogen 46 mg/dL (8-23); Calcium 9.7 mg/dL (8.5-10.5); Carbon Dioxide 30 mmol/L (22-29); Chloride 102 mmol/L (98-107); Glucose 111 mg/dL (65-115); Osmolality Calculated 307 mOsm/kg (285-295); Potassium 4.7 mmol/L (3.5-5.1); Sodium 142 mmol/L (136-145)
[2024-05-21 10:17] LABS: INR 0.98 (0.83-1.21); Prothrombin Time (Patient) 13.7 Seconds (12.0-15.1)
== END 2024-05-21 09:10 | disposition home or self-care (01) ==
LOC: LAB 09:11
PROVIDERS: PCP Electrodiagnostic Medicine; Visit Provider Internal Medicine Cardiovascular Disease
DX: I73.9 Peripheral vascular disease, unspecified (principal); I50.33 Acute on chronic diastolic (congestive) heart failure; R00.2 Palpitations; R58 Hemorrhage, not elsewhere classified
CPT/HCPCS: 36415; 80048; 85025; 85610

== ENCOUNTER 2024-06-08 16:41 | Outpatient (CLI) | payer MEDICARE, SELFPAY ==
--- OUTSIDE RECORDS SUMMARY | 2024-06-08 16:46 | XMS_ITS | Encounter Summary ---
Author Organization [facility] Address [address] [place] [address] Care Team Providers Care Television Picture Tube Rebuilder Name Role Phone Praveen Shah Primary Care Provider [phone] Encounter Details Date Type Department Care Team (Latest Contact Info) Description 04/27/2024 Results Follow-Up [facility] [address] [place] [address] Araceli Graham APRN [address] [place] [address] COMPREHENSIVE METABOLIC PANEL, BRAIN NATRIURETIC PEPTIDE, BNP OR PROBNP Social History Tobacco Use Types Packs/Day Years Used Date Smoking Tobacco: Former Cigarettes Q uit: 06/30/1978 Passive Smoke Exposure: Past Smokeless Tobacco: Never Alcohol Use Standard Drinks/Week Comments No 0 (1 standard drink = 0.6 oz pur e alcohol) Sex and Gender Information Value Date Recorded Sex Assigned at Not on file Legal Sex Male 12:25 AM 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 Gender Identity Not on file Sexual Orientation Not on file documented as of this encounter Plan of Treatment Upcoming Encounters Date Type Department Care Team (Late st Contact Info) Description 07/30/2024 2:45 PM CDT Office Visit [facility] [address] [place] [address] Anitha Wilson MD [address] [place] [address] documented as of this encounter Visit Diagnoses Not on filedocumented in this encounter Care Teams Television Picture Tube Rebuilder Relationship Specialty Start Date End Date Praveen Shah DO PCP - General Family Practice 06/29/13 documented as of this encounter
--- OUTSIDE RECORDS SUMMARY | 2024-06-08 16:46 | XMS_ITS | Continuity of Care Document ---
Author Organization [facility] ([facility]) Address [address] [place] [address] Care Team Providers Care Central Office Supervisor Name Role Phone SHAH, JANA Primary Care Provider Unavailabl e Assessment No assessment recorded. Plan of Treatment Reminders Order Date Submit Date Provider Last Modified By Organization Details Last Modified Time Details Appointments None recorded. Lab urinalysis, complete 2024 025 [email or web address] 47 [facility], [address] [facility], [address], [place], [address], 5 16:37:08 culture, urine 2024 025 [employer] [facility], [address] [facility] [address], [address] [place], [address], 5 04:11:41 Referral None recorded. Procedures None recorded. Surgeries None recorded. Imaging [place], modified barium swallow study [address] (Scheduling Orders), [address] [place], [address], 5 12:11:17 Medication Orders amoxicillin 875 mg-potassiu m clavulanate 125 mg tablet 2024 025 [facility], [facility] [place], [address] [place], [address], 5 18:02:40 Lantus Solostar U-100 Insulin 100 unit/mL (3 mL) subcutaneou s pen 2024 025 [email or web address] 47 [facility] [place], [facility] [place], [address], 5 16:15:16 Percocet 10 mg-325 mg tablet 2024 025 GINA [facility], [facility] [place], [address], 5 18:02:40 Patient TargetsNo targets recorded. Patient InstructionsNo instructions recorded. Reason for Referral None Reported. Problems Name Problem SNOMED Code Status Onset Date Resolution Date Notes Provider Name and Address Organization Details Recorded Time Spasm of urinary bladder 447667809 Active 2022 Ani grant [facility] 5 15:31:51 Strain of rotator cuff capsule Active 2022 Strain Of Rotator Cuff Capsule Ani grant [facility] 5 15:31:52 Pneumoth orax 44657928 Active 2022 Ani Nolen [facility] 5 15:31:51 Hypercho lesterol emia 52783525 Active 2022 Ani grant [facility] 5 15:31:51 Gastroes ophageal reflux disease 057141777 Active 2022 Ani grant [facility] 5 15:31:51 Gout 45730857 Active 2019 Ani grant [facility] 5 15:31:52 Essentia l hyperten emir 17821156 Active 2022 Ani Nolen juanita, [facility] 5 15:31:52 Chronic low back pain 165270615 Active 2022 Ani Nolen [facility], [facility] 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 5 15:31:51 Morbid obesity 398463319 Active 2022 Ani Nolen [facility], [facility] 5 15:31:51 Bilatera l sacroili itis [id number] 154942 Active 2022 Ani Nolen [facility] 5 15:31:51 Moderate recurren t major depressi on 34730778 Active 2022 Ani Nolen [facility], [facility] 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 5 15:31:51 Congesti ve heart failure 68639191 Active 2022 Ani Stearnse [facility], [facility] 5 15:31:51 Chronic kidney disease stage 3B 437748398 Active 2022 Ani Nolen [facility] 5 15:31:52 Hyperlip idemia 26278557 Active 2022 Ani grant, [facility] 5 15:31:52 Opioid dependen ce 34092117 Active 2022 Anianselmo Stearnse juanita, [facility] 5 15:31:52 Peripher al arterial occlusiv e disease 379674255 Active 2022 Anianselmo Stearnse juanita, [facility] 5 15:31:51 Adult health examinat ion Active 2022 Ani Nolen juanita, [facility] 5 15:31:51 Low back pain 294617399 Active 2023 Ani grant, [facility] 5 15:31:51 Recurren t urinary tract infectio n 038663377 Active 2023 Ani grant [facility] 5 15:31:51 Type 2 diabetes mellitus 74754920 Active 2023 [facility] 5 15:31:51 Osteoart hritis 750091953 Active 2023 [facility] 5 15:31:51 Hyperkal emia 24225698 Completed 201912/29/2019 Ani grant [facility] 4 10:22:52 Renal disorder due to type 2 diabetes mellitus 530113087 Completed 201912/29/2019 Ani grant [facility] 4 10:22:52 Divertic ulitis of colon 364985738 Active 2023 Ani grant [facility] 5 15:31:51 Recurren t falls 751361823 Active 2023 Anidelmar Stearnse null, [facility] 5 15:31:51 Drug-ind uced myopathy 936884882 Active 2023 Anianselmo Stearnse null, [facility] 5 15:31:51 Compensa tory emphysem a 63548503 Active 2023 Anianselmo Stearnse null, [facility] 5 15:31:51 Bronchie ctasis 00823553 Active 2023 Ani Nolen [facility], [facility] 5 15:31:51 Abnormal gait due to muscle weakness 513362947 Active 2023 Ani Nolen [facility], [facility] 5 15:31:51 Pneumoni a 383818105 Active 2023 Ani Nolen [facility], [facility] 5 15:31:51 Orophary ngeal dysphagi a 10206435 Active [address], [address], [facility] 5 16:29:05 Dysuria 31867043 Active [address], [address], [place] [facility] 5 16:16:26 Acute urinary tract infectio n 972052801 Active [address], [address], [facility] 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 Please review this document and add these problems to the patient's chart manually as needed. Problem Notes None recorded. Medical Equipment None Reported. Allergies Allergen ID Allergen Name Allergen Category Reaction Reaction Severity Criticality Documentation Date Start Date Code Code System Note Provider Name and Address Organization Details Recorded Time 49195 adhesive tape environme nt,medica tion Not available Not available Not available 10/13/2022 [id number] UNK Teena Montejo juanita [facility], NabilaLIlene 4 18:28:37 28954 carvedilo l medicatio n Not available Not available Not available 09/04/20232022 56344 RxNorm Ani grant [facility], NabilaLMiguelCMiguel 4 09:35:19 48560 losartan medicatio n Not available Not available Not available 09/04/20232022 41291 RxNorm [facility] 4 09:35:19 Medications Name Sig Start Date Stop Date Status Note LastModified by Organization Details LastModified Time cyclobenz aprine 10 mg tablet 5 mg twice a day by oral route. active Not Available Not Available No t Available furosemid e 40 mg tablet TAKE 1 TABLET BY MOUTH EVERY DAY active Not Available Not Available No t Available latanopro st 0.005 % eye drops place ONE drop in BOTH eyes every evening active Not Available Not Available No t Available atorvasta tin 80 mg tablet TAKE 1 TABLET BY MOUTH EVERY EVENING active Not Available Not Available No t Available carvedilo l 25 mg tablet TAKE 1 TABLET BY MOUTH TWICE DAILY 09/06 /2023 completed Not Available Not Available Not Available nystatin 100,000 unit/mL oral suspensio n SWISH 10ml in MOUTH FOR at least 30 seconds, THEN swallow THREE TIMES DAILY FOR ONE or TWO weeks UNTIL symptoms resolve active Not Available Not Available No t Available ascorbic acid (vitamin C) 1,000 mg tablet 1000 mg by oral route. active Not Available Not Available No t Available prednison e 10 mg tablet TAKE 4 TABLETS BY MOUTH EVERY DAY FOR THREE DAYS, THEN TWO EVERY DAY FOR THREE DAYS, THEN ONE EVERY DAY FOR THREE DAYS THEN ONE-HALF EVERY DAY FOR THREE DAYS 02/10 completed Not Available Not Available Not Available carvedilo l 12.5 mg tablet TAKE 1 TABLET BY MOUTH TWICE DAILY with meal/monalisa d 11/21 completed Not Available Not Available Not Available ipratropi um 0.5 mg-albute rol 3 mg (2.5 mg base)/3 mL nebulizat ion soln inhale ONE vial via NEBULIZE R EVERY 6 HOURS NEEDED SHORTNES S OF BREATH active Not Available Not Available No t Available albuterol sulfate 2.5 mg/3 mL (0.083 %) solution for nebulizat ion Inhale 2.5 mg every day by inhalati on route. active Not Available Not Available No t Available Stool Softener 100 mg capsule TAKE 1 CAPSULE TWICE DAILY BY MOUTH active Not Available Not Available No t Available aspirin 325 mg tablet 325 mg by oral route. active Not Available Not Available No t Available hydrocodo ne 5 mg-acetam inophen 325 mg tablet TAKE 1 TABLET BY MOUTH THREE TIMES DAILY 11/21 completed Not Available Not Available Not Available ondansetr on HCl 4 mg tablet TAKE 2 TABLETS BY MOUTH THREE TIMES DAILY NEEDED 11/21 completed Not Available Not Available Not Available prednison e 20 mg tablet Take 2 tablets every day by oral route in the morning for 7 days. 05/18 completed Not Available Not Available Not Available dexametha sone 6 mg tablet TAKE 1 TABLET BY MOUTH EVERY DAY 09/04 completed Not Available Not Available Not Available sennoside s 8.6 mg-docusa te sodium 50 mg tablet 1 {tbl} by oral route. active Not Available Not Available No t Available metoprolo l succinate ER 100 mg tablet,ex tended release 24 hr TAKE 1 TABLET BY MOUTH EVERY DAY FOR BLOOD PRESSURE active Not Available Not Available No t Available Lantus U-100 Insulin 100 unit/mL subcutane ous solution Inject 80 units twice a day by subcutan eous route for 90 days. 03/26 completed Not Available Not Available Not Available cyanocoba karlos (vit B-12) 1,000 mcg tablet 1000 ugs by oral route. active Not Available Not Available No t Available promethaz ine 6.25 mg-codein e 10 mg/5 mL syrup TAKE 1 TEASPOON BY MOUTH THREE TIMES DAILY NEEDED FOR COUGH 07/03 completed Not Available Not Available Not Available hydralazi ne 25 mg tablet 07/03 completed Not Available Not Available Not Available metronida zole 500 mg tablet TAKE 1 TABLET BY MOUTH EVERY 8 HOURS for 7 days 11/05 completed Not Available Not Available Not Available clopidogr el 75 mg tablet TAKE 1 TABLET BY MOUTH DAILY active Not Available Not Available No t Available chlorthal idone 25 mg tablet Take 1 tablet every day by oral route. active Not Available Not Available No t Available levofloxa kiki 250 mg tablet Take 1 tablet every day by oral route in the morning for 10 days. 08/02 completed Not Available Not Available Not Available allopurin ol 100 mg tablet TAKE 2 TABLETS BY MOUTH EVERY DAY active Not Available Not Available No t Available ciproflox acin 500 mg tablet TAKE 1 TABLET BY MOUTH TWICE DAILY for 7 days 11/05 completed Not Available Not Available Not Available spironola ctone 25 mg tablet 25 mg by oral route. active Not Available Not Available No t Available pantopraz ole 20 mg tablet,de layed release TAKE 2 TABLETS BY MOUTH EVERY DAY FOR 90 DAYS active Not Available Not Available No t Available Guaiatuss in AC 10 mg-100 mg/5 mL oral liquid take 1 teaspoon ful BY MOUTH THREE TIMES DAILY NEEDED 05/29 completed Not Available Not Available Not Available oxycodone -acetamin ophen 10 mg-325 mg tablet TAKE 1 TABLET BY MOUTH FOUR TIMES DAILY FOR pain active Not Available Not Available No t Available amlodipin e 10 mg tablet TAKE 1 TABLET BY MOUTH EVERY DAY active Not Available Not Available No t Available cephalexi n 500 mg capsule TAKE 1 TABLET BY MOUTH THREE TIMES DAILY 05/29 completed Not Available Not Available Not Available hydralazi ne 100 mg tablet Take 100 mg by oral route. 12/31 completed Not Available Not Available Not Available clotrimaz ole-betam ethasone 1 %-0.05 % topical cream APPLY TO THE AFFECTED AREA(S) TWICE DAILY FOR FOUR weeks 08/02 completed Not Available Not Available Not Available gabapenti n 300 mg capsule TAKE 1 CAPSULE TWICE DAILY active Not Available Not Available No t Available Senna Laxative 8.6 mg tablet BID 11/21 completed 0; Recorded 03/06/20 22 9:50AM by Isela Jack, Office Visit; Not Available Not Available Not Available omeprazol e 20 mg capsule,d elayed release take 1 capsule BY MOUTH EVERY DAY 05/18 completed Not Available Not Available Not Available zinc gluconate 50 mg tablet active Not Available Not Available Not Available allopurin ol 300 mg tablet Take 300 mg by oral route. 11/05 completed Not Available Not Available Not Available hydralazi ne 50 mg tablet 07/03 completed Not Available Not Available Not Available magnesium 250 mg tablet Take 1 tablet every day by oral route. active Not Available Not Available No t Available mupirocin 2 % topical ointment apply a small amount TO affected area THREE TIMES DAILY active Not Available Not Available No t Available albuterol 90 mcg/actua tion aerosol inhaler PRN 11/21 completed Recorded 07/13/19 06 7:46AM by Benjamin Stinson , ORDER CHECKER PACKER PROCESSER, , Office Visit; Refill Quantity : 0; Not Available Not Available Not Available levofloxa kiki 500 mg tablet One tablet every other day for 10 days 05/18 completed Not Available Not Available Not Available levofloxa kiki 750 mg tablet TAKE 1 TABLET BY MOUTH EVERY DAY for 7 days 02/03 completed Not Available Not Available Not Available albuterol sulfate HFA 90 mcg/actua tion aerosol inhaler 2 {puff}s every 6 hours by inhalati on route. active Not Available Not Available No t Available Cipro 250 mg tablet Take 1 tablet every 12 hours by oral route as directed for 10 days. 08/02 completed Not Available Not Available Not Available doxycycli ne hyclate 100 mg tablet TAKE ONE TABLET BY MOUTH TWICE DAILY FOR 10 DAYS 09/04 completed Not Available Not Available Not Available finasteri de 5 mg tablet TAKE 1 TABLET BY MOUTH EVERY DAY active Not Available Not Available No t Available loratadin e 10 mg tablet TAKE 1 TABLET BY MOUTH EVERY DAY EVERY MORNING active Not Available Not Available No t Available ipratropi um bromide 0.02 % solution for inhalatio n inhale one vial via nebulize r EVERY 4 HOURS as needed for SHORTNES S OF BREATH or wheezing TO USE while waiting ON mail order script 11/21 completed Not Available Not Available Not Available amoxicill in 875 mg-potass ium clavulana te 125 mg tablet TAKE 1 TABLET BY MOUTH TWICE DAILY for 10 days active Not Available Not Available No t Available Mucinex 600 mg tablet, extended release 1200 mg twice a day by oral route. active Not Available Not Available No t Available escitalop judah 10 mg tablet Take 1 tablet every day by oral route in the evening for 30 days, for sleep/mo od. 2023 active Not Available Not Available Not Avai lable cyclobenz aprine 5 mg tablet TAKE 1 TABLET BY MOUTH THREE TIMES DAILY NEEDED FOR MUSCLE SPASMS 02/10 completed Not Available Not Available Not Available Nebulizer Kit [facility] 11/21 completed Recorded 03/06/20 22 9:50AM by Isela Jack, Office Visit; Not Available Not Available Not Available Alcohol Prep Pads USE DIRECTED active Not Available Not Available No t Available [facility] 100,000 unit/gram topical powder APPLY TO THE AFFECTED AREA(S) DIRECTED TWICE DAILY NEEDED active Not Available Not Available No t Available magnesium daily 07/21 completed 0; Recorded 03/06/20 22 9:50AM by Isela Jack, Office Visit; Not Available Not Available Not Available Guaifenes in-Codein e three times daily, as needed 11/21 completed Recorded 03/06/20 22 9:50AM by Isela Jack, Office Visit; Refill Quantity : 180; Millilit er; Not Available Not Available Not Available Vitamin C daily active Not Available Not Sunita ilable Not Available atorvasta tin daily 11/21 completed 0; Recorded 03/06/20 22 9:50AM by Isela Jack, Office Visit; Not Available Not Available Not Available aspirin daily 325 07/21 completed 0; Recorded 03/06/20 22 9:50AM by Isela Jack, Office Visit; Not Available Not Available Not Available nystatin as directed 11/21 completed Recorded 03/06/20 22 9:50AM by Isela Jack, Office Visit; Refill Quantity : 0; Not Available Not Available Not Available clotrimaz ole-betam ethasone as needed 11/21 completed 0; Recorded 03/06/20 22 9:55AM by Alison Butterfield, Office Visit; Not Available Not Available Not Available zinc daily active Not Available Not Availa ble Not Available furosemid e every other day 11/21 completed 0; Recorded 03/06/20 22 9:50AM by Isela Jack, Office Visit; Not Available Not Available Not Available ipratropi um-albute rol TID 11/21 completed 0; Recorded 03/06/20 22 9:50AM by Isela Jack, Office Visit; Not Available Not Available Not Available metoprolo l succinate daily 11/21 completed [id number]; Recorded 03/06/20 22 9:50AM by Isela Jack (Authori zed through Jana Shah DO), Office Visit; Refill Quantity : 0; Not Available Not Available Not Available Flexeril three times daily, as needed 11/21 completed 0; Recorded 03/28/19 23 10:18AM by Alison Butterfield, Office Visit; Not Available Not Available Not Available levofloxa kiki once a day for 10 days 11/21 completed Recorded 05/08/19 23 10:18AM by Jana Shah DO, Office Visit; Refill Quantity : 0; Not Available Not Available Not Available Insulin Syringe as directed 11/21 completed Recorded 05/15/19 23 9:06AM by Isela Jack, Historic al Summary; Mail Order Quantity : 100 Each; Refill Quantity : 0; Not Available Not Available Not Available sodium chloride 7 % for nebulizat ion use 1 vial in nebulize r TWICE DAILY active Not Available Not Available No t Available Lantus Solostar U-100 Insulin 100 unit/mL (3 mL) subcutane ous pen inject 80 units SUBCUTAN EOUSLY TWICE DAILY active Not Available Not Available No t Available levocetir izine 5 mg tablet TAKE 1 TABLET BY MOUTH EVERY DAY 01/22 completed changed to Loratadi ne. Not Available Not Available Not Available levocetir izine daily 11/21 completed Recorded 03/06/20 22 9:50AM by Isela Jack, Office Visit; Refill Quantity : 90; Tablet; Not Available Not Available Not Available melatonin 5 mg tablet at bedtime active Not Available Not Available No t Available Gavilax 17 gram/dose oral powder USE 17 grams TWICE DAILY active Not Available Not Available No t Available amlodipin e besylate (bulk) daily 11/21 completed 0; Recorded 03/06/20 22 9:50AM by Isela Jack, Office Visit; Not Available Not Available Not Available Lumigan 0.01 % eye drops daily 05/29 completed 0; Recorded 03/06/20 22 9:50AM by Isela Jack, Office Visit; Not Available Not Available Not Available Accu-Chek FastClix Lancing Dev two times daily 11/21 completed 0; Recorded 05/08/19 23 9:38AM by Isela Jack, Office Visit; Not Available Not Available Not Available Systane (PF) twice a day 11/21 completed 0; Recorded 03/06/20 22 9:50AM by Isela Jack, Office Visit; Not Available Not Available Not Available BD Insulin Syringe Ultra-Fin e 1 mL 31 gauge x 07/31 USE and discard ONE syringe DIRECTED active Not Available Not Available No t Available Trulicity 1.5 mg/0.5 mL subcutane ous pen injector inject 1.5mg SUBCUTAN EOUSLY every week active Not Available Not Available No t Available Vitamin B12 2 tabs daily 07/21 completed 0; Recorded 03/06/20 22 9:50AM by Isela Jack, Office Visit; Not Available Not Available Not Available Accu-Chek Guide test strips USE AND DISCARD 1 TEST STRIP 3 TIMES A DAY. active Not Available Not Available No t Available Accu-Chek Guide Glucose Meter USE DIRECTED active Not Available Not Available No t Available NebuSal 3 % solution for nebulizat ion use 1 vial in nebulize r TWICE DAILY NEEDED FOR secretio ns active Not Available Not Available No t Available TechLITE Pen Needle 31 gauge x 3/16 USE DIRECTED active Not Available Not Available No t Available melatonin 5 mg chewable tablet 5 mg every 24 hours by oral route. active Not Available Not Available No t Available Trelegy Ellipta 100 mcg-62.5 mcg-25 mcg powder for inhalatio n INHALE 1 PUFF EVERY MORNING active Not Available Not Available No t Available Accu-Chek Fastclix Lancet Drum TEST BLOOD SUGAR AT LEAST 3TIMES A DAY DIRECTED active Not Available Not Available No t Available Breztri Aerospher e 160 mcg-9mcg- 4.8mcg/ac tuation HFA aerosol inhaler INHALE TWO PUFFS BY MOUTH TWICE DAILY active Not Available Not Available No t Available Paxlovid 300 mg (150 mg x 2)-100 mg tablets in a dose pack Take 2 morning tabs (yellow side) by mouth at the same time & take 2 evening tabs (blue side) at the same time for 5 days as directed 07/03 completed Not Available Not Available Not Available FreeStyle Edmundo 3 Plus Sensor device active Not Available Not Available Not Available Vitals Date Recorded Body height Body mass index (BMI) Body weight Oxygen saturation Oxygen saturation in Arterial blood by Pulse oximetry Inhaled oxygen flow rate Heart rate Respiratory rate Systolic blood pressure Diastolic blood pressure Provider Name and Address Organization Details Last Updated DateTime 5 172.72 cm 32.6 kg/m2 39490.5 7 g 95 % 95 % 3 L/min 89 /min 22 /min 120 mm[Hg] 70 mm[Hg] Ani Nolen [facility] 5 15:36:57 Social History Question Answer Notes LastModified by Organizat ion Details LastModified Time Tobacco Smoking Status Former Smoker Sammi grant [facility] 08/24/2022 12:19:48 What Is Your Level Of Alcohol Consumption? None [email or web address] Information not available 08/24/2022 How Much Tobacco Do You Smoke? No [email or web address] Information not available 08/24/2022 Do You Use Any Illicit Or Recreational Drugs? No [email or web address] Information not available 08/24/2022 Do You Or Have You Ever Used Any Other Forms Of Tobacco Or Nicotine? No [email or web address] Information not available 08/24/2022 Sex: Unknown Functional Status None recorded. Mental Status None recorded. Family History Nothing Reported. Medical History No medical history recorded. Immunizations Vaccine Type Date Status Note Provider Nam e and Address Organization Details Recorded Time COVID-19, mRNA, LNP-S, PF, 30 mcg/0.3 mL dose 1 completed Teena grant [facility] LAnkurCMiguel 10/03/2023 06:52:41 COVID-19, mRNA, LNP-S, PF, 30 mcg/0.3 mL dose 1 completed Teena grnat [facility], LMiguelLMiguelCMiguel 10/03/2023 06:52:41 COVID-19, mRNA, LNP-S, PF, 30 mcg/0.3 mL dose 1 completed Teena grant [facility], LMiguelLMiguelCMiguel 10/03/2023 06:52:41 COVID-19, mRNA, LNP-S, PF, 30 mcg/0.3 mL dose 1 completed Teena grant [facility] L.LMiguelCMiguel 10/03/2023 06:52:41 Pneumococcal conjugate PCV 13 5 [facility] 10/03/2023 06:52:41 Influenza, high-dose, trivalent, PF 5 completed Teena grant [facility] L.LMiguelCMiguel 10/03/2023 06:52:42 Influenza, split virus, trivalent, preservative 4 completed Teena grant [facility], LMiguelLMiguelCMiguel 10/03/2023 06:52:42 Influenza, split virus, trivalent, PF 8 completed Teena grant, [facility] 10/03/2023 06:52:42 Influenza, split virus, quadrivalent, PF 3 completed Jana Shah DO [address] [place] [address], [address] [place] [address], [facility] 12/25/2022 08:15:35 Pneumococcal conjugate PCV20, polysaccharide CAR718 conjugate, adjuvant, PF 4 completed Jana Shah DO [address] [place] [address], [address] [place] [address], [facility] 12/13/2023 18:48:31 Influenza, split virus, trivalent, PF 4 completed Jana Shah DO [address] [place] [address], [address] [place] [address], [facility] 12/13/2023 18:48:31 RSV, bivalent, protein subunit RSVpreF, diluent reconstituted, 0.5 mL, PF 5 completed Ani grant, [facility] 03/26/2024 13:28:46 Past Encounters Encounter ID Performer Location Encounter Start Date Encounter Closed Date Diagnosis/Indication Diagnosis SNOMED-CT Code Diagnosis ICD10 Code Diagnosis Note [id number] Jana Shah DO [facility] ([facility]) [address] [id number] 05/18/2024 14:56:18 05/19/2024 12:05:55 Dysuria [id number] R30.0 UA benign, but typical symptoms. will start abx for this due to very high risk. counseled Lumbago-sc iatica due to displacement of lumbar intervertebral disc [id number] M51.17 Acute flare. Will start steroid burst. Counseled on action plan with signs and symptoms of worsening. STORY:I discussed the patient's symptoms, x-ray findings and recent MRI findings with Dr. Carlos Shah, spine surgery. He feels that it would be best to treat the patient more conservati vely due to high risk of complicati ons with his age, chronic medical issues, and body habitus. Recommends pain treatment with possible injections . Patient is to contact his ship painter helper , Dr. Mariano, at [facility] and schedule appointmen t. Oropharyng eal dysphagia [id number] R13.12 progressiv e for 3-4 mts. concern for aspiration . will get MBS. counseled Acute urin laura tract infection [id number] N39.0 Type 2 jarod betes mellitus [id number] E11.39 E11.59 E11.22 E11.51 E11.69 E11.42 05/18/24: decrease lantus to 70u bid due to some low glucose and decreased food intake.03/26: Reviewed and discussed rent lab, A1c 6.2. Counseled we want him to remain around this level. No change in meds. Will order CGM, pt doesn't have his phone in clinic today, son works with [employer], will set this up for him at home.: A1c improved, 7.0 down to 6.1. Continue current tx, Lantus 80u BID. 4- Reviewed glucose log, continue Lantus 80u BID, ok to adjust on occasion as needed per glucose reading. Counseled if Pulm starts low dose daily steroid glucose may increase, we will need to adjust meds/ diet accordingl y.Continue gabapentin for diabetic peripheral neuropathy pain as well as lumbar back pain. 01/22/23- sugars running 100's, continue current tx, f/u one month. Health Concerns Section Related Observation LastModified by Organization Detai ls LastModified Time None Recorded Concern Status LastModified by Organization Details LastModified Time None Recorded Payers Encounter Date Sequence Insurance Name Policy Number Policy Raya Covered Member ID Raya Member ID Guarantor Name 05/18/2024 1 [id number]/A DVANTAGE - PPO) [id number] Jeff Delvalle [id number] Jeff Delvalle Notes Date Note Type Note Provider Name and Address Organization Details Recorded Time 05/18/2024 text/html Pt presents for abd pain/cramping He c/o abd cramping in the mornings that is so intense that he is unable to move and after sitting and waiting it goes away after 15 mins thinks could be diverticulitis, he thinks he has a kidney infection He is having difficulty swallowing meats and pills, no problems with liquids. new issue, started 3-4 wks ago, getting a little worse. chronic hoarsness, but not worse. has concerns re phone call of med review, d/t him taking clopidogrel and taking omeprazole together, and wants to know when to take the med it was prescribed 2 a day They will bring med list to update changes at next visit, they forgot it today She called the [employer] re the sensor and they received a new one and box to send the other one back. Now it seems to be working properly, blood sugar has been avg 132 for the last week He is down to approximately 15 pain pills Jana Shah, DO [address] [place] [address], [phone], [facility] - [facility], Karl 05/19/2024 16:17:26
--- OUTSIDE RECORDS SUMMARY | 2024-06-08 16:46 | XMS_ITS | Encounter Summary ---
Author Organization [facility] Address [address] [place] [address] Care Team Providers Care Sheet Rock Finisher Name Role Phone Praveen Shah DO Primary Care Provider [phone] Encounter Details Date Type Department Care Team (Late st Contact Info) Description 05/23/2024 External Device Data [place] ABSTRACTION Provider, Abstract NO ADDRESS ON FILE Social History Tobacco Use Types Packs/Day Years Used Date Smoking Tobacco: Former Cigarettes Q uit: 06/30/1978 Passive Smoke Exposure: Past Smokeless Tobacco: Never Alcohol Use Standard Drinks/Week Comments No 0 (1 standard drink = 0.6 oz pur e alcohol) Sex and Gender Information Value Date Recorded Sex Assigned at Not on file Legal Sex Male 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 Gender Identity Not on file Sexual Orientation Not on file documented as of this encounter Plan of Treatment Upcoming Encounters Date Type Department Care Team (Late st Contact Info) Description 07/30/2024 2:45 PM CDT Office Visit [facility] Pulmonology [address] [place] [address] Anitha Wilson MD [address] [place] [address] documented as of this encounter Visit Diagnoses Not on filedocumented in this encounter Care Teams Sheet Rock Finisher Relationship Specialty Start Date End Date Praveen Shah DO PCP - General Family Practice 06/29/13 documented as of this encounter
--- OUTSIDE RECORDS SUMMARY | 2024-06-08 16:46 | XMS_ITS | Encounter Summary ---
Author Organization [facility] Address 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 Gender Identity Not on file Sexual Orientation Not on file documented as of this encounter Plan of Treatment Upcoming Encounters Date Type Department Care Team (Late st Contact Info) Description 07/30/2024 2:45 PM CDT Office Visit [facility] Pulmonology [address] [place] [address] Anitha Wilson MD [address] [place] [address] documented as of this encounter Visit Diagnoses Not on filedocumented in this encounter Care Teams Regulatory Analyst Relationship Specialty Start Date End Date Praveen Shah DO PCP - General Family Practice 06/29/13 documented as of this encounter
--- OUTSIDE RECORDS SUMMARY | 2024-06-08 16:46 | XMS_ITS | Encounter Summary ---
Author Organization [facility] Address 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 [employer] Gender Identity Not on file Sexual Orientation Not on file documented as of this encounter Plan of Treatment Upcoming Encounters Date Type Department Care Team (Late st Contact Info) Description 07/30/2024 2:45 PM CDT Office Visit [facility] Pulmonology [address] [place] [address] Anitha Wilson MD [address] [place] [address] documented as of this encounter Visit Diagnoses Not on filedocumented in this encounter Care Teams Livestock Exhibitor Relationship Specialty Start Date End Date Praveen Shah DO PCP - General Family Practice 06/29/13 documented as of this encounter
--- OUTSIDE RECORDS SUMMARY | 2024-06-08 16:46 | XMS_ITS | Clinical Summary ---
Author Organization [facility] Address [address] [place] [address] Phone Care Team Providers Care Clinical Social Work Aide Name Role Phone Praveen Shah Primary Care Provider [phone] Allergies Active Allergy Reactions Criticality Noted Date Comments Adhesive Rash Low 06/25/2013 Medications fluticasone-rik meterol (ADVAIR DISKUS) 250-50 mcg/dose Disk with Device Take 1 Puff by inhalation daily coater carbon paper. Active lisinopril (PRINIVIL) 10 mg tablet Take 10 mg by mouth Daily LATE. Active furosemide (LASIX) 20 mg tablet Take 20 mg by mouth daily before lunch. Takes on -T---Sat, instructed to hold dos Active tiotropium (SPIRIVA) 18 mcg capsule Take 18 mcg by inhalation daily before lunch. Active albuterol 90 mcg/Actuation HFA inhaler Take 2 Puffs by inhalation every 6 hours as needed for Shortness of Breath. Active famotidine (PEPCID) 20 mg tablet Take 20 mg by mouth 2 times daily. Active POTASSIUM GLUCONATE ORAL Take 99 mg by mouth daily before lunch. Takes with Furosemide Active vitamin E 1,000 unit Capsule Take 400 Units by mouth daily with lunch. Active cholecalciferol , Vitamin D3, (VITAMIN D3) 1,000 unit Capsule Take 1,000 Units by mouth daily after lunch. Active flaxseed Oil 1,000 mg Capsule Take 1,000 mg by mouth 2 times daily. Active insulin glargine (LANTUS) 100 unit/mL solution for injection Inject 65 Units by subcutaneous injection daily at bedtime. Active metoprolol tartrate (LOPRESSOR) 25 mg tablet Take 25 mg by mouth 2 times daily. Active aspirin (CORBIN CHEWABLE) 81 mg Tablet, Chewable Take 81 mg by mouth 2 times daily. Active cyanocobalamin (VITAMIN B-12) 1,000 mcg Tablet Take 2,000 mcg by mouth daily before lunch. Active meloxicam (MOBIC) 7.5 mg tablet Take 7.5 mg by mouth daily coater carbon paper. Active tiZANidine (ZANAFLEX) 4 mg Capsule Take 4 mg by mouth 3 times daily. 1/2 tab am and everette, full tab at bedtime Active metFORMIN (GLUCOPHAGE) 500 mg tablet Take 500 mg by mouth 3 times daily before meals. Active oxyCODONE-aceta minophen (PERCOCET) 5-325 mg tablet Take 2 Tabs by mouth every 4 hours as needed for Pain, Moderate. Usually takes 2 tabs at 3 am Active HYDROcodone-moris taminophen (NORCO) 10-325 mg Tablet Take 1 Tab by mouth every 4 hours as needed for Pain, Moderate. 40 Tab 0 4 Active Active Problems Problem Noted Date Diagnosed Date Carpal tunnel syndrome 06/25/2013 Family History Relation Name Status Comments Father Mother Social History Tobacco Use Types Packs/Day Years Used Date Smoking Tobacco: Former Cigarettes 1.5 20 0 06/30/1958 - 06/30/1978 Smokeless Tobacco: Never Alcohol Use Standard Drinks/Week Comments No 0 (1 standard drink = 0.6 oz pur e alcohol) Sex and Gender Information Value Date Recorded Sex Assigned at Not on file Legal Sex Male 4:37 PM CDT Gender Identity Not on file Sexual Orientation Not on file Occupation Industry Job Start Date Job End Date Not on file Not on file Not on file Not on file Last Filed Vital Signs Vital Sign Reading Time Taken Comments Blood Pressure 124/81 09/15/2013 1:06 PM CDT Pulse 100 09/15/2013 1:06 PM CDT Temperature 36.8 ??C (98.2 ??F) 07/03/2013 6:52 AM CD T Respiratory Rate 16 07/03/2013 6:52 AM CDT Oxygen Saturation 94% 07/03/2013 8:30 AM CDT Inhaled Oxygen Concentration - - Weight 108.9 kg (240 lb) 09/15/2013 1:06 PM CDT Height 172.7 cm (5' 8 ) 09/15/2013 1:06 PM CDT Body Mass Index 36.49 09/15/2013 1:06 PM CDT Plan of Treatment Health Maintenance Due Date Last Done Comments DTAP/TDAP/TD VACCINES (1 - Tdap) 06/25/1962 PNEUMOCOCCAL VACCINE 50+ YEARS (1 of 1 - PCV) 06/25/18 94 ZOSTER VACCINE (1 of 2) 06/25/1993 RSV VACCINE (60+ or ) (1 - 1-dose 75+ series) 06/25/2018 INFLUENZA VACCINE (#1) 2023 Medical Devices Implanted Type Area Barrel Inspector Device Identifier Shelf Expiration Date Model / Serial / Lot Right Shoulder Pin Implanted:(Quant ity not on file) Explanted:(Quant ity not on file) Insurance [facility] [employer] CHOICE PPO Advance Directives For more information, please contact: [phone] * Full Code (Latest Code Status on File) Date Activated Date Inactivated Comments 07/03/2013 7:15 AM 07/03/2013 12:08 PM Care Teams Clinical Social Work Aide Relationship Specialty Start Date End Date Praveen Shah DO PCP - General Family Practice 06/29/13
--- OUTSIDE RECORDS SUMMARY | 2024-06-08 16:46 | XMS_ITS | Clinical Summary ---
Author Organization [facility] Address [address] [place]ett: Epic Prelude ADT [place]INE [place] [address] Care Team Providers Care Meat Inspector Name Role Phone ShahPraveen ngo Primary Care Provider Allergies Active Allergy Reactions Criticality Noted Date Comments Adhesive Rash Low 06/25/2013 Carvedilol Diarrhea High 09/24/2022 Other reaction(s): Diarrhea & SOB Losartan Unknown High 09/24/2022 Other reaction(s): Kidney injury Medications albuterol sulfate HFA 90 mcg/actuation aerosol inhaler Take 2 Puffs by inhalation every 6 hours as needed. Active albuterol (PROVENTIL,VALENTINO LIZZY) 2.5 mg /3 mL (0.083 %) Solution for Nebulization Take 2.5 mg by inhalation see administration instructions. Active allopurinoL (ZYLOPRIM) 100 mg tablet Take 200 mg by mouth daily. Active amLODIPine (NORVASC) 10 mg tablet Take 1 Tablet by mouth daily. 03/12/20 24 Active ascorbic acid, vitamin C, (VITAMIN C) 1,000 mg Tablet Take 1,000 mg by mouth daily. Active aspirin (CORBIN) 325 mg tablet Take 325 mg by mouth daily. Active atorvastatin (LIPITOR) 80 mg tablet Take 80 mg by mouth late in the day. Active chlorthalidone (HYGROTON) 25 mg tablet Take 25 mg by mouth daily. 05/14/19 23 Active cholecalciferol, vitamin D3, 5,000 unit Take 5,000 Units by mouth daily. Active clopidogreL (PLAVIX) 75 mg Tablet Take 75 mg by mouth daily. 04/07/19 25 Active cyclobenzaprine (FLEXERIL) 10 mg tablet Take 5 mg by mouth 2 times daily as needed. Active dulaglutide (TRULICITY SUBCUT) Inject 1.5 mg by subcutaneous injection every 7 days. Active Trulicity 1.5 mg/0.5 mL injection Inject 1.5 mg by subcutaneous injection every 7 days. 04/02/19 25 Active finasteride (PROSCAR) 5 mg tablet Take 5 mg by mouth daily. Active zinc gluconate 50 mg Tablet Take 50 mg by mouth daily. Active spironolactone (ALDACTONE) 25 mg tablet Take 25 mg by mouth daily. Active sodium chloride 7 % Solution for Nebulization Take 1 mL by inhalation see administration instructions. 03/12/20 24 Active sodium chloride 3 % Solution for Nebulization Take 1 mL by inhalation see administration instructions. Active predniSONE (DELTASONE) 20 mg tablet Take 20 mg by mouth see administration instructions. 03/19/19 25 Active metoprolol succinate (TOPROL XL) 100 mg Extended Release 24 hour tablet Take 100 mg by mouth daily. Active guaiFENesin (MUCINEX) 600 mg Extended Release Biphasic tablet Take 1,200 mg by mouth 2 times daily as needed. Active furosemide (LASIX) 40 mg tablet Take 40 mg by mouth daily. 04/21/19 25 Active gabapentin (NEURONTIN) 300 mg capsule Take 300 mg by mouth 3 times daily. Active levoFLOXacin (LEVAQUIN) 500 mg tablet Take 500 mg by mouth every other day. 03/19/19 25 Active loratadine (CLARITIN) 10 mg tablet Take 10 mg by mouth daily. Active omeprazole (PriLOSEC) 20 mg Capsule, Delayed Release(E.C.) Take 20 mg by mouth daily. Active oxyCODONE-acetam inophen (PERCOCET) 10-325 mg Tablet Take 1 Tablet by mouth every 6 hours as needed. Active Breztri Aerosphere 160 mcg-9mcg-4.8mcg/ actuation HFA aerosol inhalerIndicatio ns:Chronic obstructive pulmonary disease, unspecified COPD type (CMS/HCC) Take 2 Puffs by inhalation 2 times daily. 10.7 Gram 5 04/22/19 25 Active ipratropium-albu teroL (DUONEB) 0.5 mg-3 mg(2.5 mg base)/3 mL Solution for NebulizationIndi cations:Bronchie ctasis without acute exacerbation (CMS/HCC) Take 3 mL by inhalation every 6 hours as needed for Shortness of Breath. 120 mL 4 04/22/19 25 Active oxygen home deliveryIndicati ons:Chronic obstructive pulmonary disease, unspecified COPD type ([facility]),Bronch iectasis without acute exacerbation ([facility]) Home Oxygen Concentrator yes at 0 L/M Rest, 2 L/M Activity, 2 L/M Sleep, Delivery Device: Nasal Cannula Portability: yes, 0 L/M Rest, 2 L/M Activity, May provide device best for patient needs(E system,home fill, conserving device) Length of Need: 99 months 1 Each 04/22/19 25 Active Active Problems Problem Noted Date Diagnosed Date Carpal tunnel syndrome 06/25/2013 Encounters Date Type Department Care Team Description 06/03/2024 External Device Data [facility]STRACTION Provider, Abstract 05/26/2024 Chart Note [facility] [address] [place] [phone] Miguel Parker 05/23/2024 External Device Data [facility] Provider, Abstract 05/22/2024 External Device Data [facility] Provider, Abstract 05/06/2024 External Device Data [facility] Provider, Abstract 04/29/2024 Abstract [facility] [address] [place] [phone] Anitha Wilson MD 04/29/2024 Orders Only [facility] [address] [place] [phone] Provider, Abstract 04/27/2024 Results Follow-Up [facility] [address] [place] [phone] Araceli Graham APRN COMPREHENSIVE METABOLIC PANEL, BRAIN NATRIURETIC PEPTIDE, BNP OR PROBNP 04/22/2024 10:00 AM NURSES ASSISTANT Initial consult [facility] [address] [place] [phone] Araceli Graham APRN Stage 3 severe chronic obstructive pulmonary disease by Global Initiative for Chronic Obstructive Lung Disease classification (CMS/HCC) (Primary Dx); Chronic obstructive pulmonary disease, unspecified COPD type (CMS/HCC); Bronchiectasis without acute exacerbation ([facility]/HCC); Dyspnea on exertion; Pulmonary emphysema, unspecified emphysema type ([facility]/HCC); Former smoker; Chronic respiratory failure with hypoxia ([facility]/HCC) 04/22/2024 9:35 AM NURSES ASSISTANT Ancillary Procedure [facility] Rad[facility] [address] [place] [phone] Araceli Graham APRN Chronic obstructive pulmonary disease, unspecified COPD type ([facility]/HCC) 04/22/2024 Orders Only [facility] [address] [place] [phone] Araceli Graham APRN Chronic obstructive pulmonary disease, unspecified COPD type ([facility]/HCC) (Primary Dx); Bronchiectasis without acute exacerbation ([facility]) 04/09/2024 External Device Data [facility]STRACTION Provider, Abstract from Last 3 Months Family History Relation Name Status Comments Father Mother Social History Tobacco Use Types Packs/Day Years Used Date Smoking Tobacco: Former Cigarettes Q uit: 06/30/1978 Passive Smoke Exposure: Past Smokeless Tobacco: Never Tobacco Cessation:Counseling Given: Not Answered Alcohol Use Standard Drinks/Week Comments No 0 (1 standard drink = 0.6 oz pur e alcohol) Sex and Gender Information Value Date Recorded Sex Assigned at Not on file Legal Sex Male 12:25 AM NURSES ASSISTANT Gender Identity Not on file Sexual Orientation Not on file Last Filed Vital Signs Vital Sign Reading Time Taken Comments Blood Pressure 120/60 04/22/2024 10:00 AM NURSES ASSISTANT Pulse 103 04/22/2024 11:17 AM NURSES ASSISTANT Temperature - - Respiratory Rate - - Oxygen Saturation 94% 04/22/2024 11:17 AM NURSES ASSISTANT Inhaled Oxygen Concentration - - Weight 97.1 kg (214 lb) 04/22/2024 10:00 AM NURSES ASSISTANT Height 170.2 cm (5' 7 ) 04/22/2024 10:00 AM NURSES ASSISTANT Body Mass Index 33.52 04/22/2024 10:00 AM NURSES ASSISTANT Plan of Treatment Upcoming Encounters Date Type Department Care Team (Late st Contact Info) Description 07/30/2024 2:45 PM CDT Office Visit [facility]mon[facility] [address] [place] [address] Anitha Wilson MD [address] [place] [phone] Health Maintenance Due Date Last Done Comments DIABETES ANNUAL FOOT EXAM 06/25/1961 DIABETES ANNUAL RETINAL EXAM 06/25/1961 DIABETES MICROALBUMIN ANNUAL SCREEN 06/25/1961 LDL CHOLESTEROL ANNUAL 06/25/1961 DTAP/TDAP/TD VACCINES (1 - Tdap) 06/25/1962 ZOSTER VACCINE (1 of 2) 06/25/1993 RSV VACCINE (60+ or ) (1 - 1-dose 75+ series) 06/25/2018 COVID-19 Vaccine ( - 2023-2 5 season) 2023 12/30/2020, 05/13/2020, 04/15/2020 DIABETES HBA1C Q 6 MONTHS 09/16/20242024, 12/06/2023, 09/03/2023 INFLUENZA VACCINE Completed 12/11/2023, , 12/16/2017, Additional history exists PNEUMOCOCCAL VACCINE 50+ YEARS Completed 12/11/2023 , 11/18/2014 Medical Devices Implanted Type Area Clothing Worker Device Identifier Shelf Expiration Date Model / Serial / Lot Right Shoulder Pin Procedures Procedure Name Priority Date/Time Associated Diagnosis Comments BRAIN NATRIURETIC PEPTIDE, BNP OR PROBNP Routine 04/23/2024 12:27 PM NURSES ASSISTANT Dyspnea on exertion COMPREHENSIVE METABOLIC PANEL Routine 04/23/2024 12:27 PM NURSES ASSISTANT Dyspnea on exertion XR CHEST PA AND LATERAL 2 VW Routine 04/22/2024 9:54 AM NURSES ASSISTANT Chronic obstructive pulmonary disease, unspecified COPD type (CMS/HCC) from Last 3 Months Results * BRAIN NATRIURETIC PEPTIDE, BNP OR PROBNP (04/23/2024 12:27 PM NURSES ASSISTANT) PROBNP, N TERMINAL 188 <450 pg/mL [facility] Comment: Test Performed at: [facility] [address] [place], [place] ??[phone] Bryson Torres MD Blood 04/23/2024 12:2 7 PM NURSES ASSISTANT 04/23/2024 12:28 PM NURSES ASSISTANT Araceli Angelique Wrighttt RAIL MAINTENANCE WORKER CHEMISTRY ORDERABLES Final Result [facility] [phone] [facility] [address] [place] [address] * (ABNORMAL) COMPREHENSIVE METABOLIC PANEL (04/23/2024 12:27 PM NURSES ASSISTANT) GLUCOSE 131(H) 65 - 99 mg/dL [facility] Comment: ? Fasting reference interval For someone without known diabetes, a glucose value >125 mg/dL indicates that they may have diabetes and this should be confirmed with a follow-up test. BUN 55(H) 7 - 25 mg/dL [facility] CREATININE 2.25(H) 0.70 - 1.22 mg/dL [facility] GFR 29(L) > OR = 60 mL/min/1.7 3m2 [facility] BUN/CREAT RATIO 24(H) 6 - 22 (calc) [facility] SODIUM 142 135 - 146 mmol/L [facility] POTASSIUM 4.8 3.5 - 5.3 mmol/L [facility] CHLORIDE 101 98 - 110 mmol/L [facility] CO2 32 20 - 32 mmol/L [facility] CALCIUM 9.7 8.6 - 10.3 mg/dL [facility] TOTAL PROTEIN 7.1 6.1 - 8.1 g/dL [facility] ALBUMIN 4.0 3.6 - 5.1 g/dL [facility] GLOBULIN 3.1 1.9 - 3.7 g/dL (calc) [facility] ALBUMIN/GLOBULIN RATIO 1.3 1.0 - 2.5 (calc) [facility] BILIRUBIN TOTAL 0.4 0.2 - 1.2 mg/dL [facility] ALKALINE PHOSPHATASE 75 35 - 144 U/L [facility] AST 17 10 - 35 U/L [facility] ALT 14 9 - 46 U/L [facility] Comment: Test Performed at: [facility] [address] [place], [place] ??[phone] Bryson Torres MD Blood 04/23/2024 12:2 7 PM NURSES ASSISTANT 04/23/2024 12:28 PM NURSES ASSISTANT Araceli Angelique rGaham RAIL MAINTENANCE WORKER CHEMISTRY ORDERABLES Final Result [facility] [phone] [facility] [address] [place] [address] * XR CHEST PA AND LATERAL 2 VW (04/22/2024 9:54 AM NURSES ASSISTANT) Anatomical Region Laterality Modality Chest Computed Radiogr aphy 04/22/2024 9:54 AM NURSES ASSISTANT Impressions 04/22/2024 10:17 AM NURSES ASSISTANT IMPRESSION: Please see below. Exam: XR CHEST PA AND LATERAL 2 VW Date/Time of Exam: 04/22/2024 9:54 AM Reason For Exam: See Diagnosis. Diagnosis: Chronic obstructive pulmonary disease, unspecified COPD type (CMS/HCC). Findings: Emphysematous change with pleural-parenchymal scarring within both lower hemithoraces. No consolidating airspace disease, large pleural effusion or pneumothorax. Remote postsurgical residuals right upper lobe and both shoulders. Cardiac silhouette within normal limits. Narrative Procedure Note Sylvia Oswald MD - 04/22/2024 IMPRESSION: Please see below. Exam: XR CHEST PA AND LATERAL 2 VW Date/Time of Exam: 04/22/2024 9:54 AM Reason For Exam: See Diagnosis. Diagnosis: Chronic obstructive pulmonary disease, unspecified COPD type (CMS/HCC). Findings: Emphysematous change with pleural-parenchymal scarring within both lower hemithoraces. No consolidating airspace disease, large pleural effusion or pneumothorax. Remote postsurgical residuals right upper lobe and both shoulders. Cardiac silhouette within normal limits. Araceli Merino Santos RAIL MAINTENANCE WORKER DIAGNOSTIC IMAGING ORDERAB LES Final Result from Last [address] [place] [address] MEDICARE Care Teams Meat Inspector Relationship Specialty Start Date End Date Praveen Shah DO PCP - General Family Practice 06/29/13
--- OUTSIDE RECORDS SUMMARY | 2024-06-08 16:46 | XMS_ITS | Encounter Summary ---
Author Organization [facility] Address [address] [place] [address] Care Team Providers Care Rn Residential Name Role Phone Praveen Shah Primary Care Provider [phone] Encounter Details Date Type Department Care Team (Late st Contact Info) Description 05/26/2024 Chart Note [facility] Pulmonology [address] [place] [address] Miguel Parker Social History Tobacco Use Types Packs/Day Years Used Date Smoking Tobacco: Former Cigarettes Q uit: 06/30/1978 Passive Smoke Exposure: Past Smokeless Tobacco: Never Alcohol Use Standard Drinks/Week Comments No 0 (1 standard drink = 0.6 oz pur e alcohol) Sex and Gender Information Value Date Recorded Sex Assigned at Not on file Legal Sex Male 12:25 AM FIGURE SKATER Gender Identity Not on file Sexual Orientation Not on file documented as of this encounter Progress Notes * Miguel Parker - 05/26/2024 11:02 AM CDT Amina in [place] called requesting records that Trevor has bronchiectasis for his afflovest to be covered. I told them that Araceli did not order the afflovest and to contact the ordering physician's office. I am still going to send Araceli's progress notes in case that is enough to get it covered. Faxed to [phone]. documented in this encounter Plan of Treatment Upcoming Encounters Date Type Department Care Team (Late st Contact Info) Description 07/30/2024 2:45 PM CDT Office Visit [facility] Pulmonology [address] [place] [address] Anitha Wilson MD [address] [place] [phone] documented as of this encounter Visit Diagnoses Not on filedocumented in this encounter Care Teams Rn Residential Relationship Specialty Start Date End Date Praveen Shah DO PCP - General Family Practice 06/29/13 documented as of this encounter
[2024-06-08 17:00] VITALS: TEMP 36.8
--- NOTE | 2024-06-08 17:30 | PC.NURSE ---
Received pt from outpatient registration for pre hydration prior to peripheral cath tomorrow. pt resting in bed, SO at bedside. Denies any pain. explained that nurse will get an iv access to give his iv fluids starting tonight as ordered. Informed pt of the npo status after midnight. call light provided to pt.
[2024-06-08 18:04] LABS: Glucose Point of Care 175 mg/dL (70-110)
[2024-06-08 18:31] VITALS: BP 128/77; PULSE 83; RESP 15; O2SAT 100
[2024-06-08 19:48] VITALS: BP 138/72; PULSE 87; RESP 11; TEMP 36.6; O2SAT 98
[2024-06-08] MEDS: sodium chloride 0.9% 1,000 ML 100 ML IV (20:23)
--- NOTE | 2024-06-08 20:44 | PC.NURSE ---
Contacted Dr Hampton about patients home medication, said to continue home medications, orders are entered
[2024-06-08 21:02] LABS: Glucose Point of Care 177 mg/dL (70-110)
[2024-06-08] MEDS: latanoprost 0.005% Op Soln 2.5 mL Btl 1 DROP EYE-BOTH (21:37)
[2024-06-08] MEDS: gabapentin 300 mg Capsule PO (21:37)
[2024-06-08] MEDS: guaiFENesin 600 mg Tablet PO (21:37)
[2024-06-08] MEDS: atorvastatin 40 mg Tablet 80 MG PO (21:37)
[2024-06-08] MEDS: cholecalciferol (vitamin D3) 5,000 unit Tablet 5000 UNIT PO (21:37)
[2024-06-08 22:20] VITALS: PULSE 75
[2024-06-08] MEDS: albuterol 2.5 mg/3 mL Neb INHALATION (22:39)
[2024-06-08 22:40] VITALS: PULSE 83; RESP 18; O2SAT 99
[2024-06-08 22:42] VITALS: PULSE 84; RESP 18; O2SAT 99
[2024-06-09] VITALS (14 sets, daily range): BP systolic 117–143; BP diastolic 59–85; PULSE 70–88; RESP 11–20; TEMP 36.4–36.8; O2SAT 94–100
[2024-06-09 04:42] LABS: Anion Gap 12.1 (5-19); Blood Urea Nitrogen 61 mg/dL (8-23); Calcium 9.1 mg/dL (8.5-10.5); Carbon Dioxide 29 mmol/L (22-29); Chloride 105 mmol/L (98-107); Glucose 141 mg/dL (65-115); Osmolality Calculated 314 mOsm/kg (285-295); Potassium 4.1 mmol/L (3.5-5.1); Sodium 142 mmol/L (136-145)
[2024-06-09] MEDS: oxyCODONE-APAP 10-325 mg Tablet 1 TAB PO ×2 (05:25→20:06)
[2024-06-09] MEDS: diphenhydrAMINE 50 mg Capsule PO (05:55)
[2024-06-09 06:14] LABS: Glucose Point of Care 134 mg/dL (70-110)
--- NOTE | 2024-06-09 06:51 | XACV_ITS ---
Exam Room: [facility] Ht: 170 cm Wt: 103 kg BSA: 2.25 m2 Gender: Male : 1945 Any Known Allergies: Other Exam Priority: Routine Procedure(s): Procedure Description: Diagnostic procedure Procedure Description: Peripheral Cath Diagnostic Procedure Procedure Description: Lower extremities' angiography Procedure Description: Peripheral vascular Intervention Procedure Description: PV Balloon Procedure Description: PV Atherectomy Procedure Description: Miscellaneous Procedure Description: ACT KHAMU, Hampton; Lower Extremity Diagnostic Findings Indication for peripheral angiogram: Lifestyle limiting claudication, failure of medical management, abnormal peripheral angiogram Catheters used: Rim, long 6 Pashto sheath, seekerAbdominal aortogram: Not performed Right renal artery: Not Left renal artery: Not performedRight common iliac: Patent Right external iliac: Patent Right internal iliac: Patent Right common femoral artery: Patent Right profundofemoral artery: Patent with luminal irregularities Right SFA: Chronically occluded in the proximal to distal segment appeared to be highly calcified vessel: Chronically occluded Right popliteal artery: Chronically occluded Right tibioperoneal trunk: Chronically occluded Right anterior tibial artery: Not visualized Right posterior tibial artery: Not visualized Right peroneal artery: Visualized with somewhat delayed. Lower Extremity Interventional Findings Intervention of right proximal to distal SFA, popliteal and tibioperoneal trunk: After somewhat difficulty we were able to cross with Glidewire and seeker through right SFA popliteal tibioperoneal trunk into the anterior tibial artery. We then switched Glidewire through the help of seeker with Viper wire, using 2.0 bur multiple runs were performed from proximal to distal SFA, proximal to distal popliteal and proximal to distal tibioperoneal trunk. Balloon angioplasty of tibioperoneal trunk in the right leg: Using [place] 4 x 100 x 135 balloon angioplasty was performed for 2 minutes minutes at 4 CARYL Balloon angioplasty of the right SFA/popliteal artery: Using 6 x 250 x 135 [place] balloon was performed to multiple balloon angioplasty at 6 CARYL for 2 minutes each x 3 inflations in the distal SFA to popliteal, mid to distal SFA and proximal to mid SFA of the right side. Excellent angiographic result with good flow was noted all the way from proximal SFA to mid distal SFA to popliteal artery tibioperoneal trunk anterior and posterior tibial artery and peroneal artery of the right leg. Patient tolerated procedure well without any complication. At the end of the case anterior posterior tibial pulses were palpable. Recommendations 1-Return to inpatient for close monitoring and routine cath care 2-Risk factor modification for secondary prevention 3-Statin and aspirin 81 mg life-long, if tolerated 4-Continue Plavix 75mg p.o. daily, add rivaroxaban if not contraindicated 5-Continue optimal medical management 6-Follow up with Dr. Hampton in four weeks and your primary care in 10 days. Pressures Phase:Rest AO : 116 / 46 ( 72 ) @ 9:24:00 AM 123 / 57 ( 82 ) @ 9:45:00 AM 125 / 57 ( 82 ) @ 10:15:00 AM Hemodynamic Data Phase:Rest AO : 116.0 / 46.0 ( 72.0 ) @ 9:24:00 AM 123.0 / 57.0 ( 82.0 ) @ 9:45:00 AM 125.0 / 57.0 ( 82.0 ) @ 10:15:00 AM Clinical Evaluation EBL: 5mL-10mL Procedural Details Procedure Consent Obtained. Admit Source: In Patient. Pre-Procedure Time Out. Identified patient by full name and date of as verbalized by the patient/guarantor. Does the consent match the physician's order: Yes. Accurate & Complete Informed Consent: Yes. Inpatient/Outpatient History & Physical on Chart: Yes. If H&P is completed, is and addenduem needed: No; If yes, is the addendum complete: N/A. Visualize and Verify Site with Patient/Guarantor: N/A. Relevant Radiology Images available: N/A. The risks, benefits, and alternatives of sedation and/or procedure were discussed by physician. The patient agrees to continue. Procedure started. Current diagnosis: Lifestyle limiting claudication. PERRLA. Strong, equal hand automation controls engineer bilaterally. Lungs clear x 5 lobes. IV Site on Arrival: 20 gauge in the right forearm. IV Fluids: 0.9% NaCl at KVO. 0 mL infused prior to laborer pie bakery. Pre Procedural Pulses: bilateral posterior tibial was Doppled. Pre Procedural Pulses: bilateral dorsalis pedis was Doppled. Oxygen started at 2liters/min via nasal canula. bilateral groins was prepped with chloroprep then draped in the usual sterile fashion. Baseline sample Acquired. HR: 97 BPM. Physician notified. Physician arrived. Physician scrubbed in. Time out performed with cath team. Lidocaine 1% infiltrated to the left groin. Arterial access obtained with micropuncture set. A 5Fr RIM catheter in over glidewire. Glidewire seated in right profunda. Catheter out over glidewire. 6fr short sheath exchanged for 6fr 45cm flexor sheath over the glidewire. Right common femoral selected and arteriogram with runoff performed @ 10 mL/sec for a total of 30 mL. Seeker catheter in over glidewire. Wire and seeker repositioned from profunda to right SFA. Glidewire and seeker advanced to anterior tibial. Wire out. Hand injection through seeker catheter. Peripheral viperwire in through seeker catheter to anterior tibial. Seeker catheter out over wire. 2.0 orbital athrectomy device in over viperwire. Atherectomy performed of right proximal SFA. Atherectomy performed of right proximal SFA. Device advanced to mid SFA. Atherectomy performed to mid SFA. Atherectomy performed to mid SFA. Device advanced to distal SFA. Atherectomy performed to distal SFA. Atherectomy performed to distal SFA. Device advanced to popliteal. Atherectomy performed of popliteal. Atherectomy performed of popliteal. Atherectomy device out over wire. Seeker in over viperwire, advanced to peroneal. Vipewire out. ACT drawn. Results 249 seconds. Therapeutic limits - pre-heparin administration 90-150 seconds and monitoring heparin during a vascular procedure >250 seconds. Glidewire in through seeker, parked in peroneal. Seeker out OTW. Balloon inserted over the wire to the tibial peroneal trunk. Inflation number : 1 A AB ARMADA 35 OTW [id number] was prepped and advanced across the Tibial Peroneal Trunk, Right , then inflated to 4 CARYL for 2:02 seconds. Balloon out. Balloon inserted over the wire to the superficial femoral. Inflation number : 1 A AB [place] 35 EMERGENCY MEDICINE PHYSICIAN Catheter [id number] was prepped and advanced across the Superficial Femoral, Right , then inflated to 6 CARYL for 2:02 seconds. Inflation number: 2 The AB [place] 35 EMERGENCY MEDICINE PHYSICIAN Catheter [id number] was reinflated across the Superficial Femoral, Right, to 6 CARYL for 2:02 seconds. Balloon out over wire. Right common femoral selected and arteriogram with runoff performed @ 10 mL/sec for a total of 30 mL. DSA imaging performed below the knee to better visualize distal vessels. 6fr 45cm flexor sheath exchanged for new 6fr 11cm sheath over glidewire. A Left femoral angiogram was performed to determine safe placement of closure device. ACT drawn. Results 272 seconds. Therapeutic limits - pre-heparin administration 90-150 seconds and monitoring heparin during a vascular procedure >250 seconds. Lidocaine 1% infiltrated to the left groin. A Angio-Seal VIP ([facility]) was successful obtaining hemostatsis at the Left Femoral artery insertion site. LOT # [id number] EXP 11-28-2024. Post Procedure: Pulses reassessed and unchanged. PERRLA. Strong, equal hand automation controls engineer bilaterally. No VTE prophylaxis required. Medication's Wasted: Nitro = 49.6 mg. Medication's Wasted: Other = Fentanyl 100 mcg. Medication's Wasted: Lidocaine 1% = 10 mL. Total IV fluids: 30 mL. Complications: None. Estimated blood loss: 5mL-10mL. Responsiveness - Normal response to verbal stimuli; alert and oriented, PERRLA. Airway - Unaffected, no intervention required; spontaneous ventilation. Circulation: W/N/L, pulses unchanged. Nausea/Vomiting: No. Post-op diagnosis: PAD, Lifestyle limiting claudication. Orbital atherectomy to right SFA. Balloon Angioplasty of chronically occluded SFA and popliteal. Procedure completed. Patient transferred by bed to 1st floor. Vital chart was stopped. Access Site Site: Left Femoral artery Sheath Size: 6 Fr Hemostasis Method: Angio-Seal VIP ([facility]. [facility]h) Hemostasis Success: Successful Procedure Medications Start: 8:07 AM Stop: 8:07 AM Medication: Versed Amount: 1 mg Route: I.V. Start: 8:23 AM Stop: 8:23 AM Medication: Heparin Amount: 5000 units Route: I.V. Start: 8:39 AM Stop: 8:39 AM Medication: Heparin Amount: 3000 units Route: I.V. Start: 8:45 AM Stop: 8:45 AM Medication: Versed Amount: 1 mg Route: I.V. Start: 9:01 AM Stop: 9:01 AM Medication: Heparin Amount: 1000 units Route: I.V. Start: 9:12 AM Stop: 9:12 AM Medication: Nitrogylcerin Amount: 400 mcg Route: I.A. I, the attending physician, have reviewed and verified all procedure medications. Yes, all medications given per verbal order History/Risk Factors Hypertension: Yes Dyslipidemia: No Peripheral Arterial Disease (PAD): Yes Myocardial Infarction (VT): No Obesity: No Renal Disease: No Prior Interventions PCI: No CABG: No Valve Surgery: No Report Signatures Finalized by Robert Hampton MD on 06/20/2024 09:16 PM
--- NOTE | 2024-06-09 07:48 | P.HPUD_ITS ---
Surgery/Procedure H&P Update DATE OF PROCEDURE: June 09, 2024 DATE H&P PERFORMED: 06/08/24 H&P UPDATE INFORMATION: I have reviewed H&P completed within last 30 days and I have examined patient prior to procedure PREOP DIAGNOSIS: Renal failure, lifestyle limiting claudication, inability to walk, PAD PRIMARY INDICATION FOR PROCEDURE: lifestyle limiting claudication despite of medical management Severe peripheral arterial disease proven with peripheral angiogram with chronically occluded right SFA popliteal and below the knee arteries Chronic kidney disease with baseline creatinine 2.0 Patient was hydrated with IV fluid overnight 100 mL/h for 12 hours. PLANNED PROCEDURE: Peripheral angiogram/atherectomy/lithotripsy/drug-coated balloon/stents if needed All risk-benefit and alternative for the procedure has been explained to the patient and his at the bedside. They clearly understand 2% risk of stroke major bleed, 6% risk of urgent or emergent surgery for embolic phenomena, 6 to 8% risk of limb threatening ischemia leading to amputation loss of limb, 6- 8% risk of worsening of renal function leading to temporary or permanent dialysis. Risk of worsening of heart failure coronary artery disease MD, risk of pseudoaneurysm bruising hematoma. Patient and his agreed to it and would like to proceed with it. AIRWAY EVAL/ANESTHESIA PLAN: ASA II, Risks, benefits & alternatives of sedation and/or procedure discussed and Patient agrees to continue as planned
--- NOTE | 2024-06-09 09:05 | PC.NURSE ---
Patient left unit to kiln labourer at 0720.
--- NOTE | 2024-06-09 09:34 | PC.CHAP ---
Pastoral Care Encounter/Spiritual Assessment Type of Contact [] Declined government service executive visit [] Patient/Family/Request visit [] Outpatient visit [] Follow-up visit [] Physician referral [] Code/Alert [] Routine visit [] Staff referral [] Actively dying [] Patient sleeping [] Family support [] [x] Out of room [] Palliative care [] [] Receiving care in room [] Pre-surgical visit [] Trauma [] Long length of stay [] ICU visit [] Other: Relational/Emotional Strength [] Patient feels connected with others/family/visitors/staff [] Distress [] Loneliness/isolation [] Abandonment Spirituality of Patient [] Person of Anette [] Attends Yazidism of their Anette [] Believes in Prayer [] Reads Bible or Anabaptist materials [] There are Spiritual issues to be addressed Armature Winder Interventions [] Prayer [] Active listening [] Non-anxious presence [] Spiritual/emotional support [] Crisis/trauma care [] Spiritual counseling [] Bereavement support [] Provided bereavement packet [] Provided Bible/devotional materials [] Provided toy/stuffed animal, coloring book to patient or family member [] Provided Communion [] Anointing/[place] [] Salvation [] Completed spiritual assessment [] Other: Impact on Illness or Injury [] Angry [] Fearful [] Anxious [] Often cries [] Exhaustion [] Unable to work [] Unable to attend sikh [] Unable to walk/stand [] Unable to read [] Unable to drive [] Unable to eat/drink [] Unable to sleep [] Unable to be with family [] Patient intubated [] Other: Summary Time spent with patient
--- NOTE | 2024-06-09 09:47 | PM.PROC ---
Procedure Note: Date of procedure: 06/09/24 Pre-procedure diagnosis: Lifestyle limiting claudication, severe PAD Procedure: Peripheral angiogram was performed. Noted to have 100% chronically occluded proximal SFA, popliteal, tibioperoneal trunk and no flow below the knee. Successful atherectomy using CSI, balloon angioplasty of the tibioperoneal trunk popliteal and right SFA. Excellent angiographic result with good flow was noted. All 3 vessels below the knee were noted to be filling. Plan Due to chronic kidney disease continue IV fluid 100 mL/h for next 12 hours Patient has been closed with Angio-Seal on the left common femoral Bedrest for 4 hours Continue aspirin and Plavix. From tomorrow we will add Xarelto. Continue home medications. Check BMP and CBC in the morning. Coding Level of Care Code Acute Code for Kathie Beckham
[2024-06-09] MEDS: finasteride 5 mg Tablet PO (09:51)
[2024-06-09] MEDS: metoprolol succinate ER (24 HR) 100 mg Tablet PO (09:51)
[2024-06-09] MEDS: pantoprazole DR 40 mg Tablet 20 MG PO (09:51)
[2024-06-09] MEDS: ascorbic acid 500 mg Tablet PO (09:52)
[2024-06-09] MEDS: gabapentin 300 mg Capsule PO ×2 (09:52→17:24)
[2024-06-09] MEDS: guaiFENesin 600 mg Tablet PO ×2 (09:52→17:24)
[2024-06-09] MEDS: aspirin 325 mg Tablet PO (09:52)
[2024-06-09] MEDS: clopidogrel 75 mg Tablet PO (09:52)
[2024-06-09] MEDS: amlodipine 10 mg Tablet PO (09:52)
[2024-06-09] MEDS: polyethylene glycol 3350 Pkt 17 gm PO (09:54)
[2024-06-09] MEDS: sodium chloride 0.9% 1,000 ML 100 ML IV (10:51)
--- NOTE | 2024-06-09 10:52 | PC.NURSE ---
Patient returned from chemical laboratory scientist with a left angioseal. Patient also has NS running at 100 ml/hr for the total of 1L. Patient can get up at 1330.
--- NOTE | 2024-06-09 12:32 | PC.NURSE ---
Patients lebra 3 is 83 at 1145 and at 1233 was 107. Patient and wants to wait on his lanus due to low blood sugars.
[2024-06-09] MEDS: allopurinol 300 mg Tablet PO (12:36)
[2024-06-09] MEDS: albuterol 2.5 mg/3 mL Neb INHALATION ×2 (13:06→19:49)
[2024-06-09 16:15] LABS: Glucose Point of Care 166 mg/dL (70-110)
[2024-06-09] MEDS: atorvastatin 40 mg Tablet 80 MG PO (20:06)
[2024-06-09] MEDS: latanoprost 0.005% Op Soln 2.5 mL Btl 1 DROP EYE-BOTH (20:06)
[2024-06-09] MEDS: cholecalciferol (vitamin D3) 5,000 unit Tablet 5000 UNIT PO (20:06)
[2024-06-09 20:43] LABS: Glucose Point of Care 198 mg/dL (70-110)
[2024-06-10 00:22] VITALS: BP 118/66; PULSE 96; RESP 19; TEMP 36.8; O2SAT 99
[2024-06-10 04:20] LABS: Basophils % 0.5 %; Eosinophils # 0.3 10^3/uL (0.0-0.8); Eosinophils % 3.4 %; Lymphocytes # 1.4 10^3/uL (0.8-4.8); Lymphocytes % 17.3 %; Mean Corpuscular HGB Conc 30.6 g/dL (30-55); Mean Corpuscular Hemoglobin 29.5 pg (27-33); Mean Corpuscular Volume 96.6 fl (82-101); Mean Platelet Volume 9.9 fL (7.4-10.4); Monocytes # 0.8 10^3/uL (0.2-0.9); Monocytes % 9.9 %; Neutrophils % 68.5 %; Nucleated Red Blood Cells % 0 %; Platelet Count 123 10^3/cmm (157-399); Red Blood Count 3.52 10^6/uL (3.85-5.65); Red Cell Distribution Width 18.1 % (12.1-15.1); White Blood Count 8.31 10^3/uL (3.29-11.43)
[2024-06-10 04:23] VITALS: BP 122/77; PULSE 84; RESP 20; TEMP 36.6; O2SAT 100
[2024-06-10 04:38] LABS: Anion Gap 13.9 (5-19); Blood Urea Nitrogen 47 mg/dL (8-23); Calcium 9.4 mg/dL (8.5-10.5); Carbon Dioxide 29 mmol/L (22-29); Chloride 103 mmol/L (98-107); Glucose 121 mg/dL (65-115); Osmolality Calculated 306 mOsm/kg (285-295); Potassium 4.9 mmol/L (3.5-5.1); Sodium 141 mmol/L (136-145)
[2024-06-10 06:00] VITALS: PULSE 83
[2024-06-10 06:37] LABS: Glucose Point of Care 133 mg/dL (70-110)
[2024-06-10 08:00] VITALS: BP 130/63; PULSE 85; RESP 16; TEMP 36.3; O2SAT 98
--- NOTE | 2024-06-10 08:44 | P.SS_ITS ---
<Statement entered by Robert Hampton MD - 06/10/24 21:03> Patient was evaluated and cared for in conjunction with an advanced practice practitioner. I personally examined the patient and reviewed the chart and all pertinent data including imaging, telemetry, and laboratory results. I discussed the patient in detail with the advanced practice practitioner. Please see their note for complete H&P testing result and agreed upon plan of care for the patient. Patient underwent peripheral angiogram yesterday for lifestyle limiting claudication noted to have chronically occluded right SFA popliteal tibioperoneal trunk faint collaterals with single-vessel runoff was noted below the knee. Atherectomy with balloon angioplasty was performed in tibioperoneal trunk popliteal and SFA. Excellent angiographic result with good presybeterian of flow was noted. At the end of the case three-vessel runoff through collaterals was noted all the way to the foot. Anterior posterior tibial pulses were palpable GENERAL: Patient is alert, awake and oriented x3. HEART: Regular S1 and S2. No murmur, rub or gallop. LUNGS: Clear to auscultate bilaterally. CENTRAL NERVOUS SYSTEM: Grossly nonfocal. EXTREMITIES: Lower extremities with out edema bilaterally. Left groin looks good no hematoma no bruising Assessment and plan Lifestyle limiting claudication status post balloon angioplasty atherectomy of right lower extremity as above Hypertension Chronic kidney disease Patient renal function improved after IV fluid Continue aspirin and statin Plavix add Xarelto 2.5 mg twice daily for 3 months. Follow-up in cardiology clinic in couple of weeks. Function has slightly improved. From a vascular perspective patient can be discharged home Short Stay Summary Providers Date of Admit/Discharge: 06/10/24 Attending Provider: Robert Hampton MD Primary Care Provider: Praveen Shah DO Chief Complaint: pre hydration before cath HPI History of Present Illness Jeff Delvalle is a 78 year old male with history of hypertension, hyperlipidemia, diabetes mellitus, PAD. He was admitted for staged peripheral angiogram with intervention on the right leg, he had previous balloon angioplasty on the left leg in March. Review of Systems Card: Denies: chest pain, palpitations, irregular heart rhythm, edema, swelling of feet/ankles, lightheadedness, syncope, pre-syncope, dyspnea on exertion, orthopnea or leg pain with exertion Resp: Denies: dyspnea, productive cough or non-productive cough GI: Denies: hematochezia : Denies: hematuria Skin/Breast: Reports: surgical incision Ihsan/Lymph: Denies: easy bleeding Home Meds/Allergies Home Medications and Allergies Home Medications ?Medication ?Instructions ?Recorded ?Confirmed ?Type finasteride 5 mg tablet 5 mg PO QAM 06/15/19 5 History magnesium oxide 250 mg PO DAILY@12 06/15/19 06/08/24 History aspirin 325 mg tablet 325 mg PO DAILY 07/18/20 History ascorbic acid (vitamin C) 1,000 mg 500 mg PO DAILY@12 11/09/20 06/08/24 History tablet (Vitamin C) dulaglutide 1.5 mg/0.5 mL 1.5 mg SUBCUT Q7D 11/09/20 0 06/08/24 History subcutaneous pen injector (Trulicity) gabapentin 300 mg capsule 300 mg PO BID 11/09/2006/08 History vit C 250 mg-vit E 90 mg-zinc 40 1 tab PO BID 11/09/20 06/08/24 History mg-copper 1 [id number] capsule (PreserVision AREDS-2) cholecalciferol (vitamin D3) 125 125 mcg PO QPM 06/08/24 History mcg (5,000 unit) tablet (Vitamin D3) latanoprost 0.005 % eye drops 1 drp ophthalmic (eye) Q PM 01/30/22 06/08/24 History zinc acetate 50 mg (zinc) capsule 50 mg PO DAILY@12 06/08/24 History insulin glargine 100 unit/mL 70 unit SUBCUT BID 06/08/24 History subcutaneous solution (Lantus U-100 Insulin) loratadine 10 mg tablet (Allergy 10 mg PO DAILY 06/08/24 History Relief (loratadine)) amlodipine 10 mg tablet 10 mg PO DAILY 09/23/2305/17 History furosemide 40 mg tablet 40 mg PO DAILY 09/23/2305/17 History melatonin 5 mg tablet 5 mg PO BEDTIME 09/23/23 History turmeric root extract 500 mg tablet 2,000 mg PO QPM 06/08/24 History albuterol sulfate 2.5 mg/3 mL 2.5 mg inhalation QAM 06/08/24 History (0.083 %) solution for nebulization guaifenesin 600 mg tablet, 600 mg PO BID Congestion 06/08/24 History extended release 12 hr (Mucinex) oxycodone-acetaminophen 10 mg-325 1 tab PO QID 4 06/08/24 History mg tablet polyethylene glycol 3350 17 gram 17 g PO DAILY 4 06/08/24 History oral powder packet (Miralax) allopurinol 300 mg tablet See Rx Instructions .Route . COMPLEX 12/09/23 06/08/24 History senna-docusate sodium tablet 150 tab PO BEDTIME 06/08/24 History insulin syringe-needle U-100 1 mL #10 ea 02/24/2405/17 History 31 gauge x 5/16 (BD Insulin Syringe Ultra-Fine) pantoprazole 20 mg tablet,delayed 20 mg PO DAILY 06/0806/08/24 History release spironolactone 25 mg tablet 25 mg PO DAILY@12 06/08/24 06/08/24 History Allergies Allergy/AdvReac Type Severity Reaction Status Date / Time carvedilol Allergy Severe Diarrhea & Verified 06/08/24 22:36 SOB losartan Allergy Intermediate Kidney Verified 06/08/24 22:36 injury adhesive tape Allergy Unknown Unknown Verified 06/08/24 22:36 levocetirizine Allergy ADR-Itching Verified 06/08/24 22:36 PFSH Acute PFSH: Medical History CKD (chronic kidney disease) stage 2, GFR 60-89 ml/min 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 GERD (gastroesophageal reflux disease) PHN (postherpetic neuralgia) Kidney disease PAD (peripheral artery disease) Type 2 diabetes mellitus COPD (chronic obstructive pulmonary disease) HTN (hypertension) with goal to be determined Heart failure Surgical History S/P cataract surgery Previous back surgery History of lung surgery Hx of shoulder surgery S/P lobectomy of lung Family History Mother Hypertension Stroke Brother Heart disease Other Diabetes Social History Smoking and tobacco/nicotine status: former use of tobacco/nicotine Quit status (tobacco/nicotine): has quit using Year quit tobacco: 1987 Former quit date comment: [id number] Second hand smoke exposure: No Alcohol intake: never Substance/Drug Use: never Lives independently: Yes Household members: spouse Housing: House Marital status: service: No Current occupational status: retired Pets and animals: Yes Do you think of yourself as: Straight/Heterosexual Current gender identity: Male Vitals/I&O/Wt Last Vital Signs Temp 97.3 F L 06/10/24 08:00 Pulse 85 06/10/24 08:00 Resp 16 06/10/24 08:00 BP 130/63 06/10/24 08:00 Pulse Ox 98 06/10/24 08:00 O2 Del Method Nasal Cannula 06/10/24 08:00 O2 Flow Rate 2 06/10/24 08:00 06/09/24 06/10/24 06/10/24 22:59 06:59 14:59 Intake Total 1680 / 2040 0 / 2040 600 / 600 Output Total 500 / 1000 0 / 1000 Balance 1180 / 1040 0 / 1040 600 / 600 Weight last 48 hrs Weight 223 lb 5.252 oz Weight 227 lb 15.327 oz Weight 229 lb 4.492 oz Physical Exam Const: COMMON NORMALS: no acute distress and patient oriented x3 GENERAL APPEARANCE: cooperative ORIENTATION/CONSCIOUSNESS: Yes awake, Yes oriented to person, Yes oriented to place and Yes oriented to time Chest: COMMONS NORMALS: normal inspection of the chest and normal palpation of entire chest wall CHEST: Yes Symmetrical chest wall rise Resp: COMMON NORMALS: normal respiratory effort, No retractions, No use of accessory muscles and clear to auscultation bilaterally AUSCULTATION: clear to auscultation bilaterally Cardio: COMMON NORMALS: regular rate, regular rhythm, S1 normal heart sound present, S2 normal heart sound present, No gallops present (Cardio), No clicks present (Cardio), No murmurs present (Cardio) and No rub (Cardio) RATE: regular rate RHYTHM: regular rhythm HEART SOUNDS: S1 normal heart sound present and S2 normal heart sound present PERIPHERAL PULSES: radial pulses present positive right 2+ and femoral pulses present positive right 2+ Neuro: COMMON NORMALS: patient oriented x3 and moves all extremities SENSORIUM/ORIENTATION: Yes oriented to person, Yes oriented to place and Yes oriented to time Skin: WOUNDS: Yes surgical site (no hematoma palpable) Details: no odor Hospital Course Hospital Course On 06/09/2024 he underwent unilateral peripheral angiogram on the right leg finding chronically occluded proximal SFA, popliteal, tibioperoneal trunk with no flow below the knee. He was treated with CSI atherectomy, balloon angioplasty of the tibioperoneal trunk, popliteal and right SFA. At the end of the procedure all 3 vessels below the knee were filling. He had Angio-Seal to the left common femoral. This morning he is sitting up in the chair eating breakfast, feeling well. Left femoral cath site looks good, no hematoma or oozing noted. He has been ambulating without difficulty. He received IV fluids overnight prior to the procedure and yesterday due to CKD. Creatinine prior to procedure was 2.0, this morning is 1.9. Will discontinue aspirin and start him on Xarelto 2.5 mg twice a day for 3 months, continue Plavix. Blood pressure is well-controlled. He can follow-up in the cardiology clinic in 7 to 10 days. 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 request for service Routin e Exams 06/09/24 06:51 Taken Discharge Plan Discharge Patient Disposition: Home Prescriptions: New Xarelto 2.5 mg tablet 2.5 mg PO BID Qty: 180 0RF Continued magnesium oxide 250 mg magnesium tablet 250 mg PO DAILY@12 finasteride 5 mg tablet 5 mg PO QAM loratadine [Allergy Relief (loratadine)] 10 mg tablet 10 mg PO DAILY Rx Instructions: at noon (DME) diabetic shoes with 3 inserts See Rx Instructions .Route .MEDSUPPLY Qty: 1 0RF Rx Instructions: As directed to the shoe katelin albuterol sulfate 2.5 mg /3 mL (0.083 %) solution for nebulization 2.5 mg inhalation QAM Miralax 17 gram powder in packet 17 g PO DAILY cholecalciferol (vitamin D3) [Vitamin D3] 125 mcg (5,000 unit) tablet 125 mcg PO QPM sodium chloride [Hyper-Gabino] 7 % solution for nebulization 1 inh inhalation BID Qty: 120 2RF (DME) insulin syringe-needle U-100 [BD Insulin Syringe Ultra-Fine] 1 mL 31 gauge x 5/16 syringe See Rx Instructions .ROUTE .MEDSUPPLY Qty: 10 Rx Instructions: As directed (DME) Diabetic Shoes See Rx Instructions .Route .MEDSUPPLY Qty: 1 0RF Rx Instructions: As directed metoprolol succinate 100 mg tablet extended release 24 hr 100 mg PO DAILY Qty: 90 3RF chlorthalidone 25 mg tablet 25 mg PO DAILY Qty: 90 3RF Trelegy Ellipta 100-62.5-25 mcg blister with device 1 inh inhalation QAM Qty: 180 6RF atorvastatin 80 mg tablet 80 mg PO QPM Qty: 90 3RF clopidogrel 75 mg tablet 75 mg PO DAILY Qty: 90 3RF ascorbic acid (vitamin C) [Vitamin C] 1,000 mg Tablet 500 mg PO DAILY@12 gabapentin 300 mg Capsule 300 mg PO BID PreserVision AREDS-2 250-90-40-1 mg Capsule 1 tab PO BID Trulicity 1.5 mg/0.5 mL pen injector 1.5 mg SUBCUT Q7D Rx Instructions: on Sat Lantus U-100 Insulin 100 unit/mL solution 70 unit SUBCUT BID latanoprost 0.005 % drops 1 drp ophthalmic (eye) QPM zinc acetate 50 mg (zinc) Capsule 50 mg PO DAILY@12 allopurinol 300 mg tablet See Rx Instructions .ROUTE .COMPLEX Rx Instructions: 200 mg orally ;Takes two 100 mg once a day - updated per patient , daily at noon furosemide 40 mg tablet 40 mg PO DAILY melatonin 5 mg Tablet 5 mg PO BEDTIME turmeric root extract 500 mg Tablet 2,000 mg PO QPM amlodipine 10 mg tablet 10 mg PO DAILY Mucinex 600 mg tablet extended release 12hr 600 mg PO BID oxycodone-acetaminophen 10-325 mg tablet 1 tab PO QID senna-docusate sodium Tablet 150 tab PO BEDTIME spironolactone 25 mg tablet 25 mg PO DAILY@12 pantoprazole 20 mg tablet,delayed release (DR/EC) 20 mg PO DAILY Discontinued aspirin 325 mg tablet 325 mg PO DAILY Discharge Orders: Discharge Order (Routine); Ordered 06/10/24 Ordered By: Alesha Clay Referrals: Robert Hampton MD [Physician] - 2 months Alesha Clay FNP [Nurse Practitioner] - 7-10 days Praveen Shah, DO [Primary Care Provider] - (Please make sure patient has f/u with PCP sometime in the next month.) Diet: Advance as tolerated Activity: Increase activity as tolerated Activity Restrictions/Additional Instructions: Do not lift more than 5 pounds for the next 4 days. Print Language: Sami Attestations Medical Necessity Statement*: discharge today Time Spent in Patient Care*: less than 30 min Status at Discharge: Cognitive status at discharge: cognitively intact , Behavioral status at discharge: cooperative , Quality Metrics Clinical Quality Measures: [ No reported AMI, CVA or VTE this stay ] Coding Level of Care Code Acute Code for Chg Fwdilip
[2024-06-10] MEDS: FUROsemide 40 mg Tablet PO (08:56)
[2024-06-10] MEDS: amlodipine 10 mg Tablet PO (08:57)
[2024-06-10] MEDS: finasteride 5 mg Tablet PO (09:05)
[2024-06-10] MEDS: ascorbic acid 500 mg Tablet PO (09:05)
[2024-06-10] MEDS: aspirin 325 mg Tablet PO (09:05)
[2024-06-10] MEDS: clopidogrel 75 mg Tablet PO (09:05)
[2024-06-10] MEDS: chlorthalidone 25 mg Tablet PO (09:05)
[2024-06-10] MEDS: gabapentin 300 mg Capsule PO (09:06)
[2024-06-10] MEDS: metoprolol succinate ER (24 HR) 100 mg Tablet PO (09:06)
[2024-06-10] MEDS: guaiFENesin 600 mg Tablet PO (09:06)
[2024-06-10] MEDS: polyethylene glycol 3350 Pkt 17 gm PO (09:07)
[2024-06-10] MEDS: pantoprazole DR 40 mg Tablet 20 MG PO (09:07)
[2024-06-10] MEDS: insulin glargine 100 units/1 mL 70 UNIT SUBCUT (09:15)
--- NOTE | 2024-06-10 09:27 | PC.CHAP ---
Pastoral Care Encounter/Spiritual Assessment Type of Contact [] Declined quill stripper visit [] Patient/Family/Request visit [] Outpatient visit [] Follow-up visit [] Physician referral [] Code/Alert [x] Routine visit [] Staff referral [] Actively dying [] Patient sleeping [x] Family support [] [] Out of room [] Palliative care [] [] Receiving care in room [] Pre-surgical visit [] Trauma [] Long length of stay [] ICU visit [] Other: Relational/Emotional Strength [x] Patient feels connected with others/family/visitors/staff [] Distress [] Loneliness/isolation [] Abandonment Spirituality of Patient [x] Person of Anette [] Attends Caodaism of their Anette [x] Believes in Prayer [] Reads Bible or Episcopal materials [] There are Spiritual issues to be addressed Wine Maker Interventions [x] Prayer [x] Active listening [x] Non-anxious presence [x] Spiritual/emotional support [] Crisis/trauma care [] Spiritual counseling [] Bereavement support [] Provided bereavement packet [] Provided Bible/devotional materials [] Provided toy/stuffed animal, coloring book to patient or family member [] Provided Communion [] Anointing/[place] [] Salvation x[] Completed spiritual assessment [] Other: Impact on Illness or Injury [] Angry [] Fearful [] Anxious [] Often cries [] Exhaustion [] Unable to work [] Unable to attend faith [] Unable to walk/stand [] Unable to read [] Unable to drive [] Unable to eat/drink [] Unable to sleep [] Unable to be with family [] Patient intubated [] Other: Summary Time spent with patient 5 min
[2024-06-10 09:31] VITALS: PULSE 88; RESP 16; O2SAT 99
[2024-06-10] MEDS: albuterol 2.5 mg/3 mL Neb INHALATION (09:31)
--- NOTE | 2024-06-10 10:43 | PC.SOCIAL ---
IMM Updated Updated pt on IMM. No questions voiced. Provided pt a copy. Initialed, dated, & timed a copy & placed in chart.
--- NOTE | 2024-06-10 11:40 | PC.NURSE ---
All D/C instructions educated to patient and at bedside
[2024-06-10 12:00] VITALS: BP 124/67; PULSE 92; RESP 16; TEMP 37.1; O2SAT 95
[2024-06-10 12:04] LABS: Glucose Point of Care 388 mg/dL (70-110)
--- NOTE | 2024-06-10 13:44 | PC.NURSE ---
IV dc, out of facility [id number] transported home by
== END 2024-06-10 13:27 | disposition home or self-care (01) ==
LOC: CSU 18:57 → CCL 06-09 07:48 → CSU 06-09 07:49
PROVIDERS: PCP Electrodiagnostic Medicine; Visit Provider Internal Medicine Cardiovascular Disease
DX: I70.221 Atherosclerosis of native arteries of extremities with rest pain, right leg (principal); I70.92 Chronic total occlusion of artery of the extremities; K21.9 Gastro-esophageal reflux disease without esophagitis; J44.9 Chronic obstructive pulmonary disease, unspecified; I13.0 Hypertensive heart and chronic kidney disease with heart failure and stage 1 through stage 4 chronic kidney disease, or unspecified chronic kidney disease; E11.22 Type 2 diabetes mellitus with diabetic chronic kidney disease; N18.2 Chronic kidney disease, stage 2 (mild); I50.9 Heart failure, unspecified; Z79.82 Long term (current) use of aspirin; Z79.4 Long term (current) use of insulin
CPT/HCPCS: 36415; 36416; 37225; 37228; 75710; 80048; 82962; 85025; 85347; 94640; 96372; 96374; 99152; 99153; C1724; C1725; C1760; C1769; C1887; C1894; G0269; G0379; J1644; J1815; J2250; J3490; J7030; J7613; J9999; Q0163; Q9967

== ENCOUNTER → 2024-06-25 13:16 | Outpatient (BNVA) | payer MEDICARE, SELFPAY | PROVIDERS: PCP Electrodiagnostic Medicine; Visit Provider Nurse Practitioner Family | DX: Z09 Encounter for follow-up examination after completed treatment for conditions other than malignant neoplasm (principal); L27.0 Generalized skin eruption due to drugs and medicaments taken internally; T45.525A Adverse effect of antithrombotic drugs, initial encounter; I73.9 Peripheral vascular disease, unspecified | CPT/HCPCS: 99214 ==

== ENCOUNTER 2024-07-22 09:47 | Outpatient (CLI) | payer MEDICARE, SELFPAY ==
--- NOTE | 2024-07-22 09:53 | FL_ITS ---
WS: [id number] FL barium swallow modifd 81611 REASON FOR EXAM: Oropharyngeal dysphagia FLUOROSCOPY TIME: 4min [id number] # OF SPOT FILMS: 0 TECHNIQUE: Examination was supervised by the speech therapy department. Patient was evaluated in the sitting upright lateral position. The swallowing of barium of multiple consistencies was monitored fluoroscopically and video recorded. FINDINGS: There was penetration of contrast into the laryngeal vestibule without chip aspiration with thin liquid contrast. This did not resolve with a chin tuck. FL/FL barium swallow modifd 01528 IMPRESSION: Laryngeal vestibule penetration with thin liquids as above. No aspiration. A detailed report of the swallowing will be rendered by the speech therapy depa rtment.
== END 2024-07-22 09:48 | disposition home or self-care (01) ==
PROVIDERS: PCP Electrodiagnostic Medicine; Visit Provider Electrodiagnostic Medicine
DX: R13.12 Dysphagia, oropharyngeal phase (principal); R93.89 Abnormal findings on diagnostic imaging of other specified body structures
CPT/HCPCS: 74230; 92611

== ENCOUNTER → 2024-07-23 09:22 | Outpatient (BNVA) | payer MEDICARE, SELFPAY | PROVIDERS: PCP Electrodiagnostic Medicine; Visit Provider Podiatrist Foot & Ankle Surgery | DX: E11.42 Type 2 diabetes mellitus with diabetic polyneuropathy (principal); B35.1 Tinea unguium; I73.9 Peripheral vascular disease, unspecified; G62.9 Polyneuropathy, unspecified; B35.3 Tinea pedis; Z79.4 Long term (current) use of insulin | CPT/HCPCS: 11721; 99213 ==

== ENCOUNTER → 2024-09-17 15:28 | Outpatient (BNVA) | payer MEDICARE, SELFPAY | PROVIDERS: PCP Electrodiagnostic Medicine; Visit Provider Internal Medicine Cardiovascular Disease | DX: I73.9 Peripheral vascular disease, unspecified (principal); M21.372 Foot drop, left foot; R60.9 Edema, unspecified; Z79.02 Long term (current) use of antithrombotics/antiplatelets; Z87.891 Personal history of nicotine dependence | CPT/HCPCS: 99214 ==

== ENCOUNTER → 2024-09-23 09:36 | Outpatient (BNVA) | payer MEDICARE, SELFPAY | PROVIDERS: PCP Electrodiagnostic Medicine; Visit Provider Podiatrist Foot & Ankle Surgery | DX: E11.42 Type 2 diabetes mellitus with diabetic polyneuropathy (principal); B35.1 Tinea unguium; I73.9 Peripheral vascular disease, unspecified; G62.9 Polyneuropathy, unspecified; Z79.4 Long term (current) use of insulin | CPT/HCPCS: 11721; 99213 ==

== ENCOUNTER → 2024-10-27 13:12 | Outpatient (BNVA) | payer MEDICARE, SELFPAY | PROVIDERS: PCP Electrodiagnostic Medicine; Referring Provider Electrodiagnostic Medicine; Visit Provider Psychiatry & Neurology Neurology | DX: R60.9 Edema, unspecified (principal); M21.379 Foot drop, unspecified foot; M54.9 Dorsalgia, unspecified; M47.816 Spondylosis without myelopathy or radiculopathy, lumbar region; M43.26 Fusion of spine, lumbar region | CPT/HCPCS: 95909 ==

== ENCOUNTER → 2024-11-30 13:16 | Outpatient (BNVA) | payer MEDICARE, SELFPAY | PROVIDERS: PCP Electrodiagnostic Medicine; Visit Provider Internal Medicine | DX: J43.9 Emphysema, unspecified (principal); J18.9 Pneumonia, unspecified organism; I11.0 Hypertensive heart disease with heart failure; I50.9 Heart failure, unspecified; J98.6 Disorders of diaphragm; J30.2 Other seasonal allergic rhinitis; Z90.2 Acquired absence of lung [part of]; Z87.891 Personal history of nicotine dependence; T78.40XA Allergy, unspecified, initial encounter; Y99.9 Unspecified external cause status; J44.9 Chronic obstructive pulmonary disease, unspecified | CPT/HCPCS: 36415; 85025; 86003; 99214 ==

== ENCOUNTER → 2024-12-09 13:20 | Outpatient (BNVA) | payer MEDICARE, SELFPAY | PROVIDERS: PCP Electrodiagnostic Medicine; Visit Provider Podiatrist Foot & Ankle Surgery | DX: E11.42 Type 2 diabetes mellitus with diabetic polyneuropathy (principal); B35.1 Tinea unguium; I73.9 Peripheral vascular disease, unspecified; G62.9 Polyneuropathy, unspecified; R60.9 Edema, unspecified; Z79.4 Long term (current) use of insulin | CPT/HCPCS: 11721; 99213 ==

== ENCOUNTER → 2025-02-17 14:24 | Outpatient (BNVA) | payer MEDICARE, SELFPAY | PROVIDERS: PCP Electrodiagnostic Medicine; Visit Provider Podiatrist Foot & Ankle Surgery | DX: E11.42 Type 2 diabetes mellitus with diabetic polyneuropathy (principal); B35.1 Tinea unguium; I73.9 Peripheral vascular disease, unspecified; G62.9 Polyneuropathy, unspecified; R60.9 Edema, unspecified; Z79.4 Long term (current) use of insulin | CPT/HCPCS: 11721 ==